=== PATIENT | female | born 1945 | race Caucasian/White ===

== ENCOUNTER 2021-12-20 15:41 | Inpatient (IN) | payer MEDICARE, SELFPAY ==
[2021-12-20 15:46] VITALS: BP 144/121; PULSE 84; RESP 16; TEMP 36.5; O2SAT 94; BMI 38.3
--- NOTE | 2021-12-20 16:00 | RAD_ITS ---
STUDY: X-RAY - PELVIS REASON FOR EXAM: Female, 76 years old. [place] pop in the right hip while walking with subsequent pain. History of right hip replacement on 12/11/2021. TECHNIQUE: One view of the pelvis was obtained. COMPARISON: Right femur, 12/20/2021. FINDINGS: There is a non-specific bowel gas pattern. Normal visualized soft tissue structures. Normal bilateral iliac wings, sacroiliac joints and visualized sacrum. Normal visualized bilateral superior and inferior pubic rami. Normal pubic symphysis. Normal ischial tuberosities. There is a right total hip arthroplasty. The prosthetic components are intact and articulate normally with each other. There is no evidence of fracture or loosening from the underlying bone. There is minimal bony productivity off the greater trochanter which approximates the lateral aspect of the acetabulum. Normal visualized left femoral head. Normal left acetabulum. There is moderate articular joint space narrowing of the left hip. RAD/HIP, UNI W/ Pelvis 2-3 Views IMPRESSION: 1. Right artificial hip without evidence of acute abnormality. 2. Degenerative changes of the left hip without acute abnormality. Electronically Signed: Pantera Maldonado DO at 16:49 EDT ,
--- NOTE | 2021-12-20 16:07 | RAD_ITS ---
STUDY: X-RAY - RIGHT FEMUR REASON FOR STUDY: Female, 76 years old. [place] pop while walking. Right hip pain. History of right hip replacement 06/13/2021. TECHNIQUE: AP and lateral view(s) of the femur. COMPARISON: Pelvis, 12/20/2021. FINDINGS: There is a right total hip arthroplasty. The prosthetic components are in intact and articulate normally with each other. There is no fracture or loosening from the underlying bone. Minimal bony productivity is seen off the greater trochanter which approximates the lateral acetabular rim. The remainder of the femur appears intact. There is marked degenerative changes of the knee. Normal visualized soft tissue structure. RAD/Femur Min 2 Views IMPRESSION: 1. Right artificial hip without acute abnormality. 2. Marked degenerative changes of the knee. Electronically Signed: Pantera Maldonado DO at 16:58 EDT ,
[2021-12-20 17:28] VITALS: BP 138/98
--- NOTE | 2021-12-20 17:33 | US_ITS ---
EXAM: US DUPLEX RIGHT LOWER EXTREMITY VEINS CLINICAL INDICATION: RT LEG SWELLING S/P RT HIP SX TECHNIQUE: Real-time duplex ultrasound scan of the right lower extremity veins integrating B-mode two-dimensional vascular structure, Doppler spectral analysis, color flow Doppler imaging and compression. This report was created using [employer] report Live [employer]end[employer] technology. COMPARISON: None. FINDINGS: DEEP VEINS: Unremarkable. No DVT in the visualized common femoral, femoral, proximal deep femoral or popliteal veins. The veins demonstrate normal color flow, are normally compressible, with normal phasic flow and/or augmentation response. SUPERFICIAL VEINS: Unremarkable. No thrombus in the visualized great saphenous vein. SOFT TISSUES: No acute findings. No popliteal cyst. US/Venous Duplex Imag/Limited/Uni IMPRESSION: Normal right lower extremity duplex venous ultrasound. Electronically Signed: Frank Swift MD at 18:56 EDT ,
--- NOTE | 2021-12-20 18:44 | CT_ITS ---
STUDY: CT RIGHT HIP WITHOUT CONTRAST REASON FOR EXAM: Female, 76 years old. Possible periprosthetic fracture. RADIATION DOSAGE (If Supplied By Facility): CTDIvol = ( 28.96 ) mGy, DLP = ( 1447.02 ) mGycm TECHNIQUE: Transaxial imaging of the right hip was performed without oral contrast, and without intravenous administration of contrast material. Multiplanar coronal and sagittal images were reformatted. Individualized dose optimization techniques were used for this CT. COMPARISON: Pelvis: 12/20/2021. Right femur, 12/20/2021 FINDINGS: Normal visualized intracranial pelvic contents. The visualized right sacroiliac joint and sacrum appear normal. Normal iliac wing. Normal right superior and inferior pubic rami and initial tuberosity. There is a right artificial hip. There is no evidence of dislocation. There is no evidence of loosening of the components of the underlying bone. There is a linear fracture of the medial aspect of the proximal femoral shaft. CT/Extremity Lower without Contra IMPRESSION: Fracture of the proximal femoral shaft without loosening of the femoral component of the right artificial hip. Electronically Signed: Pantera Maldonado DO at 19:26 EDT Reading Location ID and State: [facility] Tel [phone], Service support ,
[2021-12-20 19:00] VITALS: BP 140/79; PULSE 84; RESP 16; O2SAT 98
[2021-12-20] MEDS: Morphine 4 MG/ML Syringe IV ×2 (19:00→22:22)
--- NOTE | 2021-12-20 19:51 | ED.VIS.LOWEX ---
HPI History of Present Illness Chief Complaint: Lower Extremity Injury Informant: patient Narrative Narrative: Patient is a 76-year-old female that is 9 days postop from a right total hip arthroplasty with Dr. Aranda. She was walking at home today when she suddenly heard a loud pop in her leg and had significant pain of her leg. She was using a walker and did not fall. She states her leg feels like it stiffened up. She notes that she has had swelling and bruising of her leg and actually had a venous duplex ultrasound a couple days ago at an outside facility. Denies any chest pain, shortness of breath or difficulty breathing. No other complaints at this time. No numbness or tingling. States she does have pain going down her entire leg. No other complaints at this time. [facility] Medical History (Updated 12/20/21 @ 20:[address] Kira Barlow DO) Diabetes mellitus, type 2 GERD (gastroesophageal reflux disease) History of colon cancer Obesity Osteoarthritis Home Medications famotidine 20 mg tablet 1 tab PO DAILY 12/20/21 [History Last Taken Unknown] meloxicam 7.5 mg tablet 1 tab PO BID 12/20/21 [History Last Taken Unknown] metformin 500 mg tablet,extended release 24 hr 1 tab PO DAILY 12/20/21 [History Last Taken Unknown] Allergy/AdvReac Type Severity Reaction Status Date / Time No Known Allergies Allergy Verified 12/20/21 15:42 Family History (Updated 12/20/21 @ 20:[address] Ivone Blanco MD) Mother Diabetes Father Throat cancer Hx concurrent tobacco use. Surgical History (Updated 12/20/21 @ 20:[address] Ivone Blanco MD) History of bowel resection History of umbilical hernia repair S/P right rotator cuff repair Status post total hip replacement, right Social History (Updated 12/20/21 @ 20:[address] Ivone Blanco MD) housing: other details: Cares for her disabled son. Smoking Status: Former smoker how long ago did patient quit smoking: Smoked 1/2 ppd since youth, quit 06/2021. alcohol intake: current alcohol intake frequency: holidays/special occasions only substance use type: does not use ROS ROS ED Constitutional Constitutional ED: Denies chills or fever(s) Eyes Eyes: Denies blurry vision ENT ENT ED: Denies rhinorrhea or sore throat Cardiovascular Cardiovascular: Denies chest pain Respiratory/Chest Respiratory/Chest: Denies cough Gastrointestinal Gastrointestinal: Denies abdominal pain, nausea or vomiting Musculoskeletal Musculoskeletal: Reports other Details: right leg pain , right leg swelling ; Denies arthralgias or back pain Integumentary Reports other Details: bruising to right leg ; Denies rash Neurologic Neurologic: Denies headache(s), paresthesias or weakness Psychiatric Psychiatric: Denies anxiety Hematologic/Lymphatic Hematologic/Lymphatic: Denies easy bleeding or easy bruising EXAM Physical Exam Const Vital Signs: 12/20/21 15:46 12/20/21 17:28 12/20/21 19:00 Temperature 97.7 F L Temperature Source Oral Pulse Rate 84 84 Respiratory Rate 16 16 Blood Pressure 144/121 H 138/98 H 140/79 H Blood Pressure Mean 128 111 99 Pulse Ox 94 98 Oxygen Delivery Method Room Air Room Air Positive well nourished and well developed General Appearance ED: well developed HEENT Reports moist mucous membranes normocephalic and atraumatic Neck full ROM and supple Chest Wall inspection of chest normal Resp normal respiratory effort and clear to auscultation bilaterally Cardio regular rate and regular rhythm GI non-tender and non-distended Extremity Extremity Narrative: Decreased range of motion and pain on range of motion of the right hip. No pinpoint bony tenderness. Patient points to her proximal femur as the area of pain. Associated pitting edema with tracking ecchymosis of the right lower extremity. Compartments are soft. Neuro oriented x3, moves all extremities and no sensory deficits noted Psych mental status grossly normal Skin Skin Narrative: Ecchymosis scattered throughout the right lower extremity, healing surgical incision MDM MDM MDM Narrative Medical decision making narrative: Patient is evaluated for sudden onset of right hip pain. She is 9 days postop from right total hip arthroplasty. Initial x-rays not show any acute fracture. Venous duplex obtained of the right lower extremity given her swelling and discomfort. This is negative. Case is discussed with her surgeon, Dr. Aranda, who recommends CT for concern of fracture that was not visualized on imaging. CT does not fact show a proximal femoral shaft fracture. Patient admitted to the hospitalist service for further management of this. Screening blood work is obtained. Patient is given morphine for pain control in the emergency room in addition to medication she had prearrival. Patient is admitted to hospital service for medical clearance and operative management by orthopedics. Lab Data Labs: Laboratory Results - last 24 hr 12/20/21 12/20/21 19:29 19:29 WBC 5.8 RBC 3.13 L Hgb 10.2 L Hct 30.2 L MCV 96.5 MCH 32.6 H MCHC 33.8 RDW Std Deviation 47.7 H RDW Coeff of Albert 13.6 Plt Count 137 L MPV 8.8 Immature Gran % (Auto) 0.700 Neut % (Auto) 75.0 H Lymph % (Auto) 14.6 L [place] % (Auto) 7.5 Eos % (Auto) 1.7 Baso % (Auto) 0.5 Absolute Neuts (auto) 4.4 Absolute Lymphs (auto) 0.85 Nucleated RBC % 0 Sodium 142 Potassium 4.3 Chloride 111 H Carbon Dioxide 27.0 Anion Gap 4 L BUN 16 Creatinine 0.62 Estim Creat Clear Calc 40.21 Est GFR (MDRD) Af Amer 121 Est GFR (MDRD) Non-Af 100 BUN/Creatinine Ratio 25.8 H Glucose 126 H Calcium 9.3 Radiography X-Ray: Left Hip, Read by ED Physician, Read by Radiologist and No Fracture Diagnostic Testing: Clinical Impression(s) from Imaging Studies Hip/Pelvis X-Ray 12/20/21 16:00 IMPRESSION: 1. Right artificial hip without evidence of acute abnormality. 2. Degenerative changes of the left hip without acute abnormality. Electronically Signed: Pantera Maldonado DO at 16:49 EDT Reading Location ID and State: [facility] / [place] Tel [phone], Service support , Femur X-Ray 12/20/21 16:07 IMPRESSION: 1. Right artificial hip without acute abnormality. 2. Marked degenerative changes of the knee. Electronically Signed: Pantera Maldonado DO at 16:58 EDT , Venous Duplex 12/20/21 17:33 IMPRESSION: Normal right lower extremity duplex venous ultrasound. Electronically Signed: Frank Swift MD at 18:56 EDT Reading Location ID and State: [facility] / [place] Tel , Service support , Lower Extremity CT 12/20/21 18:44 IMPRESSION: Fracture of the proximal femoral shaft without loosening of the femoral component of the right artificial hip. Electronically Signed: Pantera Maldonado DO at 19:26 EDT Reading Location ID and State: [address] [place] [address] Tel [phone], Service support , Discharge Plan Triage Chief Complaint: Lower Extremity Injury ED Provider: Kira Barlow Dx/Rx/DC Orders Clinical Impression: Right femoral shaft fracture Prescriptions: No Action meloxicam 7.5 mg tablet 1 tab PO BID Label Comments: take 1 tablet by mouth twice a day metformin 500 mg tablet extended release 24 hr 1 tab PO DAILY Label Comments: take 1 tablet by mouth once daily famotidine 20 mg tablet 1 tab PO DAILY Label Comments: take 1 tablet by mouth once daily Primary Care Provider: Christopher Spencer Referrals: Christopher Spencer DO [Primary Care Provider] - Disposition Disposition: Acute Care Hospital [facility]
[2021-12-20 19:53] LABS: Anion Gap 4 (5-15); BUN 16 mg/dL (7-18); BUN/Creat Ratio 25.8 RATIO (10-20); Calcium,Total 9.3 mg/dL (8.5-10.1); Chloride 111 mmol/L (98-107); Creatinine, Serum 0.62 mg/dL (0.55-1.02); EST Glomerular Filtration Rate 100 mL/min (>60); Est Glom Filt Rate - Afr Amer 121 mL/min (>60); Estimated Creatinine Clearance 40.21 ml/min; Glucose 126 mg/dL (74-106); Potassium 4.3 mmol/L (3.5-5.1); Sodium Level 142 mmol/L (136-145)
[2021-12-20 20:14] LABS: Absolute Lymphocyte Count 0.85 X10^3/uL (0.83-4.51); Absolute Neutrophil Count 4.4 X10^3/uL (2.0-7.7); Basophil# 0.03 X10^3/uL; Basophil% 0.5 % (0-1); Eosinophils% 1.7 % (0-5); Hematocrit 30.2 % (37-47); Hemoglobin 10.2 g/dL (12.0-15.0); Lymphocyte # 0.85 X10^3/ul (0.83-4.51); Lymphocyte % 14.6 % (19-41); Mean Corp Hgb Conc 33.8 g/dL (32-36); Mean Corpuscular Hgb 32.6 pg (27.0-32.0); Mean Corpuscular Volume 96.5 fL (81-99); Mean Platelet Vol. 8.8 fl (6.2-12.0); Monocyte# 0.44 X10^3/uL; Monocyte% 7.5 % (0-10); NRBC Flagged by Analyzer 0 % (0-5); Neutrophil # 4.38 X10^3/uL (2.7-7.7); Platelet Count 137 K/mm3 (150-450); RBC Distribution Width CV 13.6 % (11.6-14.6); RBC Distribution Width SD 47.7 fl (35.1-43.9); Red Blood Count 3.13 M/mm3 (4.2-5.4); White Blood Count 5.8 K/mm3 (4.4-11.0)
--- NOTE | 2021-12-20 20:28 | HP.PCM.HOS_ITS ---
HPI - General General Date of Admission: 12/20/21 Date of Service: 12/20/21 Chief Complaint: R hip/leg pop, followed by pain, recent 12/11/21 R THR HPI Narrative The patient is a 76 y/o F w/ PMHx: GERD, Hx Colon CA s/p resection in remission, OA, Obesity, Diabetes mellitus type II, recent R THR per Dr. Aranda on 12/11/21 with noted return to home following her procedure who presents to the [facility] ED on 12/20/21 with history of walking in her home with no fall or injury but noted sudden popping sound from her R hip region with immediate sudden onset severe R hip/RLE pain, severe 8-10/10 in severity initially, notes following recent morphine improving to 6-8/10. She notes that she was recently seen following OR on the Friday of this week secondary to concerns for profound RLE swelling and staged ecchymoses with unremarkable evaluation at that time. Work-up in the ED included T97.7, heart rate 84, BP 144/121 initially with most recent repeat 140/79, respiratory rate 16, 98% on room air, CBC with WC 5.8, hemoglobin 10.2, platelet 137 without marked shift, BMP with chloride 111, glucose 126 otherwise not marked appearing, plain film of the right hip and pelvis with right artificial hip present with no evidence of abnormality with degenerative changes of the left hip without any acute abnormality, plain film right femoral region with right artificial hip without any acute abnormality with marked generative changes of the knee, right lower extremity venous duplex ultrasound with no obvious DVT, CT right hip with fracture of the proximal femoral shaft without loosening of the femoral component of the right artificial hip. ED physician discussed case with Dr. Aranda who performed her recent surgery who requested medical admission with planned n.p.o. status at midnight for possible or intervention. [facility] Medical History (Updated 12/20/21 @ 20:[address] Kira Barlow, ) Diabetes mellitus, type 2 GERD (gastroesophageal reflux disease) History of colon cancer Obesity Osteoarthritis Home Medications famotidine 20 mg tablet 1 tab PO DAILY 12/20/21 [History Last Taken Unknown] meloxicam 7.5 mg tablet 1 tab PO BID 12/20/21 [History Last Taken Unknown] metformin 500 mg tablet,extended release 24 hr 1 tab PO DAILY 12/20/21 [History Last Taken Unknown] Allergy/AdvReac Type Severity Reaction Status Date / Time No Known Allergies Allergy Verified 12/20/21 15:42 Family History (Updated 12/20/21 @ 20:[address] Ivone Blanco MD) Mother Diabetes Father Throat cancer Hx concurrent tobacco use. Surgical History (Updated 12/20/21 @ 20:[address] Ivone Blanco MD) History of bowel resection History of umbilical hernia repair S/P right rotator cuff repair Status post total hip replacement, right Social History (Updated 12/20/21 @ 20:[address] Ivone Blanco MD) household members: family Smoking Status: Never smoker how long ago did patient quit smoking: Smoked 1/2 ppd since youth, quit 06/2021. alcohol intake: never substance use type: does not use ROS ROS Narrative Admission Review of Systems: CONSTITUTIONAL: No weight loss, fever, chills, + weakness or fatigue. HEENT: Eyes: No visual loss, blurred vision, double vision or yellow sclerae. Ears, Nose, Throat: No hearing loss, sneezing, congestion, runny nose or sore throat. SKIN: No rash or itching, lesions, wounds except recent R THR w/ incision, BL LE venous stasis skin changes. CARDIOVASCULAR: No chest pain, chest pressure or chest discomfort, palpitations, edema, orthopnea, syncopal events. RESPIRATORY: No shortness of breath, cough or sputum, wheezing, hemoptysis. GASTROINTESTINAL: No anorexia, nausea, vomiting or diarrhea, abdominal pain, melena, BRBPR. GENITOURINARY: No dysuria, frequency, urgency or retention. NEUROLOGICAL: No headache, dizziness, syncope, paralysis, ataxia, numbness or tingling in the extremities, focal weakness, change in bowel or bladder control, seizure. MUSCULOSKELETAL: + muscle, back pain, joint pain or stiffness. HEMATOLOGIC: + anemia, bleeding or bruising. LYMPHATICS: No enlarged nodes. No history of splenectomy. PSYCHIATRIC: No history of depression or anxiety. ENDOCRINOLOGIC: No reports of sweating, cold or heat intolerance. No polyuria or polydipsia. ALLERGIES: No history of asthma, hives, eczema or rhinitis. Vital Signs Vital Signs Vital Signs: 12/20/21 15:46 12/20/21 17:28 Temperature 97.7 F L Temperature Source Oral Pulse Rate 84 Respiratory Rate 16 Blood Pressure 144/121 H 138/98 H Blood Pressure Mean 128 111 Pulse Ox 94 Oxygen Delivery Method Room Air Weight Weight: 216 lb 7.903 oz Body Mass Index (BMI) 38.3 Physical Exam Narrative Physical Examination: General: Awake, alert, oriented x 3 and cooperative, laying in the ED bed, uncomfortable, reports pain currently 6-8 out of 10 in severity. Skin: Normal color, normal turgor, no icterus, no cyanosis except recent right total hip replacements with incisions intact, no drainage, bilateral lower extremity right greater than left venous stasis in addition to staged ecchymoses right lower extremity. HEENT: AT/NC, EOMI, PERRLA, MMM, no carotid bruits or JVD noted. Lungs: CTA bilaterally, moderate effort, mild decrease BL bases, no rales, ronchi or wheezing. Heart: Regular rate and rhythm; no gallop, rub audible. Abdomen: Soft, obese, NTTP, ND, distant normal BS, no HSM. Extremities: No cyanosis, no clubbing, right lower extremity with significant pedal to proximal abernathy pitting edema, staged ecchymoses, recent right total hip replacement with incisions intact no drainage. Neurological: Patient awake, alert, oriented x 3, cognitive function intact; pupils equally reactive to light and accommodation, cranial nerves II-XII grossly normal, moving all 4 extremities except expected right lower extremity limitation given intractable pain with femoral shaft fracture, no focal deficits, strength severely global decrease secondary to acute presentation Psychiatric: Affect appears fatigued, uncomfortable, no acute evidence of depressive or anxiety feelings. Results Lab / Micro Data Result Diagrams: 12/20/21 19:29 12/20/21 19:29 Labs: Laboratory Results - last 24 hr 12/20/21 19:29: WBC 5.8, RBC 3.13 L, Hgb 10.2 L, Hct 30.2 L, MCV 96.5, MCH 32.6 H, MCHC 33.8, RDW Std Deviation 47.7 H, RDW Coeff of Albert 13.6, Plt Count 137 L, MPV 8.8, Immature Gran % (Auto) 0.700, Neut % (Auto) 75.0 H, Lymph % (Auto) 14.6 L, [place] % (Auto) 7.5, Eos % (Auto) 1.7, Baso % (Auto) 0.5, Absolute Neuts (auto) 4.4, Absolute Lymphs (auto) 0.85, Nucleated RBC % 0 12/20/21 19:29: Sodium 142, Potassium 4.3, Chloride 111 H, Carbon Dioxide 27.0, Anion Gap 4 L, BUN 16, Creatinine 0.62, Estim Creat Clear Calc 40.21, Est GFR (MDRD) Af Amer 121, Est GFR (MDRD) Non-Af 100, BUN/Creatinine Ratio 25.8 H, Glucose 126 H, Calcium 9.3 Radiology Impression Hip/Pelvis X-Ray 12/20/21 16:00 IMPRESSION: 1. Right artificial hip without evidence of acute abnormality. 2. Degenerative changes of the left hip without acute abnormality. Electronically Signed: Pantera Maldonado DO at 16:49 EDT Reading Location ID and State: [facility] / [place] Tel [phone], Service support , Femur X-Ray 12/20/21 16:07 IMPRESSION: 1. Right artificial hip without acute abnormality. 2. Marked degenerative changes of the knee. Electronically Signed: Pantera Maldonado DO at 16:58 EDT Reading Location ID and State: [facility] / [place] Tel [phone], Service support , Venous Duplex 12/20/21 17:33 IMPRESSION: Normal right lower extremity duplex venous ultrasound. Electronically Signed: Frank Swift MD at 18:56 EDT , Lower Extremity CT 12/20/21 18:44 IMPRESSION: Fracture of the proximal femoral shaft without loosening of the femoral component of the right artificial hip. Electronically Signed: Pantera Maldonado DO at 19:26 EDT , Assessment & Plan Assessment/Plan (1) Right femoral shaft fracture: PLAN: Plan The patient is a 76 y/o F w/ PMHx: GERD, Hx Colon CA s/p resection in remission, OA, Obesity, Diabetes mellitus type II, recent R THR per Dr. Aranda on 12/11/21 with noted return to home following her procedure who presents to the [facility] ED on 12/20/21 with history of walking in her home with no fall or injury but noted sudden popping sound from her R hip region with immediate sudden onset severe R hip/RLE pain, severe 8-10/10 in severity initially, notes following recent morphine improving to 6-8/10. She notes that she was recently seen following OR on the Friday of this week secondary to concerns for profound RLE swelling and staged ecchymoses with unremarkable evaluation at that time. #1. General debility, RLE, R hip pain s/p recent R THR: Follow-up CT imaging with evidence of proximal femoral shaft fracture without loosening of femoral component of the right artificial hip with etiology of fracture likely secondary to some mechanism related with recent surgery. Orthopedic surgery consulted from ED. Will admit to [facility], maintain NPO after midnight, continue gentle IVFs, fortune placement, monitor I/Os, frequent positioning, fall precautions, PRN Pain, anti-emetic regimen. PT/OT following operative intervention. CM consulted for discharge planning. Per NSQIP patient expected average risk for operative intervention with recent preoperative clearance for recent 12/11/2021 surgical intervention thus agree with progression OR. #2. Diabetes mellitus type II: Hold oral home regimen, ADA diet until n.p.o. status, accu checks w/ ISS. #3. Obesity: Weight loss and lifestyle changes encouraged. #4. GERD: We will continue patient on famotidine regimen. #5. History colon cancer: Status post resection, in remission. #6. DVT prophylaxis: SCDs, defer chemoprophylaxis for planned OR. #7. CODE status: Patient WILLIAM is her daughter and her granddaughter was present and living will is currently in place. Discussed CODE status at length including difference between FULL code, DNR-CCA and DNR-CC status. Following discussions about the differences in these status, requested Full Code status. Advanced Care Planning Face to Face Time: 16 minutes. Charges/Coding Visit Charges Inpatient E&M: 32439 Init Hosp L3 Procedures Hospitalists Procedures: 75174 Advncd Care Plan 30 Min
[2021-12-20 20:42] VITALS: BP 140/79; PULSE 85; RESP 14; TEMP 36.3; O2SAT 99
[2021-12-20 22:45] LABS: Bedside Glucose 112 mg/dL (74-106)
[2021-12-20 22:53] VITALS: BMI 34.4
[2021-12-20] MEDS: 0.9% Normal Saline 1,000 ML 100 ML IV ×2 (22:57→23:16)
[2021-12-20] MEDS: Senna/Docusate Sodium 1 Tablet 2 TABLET PO (23:16)
[2021-12-20] MEDS: Meloxicam 7.5 MG Tablet PO (23:16)
[2021-12-20 23:21] VITALS: BP 136/47; PULSE 84; RESP 16; TEMP 37; O2SAT 96
[2021-12-21] VITALS (11 sets, daily range): BP systolic 115–154; BP diastolic 43–89; PULSE 73–86; RESP 16–18; TEMP 36.2–37.3; O2SAT 90–100; BMI 34.9
[2021-12-21 05:29] LABS: Absolute Lymphocyte Count 0.92 X10^3/uL (0.83-4.51); Absolute Neutrophil Count 2.8 X10^3/uL (2.0-7.7); Basophil# 0.01 X10^3/uL; Basophil% 0.2 % (0-1); Eosinophil# 0.11 X10^3/uL; Eosinophils% 2.6 % (0-5); Hematocrit 29.6 % (37-47); Hemoglobin 9.7 g/dL (12.0-15.0); Lymphocyte # 0.92 X10^3/ul (0.83-4.51); Lymphocyte % 21.5 % (19-41); Mean Corp Hgb Conc 32.8 g/dL (32-36); Mean Corpuscular Hgb 32.1 pg (27.0-32.0); Mean Platelet Vol. 8.9 fl (6.2-12.0); Monocyte# 0.41 X10^3/uL; Monocyte% 9.6 % (0-10); NRBC Flagged by Analyzer 0 % (0-5); Neutrophil % 65.4 % (47-70); Platelet Count 118 K/mm3 (150-450); RBC Distribution Width CV 13.4 % (11.6-14.6); RBC Distribution Width SD 47.6 fl (35.1-43.9); Red Blood Count 3.02 M/mm3 (4.2-5.4); White Blood Count 4.3 K/mm3 (4.4-11.0)
[2021-12-21 05:38] LABS: International Normalized Ratio 1.2; Prothrombin Time (Protime)PT. 14.9 SECONDS (11.7-14.9)
[2021-12-21 05:39] LABS: Partial Thromboplast Time 40.1 Seconds (24.1-36.2)
[2021-12-21 05:55] LABS: ALB/GLOB Ratio 0.7 RATIO (0.9-2.4); AST(SGOT) 24 U/L (15-37); Alanine Aminotransfer ALT/SGPT 20 U/L (13-56); Albumin, Serum 2.3 g/dL (3.2-5.0); Alkaline Phosphatase 109 U/L (45-117); Anion Gap 3 (5-15); BUN 13 mg/dL (7-18); BUN/Creat Ratio 27.1 RATIO (10-20); Calcium,Total 8.8 mg/dL (8.5-10.1); Chloride 112 mmol/L (98-107); Creatinine, Serum 0.48 mg/dL (0.55-1.02); EST Glomerular Filtration Rate 134 mL/min (>60); Est Glom Filt Rate - Afr Amer 162 mL/min (>60); Estimated Creatinine Clearance 41.97 ml/min; Globulin 3.1 g/dL (2.2-4.2); Glucose 104 mg/dL (74-106); Potassium 4.2 mmol/L (3.5-5.1); Protein, Total 5.4 g/dL (6.4-8.2); Sodium Level 143 mmol/L (136-145)
--- NOTE | 2021-12-21 06:00 | EKG12_ITS ---
Test Reason : AM EKG Blood Pressure : / mmHG Vent. Rate : 078 BPM Atrial Rate : 078 BPM P-R Int : 136 ms QRS Dur : 088 ms QT Int : 408 ms P-R-T Axes : 030 049 037 degrees QTc Int : 465 ms Normal sinus rhythm Normal ECG No previous ECGs available Confirmed by MEHNAZ MCCORMICK, JENNIFER ([id number]), editor managing director JEFFREY LEON ([id number]) on 12/31/2021 2:10:28 PM Referred By: WILMAN Confirmed By:JENNIFER DARBY MD
[2021-12-21] MEDS: Morphine 4 MG/ML Syringe IV ×2 (06:37→20:55)
[2021-12-21 06:50] LABS: Bedside Glucose 108 mg/dL (74-106)
--- NOTE | 2021-12-21 07:25 | PCM.PN.HOSP ---
Subjective Subjective Patient is a 76-year-old lady with a recent right total hip arthroplasty on 12/11/2021 who presented with pain in the right hip. She apparently had a pop while walking and noted shortening involving the right lower extremity. Presented to the emergency department imaging studies obtained demonstrated fracture of the proximal femoral shaft without loosening of the femoral component of the right artificial hip. Admitted to regular nursing floor with consultation placed orthopedic surgery Objective Data Objective Data Vital Signs: Vital Signs Temp Pulse Resp BP Pulse Ox O2 Del Method 98.5 F 79 16 132/43 H 97 Room Air 12/21/21 03:33 12/21/21 03:33 12/21/21 03:33 12/21/21 03:33 12/21/21 03:33 12/21/21 03:33 Oxygen Delivery Method Room Air Weight: 92.3 kg Body Mass Index (BMI) 34.4 Intake & Output: Intake and Output for Last 24 Hours 12/19/21 12/20/21 12/21/21 23:59 23:59 23:59 Intake Total 31.67 / 631.67 600 / 600 Output Total 875 / 875 Balance 31.67 / 431.67 -275 / -275 Lab / Micro Data Result Diagrams: 12/21/21 05:10 12/21/21 05:10 Labs: Laboratory Results - last 24 hr 12/20/21 19:29: WBC 5.8, RBC 3.13 L, Hgb 10.2 L, Hct 30.2 L, MCV 96.5, MCH 32.6 H, MCHC 33.8, RDW Std Deviation 47.7 H, RDW Coeff of Albert 13.6, Plt Count 137 L, MPV 8.8, Immature Gran % (Auto) 0.700, Neut % (Auto) 75.0 H, Lymph % (Auto) 14.6 L, [place] % (Auto) 7.5, Eos % (Auto) 1.7, Baso % (Auto) 0.5, Absolute Neuts (auto) 4.4, Absolute Lymphs (auto) 0.85, Nucleated RBC % 0 12/20/21 19:29: Sodium 142, Potassium 4.3, Chloride 111 H, Carbon Dioxide 27.0, Anion Gap 4 L, BUN 16, Creatinine 0.62, Estim Creat Clear Calc 40.21, Est GFR (MDRD) Af Amer 121, Est GFR (MDRD) Non-Af 100, BUN/Creatinine Ratio 25.8 H, Glucose 126 H, Calcium 9.3 12/20/21 22:16: POC Glucose 112 H 12/21/21 05:10: WBC 4.3 L, RBC 3.02 L, Hgb 9.7 L, Hct 29.6 L, MCV 98.0, MCH 32.1 H, MCHC 32.8, RDW Std Deviation 47.6 H, RDW Coeff of Albert 13.4, Plt Count 118 L, MPV 8.9, Immature Gran % (Auto) 0.700, Neut % (Auto) 65.4, Lymph % (Auto) 21.5, [place] % (Auto) 9.6, Eos % (Auto) 2.6, Baso % (Auto) 0.2, Absolute Neuts (auto) 2.8, Absolute Lymphs (auto) 0.92, Nucleated RBC % 0 12/21/21 05:10: Sodium 143, Potassium 4.2, Chloride 112 H, Carbon Dioxide 28.0, Anion Gap 3 L, BUN 13, Creatinine 0.48 L, Estim Creat Clear Calc 41.97, Est GFR (MDRD) Af Amer 162, Est GFR (MDRD) Non-Af 134, BUN/Creatinine Ratio 27.1 H, Glucose 104, Calcium 8.8, Total Bilirubin 0.90, AST 24, ALT 20, Alkaline Phosphatase 109, Total Protein 5.4 L, Albumin 2.3 L, Globulin 3.1, Albumin/Globulin Ratio 0.7 L 12/21/21 05:10: PT 14.9, INR 1.2, APTT 40.1 H 12/21/21 05:10: Blood Type O POSITIVE, Antibody Screen NEGATIVE 12/21/21 06:33: POC Glucose 108 H Radiography Diagnostic Testing: Radiology Impression Hip/Pelvis X-Ray 12/20/21 16:00 IMPRESSION: 1. Right artificial hip without evidence of acute abnormality. 2. Degenerative changes of the left hip without acute abnormality. Electronically Signed: Pantera Maldonado DO at 16:49 EDT Reading Location ID and State: [address] [place] [address] Tel [phone], Service support , Femur X-Ray 12/20/21 16:07 IMPRESSION: 1. Right artificial hip without acute abnormality. 2. Marked degenerative changes of the knee. Electronically Signed: Pantera Maldonado DO at 16:58 EDT , Venous Duplex 12/20/21 17:33 IMPRESSION: Normal right lower extremity duplex venous ultrasound. Electronically Signed: Frank Swift MD at 18:56 EDT , Lower Extremity CT 12/20/21 18:44 IMPRESSION: Fracture of the proximal femoral shaft without loosening of the femoral component of the right artificial hip. Electronically Signed: Pantera Maldonado DO at 19:26 EDT , Physical Exam Narrative GENERAL: cooperative HEENT: Atraumatic; EYES; Anicteric, Normal Conjunctiva NECK; supple, normal thyroid, RESPIRATORY: Diminished to auscultation CARDIOVASCULAR: Regular S1 S2, GI: soft, normoactive bowel sounds, : No Renal angle tenderness; EXTREMITIES: No edema, no clubbing, MUSCULOSKELETAL: no muscle wasting NEURO: Awake; no lateralizing signs. SKIN: No Rash PSYCH; Flat affect Assessment & Plan Assessment/Plan (1) Right femoral shaft fracture: PLAN: Plan Patient is a 76-year-old lady with a recent right total hip arthroplasty on 12/11/2021 who presented with pain in the right hip. She apparently had a pop while walking and noted shortening involving the right lower extremity. Presented to the emergency department imaging studies obtained demonstrated fracture of the proximal femoral shaft without loosening of the femoral component of the right artificial hip. Admitted to regular nursing floor with consultation placed orthopedic surgery 1. Right proximal femoral fracture ? Admitted to regular nursing floor. Currently managed with immobilization pain management with consultation placed to orthopedic surgery. Patient preop assessment as documented by admitting physician. Plan for patient to undergo surgical intervention. Dr. Aranda with orthopedic surgery consulted 2. Diabetes mellitus type II ? Patient on metformin held please on Accu-Cheks before meals and at bedtime with sliding scale coverage 3. GERD ? Patient is on famotidine continue 4. Class I obesity with BMI of 34.9 ? Weight loss advised 5. History of colon CA ? Status post resection has since remained in remission 6. DVT prophylaxis ? SCDs for now with plans to initiate chemoprophylaxis following surgery Charges/Coding Visit Charges Inpatient E&M: 40424 Subs Hosp L3
[2021-12-21 07:54] LABS: Hemoglobin A1c 4.8 % (3.8-5.6)
[2021-12-21] MEDS: 0.9% Normal Saline 1,000 ML 100 ML IV ×2 (08:52→21:01)
--- NOTE | 2021-12-21 10:49 | CASEMGMT ---
WILIAM LUNA Assessment: Face to Face with pt for initial transition planning/care coordination assessment. WILIAM LUNA introduced self and role at [facility], pt voices understanding and consents to assessment. Pt is A/O x4 and answers all questions appropriately at this time. Pt lying in bed in no distress with granddtr, grandson and great grandson at bedside. Care providers, pharmacy, and demographics verified/updated. Admitting Dx: R femoral shaft fx, recent R THR PCP: Johanna Specialists:romero Aranda current and has seen Carlos in the past for her shoulder Preferred Pharmacy: [facility] Insurance: [employer] Prescription Benefit: yes LW/HPOA: Pt states she has a LW/DPOA and her DPOA is her dtr Maria Esther Vieira. She is aware this is not on file at [facility] and she may bring in to be scanned into her chart. LNOK: Maria Esther Vieira, dtr; Shelli Phelps, granddtr Living Arrangements: Pt lives alone in a single story house with 3 steps to enter with a rail. Pt is currently staying with her sister Leroy in [place] since her outpatient THR on December 11. She has been going to outpt therapy since that surgery. Pt states she is I in ADL's and denies concerns at home. Transportation: Pt sister Blanca or Leroy has been providing transportation for pt. She denies concerns with this. DME/HHC/SNF: Pt has a FWW, w/c, shower chair, polar care and wedge at home. Pt denies hx of HHC or SNF stays. Pt states no concerns with going back to her sister's home at time of dc. Pt has not yet had surgery. She would like to continue her outpt therapy at [facility]. She is aware we will see how she does with therapy for final dc disposition post surgery. Pt states no further concerns/needs. Pt granddtr in agreement with this plan. CM to follow. Advised pt to ask CM if any further question/concerns/needs arise, voices understanding. Pt Goal: Stay with sister and receive outpt therapy Plan: TBD, pt has not yet had surgery
[2021-12-21 12:15] LABS: Bedside Glucose 97 mg/dL (74-106)
--- NOTE | 2021-12-21 14:29 | CHAPLAIN ---
Type of Pastoral Visit _x__ Initial Visit ___ Follow-up Visit ___ On-call Visit ___ General Patient Visit ___ Spiritual Assessment ___ Family Conference ___ Bereavement ___ Rapid Response ___ Code Blue ___ Other (describe below) Pastoral Care Referral From _x__ Patient ___ Family ___ Nurse ___ Physician ___ Insurance Assistant ___ Psychiatric Assistant ___ Other (describe below) Sacrament/Intervention _x__ Active listening ___ Anointing ___ Protestant ___ Bereavement ___ Communion ___ Nancy exploration ___ ___ Life review _x__ Prayer ___ Reconciliation ___ Sacrament of Sick _x__ Supportive presence ___ Wedding ___ Other (describe below) Pastoral Comments met with patient who is having surgery this afternoon; time to listen, offer of support, prayers for surgery and recovery
--- NOTE | 2021-12-21 14:54 | CASEMGMT ---
Social Work Per RNCM note, pt has a living will and healthcare POA naming her daughter. Pt is aware that copies are not on file at [facility] and it was requested she bring them in. SAMIR Dawkins
--- NOTE | 2021-12-21 15:31 | PCM.CONS.GEN ---
Assessment & Plan Assessment/Plan (1) Right femoral shaft fracture: PLAN: Patient has right periprosthetic proximal femur fracture. CT scan and x-rays were reviewed. Stem shows subsidence and a clamshell medial calcar type fracture. Natural history of the disease process and treatment options were discussed with the patient. This time I recommended revision of the stem with fixation of the fracture and revision of the acetabular component from a polyethylene liner to an MDM liner. Patient demonstrated understanding was able to sign informed consent. Risks of surgeries were discussed with the patient including but not limited to blood loss, DVTs, PEs, nervous damage, infection, the risk of anesthesia including loss of life. She recently underwent her total hip replacement without medical complications. However she has some continued anemia likely related to acute blood loss from surgical intervention. Patient will be typed and screened we will transfuse as necessary. Patient demonstrates understanding of the natural history and the risks and benefits today her sister was at bedside and demonstrate understanding as well. We also discussed potential for leg length discrepancies and instability especially after 2 recent hip surgeries. (2) History of total right hip arthroplasty: PLAN: See above plan (3) Anemia: PLAN: Type and screen obtained. We will transfuse as necessary. Currently vital signs are stable. HPI Consult Data Date of Consult: 12/21/21 HPI Narrative HPI Narrative: ABDIRAHMAN ROGERS, is a 76 F who presents today with right hip pain. Patient has a history of diabetes mellitus. She had previous total hip replacement on December 11. She was doing well postoperatively. She went to physical therapy yesterday and had done well. She was walking around her house when she felt a pop in her right thigh. She notes inability to bear weight. Her sister whom she was staying with brought a chair over. They then brought her to the emergency department where she was complaining of pain. Patient's pain is 10 out of 10 with weightbearing. Improved with rest and nonweightbearing as well as pain medications. No associated numbness and tingling. Denies fevers chills or night sweats. Denies any antecedent pain prior to this. Hemoglobin is 9.7 likely related to postoperative blood loss from recent surgery. [facility] Medical History Diabetes mellitus, type 2 GERD (gastroesophageal reflux disease) History of colon cancer Obesity Osteoarthritis Home Medications famotidine 20 mg tablet 1 tab PO DAILY GERD 12/20/21 [History Last Taken 12/20/21] meloxicam 7.5 mg tablet 1 tab PO BID pain 12/20/21 [History Last Taken 12/20/21] metformin 500 mg tablet,extended release 24 hr 1 tab PO DINNER diabetes 12/20/21 [History Last Taken 12/20/21] Allergy/AdvReac Type Severity Reaction Status Date / Time No Known Allergies Allergy Verified 12/20/21 15:42 Family History Mother Diabetes Father Throat cancer Hx concurrent tobacco use. Surgical History History of bowel resection History of umbilical hernia repair S/P right rotator cuff repair Status post total hip replacement, right Social History household members: family Smoking Status: Never smoker how long ago did patient quit smoking: Smoked 1/2 ppd since youth, quit 06/2021. alcohol intake: never substance use type: does not use ROS Constitutional Constitutional: Reports systems reviewed and no addt'l complaints, except as documented Eyes Eyes: Reports systems reviewed and no addt'l complaints, except as documented ENT HEENT: Reports systems reviewed and no addt'l complaints, except as documented Cardiovascular Cardiovascular: Reports systems reviewed and no addt'l complaints, except as documented Respiratory/Chest Respiratory/Chest: Reports systems reviewed and no addt'l complaints, except as documented Gastrointestinal Gastrointestinal: Reports systems reviewed and no addt'l complaints, except as documented Genitourinary Genitourinary: Reports systems reviewed and no addt'l complaints, except as documented Musculoskeletal Musculoskeletal: Reports systems reviewed and no addt'l complaints, except as documented Integumentary Integumentary: Reports systems reviewed and no addt'l complaints, except as documented Neurologic Neurologic: Reports systems reviewed and no addt'l complaints, except as documented Psychiatric Psychiatric: Reports systems reviewed and no addt'l complaints, except as documented Endocrine Endocrinology: Reports systems reviewed and no addt'l complaints, except as documented Hematologic/Lymphatic Hematologic/Lymphatic: Reports systems reviewed and no addt'l complaints, except as documented Allergic/Immunologic Allergic/Immunologic: Reports systems reviewed and no addt'l complaints, except as documented Physical Exam Const alert, oriented x3 and no apparent distress General Appearance: cooperative, comfortable and well kempt HEENT normocephalic Eyes PERRL Neck No nuchal rigidity Resp normal respiratory effort Cardio Jugular Venous Distention: Negative for JVD GI non-distended Extremity Extremity Narrative: Right lower extremity: Lower extremity is shortened. Mild swelling of the thigh. Anterior incision is well-approximated and healing appropriately. Pain with logroll. Positive dorsiflexion EHL plantar flexion. Positive sensation intact light touch saphenous, sural, superficial peroneal, deep peroneal tibial nerve distributions. Skin Skin Narrative: Anterior incision healing well well approximated. Neuro oriented x3 Psych mental status grossly normal Medical Records Data Attestation: I reviewed the patient's medical records Lab / Micro Data Attestation: I reviewed the patient's lab results. Result Diagrams: 12/21/21 05:10 12/21/21 05:10 Labs: Laboratory Results - last 24 hr 12/20/21 19:29: WBC 5.8, RBC 3.13 L, Hgb 10.2 L, Hct 30.2 L, MCV 96.5, MCH 32.6 H, MCHC 33.8, RDW Std Deviation 47.7 H, RDW Coeff of Albert 13.6, Plt Count 137 L, MPV 8.8, Immature Gran % (Auto) 0.700, Neut % (Auto) 75.0 H, Lymph % (Auto) 14.6 L, [place] % (Auto) 7.5, Eos % (Auto) 1.7, Baso % (Auto) 0.5, Absolute Neuts (auto) 4.4, Absolute Lymphs (auto) 0.85, Nucleated RBC % 0 12/20/21 19:29: Sodium 142, Potassium 4.3, Chloride 111 H, Carbon Dioxide 27.0, Anion Gap 4 L, BUN 16, Creatinine 0.62, Estim Creat Clear Calc 40.21, Est GFR (MDRD) Af Amer 121, Est GFR (MDRD) Non-Af 100, BUN/Creatinine Ratio 25.8 H, Glucose 126 H, Calcium 9.3 12/20/21 22:16: POC Glucose 112 H 12/21/21 05:10: WBC 4.3 L, RBC 3.02 L, Hgb 9.7 L, Hct 29.6 L, MCV 98.0, MCH 32.1 H, MCHC 32.8, RDW Std Deviation 47.6 H, RDW Coeff of Albert 13.4, Plt Count 118 L, MPV 8.9, Immature Gran % (Auto) 0.700, Neut % (Auto) 65.4, Lymph % (Auto) 21.5, [place] % (Auto) 9.6, Eos % (Auto) 2.6, Baso % (Auto) 0.2, Absolute Neuts (auto) 2.8, Absolute Lymphs (auto) 0.92, Nucleated RBC % 0 12/21/21 05:10: Sodium 143, Potassium 4.2, Chloride 112 H, Carbon Dioxide 28.0, Anion Gap 3 L, BUN 13, Creatinine 0.48 L, Estim Creat Clear Calc 41.97, Est GFR (MDRD) Af Amer 162, Est GFR (MDRD) Non-Af 134, BUN/Creatinine Ratio 27.1 H, Glucose 104, Calcium 8.8, Total Bilirubin 0.90, AST 24, ALT 20, Alkaline Phosphatase 109, Total Protein 5.4 L, Albumin 2.3 L, Globulin 3.1, Albumin/Globulin Ratio 0.7 L 12/21/21 05:10: PT 14.9, INR 1.2, APTT 40.1 H 12/21/21 05:10: Hemoglobin A1c 4.8 12/21/21 05:10: Blood Type O POSITIVE, Antibody Screen NEGATIVE 12/21/21 06:33: POC Glucose 108 H 12/21/21 11:52: POC Glucose 97 Radiology Impression Hip/Pelvis X-Ray 12/20/21 16:00 IMPRESSION: 1. Right artificial hip without evidence of acute abnormality. 2. Degenerative changes of the left hip without acute abnormality. Electronically Signed: Pantera Maldonado DO at 16:49 EDT Reading Location ID and State: [facility] / [place] Tel [phone], Service support , Femur X-Ray 12/20/21 16:07 IMPRESSION: 1. Right artificial hip without acute abnormality. 2. Marked degenerative changes of the knee. Electronically Signed: Pantera Maldonado DO at 16:58 EDT , Venous Duplex 12/20/21 17:33 IMPRESSION: Normal right lower extremity duplex venous ultrasound. Electronically Signed: Frank Swift MD at 18:56 EDT , Lower Extremity CT 12/20/21 18:44 IMPRESSION: Fracture of the proximal femoral shaft without loosening of the femoral component of the right artificial hip. Electronically Signed: Pantera Maldonado DO at 19:26 EDT ,
[2021-12-21] MEDS: Cefazolin 2 GM in 0.9% Normal Saline 100 ML IV (15:58)
--- NOTE | 2021-12-21 18:35 | OP.PCM_ITS ---
Report of Operation Date of Procedure: 12/21/21 Pre-Operative Diagnosis: Right hip periprosthetic femur fracture [place] B2 Post-Operative Diagnosis: Right hip periprosthetic femur fracture [place] B2 Surgery/Procedure Performed:: Open reduction internal fixation proximal femur fracture with revision total hip replacement both components Description of Surgical Findings:: Hip acetabular component was revised to an MDM component secondary to concerns for stability after fracture. Leg lengths were equal in the lateral decubitus position. Hip was stable with 45 degrees combined anteversion. Surgeon: Temo Aranda rn transfer: Denise Velazquez Type of Anesthesia: General Anesthesiologist: Vern Wright Special Medications: 2 g of Ancef. Specimen's removed: No specimens Estimated Blood Loss (mL): 450 Fluids Replaced: 1500 mL crystalloid Description of Procedure: Findings: Adequate reduction with stability of the hip and equal leg lengths measured intraoperatively. Components used: 1. Patrica confucianism modular femoral stem 155 x 19 mm. 25+0 cone body 2. Patrica MDM cobalt-chromium liner alpha code D 3. [place]rica X3 polyethylene liner, alpha code D, 38 mm outer diameter 4. [place] Biolox delta 22.2 mm, 3 mm neck femoral head Brief history operative indications: 76-year-old female who presented to the emergency department after feeling a snap in her leg. She was 7 days postop from total replacement. She was found to have a periprosthetic fracture along the medial calcar. Risks and benefits were discussed with the patient which included but were not limited to blood loss, DVTs, PEs, infection, neurovascular damage, and dislocation. In light of all this patient did agree to proceed with a ORIF with revision total hip arthroplasty. Procedure: On the date of procedure the patient's r hip was marked in the preoperative area. Patient was then taken back to the operating room where anesthesia assumed control of the C-spine and airway and administered anesthetic. Patient was transferred to the operating table and placed in the lateral decubitus position with the affected hip up. The patient was secured in the bed with the lateral positioners and leg lengths were checked. The r lower extremity was then prepped out in a sterile fashion using chlorhexidine while the surgeon scrubbed. Upon reentering the room the r lower extremity was draped in the standard orthopedic fashion and the incision was marked. A timeout was called and everyone agreed upon the side, the site, the procedure be performed, antibiotics given, and patient's identity. At this time incision was made through skin, subcutaneous tissue, and fat down to fascia. The fascia was then incised and a Charley retractor was placed. The soft tissue was then cleared from the posteri or external rotators and the piriformis was identified. Piriformis was taken down and tagged. The remainder of the short external rotators were taken down. Once we are able to identify the prosthesis we carefully dissected along the neck of the prosthesis and made posterior capsular tissue flap. We then carefully dissected down the femoral neck and exposed the proximal femur. We could then dislocate the hip once we did this we were able to disengage the Sampson taper and then remove the femoral stem. We could not identify the clamshell fracture. At this time we directed our attention towards the acetabulum. Due to concerns for instability due to anterior and posterior approach we went ahead and remove the polyethylene liner. Once this was done we carefully irrigated out the wound with 6 L of normal saline. Once this was done we then began without reconstruction. We again exposed the acetabulum with an anterior retractor and zelpi retractor for the soft tissue sleeve. The MDM liner was opened and impacted into place. Liner was examined and appeared to be adequately seated. We then tested it and it was seated well engaging the Sampson taper. We then directed our attention back to the femur. After the proximal femur was exposed we carefully passed 2 cables one above the lesser trochanter one below the lesser trochanter and passing these cables we carefully stayed on the bone and underneath muscular tissues. Once the cables were passed we then tightened them down fixing the fracture. Once the fracture was fixed we directed our attention towards reconstructing the femur. We carefully reamed 19 mm 155 mm stem. The stem was opened and impacted into place used a conical splined stem. After this was stably fixed we then reamed for the proximal cone body to 25 mm body. 25 mm posterior body was fixed into place. A trial +3 mm femoral head was then placed on the trunnion. The hip was properly reduced using traction and external rotation. Stability was checked with the appropriate amount of shuck, no impingement with external rotation, and stable at 90? flexion and 90? internal rotation. Leg lengths were checked and were found to be equal on the table. Once the hip was determined to be stable the trial components were dislocated and trial components were removed. The final components were verified and opened. The wound was copiously irrigated out with normal saline. The acetabulum was checked for any residual debris. The final components were placed and impacted. Traction and external rotation were again used to reduce the hip. After adequate reduction the hip remained stable with appropriate leg lengths. The wound was then copiously irrigated with normal saline once more, and hemostasis was obtained. The posterior capsule was tagged and then repaired through drill holes to the greater trochanter . Closure was then done using #1 Vicryl to close the fascia. #1 Vicryl was used to close the deep fatty layer. A 2-0 Vicryl interrupted sutures were used to close the subcutaneous skin. Skin nehal and V-Loc suture were used for final watertight skin closure. A sterile dressing was placed. Patient was awakened by anesthesia and transferred to the [facility]. Patient was then transferred to the PACU for recovery. Postoperative plan: Patient will get 24 hours postop antibiotics. Patient will get in-house physical therapy and will be weight-bear as tolerated. Patient will follow up in office in 2 weeks for a wound check and x-rays. Patient replaced on doxycycline 100 mg twice daily postoperatively due to high risk for infection based on proximity of 2 surgeries. Additionally we will place the patient on 81 mg aspirin twice daily for DVT prophylaxis for 4 weeks. Admit VTE Documentation VTE Present on Admission: No VTE Mechan Device Prophylaxis: SCD's and Thigh High THOMAS Hose VTE Pharm Prophylaxis ordered?: Yes
--- NOTE | 2021-12-21 19:28 | RAD_ITS ---
EXAM: XR RIGHT HIP WITH PELVIS WHEN PERFORMED, 2 OR 3 VIEWS CLINICAL INDICATION: Post Op -- AP both hips on single swati/lateral of op hip PACU TECHNIQUE: Two or three views of the right hip with pelvis when performed. This report was created using [email or web address] report generation technology. COMPARISON: 12/20/2021. FINDINGS: BONES/JOINTS: Status post revision right hip arthroplasty with prosthesis in good position. Moderate joint space narrowing left hip. No displaced fracture. No destructive or sclerotic lesions. Note that overlapping bowel shadows may however obscure fine detail. Sacroiliac joint is unremarkable. No widening of the pubic symphysis. SOFT TISSUES: Unremarkable. No soft tissue swelling or gas. RAD/Hip Min 2 Views (Portable) IMPRESSION: 1. Status post revision right hip arthroplasty with prosthesis in good position. 2. Moderate joint space narrowing left hip. Electronically Signed: Frank Swift MD at 20:04 EDT ,
[2021-12-21] MEDS: Meloxicam 7.5 MG Tablet PO (21:05)
[2021-12-21] MEDS: Acetaminophen 500 MG Tablet 1000 MG PO (21:05)
[2021-12-21] MEDS: Senna/Docusate Sodium 1 Tablet 2 TABLET PO (21:06)
[2021-12-21] MEDS: Doxycycline 100 MG CAPSULE PO (21:12)
[2021-12-21] MEDS: Aspirin 81 MG TAB.CHEW PO (21:12)
[2021-12-21] MEDS: Insulin Lispro 100 UNIT/ML INSULN.PEN SC (21:33)
[2021-12-21 22:06] LABS: Bedside Glucose 169 mg/dL (74-106)
[2021-12-21] MEDS: Cefazolin 1 GM/50 ML BAG IV (23:48)
[2021-12-22] VITALS (9 sets, daily range): BP systolic 101–133; BP diastolic 41–83; PULSE 61–97; RESP 18–20; TEMP 36.2–37.4; O2SAT 86–100
[2021-12-22] MEDS: Acetaminophen 500 MG Tablet 1000 MG PO ×3 (06:31→22:55)
[2021-12-22 07:00] LABS: Hematocrit 25.3 % (37-47); Hemoglobin 8.3 g/dL (12.0-15.0); Mean Corp Hgb Conc 32.8 g/dL (32-36); Mean Corpuscular Hgb 32.8 pg (27.0-32.0); Mean Platelet Vol. 8.8 fl (6.2-12.0); Platelet Count 132 K/mm3 (150-450); RBC Distribution Width CV 13.5 % (11.6-14.6); RBC Distribution Width SD 49.2 fl (35.1-43.9); Red Blood Count 2.53 M/mm3 (4.2-5.4); White Blood Count 6.7 K/mm3 (4.4-11.0)
[2021-12-22 07:10] LABS: Bedside Glucose 115 mg/dL (74-106)
[2021-12-22] MEDS: traMADol 50 MG Tablet PO ×2 (07:17→20:09)
--- NOTE | 2021-12-22 07:28 | PCM.PN.HOSP ---
Subjective Subjective Patient underwent Open reduction internal fixation proximal femur fracture with revision total hip replacement both components. Hgb down to 8.3 Objective Data Objective Data Vital Signs: Vital Signs Temp Pulse Resp BP Pulse Ox O2 Del Method O2 Flow Rate 97.2 F L 71 18 111/68 100 Room Air 2 12/22/21 06:27 12/22/21 06:27 12/22/21 06:27 12/22/21 06:27 12/22/21 06:27 12/22/21 06:27 12/22/21 06:24 Oxygen Flow Rate (L/min) 2 Oxygen Delivery Method Room Air Weight: 96.5 kg Body Mass Index (BMI) 34.9 Intake & Output: Intake and Output for Last 24 Hours 12/20/21 12/21/21 12/22/21 23:59 23:59 23:59 Intake Total 31.67 / 631.67 2870 / 2870 50 / 50 Output Total 2275 / 2275 Balance 31.67 / 431.67 595 / 595 50 / 50 Lab / Micro Data Result Diagrams: 12/22/21 06:05 12/22/21 06:05 Labs: Laboratory Results - last 24 hr 12/21/21 05:10: Hemoglobin A1c 4.8 12/21/21 11:52: POC Glucose 97 12/21/21 21:29: POC Glucose 169 H 12/22/21 06:05: WBC 6.7, RBC 2.53 L, Hgb 8.3 L, Hct 25.3 L, MCV 100.0 H, MCH 32.8 H, MCHC 32.8, RDW Std Deviation 49.2 H, RDW Coeff of Albert 13.5, Plt Count 132 L, MPV 8.8 12/22/21 06:30: POC Glucose 115 H Radiography Diagnostic Testing: Radiology Impression Hip X-Ray 12/21/21 19:28 IMPRESSION: 1. Status post revision right hip arthroplasty with prosthesis in good position. 2. Moderate joint space narrowing left hip. Electronically Signed: Frank Swift MD at 20:04 EDT , Physical Exam Narrative GENERAL: cooperative HEENT: Atraumatic; EYES; Anicteric, Normal Conjunctiva NECK; supple, normal thyroid, RESPIRATORY: Diminished to auscultation CARDIOVASCULAR: Regular S1 S2, GI: soft, normoactive bowel sounds, : No Renal angle tenderness; EXTREMITIES: No edema, no clubbing, MUSCULOSKELETAL: no muscle wasting NEURO: Awake; no lateralizing signs. SKIN: No Rash PSYCH; Flat affect Assessment & Plan Assessment/Plan (1) Right femoral shaft fracture: PLAN: Plan Patient is a 76-year-old lady with a recent right total hip arthroplasty on 12/11/2021 who presented with pain in the right hip. She apparently had a pop while walking and noted shortening involving the right lower extremity. Presented to the emergency department imaging studies obtained demonstrated fracture of the proximal femoral shaft without loosening of the femoral component of the right artificial hip. Admitted to regular nursing floor with consultation placed orthopedic surgery 1. Right proximal femoral fracture ? Admitted to regular nursing floor. Currently managed with immobilization pain management with consultation placed to orthopedic surgery. Patient preop assessment as documented by admitting physician. Plan for patient to undergo surgical intervention. Dr. Aranda with orthopedic surgery consulted -12/22/2021; Patient underwent Open reduction internal fixation proximal femur fracture with revision total hip replacement both components by Dr. Aranda on 12/21/2021 2. Anemia ? Secondary to anemia of chronic disorder as well as acute blood loss anemia following surgery hemoglobin down to 8.3 monitoring H&H with plans to transfuse if hemoglobin falls below 7 or patient becomes symptomatic 3. Diabetes mellitus type II ? Patient on metformin held please on Accu-Cheks before meals and at bedtime with sliding scale coverage 4. GERD ? Patient is on famotidine continue 5. History of colon CA ? Status post resection has since remained in remission 6. Class I obesity with BMI of 34.9 ? Weight loss advised 7. DVT prophylaxis ? SCDs for now with plans to initiate chemoprophylaxis following surgery -12/22/2021 placed on aspirin 81 mg p.o. twice daily by orthopedic surgery Charges/Coding Visit Charges Inpatient E&M: 72697 Subs Hosp L2
[2021-12-22 07:30] LABS: Anion Gap 3 (5-15); BUN 13 mg/dL (7-18); BUN/Creat Ratio 25.4 RATIO (10-20); Calcium,Total 8.2 mg/dL (8.5-10.1); Chloride 111 mmol/L (98-107); Creatinine, Serum 0.51 mg/dL (0.55-1.02); EST Glomerular Filtration Rate 124 mL/min (>60); Est Glom Filt Rate - Afr Amer 151 mL/min (>60); Estimated Creatinine Clearance 41.97 ml/min; Glucose 121 mg/dL (74-106); Potassium 4.6 mmol/L (3.5-5.1); Sodium Level 142 mmol/L (136-145)
[2021-12-22] MEDS: Cefazolin 1 GM/50 ML BAG IV (08:00)
[2021-12-22] MEDS: Aspirin 81 MG TAB.CHEW PO ×2 (08:20→16:15)
[2021-12-22] MEDS: Famotidine 20 MG Tablet PO (08:20)
[2021-12-22] MEDS: Doxycycline 100 MG CAPSULE PO ×2 (08:20→22:55)
[2021-12-22] MEDS: Senna/Docusate Sodium 1 Tablet 2 TABLET PO (08:21)
[2021-12-22] MEDS: Meloxicam 7.5 MG Tablet PO ×2 (08:21→22:55)
[2021-12-22] MEDS: Ensure Surgery 237 ML LIQUID PO ×2 (08:24→16:16)
[2021-12-22] MEDS: 0.9% Normal Saline 1,000 ML 100 ML IV ×2 (10:41→20:04)
--- NOTE | 2021-12-22 11:17 | PCM.PN.ORT ---
Subjective Subjective The patient was sitting in bedside chair upon examination with family present. Patient denies any chest pain, shortness of breath, lightheadedness, nausea or vomiting, or calf pain. Pain is controlled on medications. No adverse overnight events. Patient did have some dizziness with physical therapy when getting up from the chair. Patient was found to have a periprosthetic fracture 7 days postop from a direct anterior total hip arthroplasty. This procedure was done posterior approach and I did discuss with her precautions postoperatively for 3 months. Objective Data Objective Data Vital Signs: Vital Signs Temp Pulse Resp BP Pulse Ox O2 Del Method O2 Flow Rate 98.1 F 63 18 101/63 96 Room Air 2 12/22/21 08:16 12/22/21 08:16 12/22/21 08:16 12/22/21 08:16 12/22/21 08:16 12/22/21 08:18 12/22/21 06:24 Oxygen Flow Rate (L/min) 2 Oxygen Delivery Method Room Air Weight: 96.5 kg Body Mass Index (BMI) 34.9 Intake & Output: Intake and Output for Last 24 Hours 12/20/21 12/21/21 12/22/21 23:59 23:59 23:59 Intake Total 31.67 / 631.67 2870 / 2870 1100 / 1100 Output Total 2275 / 2275 Balance 31.67 / 431.67 595 / 595 1100 / 1100 Lab / Micro Data Result Diagrams: 12/22/21 06:05 12/22/21 06:05 Labs: Laboratory Results - last 24 hr 12/21/21 11:52: POC Glucose 97 12/21/21 21:29: POC Glucose 169 H 12/22/21 06:05: WBC 6.7, RBC 2.53 L, Hgb 8.3 L, Hct 25.3 L, MCV 100.0 H, MCH 32.8 H, MCHC 32.8, RDW Std Deviation 49.2 H, RDW Coeff of Albert 13.5, Plt Count 132 L, MPV 8.8 12/22/21 06:05: Sodium 142, Potassium 4.6, Chloride 111 H, Carbon Dioxide 28.0, Anion Gap 3 L, BUN 13, Creatinine 0.51 L, Estim Creat Clear Calc 41.97, Est GFR (MDRD) Af Amer 151, Est GFR (MDRD) Non-Af 124, BUN/Creatinine Ratio 25.4 H, Glucose 121 H, Calcium 8.2 L 12/22/21 06:30: POC Glucose 115 H Radiography Diagnostic Testing: Radiology Impression Hip X-Ray 12/21/21 19:28 IMPRESSION: 1. Status post revision right hip arthroplasty with prosthesis in good position. 2. Moderate joint space narrowing left hip. Electronically Signed: Frank Swift MD at 20:04 EDT , Physical Exam Narrative Vital signs stable and afebrile. SCDs and THOMAS hose are in place bilaterally. Previous anterior approach incision is healing well without any erythema or signs of an infection. There is swelling to the right thigh, thigh is soft and supple Patient is able to plantarflex and dorsiflex actively. Sensation is intact to light touch to saphenous, sural, superficial and deep peroneal, and tibial distribution. Posterior dressing is clean dry and intact. Negative Homans bilaterally, negative signs and symptoms of DVT. Const alert, oriented x3 and no apparent distress Assessment & Plan Assessment/Plan (1) History of revision of total replacement of right hip joint: PLAN: 1. S/P open reduction internal fixation proximal femur fracture with revision total hip replacement both components POD #1 2. Continue Pain Medications: Tylenol, meloxicam, tramadol for breakthrough pain 3. DVT Prophylaxis: Take 81 mg aspirin twice daily for 4 weeks postoperatively for DVT prophylaxis 4. PT/OT: Weightbearing as tolerated with walker. Please follow posterior hip dislocation precautions for 3 months postoperatively. This was discussed with the patient and family member today. 5. H & H: 8.3/25.3, asymptomatic. Postoperative anemia secondary to acute blood loss from surgery without any intra operative complications. Preoperatively patient was at 9.7 with her hemoglobin. She did have some dizziness today getting up from a chair with physical therapy. Overall vitals appear stable. No tachycardia. 6. Encouraged Incentive Spirometry 7. Continue medical treatment per medicine 8. Continue with doxycycline for 2 weeks postoperatively due to high risk for infection based on the proximity of 2 surgeries 9. Disposition: Patient and family states that they would like to try for her to go home with her sister which she did for her for surgery. I explained to her that we will have case management involved and make sure she is discharged in a safe and appropriate manner. Continue with pain medications and DVT prophylaxis above. Would also want to continue monitoring patient's hemoglobin as there has been a drop to 8.3 today. She did have some dizziness. Recommend repeat CBC and BMP tomorrow. We will continue to follow the patient tomorrow. This dictation was created using voice recognition software. Phonetic and/or grammatical errors may exist.
[2021-12-22 12:00] LABS: Bedside Glucose 181 mg/dL (74-106)
[2021-12-22 16:46] LABS: Bedside Glucose 129 mg/dL (74-106)
[2021-12-22] MEDS: Insulin Lispro 100 UNIT/ML INSULN.PEN SC (22:56)
[2021-12-23 00:26] LABS: Bedside Glucose 154 mg/dL (74-106)
[2021-12-23] MEDS: traMADol 50 MG Tablet PO (03:58)
[2021-12-23] MEDS: 0.9% Saline Lock 10 ML Syringe IV ×3 (03:58→22:56)
[2021-12-23 04:02] VITALS: BP 134/48; PULSE 86; RESP 20; TEMP 36.7; O2SAT 97
[2021-12-23] MEDS: Acetaminophen 500 MG Tablet 1000 MG PO ×3 (06:20→20:57)
[2021-12-23 06:21] LABS: Hematocrit 22.5 % (37-47); Hemoglobin 7.5 g/dL (12.0-15.0); Mean Corp Hgb Conc 33.3 g/dL (32-36); Mean Corpuscular Hgb 32.1 pg (27.0-32.0); Mean Corpuscular Volume 96.2 fL (81-99); Platelet Count 118 K/mm3 (150-450); RBC Distribution Width CV 13.8 % (11.6-14.6); RBC Distribution Width SD 47.8 fl (35.1-43.9); Red Blood Count 2.34 M/mm3 (4.2-5.4); White Blood Count 7.4 K/mm3 (4.4-11.0)
[2021-12-23 06:51] LABS: Bedside Glucose 128 mg/dL (74-106)
--- NOTE | 2021-12-23 07:28 | PN.HOSP_ITS ---
Subjective Subjective Patient seen was able to participate in physical therapy today prior. Hemoglobin down to 7.5. Patient started on iron supplementation Objective Data Objective Data Vital Signs: Vital Signs Temp Pulse Resp BP Pulse Ox O2 Del Method O2 Flow Rate 98.1 F 86 20 H 134/48 H 97 Room Air 2 12/23/21 04:02 12/23/21 04:02 12/23/21 04:02 12/23/21 04:02 12/23/21 04:02 12/23/21 04:02 12/22/21 06:24 Oxygen Flow Rate (L/min) 2 Oxygen Delivery Method Room Air Weight: 96.5 kg Body Mass Index (BMI) 34.9 Intake & Output: Intake and Output for Last 24 Hours 12/21/21 12/22/21 12/23/21 23:59 23:59 23:59 Intake Total 2870 / 2870 2158.33 / 3158.33 2190 / 2190 Output Total 2275 / 2275 Balance 595 / 595 2158.33 / 3158.33 2190 / 2190 Lab / Micro Data Result Diagrams: 12/23/21 05:53 12/22/21 06:05 Labs: Laboratory Results - last 24 hr 12/22/21 06:05: Sodium 142, Potassium 4.6, Chloride 111 H, Carbon Dioxide 28.0, Anion Gap 3 L, BUN 13, Creatinine 0.51 L, Estim Creat Clear Calc 41.97, Est GFR (MDRD) Af Amer 151, Est GFR (MDRD) Non-Af 124, BUN/Creatinine Ratio 25.4 H, Glucose 121 H, Calcium 8.2 L 12/22/21 11:35: POC Glucose 181 H 12/22/21 16:14: POC Glucose 129 H 12/22/21 22:53: POC Glucose 154 H 12/23/21 05:53: WBC 7.4, RBC 2.34 L, Hgb 7.5 L, Hct 22.5 L, MCV 96.2, MCH 32.1 H , MCHC 33.3, RDW Std Deviation 47.8 H, RDW Coeff of Albert 13.8, Plt Count 118 L, MPV 9.0 12/23/21 06:20: POC Glucose 128 H Physical Exam Narrative GENERAL: cooperative HEENT: Atraumatic; EYES; Anicteric, Normal Conjunctiva NECK; supple, normal thyroid, RESPIRATORY: Diminished to auscultation CARDIOVASCULAR: Regular S1 S2, GI: soft, normoactive bowel sounds, : No Renal angle tenderness; EXTREMITIES: No edema, no clubbing, MUSCULOSKELETAL: no muscle wasting NEURO: Awake; no lateralizing signs. SKIN: No Rash PSYCH; Flat affect Assessment & Plan Assessment/Plan (1) Right femoral shaft fracture: PLAN: Plan Patient is a 76-year-old lady with a recent right total hip arthroplasty on 12/11/2021 who presented with pain in the right hip. She apparently had a pop while walking and noted shortening involving the right lower extremity. P resented to the emergency department imaging studies obtained demonstrated fracture of the proximal femoral shaft without loosening of the femoral component of the right artificial hip. Admitted to regular nursing floor with consultation placed orthopedic surgery 1. Right proximal femoral fracture ? Admitted to regular nursing floor. Currently managed with immobilization pain management with consultation placed to orthopedic surgery. Patient preop assessment as documented by admitting physician. Plan for patient to undergo surgical intervention. Dr. Aranda with orthopedic surgery consulted -12/22/2021; Patient underwent Open reduction internal fixation proximal femur fracture with revision total hip replacement both components by Dr. Aranda on 12/21/2021 ? 12/23/2021 consult placed to case management to assist with disposition 2. Anemia ? Secondary to anemia of chronic disorder as well as acute blood loss anemia following surgery hemoglobin down to 8.3 monitoring H&H with plans to transfuse if hemoglobin falls below 7 or patient becomes symptomatic ? 12/23/2021 further drop in patient hemoglobin level. Patient started on iron supplementation 3. Diabetes mellitus type II ? Patient on metformin held please on Accu-Cheks before meals and at bedtime with sliding scale coverage 4. GERD ? Patient is on famotidine continue 5. History of colon CA ? Status post resection has since remained in remission 6. Class I obesity with BMI of 34.9 ? Weight loss advised 7. DVT prophylaxis ? SCDs for now with plans to initiate chemoprophylaxis following surgery -12/22/2021 placed on aspirin 81 mg p.o. twice daily by orthopedic surgery Charges/Coding Visit Charges Inpatient E&M: 16351 Subs Hosp L2
[2021-12-23 07:51] VITALS: O2SAT 96
[2021-12-23] MEDS: Doxycycline 100 MG CAPSULE PO ×2 (08:19→20:57)
[2021-12-23] MEDS: Aspirin 81 MG TAB.CHEW PO ×2 (08:19→16:58)
[2021-12-23] MEDS: Senna/Docusate Sodium 1 Tablet 2 TABLET PO (08:19)
[2021-12-23] MEDS: Meloxicam 7.5 MG Tablet PO ×2 (08:19→20:58)
[2021-12-23] MEDS: Ensure Surgery 237 ML LIQUID PO ×3 (08:19→16:58)
[2021-12-23] MEDS: Famotidine 20 MG Tablet PO (08:19)
[2021-12-23 10:00] VITALS: BP 94/71; PULSE 80; RESP 18; TEMP 37.1; O2SAT 96
[2021-12-23] MEDS: Iron Polysaccharide Complex 150 MG CAPSULE PO (11:12)
[2021-12-23] MEDS: Sodium Ferric Gluconat 250 MG in 0.9% Normal Saline 250 ML 135 MG IV (11:12)
--- NOTE | 2021-12-23 11:15 | PCM.PN.ORT ---
Subjective Subjective Patient reports feeling well overall. She has more pain from this procedure than previous procedures on the right hip. She notes she was able to get up with therapy and walk to the edge of the bed yesterday and was able to get up and walk to the restroom this morning. She notes more pain with weightbearing. She reports some continued lightheadedness with walking with staff. She denies any chest pain or shortness of breath. No acute events overnight. Objective Data Objective Data Vital Signs: Vital Signs Temp Pulse Resp BP Pulse Ox O2 Del Method O2 Flow Rate 98.7 F 80 18 94/71 96 Room Air 2 12/23/21 10:00 12/23/21 10:00 12/23/21 10:00 12/23/21 10:00 12/23/21 10:00 12/23/21 10:00 12/22/21 06:24 Oxygen Flow Rate (L/min) 2 Oxygen Delivery Method Room Air Weight: 212 lb 11.937 oz Body Mass Index (BMI) 34.9 Intake & Output: Intake and Output for Last 24 Hours 12/21/21 12/22/21 12/23/21 23:59 23:59 23:59 Intake Total 2870 / 2870 2158.33 / 3158.33 2190 / 2190 Output Total 2275 / 2275 Balance 595 / 595 2158.33 / 3158.33 2190 / 2190 Lab / Micro Data Attestation: I reviewed the patient's lab results. Result Diagrams: 12/23/21 05:53 12/22/21 06:05 Labs: Laboratory Results - last 24 hr 12/22/21 11:35: POC Glucose 181 H 12/22/21 16:14: POC Glucose 129 H 12/22/21 22:53: POC Glucose 154 H 12/23/21 05:53: WBC 7.4, RBC 2.34 L, Hgb 7.5 L, Hct 22.5 L, MCV 96.2, MCH 32.1 H, MCHC 33.3, RDW Std Deviation 47.8 H, RDW Coeff of Albert 13.8, Plt Count 118 L, MPV 9.0 12/23/21 06:20: POC Glucose 128 H Radiography Diagnostic Testing: Postop x-rays were reviewed showing stable fixation of the fracture and stable placement of implants. Physical Exam Const alert, oriented x3 and no apparent distress Extremity Extremity Narrative: Right lower extremity: Dressing is clean dry and intact Sensations intact to light touch saphenous, sural, superficial peroneal, deep peroneal, and tibial distributions Motors intact EHL, DF, PF calves are soft and supple Assessment & Plan Assessment/Plan (1) History of revision of total replacement of right hip joint: PLAN: 1.? S/P open reduction internal fixation proximal femur fracture with revision total hip replacement both components POD #2 2.? Continue Pain Medications: Tylenol, meloxicam, tramadol for breakthrough pain 3.? DVT Prophylaxis: Take 81 mg aspirin twice daily for 4 weeks postoperatively for DVT prophylaxis 4.? PT/OT: Weightbearing as tolerated with walker for support. Okay to wean from walker when stable.? Please follow posterior hip dislocation precautions for 3 months postoperatively.? This was discussed with the patient and family member today. 5.? Hemoglobin: 7.5 today slight decrease from yesterday. Does show some dizziness however vital signs have been stable. Will defer to primary service for transfusions as needed currently attempting to supplement with iron.? Postoperative anemia secondary to acute blood loss from surgery without any intra operative complications.? Preoperatively patient was at 9.7 with her hemoglobin.? She did have some dizziness today getting up from a chair with physical therapy.? Overall vitals appear stable.? No tachycardia. 6.? Encouraged Incentive Spirometry 7.? Continue medical treatment per medicine 8.? Continue with doxycycline for 2 weeks postoperatively due to high risk for infection based on the proximity of 2 surgeries 9.? Disposition: Patient had originally planned to go home with her sisters however after therapy and getting up this morning she is starting to be more considerate of potential discharge alternatives.? I explained to her that we will have case management involved and make sure she is discharged in a safe and appropriate manner.? Continue with pain medications and DVT prophylaxis above.? Would also want to continue monitoring patient's hemoglobin as there has been a drop to 7.5 today.? She did have some dizziness.? Recommend repeat CBC and BMP tomorrow.? What Cheer can be removed on postoperative day 12 if incision is clean dry and intact. Dressing removed on postop day 5 and left open to air if clean and dry. (2) Anemia: PLAN: Per primary service as noted in plan above. (3) Right femoral shaft fracture: PLAN: ORIF postop day 2
[2021-12-23] MEDS: Insulin Lispro 100 UNIT/ML INSULN.PEN SC ×2 (11:31→20:58)
[2021-12-23 11:50] LABS: Bedside Glucose 156 mg/dL (74-106)
[2021-12-23 14:18] VITALS: BP 111/58; PULSE 78; RESP 18; TEMP 37.1; O2SAT 95
[2021-12-23 17:20] LABS: Bedside Glucose 123 mg/dL (74-106)
[2021-12-23 20:48] VITALS: BP 126/35; PULSE 78; RESP 20; TEMP 36.7; O2SAT 98
[2021-12-23] MEDS: Furosemide 20 MG/2 ML VIAL IV (22:51)
[2021-12-23 22:56] LABS: Bedside Glucose 161 mg/dL (74-106)
[2021-12-24 02:13] VITALS: BP 119/40; PULSE 88; RESP 18; TEMP 36.8; O2SAT 97
[2021-12-24] MEDS: Acetaminophen 500 MG Tablet 1000 MG PO ×3 (06:12→21:14)
[2021-12-24 06:24] LABS: Absolute Lymphocyte Count 0.89 X10^3/uL (0.83-4.51); Absolute Neutrophil Count 4.5 X10^3/uL (2.0-7.7); Basophil# 0.02 X10^3/uL; Basophil% 0.3 % (0-1); Eosinophil# 0.16 X10^3/uL; Eosinophils% 2.6 % (0-5); Hematocrit 23.9 % (37-47); Hemoglobin 7.7 g/dL (12.0-15.0); Lymphocyte # 0.89 X10^3/ul (0.83-4.51); Lymphocyte % 14.7 % (19-41); Mean Corp Hgb Conc 32.2 g/dL (32-36); Mean Corpuscular Hgb 32.5 pg (27.0-32.0); Mean Corpuscular Volume 100.8 fL (81-99); Mean Platelet Vol. 9.3 fl (6.2-12.0); Monocyte% 6.6 % (0-10); NRBC Flagged by Analyzer 0 % (0-5); Neutrophil # 4.51 X10^3/uL (2.7-7.7); Neutrophil % 74.8 % (47-70); Platelet Count 129 K/mm3 (150-450); RBC Distribution Width CV 14.3 % (11.6-14.6); Red Blood Count 2.37 M/mm3 (4.2-5.4)
[2021-12-24 06:50] LABS: Bedside Glucose 112 mg/dL (74-106)
[2021-12-24 06:55] LABS: Anion Gap 5 (5-15); BUN 33 mg/dL (7-18); BUN/Creat Ratio 66.1 RATIO (10-20); Calcium,Total 8.9 mg/dL (8.5-10.1); Chloride 112 mmol/L (98-107); EST Glomerular Filtration Rate 128 mL/min (>60); Est Glom Filt Rate - Afr Amer 155 mL/min (>60); Estimated Creatinine Clearance 41.97 ml/min; Glucose 119 mg/dL (74-106); Potassium 4.1 mmol/L (3.5-5.1); Sodium Level 143 mmol/L (136-145)
--- NOTE | 2021-12-24 07:23 | PCM.PN.ORT ---
Subjective Subjective No acute events overnight. Patient vital signs remained stable. Per therapy note she did require 1 assist for much of the session. Will likely need further care. No chest pain today. Objective Data Objective Data Vital Signs: Vital Signs Temp Pulse Resp BP Pulse Ox O2 Del Method O2 Flow Rate 98.2 F 88 18 119/40 L 97 Room Air 2 12/24/21 02:13 12/24/21 02:13 12/24/21 02:13 12/24/21 02:13 12/24/21 02:13 12/24/21 02:14 12/22/21 06:24 Oxygen Flow Rate (L/min) 2 Oxygen Delivery Method Room Air Weight: 212 lb 1.355 oz Body Mass Index (BMI) 34.9 Intake & Output: Intake and Output for Last 24 Hours 12/22/21 12/23/21 12/24/21 23:59 23:59 23:59 Intake Total 2158.33 / 3158.33 2460 / 2460 Balance 2158.33 / 3158.33 2460 / 2460 Lab / Micro Data Attestation: I reviewed the patient's lab results. Result Diagrams: 12/24/21 Unknown 12/24/21 Unknown Labs: Laboratory Results - last 24 hr 12/23/21 11:30: POC Glucose 156 H 12/23/21 16:57: POC Glucose 123 H 12/23/21 20:54: POC Glucose 161 H 12/24/21 06:17: POC Glucose 112 H 12/24/21 : WBC 6.0, RBC 2.37 L, Hgb 7.7 L, Hct 23.9 L, MCV 100.8 H, MCH 32.5 H, MCHC 32.2, RDW Std Deviation 51.0 H, RDW Coeff of Albert 14.3, Plt Count 129 L, MPV 9.3, Immature Gran % (Auto) 1.000 H, Neut % (Auto) 74.8 H, Lymph % (Auto) 14.7 L, [place] % (Auto) 6.6, Eos % (Auto) 2.6, Baso % (Auto) 0.3, Absolute Neuts (auto) 4.5, Absolute Lymphs (auto) 0.89, Nucleated RBC % 0 12/24/21 : Sodium 143, Potassium 4.1, Chloride 112 H, Carbon Dioxide 26.0, Anion Gap 5, BUN 33 H, Creatinine 0.50 L, Estim Creat Clear Calc 41.97, Est GFR (MDRD) Af Amer 155, Est GFR (MDRD) Non-Af 128, BUN/Creatinine Ratio 66.1 H, Glucose 119 H, Calcium 8.9, Magnesium 2.0 Physical Exam Const alert and oriented x3 Constitutional Narrative: Resting comfortably in bed this morning Resp normal respiratory effort Extremity Extremity Narrative: Right lower extremity: Dressing is clean dry and intact Sensations intact to light touch saphenous, sural, superficial peroneal, deep peroneal, and tibial distributions Motors intact EHL, DF, PF calves are soft and supple No erythema. Thigh is soft and supple. Assessment & Plan Assessment/Plan (1) History of revision of total replacement of right hip joint: PLAN: 1.? S/P open reduction internal fixation proximal femur fracture with revision total hip replacement both components POD #3 2.? Continue Pain Medications: Tylenol, meloxicam, tramadol for breakthrough pain 3.? DVT Prophylaxis: Take 81 mg aspirin twice daily for 4 weeks postoperatively for DVT prophylaxis 4.? PT/OT: Weightbearing as tolerated with walker for support.? Okay to wean from walker when stable.? Please follow posterior hip dislocation precautions for 3 months postoperatively.? This was discussed with the patient and family member today. 5.? Hemoglobin: 7.7 today stable from yesterday.?? Will defer to primary service for transfusions as needed currently attempting to supplement with iron.? Postoperative anemia secondary to acute blood loss from surgery without any intra operative complications.? Preoperatively patient was at 9.7 with her hemoglobin.? Overall vitals appear stable.? No tachycardia. 6.? Encouraged Incentive Spirometry 7.? Continue medical treatment per medicine 8.? Continue with doxycycline for 2 weeks postoperatively due to high risk for infection based on the proximity of 2 surgeries 9.? Disposition: Patient had originally planned to go home with her sisters however after therapy yesterday and the day prior she is amenable to l discharge alternatives.? I explained to her that we will have case management involved and make sure she is discharged in a safe and appropriate manner.? Continue with pain medications and DVT prophylaxis above.? Would also want to continue monitoring patient's hemoglobin which was stable at 7.7 today.? She has had some dizziness originally postop. Appears stable today.? Agree with iron supplementation, recommend repeat CBC as needed per primary service.? [place] can be removed on postoperative day 12 if incision is clean dry and intact.? Dressing removed on postop day 5 and left open to air if clean and dry. Please call orthopedics any further questions or concerns [facility] Office:
[2021-12-24 08:05] VITALS: BP 127/52; PULSE 80; RESP 16; TEMP 37.1; O2SAT 96
[2021-12-24] MEDS: Ensure Surgery 237 ML LIQUID PO (08:07)
[2021-12-24] MEDS: Acetaminophen 325 MG Tablet 650 MG PO (08:07)
[2021-12-24] MEDS: Aspirin 81 MG TAB.CHEW PO ×2 (08:07→17:57)
[2021-12-24 08:10] VITALS: O2SAT 90
[2021-12-24] MEDS: Iron Polysaccharide Complex 150 MG CAPSULE PO (09:39)
[2021-12-24] MEDS: Senna/Docusate Sodium 1 Tablet 2 TABLET PO (09:39)
[2021-12-24] MEDS: Meloxicam 7.5 MG Tablet PO ×2 (09:39→21:14)
[2021-12-24] MEDS: Famotidine 20 MG Tablet PO (09:39)
[2021-12-24] MEDS: Doxycycline 100 MG CAPSULE PO ×2 (09:39→21:15)
--- NOTE | 2021-12-24 10:58 | CASEMGMT ---
Addendum entered by Marisela Delgado 12/24/21 15:19: Social Work SW met with pt to update her that [facility] has accepted her and that we are awaiting precert from her insurance. Pt appeared in better spirits this afternoon and was happy with this news. Original Note: Social Work SW met with pt to discuss discharge plans. Pt showed discouragement at having to go to a nursing facility for rehabilitation. SW provided support. Pt stated she knows it is best for her to go to SNF to have assistance while she heals. SW provided pt with a list of [facility] facilities in pt's insurance network, preferred geographic area and quality and resource use date given to pt. Pt was unsure of this list and wanted to take time to consult with her family. After consulting with family pt states she would prefer [facility] in [place]. Pt stated her niece may want to discuss this with VICENTA. SW shared pt's niece is welcome to speak about this when she arrives, if necessary. Salina Johnson, discharge manager transportation planning, will send referral to [facility]. Plan: [facility], pending precert. SAMIR Cabral
--- NOTE | 2021-12-24 11:08 | CASEMGMT ---
Discharge Coverstitch Machine Operator Salina Engle Civil Engineering Professor sent a referral over to Katya at [facility]. Lia is out on vacation. Will follow up. Salina Johnson Discharge Coverstitch Machine Operator
[2021-12-24 11:45] LABS: Bedside Glucose 189 mg/dL (74-106)
--- NOTE | 2021-12-24 12:05 | CASEMGMT ---
Discharge Medical Coding Manager Yajaira IRELAND reached out and patient is accepted at [facility]. [facility] will start pre-cert. VICENTA Antonio notified. Salina Johnson Discharge Medical Coding Manager
--- NOTE | 2021-12-24 12:12 | PN.HOSP_ITS ---
Subjective Subjective Patient seen and examined. She had no active complaints. SHe had just worked with PT/OT today and did well. Review of systems is otherwise negative. Objective Data Objective Data Vital Signs: Vital Signs Temp Pulse Resp BP Pulse Ox O2 Del Method O2 Flow Rate 98.7 F 80 16 127/52 H 90 Room Air 2 12/24/21 08:05 12/24/21 08:05 12/24/21 08:05 12/24/21 08:05 12/24/21 08:10 12/24/21 09:03 12/22/21 06:24 Oxygen Flow Rate (L/min) 2 Oxygen Delivery Method Room Air Weight: 212 lb 1.355 oz Body Mass Index (BMI) 34.9 Intake & Output: Intake and Output for Last 24 Hours 12/22/21 12/23/21 12/24/21 23:59 23:59 23:59 Intake Total 2158.33 / 3158.33 2460 / 2460 Balance 2158.33 / 3158.33 2460 / 2460 Lab / Micro Data Result Diagrams: 12/24/21 Unknown 12/24/21 Unknown Labs: Laboratory Results - last 24 hr 12/23/21 16:57: POC Glucose 123 H 12/23/21 20:54: POC Glucose 161 H 12/24/21 06:17: POC Glucose 112 H 12/24/21 11:27: POC Glucose 189 H 12/24/21 : WBC 6.0, RBC 2.37 L, Hgb 7.7 L, Hct 23.9 L, MCV 100.8 H, MCH 32.5 H, MCHC 32.2, RDW Std Deviation 51.0 H, RDW Coeff of Albert 14.3, Plt Count 129 L, MPV 9.3, Immature Gran % (Auto) 1.000 H, Neut % (Auto) 74.8 H, Lymph % (Auto) 14.7 L , [place] % (Auto) 6.6, Eos % (Auto) 2.6, Baso % (Auto) 0.3, Absolute Neuts (auto) 4.5, Absolute Lymphs (auto) 0.89, Nucleated RBC % 0 12/24/21 : Sodium 143, Potassium 4.1, Chloride 112 H, Carbon Dioxide 26.0, Anion Gap 5, BUN 33 H, Creatinine 0.50 L, Estim Creat Clear Calc 41.97, Est GFR (MDRD) Af Amer 155, Est GFR (MDRD) Non-Af 128, BUN/Creatinine Ratio 66.1 H, Glucose 119 H, Calcium 8.9, Magnesium 2.0 Physical Exam Const alert, oriented x3 and no apparent distress HEENT head/scalp atraumatic, moist oral mucous membranes and oropharynx normal Eyes PERRL, EOMs intact bilaterally and conjunctivae normal Neck no lymphadenopathy, supple and no JVD Resp normal respiratory effort, no use of accessory muscles and clear to auscultation bilaterally Cardio regular rate, regular rhythm, S1 normal heart sound, S2 normal heart sound and no murmurs GI normal to inspection, nondistended, normoactive bowel sounds, soft to palpation, non-tender and non-distended Extremity normal to inspection Extremity Narrative: intact dressing to right hip Neuro CN's II-XII intact bilaterally, moves all extremities and no focal motor deficits Sensorium / Orientation: awake and alert Assessment & Plan Assessment/Plan (1) History of total right hip arthroplasty: (2) Anemia: (3) Right femoral shaft fracture: PLAN: Plan #RIght femoral shaft fracture due to mechanical fall * s/p right hip arthroplasty * PT/OT on board * orthopedic surgery on board. * Fall precautions * #Anemia likely due to acute blood loss from surgery * Hemoglobin is 7.7 today. On oral iron supplements. * #Type 2 diabetes mellitus: * On metformin. This was held on admission as she was going to have surgery. Will resume. * Insulin sliding scale. Checks ACH S. #GERD: On famotidine #History of colon cancer: S/p colon resection. Stable. DVT prophylaxis: * On aspirin 81 mg twice daily as per Orthopedic surgery Disposition: Awaiting placement Charges/Coding Visit Charges Inpatient E&M: 01330 Subs Hosp L2
[2021-12-24] MEDS: Insulin Lispro 100 UNIT/ML INSULN.PEN SC (12:54)
[2021-12-24 13:59] VITALS: BP 160/59; PULSE 91; RESP 18; TEMP 36.7; O2SAT 97
[2021-12-24 17:21] LABS: Bedside Glucose 122 mg/dL (74-106)
[2021-12-24] MEDS: metFORMIN (XR) 500 MG Tablet PO (17:57)
[2021-12-24 18:02] VITALS: BP 109/54; PULSE 81; RESP 16; TEMP 36.8; O2SAT 99
[2021-12-24 21:06] VITALS: BP 118/40; PULSE 79; RESP 18; TEMP 36.6; O2SAT 96
[2021-12-24] MEDS: 0.9% Saline Lock 10 ML Syringe IV (21:16)
[2021-12-24 23:07] LABS: Bedside Glucose 149 mg/dL (74-106)
[2021-12-25 03:52] VITALS: BP 133/43; PULSE 81; RESP 18; TEMP 36.6; O2SAT 98
[2021-12-25] MEDS: Acetaminophen 500 MG Tablet 1000 MG PO ×3 (06:29→21:22)
[2021-12-25 06:31] LABS: Absolute Lymphocyte Count 0.91 X10^3/uL (0.83-4.51); Absolute Neutrophil Count 4.2 X10^3/uL (2.0-7.7); Basophil# 0.03 X10^3/uL; Basophil% 0.5 % (0-1); Eosinophil# 0.16 X10^3/uL; Eosinophils% 2.8 % (0-5); Hemoglobin 7.9 g/dL (12.0-15.0); Lymphocyte # 0.91 X10^3/ul (0.83-4.51); Lymphocyte % 16.1 % (19-41); Mean Corp Hgb Conc 32.9 g/dL (32-36); Mean Corpuscular Hgb 32.6 pg (27.0-32.0); Mean Corpuscular Volume 99.2 fL (81-99); Mean Platelet Vol. 9.2 fl (6.2-12.0); Monocyte# 0.31 X10^3/uL; Monocyte% 5.5 % (0-10); NRBC Flagged by Analyzer 0 % (0-5); Neutrophil # 4.19 X10^3/uL (2.7-7.7); Neutrophil % 74.2 % (47-70); Platelet Count 148 K/mm3 (150-450); RBC Distribution Width CV 14.4 % (11.6-14.6); RBC Distribution Width SD 51.8 fl (35.1-43.9); Red Blood Count 2.42 M/mm3 (4.2-5.4); White Blood Count 5.7 K/mm3 (4.4-11.0)
[2021-12-25 07:01] LABS: Bedside Glucose 113 mg/dL (74-106)
[2021-12-25 07:01] LABS: Anion Gap 3 (5-15); BUN 25 mg/dL (7-18); Calcium,Total 9.2 mg/dL (8.5-10.1); Chloride 114 mmol/L (98-107); Creatinine, Serum 0.51 mg/dL (0.55-1.02); EST Glomerular Filtration Rate 125 mL/min (>60); Est Glom Filt Rate - Afr Amer 151 mL/min (>60); Estimated Creatinine Clearance 41.97 ml/min; Glucose 119 mg/dL (74-106); Potassium 4.1 mmol/L (3.5-5.1); Sodium Level 145 mmol/L (136-145)
[2021-12-25] MEDS: Meloxicam 7.5 MG Tablet PO ×2 (08:36→21:23)
[2021-12-25] MEDS: Doxycycline 100 MG CAPSULE PO ×2 (08:36→21:23)
[2021-12-25] MEDS: Famotidine 20 MG Tablet PO (08:36)
[2021-12-25] MEDS: Aspirin 81 MG TAB.CHEW PO ×2 (08:36→17:43)
[2021-12-25] MEDS: Iron Polysaccharide Complex 150 MG CAPSULE PO (08:36)
[2021-12-25 08:41] VITALS: BP 142/51; PULSE 81; RESP 17; TEMP 36.7; O2SAT 98
[2021-12-25 10:31] VITALS: O2SAT 95
--- NOTE | 2021-12-25 11:23 | PN.HOSP_ITS ---
Subjective Subjective Patient seen and examined this morning. She had no active complaints and had an uneventful night. Review of systems is otherwise negative. Objective Data Objective Data Vital Signs: Vital Signs Temp Pulse Resp BP Pulse Ox O2 Del Method O2 Flow Rate 98.0 F 81 17 142/51 H 98 Room Air 2 12/25/21 08:41 12/25/21 08:41 12/25/21 08:41 12/25/21 08:41 12/25/21 08:41 12/25/21 08:41 12/22/21 06:24 Oxygen Flow Rate (L/min) 2 Oxygen Delivery Method Room Air Weight: 210 lb 8.663 oz Body Mass Index (BMI) 34.9 Intake & Output: Intake and Output for Last 24 Hours 12/23/21 12/24/21 12/25/21 23:59 23:59 23:59 Intake Total 0 / 2460 1999 Balance 2460 / 2461999 Lab / Micro Data Result Diagrams: 12/25/21 05:50 12/25/21 05:50 Labs: Laboratory Results - last 24 hr 12/24/21 11:27: POC Glucose 189 H 12/24/21 16:51: POC Glucose 122 H 12/24/21 21:22: POC Glucose 149 H 12/25/21 05:50: WBC 5.7, RBC 2.42 L, Hgb 7.9 L, Hct 24.0 L, MCV 99.2 H, MCH 32.6 H, MCHC 32.9, RDW Std Deviation 51.8 H, RDW Coeff of Albert 14.4, Plt Count 148 L, MPV 9.2, Immature Gran % (Auto) 0.900, Neut % (Auto) 74.2 H, Lymph % (Auto) 16.1 L, [place] % (Auto) 5.5, Eos % (Auto) 2.8, Baso % (Auto) 0.5, Absolute Neuts (auto) 4.2, Absolute Lymphs (auto) 0.91, Nucleated RBC % 0 12/25/21 05:50: Sodium 145, Potassium 4.1, Chloride 114 H, Carbon Dioxide 28.0, Anion Gap 3 L, BUN 25 H, Creatinine 0.51 L, Estim Creat Clear Calc 41.97, Est GFR (MDRD) Af Amer 151, Est GFR (MDRD) Non-Af 125, BUN/Creatinine Ratio 49.0 H, Glucose 119 H, Calcium 9.2 12/25/21 06:31: POC Glucose 113 H Physical Exam Const alert, oriented x3 and no apparent distress HEENT head/scalp atraumatic, moist oral mucous membranes and oropharynx normal Eyes PERRL, EOMs intact bilaterally and conjunctivae normal Neck no lymphadenopathy, supple and no JVD Resp normal respiratory effort, no use of accessory muscles and clear to auscultation bilaterally Cardio regular rate, regular rhythm, S1 normal heart sound, S2 normal heart sound and no murmurs GI normal to inspection, nondistended, normoactive bowel sounds, soft to palpation, non-tender and non-distended Extremity normal to inspection Extremity Narrative: intact dressing to right hip Neuro oriented x3, CN's II-XII intact bilaterally, moves all extremities and no focal motor deficits Sensorium / Orientation: awake and alert Psych affect normal Assessment & Plan Assessment/Plan (1) History of total right hip arthroplasty: (2) Anemia: (3) Right femoral shaft fracture: PLAN: Plan #RIght femoral shaft fracture due to mechanical fall * s/p right hip arthroplasty * PT/OT on board * orthopedic surgery on board. * Fall precautions * #Anemia likely due to acute blood loss from surgery * Hemoglobin is 7.9 today. On oral iron supplements. * #Type 2 diabetes mellitus: * On metformin. This was held on admission as she was going to have surgery. Will resume. * Insulin sliding scale. Checks ACH S. #GERD: On famotidine #History of colon cancer: S/p colon resection. Stable. DVT prophylaxis: * On aspirin 81 mg twice daily as per Orthopedic surgery Disposition: Awaiting placement Charges/Coding Visit Charges Inpatient E&M: 60370 Subs Hosp L2
[2021-12-25 12:51] LABS: Bedside Glucose 147 mg/dL (74-106)
[2021-12-25 14:39] VITALS: BP 133/41; PULSE 84; RESP 17; TEMP 36.8; O2SAT 95
[2021-12-25] MEDS: metFORMIN (XR) 500 MG Tablet PO (17:43)
[2021-12-25] MEDS: Glucerna Shake 120 ML LIQUID PO (17:47)
[2021-12-25 18:07] LABS: Bedside Glucose 112 mg/dL (74-106)
[2021-12-25 21:03] VITALS: BP 127/57; PULSE 82; RESP 18; TEMP 37.6; O2SAT 98
[2021-12-25] MEDS: Senna/Docusate Sodium 1 Tablet 2 TABLET PO (21:22)
[2021-12-25 21:46] LABS: Bedside Glucose 119 mg/dL (74-106)
[2021-12-26 02:10] VITALS: BP 112/44; PULSE 83; RESP 18; TEMP 36.8; O2SAT 95
[2021-12-26] MEDS: traMADol 50 MG Tablet PO (02:10)
[2021-12-26] MEDS: Acetaminophen 500 MG Tablet 1000 MG PO ×2 (06:49→13:31)
[2021-12-26 06:57] LABS: Absolute Lymphocyte Count 1.15 X10^3/uL (0.83-4.51); Absolute Neutrophil Count 3.4 X10^3/uL (2.0-7.7); Basophil# 0.03 X10^3/uL; Basophil% 0.6 % (0-1); Eosinophil# 0.25 X10^3/uL; Eosinophils% 4.7 % (0-5); Hematocrit 23.7 % (37-47); Hemoglobin 7.7 g/dL (12.0-15.0); Lymphocyte # 1.15 X10^3/ul (0.83-4.51); Lymphocyte % 21.8 % (19-41); Mean Corp Hgb Conc 32.5 g/dL (32-36); Mean Corpuscular Hgb 32.9 pg (27.0-32.0); Mean Corpuscular Volume 101.3 fL (81-99); Monocyte# 0.37 X10^3/uL; NRBC Flagged by Analyzer 0 % (0-5); Neutrophil # 3.42 X10^3/uL (2.7-7.7); Platelet Count 158 K/mm3 (150-450); RBC Distribution Width CV 14.6 % (11.6-14.6); RBC Distribution Width SD 52.3 fl (35.1-43.9); Red Blood Count 2.34 M/mm3 (4.2-5.4); White Blood Count 5.3 K/mm3 (4.4-11.0)
[2021-12-26 07:15] LABS: Bedside Glucose 107 mg/dL (74-106)
[2021-12-26 07:31] LABS: Anion Gap 4 (5-15); BUN 26 mg/dL (7-18); BUN/Creat Ratio 50.4 RATIO (10-20); Calcium,Total 8.9 mg/dL (8.5-10.1); Chloride 113 mmol/L (98-107); Creatinine, Serum 0.52 mg/dL (0.55-1.02); EST Glomerular Filtration Rate 123 mL/min (>60); Est Glom Filt Rate - Afr Amer 149 mL/min (>60); Estimated Creatinine Clearance 41.97 ml/min; Glucose 103 mg/dL (74-106); Potassium 4.3 mmol/L (3.5-5.1); Sodium Level 145 mmol/L (136-145)
[2021-12-26 08:06] VITALS: BP 102/87; PULSE 74; RESP 18; TEMP 36.7; O2SAT 96
[2021-12-26] MEDS: Doxycycline 100 MG CAPSULE PO (08:15)
[2021-12-26] MEDS: Aspirin 81 MG TAB.CHEW PO ×2 (08:15→16:16)
[2021-12-26] MEDS: Meloxicam 7.5 MG Tablet PO (08:16)
[2021-12-26] MEDS: Senna/Docusate Sodium 1 Tablet 2 TABLET PO (08:16)
[2021-12-26] MEDS: Famotidine 20 MG Tablet PO (08:16)
[2021-12-26] MEDS: Iron Polysaccharide Complex 150 MG CAPSULE PO (08:16)
[2021-12-26] MEDS: Glucerna Shake 120 ML LIQUID PO ×2 (08:16→16:16)
--- NOTE | 2021-12-26 11:38 | CASEMGMT ---
Discharge Agricultural Economics Teacher Katya reached out from [facility]. Pre-cert has not been obtained yet. Katya is in contact with insurance to see what is going on with the pre-cert. Will follow up. Salina Johnson Discharge Agricultural Economics Teacher
--- NOTE | 2021-12-26 11:51 | CASEMGMT ---
Discharge Regional Business Development Manager Katya from [facility] called. Pre-cert HAS been obtained. Patient can go to [facility] when medically ready. [facility] is also requesting updated notes. VICENTA Bauer notified. Plan: Discharging to [facility] Salina Johnson Discharge Regional Business Development Manager
[2021-12-26 12:21] LABS: Bedside Glucose 137 mg/dL (74-106)
--- NOTE | 2021-12-26 13:12 | DS.PCM_ITS ---
Providers Date of Admission: 12/20/21 Primary Care Physician: Dr. Christopher Spencer, Consultations 12/22/21 10:47 Consult: Orthopedics Routine Consulting Provider: Temo Aranda Reason for Consult: rt femoral shaft fx EMERGENT Consult: No MD Notified: Yes Date Notified: 12/21/21 Time Notified: 15:31 Method of Notification: Verbal Comments:: already seen patient, had been notified by er Reason For Visit: R FEMORAL SHAFT FX, RECENT R THR Diagnosis Discharge Diagnosis (1) History of total right hip arthroplasty: Status: Acute Code(s): Z96.641 - Presence of right artificial hip joint (2) Anemia: Status: Acute Code(s): D64.9 - Anemia, unspecified (3) Right femoral shaft fracture: Status: Acute Code(s): S72.301A - Unspecified fracture of shaft of right femur, initial encounter for closed fracture Plan #RIght femoral shaft fracture due to mechanical fall * s/p right hip arthroplasty * PT/OT on board * orthopedic surgery on board. * Fall precautions * #Anemia likely due to acute blood loss from surgery * Hemoglobin is 7.9 today. On oral iron supplements. * #Type 2 diabetes mellitus: * On metformin. This was held on admission as she was going to have surgery. Will resume. * Insulin sliding scale. Checks ACH S. #GERD: On famotidine #History of colon cancer: S/p colon resection. Stable. DVT prophylaxis: * On aspirin 81 mg twice daily as per Orthopedic surgery Disposition: Awaiting placement Medications at Discharge Home Medications famotidine 20 mg tablet 1 tab PO DAILY GERD 12/20/21 meloxicam 7.5 mg tablet 1 tab PO BID pain 12/20/21 metformin 500 mg tablet,extended release 24 hr 1 tab PO DINNER diabetes 12/20/21 aspirin 81 mg chewable tablet 81 mg PO BIDCM #56 tabs 12/26/21 tramadol 50 mg tablet 50 mg PO Q6H PRN PRN Pain Score 4-10 3 days #12 tabs 12/26/21 Hospital Course Operations - (right hip arthroplasty) Procedures None Summary of Care Provided Minutes Spent on Discharge: 47 Hospital Course: Patient is a 76-year-old female with a past medical history as outlined was admitted through the ED on 12/21/2021 with a complaint of right hip pain. She had had a right total hip replacement on December 11 and was doing well postoperatively. She had gone to physical therapy the day before admission and after going home she was walking around her house when she felt a pop in her right thigh. She was unable to bear weight. CT of the lower extremity showed proximal femoral shaft fracture without loosening of the femoral component of the right artificial hip. Orthopedic surgery was consulted. She had open reduction and internal fixation of the proximal right femoral fracture. Hospital course was complicated by post op anemia likely due to acute blood loss. Patient remained stable and did well with therapy. She was discharged to SNF on 12/26. She is to follow up with her PCP and orthopedic surgery within 1-2 weeks. Patient seen and examined prior to discharge. She had no active complaints. She had worked well with therapy. Review of systems is otherwise negative. Physical Exam Const alert, oriented x3 and no apparent distress General Appearance: cooperative, comfortable and well kempt Orientation / Consciousness: awake Exam Limitations: no limitations HEENT normocephalic, head/scalp atraumatic, hearing grossly normal bilaterally, moist oral mucous membranes and oropharynx normal Eyes PERRL, EOMs intact bilaterally and conjunctivae normal Neck no lymphadenopathy, supple and no JVD Resp normal respiratory effort, no retractions, no use of accessory muscles and clear to auscultation bilaterally Cardio regular rate, regular rhythm, S1 normal heart sound, S2 normal heart sound and no murmurs GI normal to inspection, nondistended, normoactive bowel sounds, soft to palpation, non-tender and non-distended Extremity normal to inspection Extremity Narrative: intact dressing to right hip Neuro oriented x3, CN's II-XII intact bilaterally, moves all extremities and no focal motor deficits Sensorium / Orientation: awake and alert Psych affect normal Weight / BMI Weight Weight: 210 lb 8.663 oz Body Mass Index (BMI) 34.9 ABG / Lab / Microbiology Data Result Diagrams: 12/26/21 06:01 12/26/21 06:01 Laboratory: Laboratory Results - last 24 hr 12/25/21 17:41: POC Glucose 112 H 12/25/21 21:20: POC Glucose 119 H 12/26/21 06:01: WBC 5.3, RBC 2.34 L, Hgb 7.7 L, Hct 23.7 L, MCV 101.3 H, MCH 32.9 H, MCHC 32.5, RDW Std Deviation 52.3 H, RDW Coeff of Albert 14.6, Plt Count 158, MPV 9.0, Immature Gran % (Auto) 0.900, Neut % (Auto) 65.0, Lymph % (Auto) 21.8, [place] % (Auto) 7.0, Eos % (Auto) 4.7, Baso % (Auto) 0.6, Absolute Neuts (auto) 3.4, Absolute Lymphs (auto) 1.15, Nucleated RBC % 0 12/26/21 06:01: Sodium 145, Potassium 4.3, Chloride 113 H, Carbon Dioxide 28.0, Anion Gap 4 L, BUN 26 H, Creatinine 0.52 L, Estim Creat Clear Calc 41.97, Est GFR (MDRD) Af Amer 149, Est GFR (MDRD) Non-Af 123, BUN/Creatinine Ratio 50.4 H, Glucose 103, Calcium 8.9 12/26/21 06:48: POC Glucose 107 H 12/26/21 11:16: POC Glucose 137 H Microbiology: Microbiology 12/26/21 12:28 Nasal Secretion SARS-CoV-2 Antigen (Rapid) - Final D/C Instructions Discharge Diet: Low fat / Low cholesterol Discharge Activity: Return to Normal Activity Weight Bearing Status: Weight bearing as tolerated Call your doctor if your incision/area has: Continuous Slow Oozing, Sudden Increased Bleeding, Increased Pain/ Swelling, Increased Redness, Foul Smelling Discharge and Swelling at the incision site Call your doctor if you observe: Fever of 101 or Higher and Uncontrolled pain Meaningful Use Info Meaningful Use Diagnoses (Choose all that apply): None applicable Discharge Plan Admission Admit Date/Time: 12/20/21 20:43 Primary Reason for Your Visit: right hip fracture Attending Provider: Moriah Ge Primary Care Provider: Christopher Spencer Consulting Providers: Ivone Blanco ; Temo Aranda ; Vik Caldera Instructions Patient Instructions: Fx Hip Surg Dc Discharge Orders/Prescriptions Prescriptions: New aspirin 81 mg Tablet,Chewable 81 mg PO BIDCM Qty: 56 0RF tramadol 50 mg Tablet 50 mg PO Q6H PRN PRN (Reason: Pain Score 4-10) 3 Days Qty: 12 0RF Continued meloxicam 7.5 mg tablet 1 tab PO BID Label Comments: take 1 tablet by mouth twice a day metformin 500 mg tablet extended release 24 hr 1 tab PO DINNER Label Comments: take 1 tablet by mouth once daily famotidine 20 mg tablet 1 tab PO DAILY Label Comments: take 1 tablet by mouth once daily Referrals / Follow Up: Christopher Spencer DO [Primary Care Provider] - Within 1 Week Temo Aranda MD [STAFF PHYSICIAN] - 01/04/22 1:45 pm Disposition Disposition (needs filled in before D/C Order can be placed): Sn[facility] Facility Charges/Coding Visit Charges Inpatient E&M: 54857 Disch Hosp
--- NOTE | 2021-12-26 13:25 | TREXTCAR_ITS ---
Diet Diet Order/Speech Therapy: 12/22/21 03:37 Diet: Consistent Carb - Calorie Controlled Is pt able to select menu?: Yes How many daily calories?: 1800 calorie Routine Orders/Code Status Enema Type: Fleetz Enema Frequency: Daily PRN Suppository Type: Dulcolax 10mg Suppository Frequency: Daily PRN O2 Frequency: PRN Keep PO Greater than or Equal to (%): 90 Wound(s) right hip: Wound Type: Surgical Incision above R hip from prior surgery: Wound Type: Surgical Incision Therapies Weight Bearing: Weight bearing as tolerated Problem/Diagnosis (1) History of total right hip arthroplasty: Status: Acute Code(s): Z96.641 - Presence of right artificial hip joint (2) Anemia: Status: Acute Code(s): D64.9 - Anemia, unspecified (3) Right femoral shaft fracture: Status: Acute Code(s): S72.301A - Unspecified fracture of shaft of right femur, initial encounter for closed fracture Plan #RIght femoral shaft fracture due to mechanical fall * s/p right hip arthroplasty * PT/OT on board * orthopedic surgery on board. * Fall precautions * #Anemia likely due to acute blood loss from surgery * Hemoglobin is 7.9 today. On oral iron supplements. * #Type 2 diabetes mellitus: * On metformin. This was held on admission as she was going to have surgery. Will resume. * Insulin sliding scale. Checks ACH S. #GERD: On famotidine #History of colon cancer: S/p colon resection. Stable. DVT prophylaxis: * On aspirin 81 mg twice daily as per Orthopedic surgery Disposition: Awaiting placement Allergies/Procedures Done in Hospital Allergies No Known Allergies Allergy (Verified 12/20/21 15:42) Type of Care/Length of Stay Estimated LOS: Convalescent Care Less Than 30 days Type of Care Needed: Skilled Rehab Potential: Fair Prognosis: Fair Additional Orders/Day of Discharge Day of Discharge: 12/26/21 Dietary and Speech Recommendations Dietitian Recommendations/Changes: Will continue 1800 calorie/consistent carbohydrate diet as ordered. Will d/c ensure surgery w/ medpass and offer 120ml glucerna shake TID with medpass instead. Discharge Plan Admission Admit Date/Time: 12/20/21 20:43 Primary Reason for Your Visit: right hip fracture Attending Provider: Moriah Ge Primary Care Provider: Christopher Spencer Consulting Providers: Ivone Blanco ; Temo Aranda ; Vik Caldera Instructions Patient Instructions: Fx Hip Surg Dc Discharge Orders/Prescriptions Prescriptions: New aspirin 81 mg Tablet,Chewable 81 mg PO BIDCM Qty: 56 0RF tramadol 50 mg Tablet 50 mg PO Q6H PRN PRN (Reason: Pain Score 4-10) 3 Days Qty: 12 0RF Continued meloxicam 7.5 mg tablet 1 tab PO BID Label Comments: take 1 tablet by mouth twice a day metformin 500 mg tablet extended release 24 hr 1 tab PO DINNER Label Comments: take 1 tablet by mouth once daily famotidine 20 mg tablet 1 tab PO DAILY Label Comments: take 1 tablet by mouth once daily Referrals / Follow Up: Christopher Spencer DO [Primary Care Provider] - Within 1 Week Temo Aranda MD [STAFF PHYSICIAN] - 01/04/22 1:45 pm Disposition Disposition (needs filled in before D/C Order can be placed): Assisted Facility
[2021-12-26 14:06] VITALS: BP 119/53; PULSE 80; RESP 18; TEMP 36.9; O2SAT 99
--- NOTE | 2021-12-26 14:14 | PCM.PN.ORT ---
Subjective Subjective Patient doing well. Much more energetic today. Up in the chair. Able to stand up for examination. Plans to discharge to skilled facility today. Objective Data Objective Data Vital Signs: Vital Signs Temp Pulse Resp BP Pulse Ox O2 Del Method O2 Flow Rate 98.4 F 80 18 119/53 L 99 Room Air 2 12/26/21 14:06 12/26/21 14:06 12/26/21 14:06 12/26/21 14:06 12/26/21 14:06 12/26/21 14:06 12/22/21 06:24 Oxygen Flow Rate (L/min) 2 Oxygen Delivery Method Room Air Weight: 210 lb 8.663 oz Body Mass Index (BMI) 34.9 Intake & Output: Intake and Output for Last 24 Hours 12/24/21 12/25/21 12/26/21 23:59 23:59 23:59 Intake Total 1999 700 / 700 Output Total 500 / 500 Balance 1999 200 / 200 Lab / Micro Data Attestation: I reviewed the patient's lab results. Result Diagrams: 12/26/21 06:01 12/26/21 06:01 Labs: Laboratory Results - last 24 hr 12/25/21 17:41: POC Glucose 112 H 12/25/21 21:20: POC Glucose 119 H 12/26/21 06:01: WBC 5.3, RBC 2.34 L, Hgb 7.7 L, Hct 23.7 L, MCV 101.3 H, MCH 32.9 H, MCHC 32.5, RDW Std Deviation 52.3 H, RDW Coeff of Albert 14.6, Plt Count 158, MPV 9.0, Immature Gran % (Auto) 0.900, Neut % (Auto) 65.0, Lymph % (Auto) 21.8, [place] % (Auto) 7.0, Eos % (Auto) 4.7, Baso % (Auto) 0.6, Absolute Neuts (auto) 3.4, Absolute Lymphs (auto) 1.15, Nucleated RBC % 0 12/26/21 06:01: Sodium 145, Potassium 4.3, Chloride 113 H, Carbon Dioxide 28.0, Anion Gap 4 L, BUN 26 H, Creatinine 0.52 L, Estim Creat Clear Calc 41.97, Est GFR (MDRD) Af Amer 149, Est GFR (MDRD) Non-Af 123, BUN/Creatinine Ratio 50.4 H, Glucose 103, Calcium 8.9 12/26/21 06:48: POC Glucose 107 H 12/26/21 11:16: POC Glucose 137 H Micro: Microbiology 12/26/21 12:28 Nasal Secretion SARS-CoV-2 Antigen (Rapid) - Final Physical Exam Const alert, oriented x3 and no apparent distress Constitutional Narrative: Cheerful Extremity Extremity Narrative: Right lower extremity: Dressing intact with serous saturation proximally. Sensations intact to light touch saphenous, sural, superficial peroneal, deep peroneal, and tibial distributions Motors intact EHL, DF, PF calves are soft and supple Assessment & Plan Assessment/Plan (1) History of revision of total replacement of right hip joint: PLAN: Patient is doing well overall. We will check up today shows that she continues to improve. She is much more comfortable than over the weekend. Her hemoglobin has remained stable and she remains asymptomatic. She is scheduled for discharge today to skilled facility. I agree with this from an orthopedic standpoint she is recovering well. She will need to follow-up in the office next week for wound check and x-ray check. I am going to have them change her dressing to a fresh silver dressing which can be removed in 5 days. Patient may continue to shower while she has occlusive dressing on. [facility] Office:
--- NOTE | 2021-12-26 15:59 | CASEMGMT ---
Addendum entered by Marisela Delgado 12/26/21 16:11: SW completed 7000 convalescent form in the [facility]. Pt going to [facility] for skilled level of care. Original Note: Social Work SW faxed discharge orders and negative Covid-19 results to Lia at [facility].?Wheelchair transportation set up through [facility] for 4:45pm. SW discussed with pt that she does not demonstrate a need for cot transportation based on her PT notes and in an effort to avoid unnecessary charges and bills that wheelchair transportation would be the better option. Pt voice verbal understanding and stated that she is agreeable to this. ?VICENTA called [facility] to inform the facility of pt's pending arrival.? SW notified pt of her transport time and ask pt if she would like SW to call her family to notify them of her discharge. Pt stated she had already been in contact with her family and they are planning to bring comfort and personal items to [place] for her this evening. Sw notified pt's nurse of pt transportation pick-up time. Plan: Discharge to [facility] through [facility] @ 4:45pm SAMIR Cabral
--- NOTE | 2021-12-26 16:05 | NURSING ---
Report called to [facility] nurse. Pt will be picked up from [facility] at 16:45.
[2021-12-26] MEDS: metFORMIN (XR) 500 MG Tablet PO (16:16)
[2021-12-26 17:46] LABS: Bedside Glucose 88 mg/dL (74-106)
== END 2021-12-26 17:56 | disposition skilled nursing facility (03) | DRG 470 ==
LOC: ED 20:36 → MS3 21:18
PROVIDERS: Anesthesiology; Internal Medicine; Specialist; Admitting Provider Family Medicine; Emergency Provider Emergency Medicine; PCP Preventive Medicine Occupational Medicine; Visit Provider Student in an Organized Health Care Education/Training Program
PROC: 0SR90JZ Replacement of Right Hip Joint with Synthetic Substitute, Open Approach (ICD-10-PCS; CPT 27134; principal; 2021-12-21 07:35)
DX: M97.01XA Periprosthetic fracture around internal prosthetic right hip joint, initial encounter (principal); D62 Acute posthemorrhagic anemia; E11.9 Type 2 diabetes mellitus without complications; K21.9 Gastro-esophageal reflux disease without esophagitis; D63.8 Anemia in other chronic diseases classified elsewhere; Z87.891 Personal history of nicotine dependence; Z96.641 Presence of right artificial hip joint; E66.9 Obesity, unspecified; Z79.84 Long term (current) use of oral hypoglycemic drugs; Z68.34 Body mass index [BMI] 34.0-34.9, adult; Z85.038 Personal history of other malignant neoplasm of large intestine
CPT/HCPCS: 36415; 73502; 73552; 73700; 80048; 80053; 82962; 83036; 83735; 85025; 85027; 85610; 85730; 86850; 86900; 86901; 87426; 93005; 93971; 97110; 97116; 97162; 97166; 97530; 97535; 99251; 99285; C1776; J7030; J7050; A4216; G0463; J1940; J2405; J2916

== ENCOUNTER → 2022-01-23 | Outpatient (CLI) | payer MEDICARE, SELFPAY ==
[2022-01-23 11:26] LABS: Erythrocyte Sedimentation Rate 32 mm/hr (0-30)
[2022-01-23 11:27] LABS: Absolute Lymphocyte Count 1.12 X10^3/uL (0.83-4.51); Absolute Neutrophil Count 6.6 X10^3/uL (2.0-7.7); Basophil# 0.04 X10^3/uL; Basophil% 0.5 % (0-1); Eosinophil# 0.18 X10^3/uL; Eosinophils% 2.1 % (0-5); Hemoglobin 11.3 g/dL (12.0-15.0); Lymphocyte # 1.12 X10^3/ul (0.83-4.51); Lymphocyte % 13.2 % (19-41); Mean Corp Hgb Conc 32.3 g/dL (32-36); Mean Corpuscular Hgb 31.8 pg (27.0-32.0); Mean Corpuscular Volume 98.6 fL (81-99); Mean Platelet Vol. 9.2 fl (6.2-12.0); Monocyte# 0.55 X10^3/uL; Monocyte% 6.5 % (0-10); NRBC Flagged by Analyzer 0 % (0-5); Neutrophil # 6.55 X10^3/uL (2.7-7.7); Platelet Count 271 K/mm3 (150-450); RBC Distribution Width CV 13.8 % (11.6-14.6); RBC Distribution Width SD 50.5 fl (35.1-43.9); Red Blood Count 3.55 M/mm3 (4.2-5.4); White Blood Count 8.5 K/mm3 (4.4-11.0)
[2022-01-23 11:51] LABS: BUN 23 mg/dL (7-18); Creatinine, Serum 0.88 mg/dL (0.55-1.02); EST Glomerular Filtration Rate 67 mL/min (>60); Glucose 183 mg/dL (74-106)
[2022-01-23 11:52] LABS: Anion Gap 5 (5-15); BUN/Creat Ratio 26.1 RATIO (10-20); Chloride 110 mmol/L (98-107); Est Glom Filt Rate - Afr Amer 81 mL/min (>60); Potassium 4.3 mmol/L (3.5-5.1); Sodium Level 143 mmol/L (136-145)
== END | disposition home or self-care (01) ==
LOC: LAB 11:00
PROVIDERS: PCP Preventive Medicine Occupational Medicine; Visit Provider Physician Assistant Surgical
DX: M16.11 Unilateral primary osteoarthritis, right hip (principal); E11.9 Type 2 diabetes mellitus without complications; Z47.1 Aftercare following joint replacement surgery
CPT/HCPCS: 36415; 80048; 83036; 85025; 85652; 86140

== ENCOUNTER 2022-01-25 15:10 | Inpatient (IN) | payer MEDICARE, SELFPAY ==
[2022-01-25] VITALS (11 sets, daily range): BP systolic 106–154; BP diastolic 39–88; PULSE 60–91; RESP 16–18; TEMP 36.1–37.1; O2SAT 98–100; BMI 32.3
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
[2022-01-25] MEDS: Lactated Ringers 1,000 ML 15 ML IV (10:35)
[2022-01-25] MEDS: Celecoxib 200 MG Capsule 400 MG PO (10:35)
[2022-01-25] MEDS: Gabapentin 600 MG Tablet PO (10:35)
[2022-01-25] MEDS: Acetaminophen 500 MG Tablet 1000 MG PO ×2 (10:36→18:08)
[2022-01-25 11:10] LABS: Bedside Glucose 152 mg/dL (74-106)
[2022-01-25] MEDS: Cefazolin 2 GM in 0.9% Normal Saline 100 ML IV (12:55)
[2022-01-25] MEDS: TXA 1000mg in NS100 100ml (IVPB at Closure) 660 MG IV (13:05)
[2022-01-25] MEDS: dexAMETHasone 10 MG/ML Vial IV (13:05)
[2022-01-25] MEDS: Vancomycin IV 1,000 MG/20 ML Vial 2000 MG OPERA.SITE (14:15)
[2022-01-25] MEDS: TXA 1000mg in NS100 100ml (IVPB at Incision) 660 MG IV (14:34)
--- NOTE | 2022-01-25 15:22 | PCM.OPRPT ---
Report of Operation Date of Procedure: 01/25/22 Pre-Operative Diagnosis: Right hip superficial wound dehiscence Post-Operative Diagnosis: Right hip draining sinus tract, periprosthetic joint infection Surgery/Procedure Performed:: Irrigation debridement, excision draining sinus tract 4 cm x 2 cm. Revision right total replacement acetabular liner and femoral head exchange. Description of Surgical Findings:: Patient had tract that narrowly communicated with sinus and underlying seroma. Previous fascial repair had large rent connecting directly with joint. Surgeon: Temo Aranda investigative writer: Poonam Foster Type of Anesthesia: General Anesthesiologist: Vern Wright Special Medications: 2 g of vancomycin powder in the wound. 2 g Ancef IV. TXA IV. Specimen's removed: 1 specimen from the superficial sinus tract was removed 3 separate specimens from the deep wound/joint were removed Drains: Anterior lateral drain Estimated Blood Loss (mL): 300 Fluids Replaced: 1400 mL crystalloid Description of Procedure: On the date of the procedure patient was met in the preoperative area. Where operative plan was confirmed patient agreed on side procedure and her right hip was marked. Patient was brought back to the operating room with her transferred the table in supine position. Anesthesia assumed control of the C-spine and airway. After anesthesia administered anesthetic there remained to control the C-spine airway throughout the remainder the procedure. Patient was placed in the lateral decubitus position with the right hip in the air. After patient was securely fastened to the pegboard and axillary roll was placed the right hip was prepped in a sterile fashion using Betadine scrub due to the open wound. Surgeons then scrubbed. Upon reentering the room the right lower extremity was draped in a sterile fashion. Incision was marked out for an ellipse of the draining sinus. Timeout was called over and agreed upon the side, the site, procedure to be perform, patient's identity and antibiotic given. After everyone agreed about on the timeout incision was made ellipsing out the proximal sinus tract. We then carefully explored the wound and could easily tell that it communicated more distal. We extended our incision distal. We carefully explored this area and noted that there was a seroma deep to the fatty layer. We dissected down of the seroma and saw that the fascial layer was open with previous failure to heal. This totals that are sinus tract communicated all the way to the joint. At this time elected to proceed with a headliner exchange. The wound was carefully debrided skin subtenons tissue fat fascia even bone down to the the joint. After we completed a complete synovectomy the hip was dislocated. Bone tamp was used to dissociate the trunnion from the femoral head. Once this was done we retracted the femoral trunnion out of the way and carefully remove the previous MDM liner. After all the interchangeable components were removed and the wound was adequately debrided of all synovial tissue we irrigated out the wound with 6 L of normal saline under low-pressure lavage. Once this was done a chlorhexidine lavage was performed. The final implants were open as the previous hip was stable with good leg lengths we opened up the same sizes. We then impacted the acetabular liner into place. The Sampson taper was tested and was stable. The femoral trunnion was then exposed and the femoral head was placed. It was impacted into place after cleaning the trunnion thoroughly. Hip was reduced found to be stable with equal leg lengths once again. At this point the wound was lavaged with a 3-minute dilute Betadine lavage followed by 1 minute chlorhexidine lavage. We then copiously irrigate out the joint with normal saline. A drain was placed in the deep layer anterior laterally. Once this was done 2 g of vancomycin powder were placed into the joint deep. Once this was done we carefully closed the wound in layered fashion. The fascia was closed using #1 Vicryl interrupted sutures followed by a #1 strata fix barbed runner and proximally a Vicryl runner and the more muscular tissue. This gave the appearance of a watertight closure and appeared to be watertight on testing using our forceps. The deep fatty layer was closed with #1 strata fix runners. Subcuticular layer was closed with 2-0 Vicryl and final skin closure was done with 2-0 nylon sutures. Sterile silver dressing was placed. Patient did have some skin irritation from previous dressings Xeroform was placed on these. After sterile dressing was placed patient was placed back in supine position and awakened by anesthesia and transferred to the PACU for recovery in stable condition. During the course of the procedure the physician operations analyst (PE) played a vital role. Their intimate knowledge of my steps in the procedure aided in safe and expedient completion of the procedure. The PE played a vital rolls in positioning particularly in obtaining the appropriate lateral decubitus position. The PE was also vital in the retraction of soft tissues during the exposure and especially the femoral work as this is a vital part of the procedure to prevent complications and fractures. The PE was also vital and protecting soft tissues during times of bony cuts and reaming. He also played a vital role in closure with my direct supervision. The PE was also important during reduction and dislocation of the joint and trials intraoperatively. Postop plan: DVT prophylaxis will be 81 mg aspirin twice daily. Patient will be placed on Ancef and vancomycin over the weekend and infectious diseases consulted. We will follow kidney function through the weekend with pharmacy dosing of the vancomycin. Posterior hip precautions for 3 months. Grafts/Implants Used: Patrica CoCr 22.2 mm, +3 mm head, CoCr MDM liner, D. X3 38D poly liner Complications No intraoperative complications Admit VTE Documentation VTE Present on Admission: No VTE Mechan Device Prophylaxis: SCD's and Thigh High THOMAS Hose VTE Pharm Prophylaxis ordered?: Yes
[2022-01-25] MEDS: Lactated Ringers 1,000 ML 999 ML IV (15:30)
--- NOTE | 2022-01-25 16:10 | RAD_ITS ---
STUDY: X-RAY - PELVIS AND RIGHT HIP REASON FOR EXAM: Female, 76 years old. Post Op -- AP both hips on single swati/lateral of op hip PACU TECHNIQUE: 2 views of the pelvis and hip. COMPARISON: 12/21/2021 FINDINGS: Please see the impression. RAD/Hip Min 2 Views (Portable) IMPRESSION: Status post right total hip revision arthroplasty with 2 cerclage wires around the femoral component. No radiographic evidence of hardware complication or periprosthetic fracture. 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 Interval removal of the skin nehal. Electronically Signed: Andreas Tyler MD at 17:41 EDT ,
[2022-01-25 16:55] LABS: Bedside Glucose 133 mg/dL (74-106)
--- NOTE | 2022-01-25 16:58 | PCM.RX.CS ---
Consult Pharmacy has been consulted to manage selected antiobiotic: Vancomycin Type of Consult: New start Suspected Infection: Other Goal Trough: 10-15 mcg/mL Pharmacy Plan for Drug Dosing: NEW START IV VANCOMYCIN Consulting Physician: Dr Frantz Aranda Indication: Infected Joint Goal Trough: 10-15 SrCr: 0.88 (from 01/23/22) CrCl: 58mls/min (using an adjusted body weight of 67kg) Comments: Vancomcyin Dose: based off of pts weight and renal function, recommend an initial dose of 1750mg q24h starting 01/25/22 at 1730. trough before the 3rd total dose Pending Level: 01/27/22 at 1700 Pharmacy Service will continue to monitor and adjust dosing as required. Follow-Up Labs: Trough Vancomycin - 01/27/22 at 1700
[2022-01-25] MEDS: Lactated Ringers 1,000 ML 125 ML IV (18:07)
[2022-01-25] MEDS: metFORMIN (XR) 500 MG Tablet PO (18:08)
[2022-01-25] MEDS: Morphine 2 MG/ML Syringe IV (18:09)
[2022-01-25] MEDS: 0.9% NaCl Peripheral Flush Adult/Peds IV (18:09)
--- NOTE | 2022-01-25 18:38 | NURSING ---
o2 weaned to 2l, 96%
--- NOTE | 2022-01-25 18:42 | PCM.PN.HOSP ---
Subjective Subjective Patient was seen and examined today at the request of orthopedic surgery, she underwent irrigation debridement and excision of draining sinus tract and revision right total replacement acetabular liner and femoral head exchange. Chronic medical problems include type 2 diabetes, history of colon cancer, osteoarthritis, and GERD. At this time postop, patient has no complaints of any shortness of breath, chest pain, fevers, or chills. Objective Data Objective Data Vital Signs: Vital Signs Temp Pulse Resp BP Pulse Ox O2 Del Method O2 Flow Rate 97.8 F 66 18 125/51 H 100 Nasal Cannula 4 01/25/22 17:24 01/25/22 17:24 01/25/22 17:24 01/25/22 17:24 01/25/22 17:24 01/25/22 17:24 01/25/22 17:24 Oxygen Flow Rate (L/min) 4 Oxygen Delivery Method Nasal Cannula Weight: 85.638 kg Body Mass Index (BMI) 32.3 Intake & Output: Intake and Output for Last 24 Hours 01/23/22 01/24/22 01/25/22 23:59 23:59 23:59 Intake Total 1432 / 1432 Output Total 420 / 420 Balance 1012 / 1012 Lab / Micro Data Labs: Laboratory Results - last 24 hr 01/25/22 10:20: POC Glucose 152 H 01/25/22 16:34: POC Glucose 133 H Radiography Diagnostic Testing: Radiology Impression Hip X-Ray 01/25/22 16:10 IMPRESSION: Status post right total hip revision arthroplasty with 2 cerclage wires around the femoral component. No radiographic evidence of hardware complication or periprosthetic fracture. 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 Interval removal of the skin nehal. Electronically Signed: Andreas Tyler MD at 17:41 EDT , Physical Exam Const alert, oriented x3, no apparent distress and healthy appearing General Appearance: cooperative, well kempt and well developed Orientation / Consciousness: awake, oriented to person, oriented to place and oriented to time HEENT normocephalic, head/scalp atraumatic and moist oral mucous membranes Eyes PERRL, EOMs intact bilaterally and conjunctivae normal Neck supple, no JVD, thyroid normal and no carotid bruits General: trachea midline Resp normal respiratory effort, no retractions, no use of accessory muscles and clear to auscultation bilaterally Auscultation: Negative for rales, rhonchi or wheezes Cardio regular rate, regular rhythm, S1 normal heart sound, S2 normal heart sound, no murmurs, no rub and no gallops GI normal to inspection, nondistended, normoactive bowel sounds, soft to palpation, non-tender and non-distended Skin no rashes or lesions noted Neuro oriented x3, CN's II-XII intact bilaterally, no focal motor deficits and no sensory deficits noted Sensorium / Orientation: awake and alert Speech: speech normal Psych affect normal Assessment & Plan Assessment/Plan (1) Diabetes mellitus, type 2: PLAN: Plan 1. Type 2 diabetes-patient takes metformin at home for her diabetes, this will be continued here, patient will have fingerstick blood sugars monitored, sliding scale insulin will be ordered. #2 GERD-patient is on Pepcid #3 osteoarthritis-complicates care, management, recovery, prognosis #4 status post right hip head and liner exchange due to periprosthetic joint infection-postop day #1-patient is on antibiotics per orthopedic surgery Orthopedic surgery prefers aspirin 81 mg twice daily for DVT prophylaxis. Charges/Coding Visit Charges Inpatient E&M: 02710 Subs Hosp L2
[2022-01-25] MEDS: Cefazolin 1 GM/50 ML BAG IV (21:56)
[2022-01-25] MEDS: Senna/Docusate Sodium 1 Tablet 2 TABLET PO (21:59)
[2022-01-25] MEDS: Aspirin 81 MG TAB.CHEW PO (22:00)
[2022-01-25] MEDS: Insulin Lispro 100 UNIT/ML INSULN.PEN SC (22:07)
[2022-01-25 23:41] LABS: Bedside Glucose 220 mg/dL (74-106)
[2022-01-26] VITALS (7 sets, daily range): BP systolic 101–146; BP diastolic 37–66; PULSE 76–86; RESP 18; TEMP 36.3–36.9; O2SAT 94–100; BMI 32.4
[2022-01-26] MEDS: Acetaminophen 500 MG Tablet 1000 MG PO ×3 (02:39→18:18)
[2022-01-26] MEDS: Cefazolin 1 GM/50 ML BAG IV ×2 (05:40→12:37)
--- NOTE | 2022-01-26 05:42 | NURSING ---
pt sat on the edge of the bed and dangled her legs. pt was too dizzy to stand.
[2022-01-26 06:28] LABS: Hematocrit 29.7 % (37-47); Hemoglobin 9.5 g/dL (12.0-15.0); Mean Corpuscular Hgb 32.1 pg (27.0-32.0); Mean Corpuscular Volume 100.3 fL (81-99); Mean Platelet Vol. 9.3 fl (6.2-12.0); Platelet Count 211 K/mm3 (150-450); RBC Distribution Width CV 13.6 % (11.6-14.6); RBC Distribution Width SD 49.8 fl (35.1-43.9); Red Blood Count 2.96 M/mm3 (4.2-5.4); White Blood Count 11.7 K/mm3 (4.4-11.0)
[2022-01-26] MEDS: oxyCODONE 5 MG Tablet PO ×2 (06:38→20:59)
[2022-01-26 06:57] LABS: Anion Gap 3 (5-15); BUN 26 mg/dL (7-18); BUN/Creat Ratio 42.8 RATIO (10-20); Calcium,Total 8.4 mg/dL (8.5-10.1); Chloride 110 mmol/L (98-107); Creatinine, Serum 0.61 mg/dL (0.55-1.02); EST Glomerular Filtration Rate 102 mL/min (>60); Est Glom Filt Rate - Afr Amer 123 mL/min (>60); Estimated Creatinine Clearance 41.97 ml/min; Glucose 123 mg/dL (74-106); Potassium 5.2 mmol/L (3.5-5.1); Sodium Level 142 mmol/L (136-145)
[2022-01-26 07:06] LABS: Bedside Glucose 112 mg/dL (74-106)
[2022-01-26] MEDS: Ensure Surgery 237 ML LIQUID PO ×3 (08:24→18:17)
[2022-01-26] MEDS: Aspirin 81 MG TAB.CHEW PO ×2 (10:52→21:18)
[2022-01-26] MEDS: Famotidine 20 MG Tablet PO (10:52)
[2022-01-26] MEDS: Senna/Docusate Sodium 1 Tablet 2 TABLET PO (10:52)
[2022-01-26 11:50] LABS: Bedside Glucose 145 mg/dL (74-106)
--- NOTE | 2022-01-26 13:55 | CASEMGMT ---
SW Note SW met with patient and her 2 sisters. Patient sister, Eveline, indicated that patient was at her house prior to coming to the ED. Patient had been at [facility] in the past (it was reported that patient came from [facility]). Plan is for patient to return to her sister Eveline's house at discharge. Plan: Home with sister Eveline per patient and her sisters Ann LAST
--- NOTE | 2022-01-26 13:55 | CASEMGMT ---
[facility] Readmission Note Previous Admission:? -12/26/21 Diagnosis:? R femoral shaft fx, recent R THR DC Disposition: [facility] Current Admission? Current Diagnosis:?R hip superficial wound dehiscence Pt presented for surgery due to wound dehiscence. Pt had been dc'd from [facility] on and set up with [facility] SN and PT. RN JEREMY in to pt room, pt sisters present. Pt has been staying at her sister Leroy's house. Neither are able to recall the name of the agency providing the [facility]. Sister will look on folder provided and have information on Friday for [facility]. Pt would like to return back home with the [facility]. Discussed the possibility of needing IV atb. Discussed her C could also assist with this. Pt is not keen on this idea and prefers to be on po atb. Made pt aware that this has not yet been determined, but [facility] will follow for it. DC Plan: Resume [facility] services, follow for IV atb.
--- NOTE | 2022-01-26 15:16 | PCM.PN.HOSP ---
Subjective Subjective Patient reports that she is feeling okay today. She indicates she would prefer to go back and live with her sister at discharge and not go to a facility if possible. She does states she is willing to go to a facility if she has to though. She will discuss this later today further with case management. Objective Data Objective Data Vital Signs: Vital Signs Temp Pulse Resp BP Pulse Ox O2 Del Method O2 Flow Rate 98.5 F 86 18 116/54 L 98 Room Air 2 01/26/22 15:15 01/26/22 15:15 01/26/22 15:15 01/26/22 15:15 01/26/22 15:15 01/26/22 15:15 01/26/22 02:35 Oxygen Flow Rate (L/min) 2 Oxygen Delivery Method Room Air Weight: 85.638 kg Body Mass Index (BMI) 32.3 Intake & Output: Intake and Output for Last 24 Hours 01/24/22 01/25/22 01/26/22 23:59 23:59 23:59 Intake Total 3910.75 / 3910.75 1665.25 / 1665.25 Output Total 670 / 670 50 / 50 Balance 3240.75 / 3240.75 1615.25 / 1615.25 Lab / Micro Data Result Diagrams: 01/26/22 05:55 01/26/22 05:55 Labs: Laboratory Results - last 24 hr 01/25/22 16:34: POC Glucose 133 H 01/25/22 21:55: POC Glucose 220 H 01/26/22 05:55: WBC 11.7 H, RBC 2.96 L, Hgb 9.5 L, Hct 29.7 L, MCV 100.3 H, MCH 32.1 H, MCHC 32.0, RDW Std Deviation 49.8 H, RDW Coeff of Albert 13.6, Plt Count 211, MPV 9.3 01/26/22 05:55: Sodium 142, Potassium 5.2 H, Chloride 110 H, Carbon Dioxide 29.0, Anion Gap 3 L, BUN 26 H, Creatinine 0.61, Estim Creat Clear Calc 41.97, Est GFR (MDRD) Af Amer 123, Est GFR (MDRD) Non-Af 102, BUN/Creatinine Ratio 42.8 H, Glucose 123 H, Calcium 8.4 L 01/26/22 06:35: POC Glucose 112 H 01/26/22 11:30: POC Glucose 145 H Micro: Microbiology 01/25/22 Unknown Tissue - Hip Aceabular Membrane Gram Stain - Final 01/25/22 Unknown Tissue - Hip Aceabular Membrane Wound Culture - Preliminary Gram negative favian 01/25/22 Unknown Tissue - Hip Gram Stain - Final 01/25/22 Unknown Tissue - Hip Wound Culture - Preliminary Gram negative favian 01/25/22 Unknown Tissue - Hip Gram Stain - Final 01/25/22 Unknown Tissue - Hip Wound Culture - Preliminary No growth-Final to follow 01/25/22 Unknown Tissue - Hip Gram Stain - Final 01/25/22 Unknown Tissue - Hip Wound Culture - Preliminary Gram negative favian 01/25/22 10:20 Interface Orders Nasal Screen MRSA/MSSA - Final Radiography Diagnostic Testing: Radiology Impression Hip X-Ray 01/25/22 16:10 IMPRESSION: Status post right total hip revision arthroplasty with 2 cerclage wires around the femoral component. No radiographic evidence of hardware complication or periprosthetic fracture. 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 Interval removal of the skin nehal. Electronically Signed: Andreas Tyler MD at 17:41 EDT , Physical Exam Const alert and oriented x3 Constitutional Narrative: Elderly white female sitting up in bed watching television, appears slightly anxious however nontoxic and appears comfortable at this time, eating breakfast HEENT head/scalp atraumatic and moist oral mucous membranes Resp normal respiratory effort, no retractions, no use of accessory muscles and clear to auscultation bilaterally Cardio regular rate, regular rhythm, S1 normal heart sound, S2 normal heart sound, no murmurs, no rub, no gallops, no clicks and no JVD GI normal to inspection, nondistended, normoactive bowel sounds, soft to palpation, non-tender and non-distended Extremity no clubbing, cyanosis or edema Neuro oriented x3, moves all extremities and no focal motor deficits Neuro Narrative: Decreased movement on right lower extremity secondary to periprosthetic joint infection Speech: speech normal Psych Mood & Affect: anxious Assessment & Plan Assessment/Plan (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: (2) Leukocytosis: (3) Hyperkalemia: PLAN: Plan Right periprosthetic hip infection -Postop day 1 I&D with excision of draining sinus tract and revision of right total hip arthroplasty with acetabular liner and femoral head exchange -Cultures are currently growing gram-negative rods -Patient would ultimately like to go home on oral antibiotics if possible--> I did explain to her we will have to see what the cultures result -May need to consider antibiotic changes she is currently on Ancef/Vanco however with gram-negative rods coverage may be questionable -Sensitivities are pending -ID consult pending -Continue PT/OT -Weightbearing status per orthopedic surgery Leukocytosis -Suspect reactive -Repeat CBC in a.m. Hyperkalemia -Etiology unclear -Repeat BMP in a.m. -Is mild at 5.2 Chronic anemia -Microcytic at baseline -Counts are stable -CBC in a.m. DM-2 -Continue home metformin -Sliding scale insulin -Diabetic diet -Accu-Cheks GERD -Continue home Pepcid DVT prophylaxis -Aspirin 81 mg twice daily per primary service Charges/Coding Visit Charges Inpatient E&M: 94872 Subs Hosp L2
[2022-01-26 17:46] LABS: Bedside Glucose 171 mg/dL (74-106)
--- NOTE | 2022-01-26 17:55 | PN.ORTHO_ITS ---
Subjective Subjective Patient is doing well at this time. She reports no chest pain or shortness of breath. The drain has slowed significantly overnight last shift was only 50 mL. She would like to return home on discharge from the hospital. No acute events are noted. Patient's cultures are growing out gram-negative rods in 3 out of the 4 cultures. Objective Data Objective Data Vital Signs: Vital Signs Temp Pulse Resp BP Pulse Ox O2 Del Method O2 Flow Rate 98.5 F 86 18 116/54 L 98 Room Air 2 01/26/22 15:15 01/26/22 15:15 01/26/22 15:15 01/26/22 15:15 01/26/22 15:15 01/26/22 15:16 01/26/22 02:35 Oxygen Flow Rate (L/min) 2 Oxygen Delivery Method Room Air Weight: 188 lb 12.8 oz Body Mass Index (BMI) 32.3 Intake & Output: Intake and Output for Last 24 Hours 01/24/22 01/25/22 01/26/22 23:59 23:59 23:59 Intake Total 3910.75 / 3910.75 1665.25 / 1665.25 Output Total 670 / 670 50 / 50 Balance 3240.75 / 3240.75 1615.25 / 1615.25 Lab / Micro Data Attestation: I reviewed the patient's lab results. Result Diagrams: 01/26/22 05:55 01/26/22 05:55 Labs: Laboratory Results - last 24 hr 01/25/22 21:55: POC Glucose 220 H 01/26/22 05:55: WBC 11.7 H, RBC 2.96 L, Hgb 9.5 L, Hct 29.7 L, MCV 100.3 H, MCH 32.1 H, MCHC 32.0, RDW Std Deviation 49.8 H, RDW Coeff of Albert 13.6, Plt Count 211, MPV 9.3 01/26/22 05:55: Sodium 142, Potassium 5.2 H, Chloride 110 H, Carbon Dioxide 29.0, Anion Gap 3 L, BUN 26 H, Creatinine 0.61, Estim Creat Clear Calc 41.97, Est GFR (MDRD) Af Amer 123, Est GFR (MDRD) Non-Af 102, BUN/Creatinine Ratio 42.8 H, Glucose 123 H, Calcium 8.4 L 01/26/22 06:35: POC Glucose 112 H 01/26/22 11:30: POC Glucose 145 H 01/26/22 17:23: POC Glucose 171 H Micro: Microbiology 01/25/22 Unknown Tissue - Hip Aceabular Membrane Gram Stain - Final 01/25/22 Unknown Tissue - Hip Aceabular Membrane Wound Culture - Preliminary Gram negative favian 01/25/22 Unknown Tissue - Hip Gram Stain - Final 01/25/22 Unknown Tissue - Hip Wound Culture - Preliminary Gram negative favian 01/25/22 Unknown Tissue - Hip Gram Stain - Final 01/25/22 Unknown Tissue - Hip Wound Culture - Preliminary No growth-Final to follow 01/25/22 Unknown Tissue - Hip Gram Stain - Final 01/25/22 Unknown Tissue - Hip Wound Culture - Preliminary Gram negative favian 01/25/22 10:20 Interface Orders Nasal Screen MRSA/MSSA - Final Radiography Diagnostic Testing: Postop x-rays reviewed showing stable right total hip replacement. Physical Exam Const alert, oriented x3 and no apparent distress Extremity Extremity Narrative: Right lower extremity: Dressing is clean dry and intact Sensations intact to light touch saphenous, sural, superficial peroneal, deep peroneal, and tibial distributions Motors intact EHL, DF, PF calves are soft and supple Drain has serosanguineous fluid with clotting in the tubing. 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 Drain: Continue drain will likely pull tomorrow if remains slow 2. DVT prophylaxis: Aspirin 81 mg twice daily for 4 weeks. 3. Pain control: Tylenol and oxycodone tolerating well. 4. Infectious disease: Infectious disease Unable to see till Friday however, I have been able to communicate with him did discuss with him today's culture findings he recommended switching Ancef to cefepime based on patient's renal function. GFR is greater than 60. We will continue on vancomycin despite gram-negative favian being primary organism. 5. Medical management: Appreciate medical management of this patient 6. Leukocytosis: Likely reactive surgery will continue to follow also related to patient's ongoing infectious etiology 7. Anemia: Likely related to recent surgeries patient has had extensive surgical history with multiple procedures over the last 3 months likely re sulting in current anemia. Patient is stable does not require transfusion at this time. Hemoglobin is 9.5. 8. Disposition: At this time we will continue to follow patient's cultures. We will need to order a PICC line. We will await final recommendations from infectious disease prior to discharge for IV antibiotics. Once IV antibiotics are set up patient would like to be discharged home. We will continue work with social work to determine the feasibility of this. Family is also in the room today and does wish for patient to go home and voices ability to provide support. [facility] Office: (2) Diabetes mellitus, type 2:
[2022-01-26] MEDS: metFORMIN (XR) 500 MG Tablet PO (18:17)
[2022-01-26] MEDS: Ondansetron 4 MG/2 ML Vial IV (20:59)
[2022-01-26] MEDS: 0.9% NaCl Peripheral Flush Adult/Peds IV (20:59)
[2022-01-26 21:51] LABS: Bedside Glucose 143 mg/dL (74-106)
[2022-01-27 02:53] VITALS: BP 111/51; PULSE 84; RESP 18; TEMP 36.7; O2SAT 99
[2022-01-27] MEDS: Acetaminophen 500 MG Tablet 1000 MG PO ×3 (02:55→17:26)
[2022-01-27 06:06] LABS: Hematocrit 26.4 % (37-47); Hemoglobin 8.5 g/dL (12.0-15.0); Mean Corp Hgb Conc 32.2 g/dL (32-36); Mean Corpuscular Hgb 32.1 pg (27.0-32.0); Mean Corpuscular Volume 99.6 fL (81-99); Mean Platelet Vol. 9.1 fl (6.2-12.0); Platelet Count 165 K/mm3 (150-450); RBC Distribution Width CV 14.2 % (11.6-14.6); RBC Distribution Width SD 51.6 fl (35.1-43.9); Red Blood Count 2.65 M/mm3 (4.2-5.4); White Blood Count 11.8 K/mm3 (4.4-11.0)
[2022-01-27 06:33] LABS: Anion Gap 3 (5-15); BUN 33 mg/dL (7-18); BUN/Creat Ratio 56.4 RATIO (10-20); Calcium,Total 8.3 mg/dL (8.5-10.1); Chloride 110 mmol/L (98-107); Creatinine, Serum 0.58 mg/dL (0.55-1.02); EST Glomerular Filtration Rate 107 mL/min (>60); Est Glom Filt Rate - Afr Amer 129 mL/min (>60); Estimated Creatinine Clearance 41.97 ml/min; Glucose 97 mg/dL (74-106); Potassium 4.4 mmol/L (3.5-5.1); Sodium Level 142 mmol/L (136-145)
[2022-01-27 06:40] LABS: Bedside Glucose 92 mg/dL (74-106)
[2022-01-27 09:23] VITALS: BP 110/48; PULSE 79; RESP 16; TEMP 37.2; O2SAT 97
[2022-01-27] MEDS: Ensure Surgery 237 ML LIQUID PO ×3 (09:34→16:27)
[2022-01-27] MEDS: Famotidine 20 MG Tablet PO (09:34)
[2022-01-27] MEDS: Aspirin 81 MG TAB.CHEW PO ×2 (09:34→22:20)
[2022-01-27] MEDS: Insulin Lispro 100 UNIT/ML INSULN.PEN SC ×3 (11:14→22:21)
[2022-01-27] MEDS: 0.9% NaCl Peripheral Flush Adult/Peds IV (11:22)
--- NOTE | 2022-01-27 11:29 | PCM.PN.HOSP ---
Subjective Subjective Patient reports that she is doing okay other than pain. She does however indicate her pain is fairly well managed with her current medications. Wanting to go home. Per discussion with nursing Dr. Aranda has ordered a PICC to be placed later today in preparation for discharge. Antibiotics were changed from Ancef to cefepime. Objective Data Objective Data Vital Signs: Vital Signs Temp Pulse Resp BP Pulse Ox O2 Del Method O2 Flow Rate 98.9 F 79 16 110/48 L 97 Room Air 2 01/27/22 09:23 01/27/22 09:23 01/27/22 09:23 01/27/22 09:23 01/27/22 09:23 01/27/22 09:23 01/26/22 02:35 Oxygen Flow Rate (L/min) 2 Oxygen Delivery Method Room Air Weight: 85.638 kg Body Mass Index (BMI) 32.3 Intake & Output: Intake and Output for Last 24 Hours 01/25/22 01/26/22 01/27/22 23:59 23:59 23:59 Intake Total 3910.75 / 3910.75 2590.25 / 2690.25 611.5 / 611.5 Output Total 670 / 670 50 / 253 903 / 903 Balance 3240.75 / 3240.75 2540.25 / 2437.25 -291.5 / -291.5 Lab / Micro Data Result Diagrams: 01/27/22 05:59 01/27/22 05:59 Labs: Laboratory Results - last 24 hr 01/26/22 11:30: POC Glucose 145 H 01/26/22 17:23: POC Glucose 171 H 01/26/22 21:31: POC Glucose 143 H 01/27/22 05:59: WBC 11.8 H, RBC 2.65 L, Hgb 8.5 L, Hct 26.4 L, MCV 99.6 H, MCH 32.1 H, MCHC 32.2, RDW Std Deviation 51.6 H, RDW Coeff of Albert 14.2, Plt Count 165, MPV 9.1 01/27/22 05:59: Sodium 142, Potassium 4.4, Chloride 110 H, Carbon Dioxide 29.0, Anion Gap 3 L, BUN 33 H, Creatinine 0.58, Estim Creat Clear Calc 41.97, Est GFR (MDRD) Af Amer 129, Est GFR (MDRD) Non-Af 107, BUN/Creatinine Ratio 56.4 H, Glucose 97, Calcium 8.3 L 01/27/22 06:17: POC Glucose 92 Micro: Microbiology 01/25/22 Unknown Tissue - Hip Gram Stain - Final 01/25/22 Unknown Tissue - Hip Wound Culture - Preliminary Gram negative favian 01/25/22 Unknown Tissue - Hip Gram Stain - Final 01/25/22 Unknown Tissue - Hip Wound Culture - Final Enterobacter cloacae complex 01/25/22 Unknown Tissue - Hip Aceabular Membrane Gram Stain - Final 01/25/22 Unknown Tissue - Hip Aceabular Membrane Wound Culture - Final Enterobacter cloacae complex 01/25/22 Unknown Tissue - Hip Gram Stain - Final 01/25/22 Unknown Tissue - Hip Wound Culture - Final Enterobacter cloacae complex 01/25/22 10:20 Interface Orders Nasal Screen MRSA/MSSA - Final Physical Exam Const alert, oriented x3, no apparent distress and healthy appearing Constitutional Narrative: Elderly white female sitting up in a chair at the bedside watching television and finishing up breakfast, calm today and appears comfortable General Appearance: cooperative, well kempt and well developed HEENT normocephalic, head/scalp atraumatic and moist oral mucous membranes HEENT Narrative: Mallampati 3, no thrush Resp normal respiratory effort, no retractions, no use of accessory muscles and clear to auscultation bilaterally Auscultation: Negative for crackles, rales, rhonchi or wheezes Cardio regular rate, regular rhythm, S1 normal heart sound, S2 normal heart sound, no murmurs, no rub, no gallops, no clicks and no JVD GI normal to inspection, nondistended, normoactive bowel sounds, soft to palpation, non-tender and non-distended Extremity no clubbing, cyanosis or edema Neuro oriented x3 and no focal motor deficits Neuro Narrative: Decreased movement on right lower extremity secondary to periprosthetic joint infection Speech: speech normal Assessment & Plan Assessment/Plan (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 Hyperkalemia -Resolved -Suspect hemolyzed specimen Chronic anemia -Microcytic at baseline -Counts are relatively stable with a 1 g drop in the last 24 hours -CBC in a.m. DM-2 -Sugars appear to be well controlled -Continue home metformin -Sliding scale insulin -Diabetic diet -Accu-Cheks GERD -Continue home Pepcid DVT prophylaxis -Aspirin 81 mg twice daily per primary service Charges/Coding Visit Charges Inpatient E&M: 60491 Subs Hosp L2
[2022-01-27 11:36] LABS: Bedside Glucose 169 mg/dL (74-106)
--- NOTE | 2022-01-27 13:33 | PN.ORTHO_ITS ---
Objective Data Objective Data Patient is doing well overall. She reports moderate thigh pain however all controlled with Tylenol. No acute events overnight. No chest pain or shortness of breath. Cultures growing out Enterobacter Cloacae species resistant Ancef, susceptible to cefepime which she was switched to yesterday. Patient did have a slight increase in BUN, creatinine slightly decreased today. Vital Signs: Vital Signs Temp Pulse Resp BP Pulse Ox O2 Del Method O2 Flow Rate 98.9 F 79 16 110/48 L 97 Room Air 2 01/27/22 09:23 01/27/22 09:23 01/27/22 09:23 01/27/22 09:23 01/27/22 09:23 01/27/22 09:30 01/26/22 02:35 Oxygen Flow Rate (L/min) 2 Oxygen Delivery Method Room Air Weight: 188 lb 12.8 oz Body Mass Index (BMI) 32.3 Intake & Output: Intake and Output for Last 24 Hours 01/25/22 01/26/22 01/27/22 23:59 23:59 23:59 Intake Total 3910.75 / 3910.75 2590.25 / 2690.25 1811.75 / 1811.75 Output Total 670 / 670 50 / 253 903 / 903 Balance 3240.75 / 3240.75 2540.25 / 2437.25 908.75 / 908.75 Lab / Micro Data Attestation: I reviewed the patient's lab results. Result Diagrams: 01/27/22 05:59 01/27/22 05:59 Labs: Laboratory Results - last 24 hr 01/26/22 17:23: POC Glucose 171 H 01/26/22 21:31: POC Glucose 143 H 01/27/22 05:59: WBC 11.8 H, RBC 2.65 L, Hgb 8.5 L, Hct 26.4 L, MCV 99.6 H, MCH 32.1 H, MCHC 32.2, RDW Std Deviation 51.6 H, RDW Coeff of Albert 14.2, Plt Count 165, MPV 9.1 01/27/22 05:59: Sodium 142, Potassium 4.4, Chloride 110 H, Carbon Dioxide 29.0, Anion Gap 3 L, BUN 33 H, Creatinine 0.58, Estim Creat Clear Calc 41.97, Est GFR (MDRD) Af Amer 129, Est GFR (MDRD) Non-Af 107, BUN/Creatinine Ratio 56.4 H, Glucose 97, Calcium 8.3 L 01/27/22 06:17: POC Glucose 92 01/27/22 11:13: POC Glucose 169 H Micro: Microbiology 01/25/22 Unknown Tissue - Hip Gram Stain - Final 01/25/22 Unknown Tissue - Hip Wound Culture - Preliminary Gram negative favian 01/25/22 Unknown Tissue - Hip Gram Stain - Final 01/25/22 Unknown Tissue - Hip Wound Culture - Final Enterobacter cloacae complex 01/25/22 Unknown Tissue - Hip Aceabular Membrane Gram Stain - Final 01/25/22 Unknown Tissue - Hip Aceabular Membrane Wound Culture - Final Enterobacter cloacae complex 01/25/22 Unknown Tissue - Hip Gram Stain - Final 01/25/22 Unknown Tissue - Hip Wound Culture - Final Enterobacter cloacae complex 01/25/22 10:20 Interface Orders Nasal Screen MRSA/MSSA - Final Physical Exam Const alert, oriented x3 and no apparent distress Narrative: Wick is in place. Tubing transfer to contralateral side away from wound Extremity Extremity Narrative: Right lower extremity: Dressing is clean dry and intact Sensations intact to light touch saphenous, sural, superficial peroneal, deep peroneal, and tibial distributions Motors intact EHL, DF, PF calves are soft and supple Drain was removed today. Assessment & Plan Assessment/Plan (1) Hyperkalemia: PLAN: Corrected today. Per medicine (2) Leukocytosis: PLAN: Stable continue to follow. (3) Diabetes mellitus, type 2: PLAN: Stable well managed appreciate medical management. (4) Infection of prosthetic total hip joint: PLAN: Postop day 2 irrigation debridement, sinus tract excision and head and liner exchange right total replacement 1.? Drain: Continue drain will likely pull tomorrow if remains slow 2.? DVT prophylaxis: Aspirin 81 mg twice daily for 4 weeks. 3.? Pain control: Tylenol, tolerating well. 4.? Infectious disease: Infectious disease Unable to see 'friday however, I have been able to communicate with him did discuss with him today's culture findings he recommended switching Ancef to cefepime based on patient's renal function.? GFR is greater than 60.? We will continue on vancomycin despite gram-negative favian being primary organism until infectious disease can fully review. Enterobacter cloaca positive on cultures. Sensitivities show sensitive to cefepime. Did discuss patient's elevated BUN with pharmacy who is helping with dosing. She has a trough tonight. Goal will be 15-20 based on type of infection. They are aware of her change in BUN we will continue to rely on pharmacy to help dose appropriately and infectious disease for final antibiotic regimen 5.? Medical management: Appreciate medical management of this patient 6.? Leukocytosis: Likely reactive surgery will continue to follow also related t o patient's ongoing infectious etiology 7.? Anemia: Likely related to recent surgeries patient has had extensive surgical history with multiple procedures over the last 3 months likely resulting in current anemia.? Patient is stable does not require transfusion at this time.? Hemoglobin is 8.5. 8. Wound care: Based on patient's history I would like to place an incisional wound VAC upon discharge. I will order it for tomorrow and have the wound nurse place. Prevena wound VAC would be appropriate. Patient was instructed on discontinuing wound VAC 1 week after placement. 8.? Disposition: At this time we will continue to follow patient's cultures.? PICC line was placed today.? We will await final recommendations from infectious disease prior to discharge for IV antibiotics.? Once IV antibiotics are set up patient would like to be discharged home.? We will continue work with social work to determine the feasibility of this.? Family is also in the room today and does wish for patient to go home and voices ability to provide support. Patient will continue on DVT prophylaxis for a total of 4 weeks. Wound VAC should be removed 1 week after being placed. Drain was removed today. Patient will remain weightbearing as tolerated with posterior hip precautions. [facility] Office:
[2022-01-27 15:03] VITALS: BP 122/51; PULSE 87; RESP 16; TEMP 36.6; O2SAT 97
[2022-01-27 15:18] LABS: Vancomycin, Trough Level 16.1 ug/mL (5.0-15.0)
[2022-01-27] MEDS: metFORMIN (XR) 500 MG Tablet PO (16:26)
[2022-01-27 16:55] LABS: Bedside Glucose 178 mg/dL (74-106)
--- NOTE | 2022-01-27 18:40 | PCM.RX.CS ---
Consult Pharmacy has been consulted to manage selected antiobiotic: Vancomycin Type of Consult: Follow-up Labs: Sodium 142 mmol/L (136-145) 01/27/22 05:59 Potassium 4.4 mmol/L (3.5-5.1) 01/27/22 05:59 Chloride 110 mmol/L (98-107) H 01/27/22 05:59 Carbon Dioxide 29.0 mmol/L (21.0-32.0) 01/27/22 05:59 Anion Gap 3 (5-15) L 01/27/22 05:59 BUN 33 mg/dL (7-18) H 01/27/22 05:59 Creatinine 0.58 mg/dL (0.55-1.02) 01/27/22 05:59 Est GFR (MDRD) Af Amer 129 mL/min (>60) 01/27/22 05:59 Est GFR (MDRD) Non-Af 107 mL/min (>60) 01/27/22 05:59 BUN/Creatinine Ratio 56.4 RATIO (10-20) H 01/27/22 05:59 Glucose 97 mg/dL (74-106) 01/27/22 05:59 Vancomycin Trough 16.1 ug/mL (5.0-15.0) H 01/27/22 13:58 Microbiology: Microbiology 01/25/22 Unknown Tissue - Hip Gram Stain - Final 01/25/22 Unknown Tissue - Hip Wound Culture - Preliminary Gram negative favian 01/25/22 Unknown Tissue - Hip Gram Stain - Final 01/25/22 Unknown Tissue - Hip Wound Culture - Final Enterobacter cloacae complex 01/25/22 Unknown Tissue - Hip Aceabular Membrane Gram Stain - Final 01/25/22 Unknown Tissue - Hip Aceabular Membrane Wound Culture - Final Enterobacter cloacae complex 01/25/22 Unknown Tissue - Hip Gram Stain - Final 01/25/22 Unknown Tissue - Hip Wound Culture - Final Enterobacter cloacae complex 01/25/22 10:20 Interface Orders Nasal Screen MRSA/MSSA - Final Goal Trough: 15-20 mcg/mL Pharmacy Plan for Drug Dosing: VANCOMYCIN LEVEL RECEIVED Current Vancomycin Dose: 1750MG IV Q24hr Number of Doses Received: 4 (initial + 3 scheduled). note: 2 scheduled prior to trough draw Vancomycin Level: 16.1 Hours Since Last Dose: 19.75hr Renal Function: 0.58 Renal Function Trend: improved from admission Lab/Micro: CX growing GNR prelim, not finalized yet Vancomycin Plan/Comments: Dr. Aranda called to pharmacy this afternoon, inquiring about vancomycin levels. Per [facility], new trough goal will be 15-20 until vancomycin is discontinued (was previously 10-15). Patient had a trough drawn which resulted in a value of 16.1 (new goal 15-20). Although trough is within goal, the trough was drawn very early, likely not representing a true trough. The patient's 1730 dose has already been hung and infusing. In light of this, will recheck a trough prior to tomorrow's dose. Trough is likely within old goal of 10-15, but will recheck tomorrow to make sure it is within new goal of 15-20. Pending Level: 01/28/22 @1700 Pharmacy Service will continue to monitor and adjust dosing as required.
[2022-01-27 22:13] VITALS: BP 101/41; PULSE 86; RESP 18; TEMP 37; O2SAT 97
[2022-01-27] MEDS: oxyCODONE 5 MG Tablet PO (22:20)
[2022-01-27 23:26] LABS: Bedside Glucose 164 mg/dL (74-106)
[2022-01-28 02:42] VITALS: BP 109/30; PULSE 82; RESP 18; TEMP 36.7; O2SAT 98
[2022-01-28] MEDS: Acetaminophen 500 MG Tablet 1000 MG PO ×2 (02:46→09:59)
[2022-01-28 05:14] LABS: Absolute Lymphocyte Count 1.11 X10^3/uL (0.83-4.51); Absolute Neutrophil Count 7.2 X10^3/uL (2.0-7.7); Basophil# 0.04 X10^3/uL; Basophil% 0.4 % (0-1); Eosinophil# 0.21 X10^3/uL; Eosinophils% 2.3 % (0-5); Hematocrit 27.8 % (37-47); Lymphocyte # 1.11 X10^3/ul (0.83-4.51); Mean Corp Hgb Conc 32.4 g/dL (32-36); Mean Corpuscular Hgb 31.8 pg (27.0-32.0); Mean Corpuscular Volume 98.2 fL (81-99); Mean Platelet Vol. 9.8 fl (6.2-12.0); Monocyte# 0.59 X10^3/uL; Monocyte% 6.4 % (0-10); NRBC Flagged by Analyzer 0 % (0-5); Neutrophil # 7.24 X10^3/uL (2.7-7.7); Neutrophil % 78.3 % (47-70); Platelet Count 132 K/mm3 (150-450); RBC Distribution Width CV 14.3 % (11.6-14.6); RBC Distribution Width SD 51.4 fl (35.1-43.9); Red Blood Count 2.83 M/mm3 (4.2-5.4); White Blood Count 9.3 K/mm3 (4.4-11.0)
[2022-01-28 05:32] LABS: Anion Gap 2 (5-15); BUN 33 mg/dL (7-18); BUN/Creat Ratio 64.3 RATIO (10-20); Calcium,Total 8.5 mg/dL (8.5-10.1); Chloride 114 mmol/L (98-107); Creatinine, Serum 0.51 mg/dL (0.55-1.02); EST Glomerular Filtration Rate 124 mL/min (>60); Est Glom Filt Rate - Afr Amer 150 mL/min (>60); Estimated Creatinine Clearance 41.97 ml/min; Glucose 105 mg/dL (74-106); Potassium 4.7 mmol/L (3.5-5.1); Sodium Level 144 mmol/L (136-145)
[2022-01-28 07:41] LABS: Bedside Glucose 111 mg/dL (74-106)
[2022-01-28 08:44] VITALS: BP 91/53; PULSE 84; RESP 18; TEMP 36.6; O2SAT 94
[2022-01-28] MEDS: Aspirin 81 MG TAB.CHEW PO (08:57)
[2022-01-28] MEDS: Famotidine 20 MG Tablet PO (08:57)
[2022-01-28] MEDS: Ensure Surgery 237 ML LIQUID PO ×2 (08:57→12:16)
--- NOTE | 2022-01-28 09:23 | WOUNDNOTE ---
wound photo: right hip
--- NOTE | 2022-01-28 10:52 | PN.ORTHO_ITS ---
Subjective Subjective Patient lying in bed awake. Patient states her pain is been very well managed. Patient denies chest pain, shortness of breath, calf pain, nausea vomiting. Patient feels her right hip pain is very minimal at this time. She has no other complaints. She states she is ready for discharge home. At this time we are waiting on infectious disease to review patient and her medications for discharge home-going antibiotics. Patient states she has been using only Tylenol for pain. She has used oxycodone in the past but does not feel she needs it at this time. Objective Data Objective Data Vital Signs: Vital Signs Temp Pulse Resp BP Pulse Ox O2 Del Method O2 Flow Rate 98 F 84 18 91/53 L 94 Room Air 2 01/28/22 08:44 01/28/22 08:44 01/28/22 08:44 01/28/22 08:44 01/28/22 08:44 01/28/22 08:49 01/26/22 02:35 Oxygen Flow Rate (L/min) 2 Oxygen Delivery Method Room Air Weight: 85.638 kg Body Mass Index (BMI) 32.3 Intake & Output: Intake and Output for Last 24 Hours 01/26/22 01/27/22 01/28/22 23:59 23:59 23:59 Intake Total 2590.25 / 2690.25 3246.75 / 3646.75 749.75 / 749.75 Output Total 50 / 253 903 / 1403 1150 / 1150 Balance 2540.25 / 2437.25 2343.75 / 2243.75 -400.25 / -400.25 Lab / Micro Data Result Diagrams: 01/28/22 04:40 01/28/22 04:40 Labs: Laboratory Results - last 24 hr 01/27/22 11:13: POC Glucose 169 H 01/27/22 13:58: Vancomycin Trough 16.1 H 01/27/22 16:26: POC Glucose 178 H 01/27/22 22:16: POC Glucose 164 H 01/28/22 04:40: WBC 9.3, RBC 2.83 L, Hgb 9.0 L, Hct 27.8 L, MCV 98.2, MCH 31.8, MCHC 32.4, RDW Std Deviation 51.4 H, RDW Coeff of Albert 14.3, Plt Count 132 L, MPV 9.8, Immature Gran % (Auto) 0.600, Neut % (Auto) 78.3 H, Lymph % (Auto) 12.0 L, [place] % (Auto) 6.4, Eos % (Auto) 2.3, Baso % (Auto) 0.4, Absolute Neuts (auto) 7.2, Absolute Lymphs (auto) 1.11, Nucleated RBC % 0 01/28/22 04:40: Sodium 144, Potassium 4.7, Chloride 114 H, Carbon Dioxide 28.0, Anion Gap 2 L, BUN 33 H, Creatinine 0.51 L, Estim Creat Clear Calc 41.97, Est GFR (MDRD) Af Amer 150, Est GFR (MDRD) Non-Af 124, BUN/Creatinine Ratio 64.3 H, Glucose 105, Calcium 8.5 01/28/22 06:26: POC Glucose 111 H Micro: Microbiology 01/25/22 Unknown Tissue - Hip Aceabular Membrane Gram Stain - Final 01/25/22 Unknown Tissue - Hip Aceabular Membrane Wound Culture - Final Enterobacter cloacae complex 01/25/22 Unknown Tissue - Hip Aceabular Membrane Anaerobic Culture - Final No anaerobic bacteria isolated. 01/25/22 Unknown Tissue - Hip Gram Stain - Final 01/25/22 Unknown Tissue - Hip Wound Culture - Final Enterobacter cloacae complex 01/25/22 Unknown Tissue - Hip Anaerobic Culture - Final No anaerobic bacteria isolated. 01/25/22 Unknown Tissue - Hip Gram Stain - Final 01/25/22 Unknown Tissue - Hip Wound Culture - Final Enterobacter cloacae complex 01/25/22 Unknown Tissue - Hip Anaerobic Culture - Final No anaerobic bacteria isolated. 01/25/22 Unknown Tissue - Hip Gram Stain - Final 01/25/22 Unknown Tissue - Hip Wound Culture - Final Enterobacter cloacae complex 01/25/22 Unknown Tissue - Hip Anaerobic Culture - Final No anaerobic bacteria isolated. 01/25/22 10:20 Interface Orders Nasal Screen MRSA/MSSA - Final Physical Exam Narrative Exam patient lying comfortably in bed. Alert oriented. No respiratory distress, speaking full sentences. Patient is full range of motion of the upper extremities with good muscle tone and strength. Patient's left hip is cool to touch nonerythematous. The dressing is clean dry intact. Wound care did place a vacuum dressing on the wound. Patient has good flexion-extension of the right knee ankle and foot. No calf tenderness. Neurovascular is otherwise intact. Patient's vitals are stable as noted in the medical record. BUN is 33, creatinine is 0.51. Const alert and oriented x3 General Appearance: cooperative and well developed HEENT normocephalic Eyes PERRL Resp normal respiratory effort Effort and Inspection: able to speak in complete sentences Cardio regular rate Extremity normal capillary refill Neuro CN's II-XII intact bilaterally Psych mental status grossly normal and affect normal Assessment & Plan Assessment/Plan (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: PLAN: 1. Continue all pain medications as prescribed 2. Aspirin 81 mg 1 p.o. every 12 hours x30 days for postop DVT prophylaxis 3. Wound VAC has been placed by wound management, this is to be in place for 7 days. 4. Awaiting on infectious disease to review patient's lab and culture results and provide discharge antibiotic treatment course 5. Follow with Dr. Aranda in 7 days 6. Weight-bear as tolerated with walker.
--- NOTE | 2022-01-28 10:56 | PCM.CONS.GEN ---
Assessment & Plan Assessment/Plan (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: PLAN: Enterobacter R hip PJI. Now s/p I&D 01/25/22 with poly and femoral head exchange by Dr. Aranda. Surg cx x4 with enterobacter. Will stop vanc/cefepime, change to ertapenem for once daily outpt infusion. Stop date 03/08/22 with weekly labs, ID followup in [address] Snf plan will likely be suppressive po bactrim once IV is complete. Will follow, thank you, d/w block and case maker and wrote rx. (2) Diabetes mellitus, type 2: HPI Consult Data Date of Consult: 01/28/22 HPI Narrative Reason for Consultation: PJI HPI Narrative: ABDIRAHMAN ROGERS, is a 76 F who presented 01/25 with about 3 weeks progressive R hip pain, swelling, redness, and drainage since having 12/21/21 revision R total hip by Dr. Aranda. Developed wound dehiscence and then odor and purulence. No fever or chills. Admitted, taken to OR 01/25/[address] Aranda for I&D, poly exchange, and femoral head exchange. Surg cx with enterobacter, now on vanc/cefepime. Feeling better, no pain this AM. No n/v/d. Full ROS performed and neg except as noted above. [facility] Medical History Anemia Arthritis Diabetes Diabetes mellitus, type 2 GERD (gastroesophageal reflux disease) History of colon cancer History of edema History of revision of total replacement of right hip joint Obesity Osteoarthritis Restless legs Right femoral shaft fracture Shortness of breath on exertion Walker as ambulation aid Wears dentures Home Medications metformin 500 mg tablet,extended release 24 hr 1 tab PO DINNER diabetes 12/20/21 [History Last Taken 12/20/21] ertapenem 1 gram solution for injection 1 g IV Q24H #39 ea 01/28/22 [Rx Last Taken Unknown] Allergy/AdvReac Type Severity Reaction Status Date / Time No Known Allergies Allergy Verified 01/25/22 10:19 Family History Mother Diabetes Father Throat cancer Hx concurrent tobacco use. Surgical History (Updated 01/03/22 @ 00:02 by Background Dakajal) History of bowel resection History of total right hip arthroplasty History of umbilical hernia repair S/P right rotator cuff repair Status post total hip replacement, right Social History household members: family Smoking Status: Never smoker how long ago did patient quit smoking: Smoked 1/2 ppd since youth, quit 06/2021. alcohol intake: never substance use type: does not use Physical Exam Const alert, oriented x3 and no apparent distress General Appearance: cooperative HEENT normocephalic and head/scalp atraumatic Eyes PERRL and EOMs intact bilaterally Neck supple and No nodes Resp normal air movement and clear to auscultation bilaterally Cardio regular rate and regular rhythm GI soft to palpation, non-tender and non-distended Extremity Extremity Narrative: R hip bandaged Skin no rashes or lesions noted Neuro CN's II-XII intact bilaterally Lab / Micro Data Attestation: I reviewed the patient's lab results. Result Diagrams: 01/28/22 04:40 01/28/22 04:40 Labs: Laboratory Results - last 24 hr 01/27/22 11:13: POC Glucose 169 H 01/27/22 13:58: Vancomycin Trough 16.1 H 01/27/22 16:26: POC Glucose 178 H 01/27/22 22:16: POC Glucose 164 H 01/28/22 04:40: WBC 9.3, RBC 2.83 L, Hgb 9.0 L, Hct 27.8 L, MCV 98.2, MCH 31.8, MCHC 32.4, RDW Std Deviation 51.4 H, RDW Coeff of Albert 14.3, Plt Count 132 L, MPV 9.8, Immature Gran % (Auto) 0.600, Neut % (Auto) 78.3 H, Lymph % (Auto) 12.0 L, [place] % (Auto) 6.4, Eos % (Auto) 2.3, Baso % (Auto) 0.4, Absolute Neuts (auto) 7.2, Absolute Lymphs (auto) 1.11, Nucleated RBC % 0 01/28/22 04:40: Sodium 144, Potassium 4.7, Chloride 114 H, Carbon Dioxide 28.0, Anion Gap 2 L, BUN 33 H, Creatinine 0.51 L, Estim Creat Clear Calc 41.97, Est GFR (MDRD) Af Amer 150, Est GFR (MDRD) Non-Af 124, BUN/Creatinine Ratio 64.3 H, Glucose 105, Calcium 8.5 01/28/22 06:26: POC Glucose 111 H Micro: Microbiology 01/25/22 Unknown Tissue - Hip Aceabular Membrane Gram Stain - Final 01/25/22 Unknown Tissue - Hip Aceabular Membrane Wound Culture - Final Enterobacter cloacae complex 01/25/22 Unknown Tissue - Hip Aceabular Membrane Anaerobic Culture - Final No anaerobic bacteria isolated. 01/25/22 Unknown Tissue - Hip Gram Stain - Final 01/25/22 Unknown Tissue - Hip Wound Culture - Final Enterobacter cloacae complex 01/25/22 Unknown Tissue - Hip Anaerobic Culture - Final No anaerobic bacteria isolated. 01/25/22 Unknown Tissue - Hip Gram Stain - Final 01/25/22 Unknown Tissue - Hip Wound Culture - Final Enterobacter cloacae complex 01/25/22 Unknown Tissue - Hip Anaerobic Culture - Final No anaerobic bacteria isolated. 01/25/22 Unknown Tissue - Hip Gram Stain - Final 01/25/22 Unknown Tissue - Hip Wound Culture - Final Enterobacter cloacae complex 01/25/22 Unknown Tissue - Hip Anaerobic Culture - Final No anaerobic bacteria isolated.
--- NOTE | 2022-01-28 11:01 | DCINST_ITS ---
Discharge Instructions Diet Discharge Diet: No restrictions Activity Discharge Activity: May Not Drive and May Shower May resume sexual activity in: No Restrictions Weight Bearing Status: Weight bearing as tolerated Dressing / Incision Call your doctor if your incision/area has: Sudden Increased Bleeding, Increased Pain/ Swelling, Increased Redness, Foul Smelling Discharge and Swelling at the incision site Call your doctor if you observe: Fever of 101 or Higher and Uncontrolled pain Change Dressing in: leave in place till F/U Remove Dressing in: leave in place till F/U Follow Up Care Please Follow Up With: Temo Aranda MD When: 7 Days. call office for appointment Test Results: Test results from this visit will be discussed in further detail at your follow- up appointment, if applicable. Discharge Plan Admission Admit Date/Time: 01/25/22 15:10 Primary Reason for Your Visit: Infected right total hip Attending Provider: Temo Aranda Primary Care Provider: Christopher Spencer Consulting Providers: Christopher Pruett ; Marshall Donato ; Dorinda Ballard Discharge Orders/Prescriptions Prescriptions: New ertapenem 1 gram recon soln 1 g IV Q24H Qty: 39 0RF Rx Instructions: stop date 03/08/22 dx: prosthetic joint infection weekly bmp, cbc, LFT, and esr. Fax to [phone] acetaminophen 500 mg Tablet 1,000 mg PO Q8H 14 Days Qty: 84 0RF aspirin 81 mg Tablet,Chewable 81 mg PO BID 30 Days Qty: 60 0RF oxycodone 5 mg Tablet 5 - 10 mg PO Q4H PRN PRN (Reason: Pain Score 4-10) 7 Days Qty: 30 0RF Continued metformin 500 mg tablet extended release 24 hr 1 tab PO DINNER Label Comments: take 1 tablet by mouth once daily Referrals / Follow Up: Christopher Spencer DO [Primary Care Provider] - Disposition Disposition (needs filled in before D/C Order can be placed): Home, Self Care
[2022-01-28] MEDS: Insulin Lispro 100 UNIT/ML INSULN.PEN SC (11:36)
--- NOTE | 2022-01-28 11:48 | PN.HOSP_ITS ---
Subjective Subjective No significant issues overnight. Wound nurse is at bedside and has just placed a disposable wound VAC that supposed to be on for the next week. Patient states she is feeling well and anxious to go home later today. PICC placed yesterday. Awaiting IDs recommendations for antibiotics at discharge. Objective Data Objective Data Vital Signs: Vital Signs Temp Pulse Resp BP Pulse Ox O2 Del Method O2 Flow Rate 98 F 84 18 91/53 L 94 Room Air 2 01/28/22 08:44 01/28/22 08:44 01/28/22 08:44 01/28/22 08:44 01/28/22 08:44 01/28/22 08:49 01/26/22 02:35 Oxygen Flow Rate (L/min) 2 Oxygen Delivery Method Room Air Weight: 85.638 kg Body Mass Index (BMI) 32.3 Intake & Output: Intake and Output for Last 24 Hours 01/26/22 01/27/22 01/28/22 23:59 23:59 23:59 Intake Total 2590.25 / 2690.25 3246.75 / 3646.75 749.75 / 749.75 Output Total 50 / 253 903 / 1403 1150 / 1150 Balance 2540.25 / 2437.25 2343.75 / 2243.75 -400.25 / -400.25 Lab / Micro Data Result Diagrams: 01/28/22 04:40 01/28/22 04:40 Labs: Laboratory Results - last 24 hr 01/27/22 13:58: Vancomycin Trough 16.1 H 01/27/22 16:26: POC Glucose 178 H 01/27/22 22:16: POC Glucose 164 H 01/28/22 04:40: WBC 9.3, RBC 2.83 L, Hgb 9.0 L, Hct 27.8 L, MCV 98.2, MCH 31.8, MCHC 32.4, RDW Std Deviation 51.4 H, RDW Coeff of [place]br[place] 14.3, Plt Count 132 L, MPV 9.8, Immature Gran % (Auto) 0.600, Neut % (Auto) 78.3 H, Lymph % (Auto) 12.0 L, [place] % (Auto) 6.4, Eos % (Auto) 2.3, Baso % (Auto) 0.4, Absolute Neuts (auto) 7.2, Absolute Lymphs (auto) 1.11, Nucleated RBC % 0 01/28/22 04:40: Sodium 144, Potassium 4.7, Chloride 114 H, Carbon Dioxide 28.0, Anion Gap 2 L, BUN 33 H, Creatinine 0.51 L, Estim Creat Clear Calc 41.97, Est GF R (MDRD) Af Amer 150, Est GFR (MDRD) Non-Af 124, BUN/Creatinine Ratio 64.3 H, Glucose 105, Calcium 8.5 01/28/22 06:26: POC Glucose 111 H Micro: Microbiology 01/25/22 Unknown Tissue - Hip Aceabular Membrane Gram Stain - Final 01/25/22 Unknown Tissue - Hip Aceabular Membrane Wound Culture - Final Enterobacter cloacae complex 01/25/22 Unknown Tissue - Hip Aceabular Membrane Anaerobic Culture - Final No anaerobic bacteria isolated. 01/25/22 Unknown Tissue - Hip Gram Stain - Final 01/25/22 Unknown Tissue - Hip Wound Culture - Final Enterobacter cloacae complex 01/25/22 Unknown Tissue - Hip Anaerobic Culture - Final No anaerobic bacteria isolated. 01/25/22 Unknown Tissue - Hip Gram Stain - Final 01/25/22 Unknown Tissue - Hip Wound Culture - Final Enterobacter cloacae complex 01/25/22 Unknown Tissue - Hip Anaerobic Culture - Final No anaerobic bacteria isolated. 01/25/22 Unknown Tissue - Hip Gram Stain - Final 01/25/22 Unknown Tissue - Hip Wound Culture - Final Enterobacter cloacae complex 01/25/22 Unknown Tissue - Hip Anaerobic Culture - Final No anaerobic bacteria isolated. 01/25/22 10:20 Interface Orders Nasal Screen MRSA/MSSA - Final Physical Exam Const alert, oriented x3, no apparent distress and healthy appearing Constitutional Narrative: Elderly white female lying in bed just having wound VAC placed and getting cleaned up, calm today and appears comfortable General Appearance: cooperative, well kempt and well developed Orientation / Consciousness: awake, oriented to person, oriented to place and oriented to time HEENT normocephalic, head/scalp atraumatic and moist oral mucous membranes Resp normal respiratory effort, no retractions, no use of accessory muscles and clear to auscultation bilaterally Auscultation: Negative for crackles, rales, rhonchi or wheezes Cardio regular rate, regular rhythm, S1 normal heart sound, S2 normal heart sound, no murmurs, no rub, no gallops, no clicks and no JVD GI normal to inspection, nondistended, normoactive bowel sounds, soft to palpation, non-tender and non-distended Extremity no clubbing, cyanosis or edema Extremity Narrative: Wound VAC on right hip, slight swelling with ecchymosis Neuro oriented x3, moves all extremities and no focal motor deficits Neuro Narrative: Decreased movement on right lower extremity secondary to periprosthetic joint infection Speech: speech normal Psych Mood & Affect: anxious Assessment & Plan Assessment/Plan (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: (2) Leukocytosis: (3) Hyperkalemia: PLAN: Plan Enterobacter cloacae right periprosthetic hip infection -Postop day 3 I&D with excision of draining sinus tract and revision of right total hip arthroplasty with acetabular liner and femoral head exchange -Currently on cefepime for ID -PICC in place -Anticipate suppressive Bactrim at discharge -Probable DC home later today -Continue PT/OT -Weightbearing status per orthopedic surgery Leukocytosis -Resolved Chronic anemia -Microcytic at baseline -Stable DM-2 -Sugars appear to be well controlled -Continue home metformin -Sliding scale insulin -Diabetic diet -Accu-Cheks GERD -Continue home Pepcid DVT prophylaxis -Aspirin 81 mg twice daily per primary service Okay for discharge from medical viewpoint Charges/Coding Visit Charges Inpatient E&M: 91087 Subs Hosp L2
--- NOTE | 2022-01-28 11:48 | PHA.DC.MC ---
Pharmacy Service has performed discharge medication reconciliation and counseling for this patient. 1. ACETAMINOPHEN 1000MG PO Q8 2. ASPIRIN 81MG PO BIDCM 3. ERTAPENEM 1GM IV DAILY X 39 DOSES 4. OXYCODONE 5-10MG PO Q4H PRN PAIN The patient's discharge medication list was reviewed for discrepancies and discrepancies were resolved. Home Medications metformin 500 mg tablet,extended release 24 hr 1 tab PO DINNER diabetes 12/20/21 acetaminophen 500 mg tablet 1,000 mg PO Q8H 14 days #84 tabs 01/28/22 aspirin 81 mg chewable tablet 81 mg PO BID Postop DVT prophylaxis 30 days #60 tabs 01/28/22 ertapenem 1 gram solution for injection 1 g IV Q24H #39 ea 01/28/22 oxycodone 5 mg tablet 5 - 10 mg PO Q4H PRN PRN Pain Score 4-10 7 days #30 tabs 01/28/22 The patient was counseled on the following discharge medications and changes in medications for homegoing were reviewed. The Reason for Use, instructions for use, and potential side effects were reviewed for all new medications. The patient's questions regarding all of their medications were answered. The patient was able to verbally demonstrate an understanding of their discharge medications. Patient counseled by pharmacy technician assistantNito.
[2022-01-28 12:00] LABS: Bedside Glucose 189 mg/dL (74-106)
--- NOTE | 2022-01-28 13:00 | CASEMGMT ---
Addendum entered by Malgorzata Nguyen 01/28/22 15:02: Call received from Janeth @ [facility]. [id number] cost for Cefazolin will be $100/week and supplies are covered @ 100%. WILIAM LUNA to room to talk w/pt and sister, Eveline. Eveline states this is affordable. Call back to Janeth and she was made aware. [facility] to call pt's sister today to make arrangements to have IV atb and supplies delivered this PM to Eveline's home. Call to [facility] and spoke w/Janeth. She was made aware pt is discharging today. SOC tomorrow for next dose of IV Cefazolin around 11 AM -noon. Pt and sister made aware. Addendum entered by Malgorzata Nguyen 01/28/22 13:50: [facility] [place] notified that pt discharging to her sister's home in [place]. Referral packet w/pt's sister's (Eveline) phone # and address faxed to [facility] [place] at this time. This info was also documented in [employer]. Original Note: WILIAM LUNA NOTE: Script for IV ertapenem daily, #39, received from Dr Pruett. WILIAM LUNA to room to talk w/pt and discuss discharge plan. Pt states she is still planning on returning home. She is aware she will need 6 wks of IV atb's and states the plan is still for her to d/c home to her sisters home (Eveline who lives in [place]). She states she is still not sure what [facility] agency she is active with. WILIAM LUNA spoke w/pt's sister, Eveline, on the phone. Eveline states pt is active w/[facility]. Eveline states she is comfortable learning how to administer IV atb's and is teachable. She and pt both state pt would like to resume [facility] w/[facility], if they are able to do IV's. They both state, if [facility] unable to IV's, they would like [facility]. Pt was provided with list of [facility] providers including quality and resource use data and consistent with the patient's preferred geographic region, medical needs, and insurance network. Call to [facility] and spoke w/Zane. He was made aware pt has been admitted to [facility] and will be d/c'ing home on IV atb's. He states they do not have the staffing in pt's area to do IV's at this time. He states they will discharge pt from their services today. Pt also provided w/list of Infusion companies consistent with the patient's preferred geographic region. Pt and sister both state they have no preference and are agreeable to [facility]. IV atb script and demographic sheet faxed to [facility]. Call placed to Leisa @ [facility] and she was notified of request for insurance benefits to be determined. Call placed to Janeth @ [facility] and referral made for SN for IV atb's and PT/OT. Janeth states they are able to accept pt. Pt made aware [facility] unable to resume care d/t not having staffing in the area to do IV infusions and that [facility] able to accept. Script for IV ertapenem faxed to [facility]. Eden VILLARREAL RN CM
[2022-01-28 14:23] VITALS: BP 110/58; PULSE 81; RESP 18; TEMP 36.9; O2SAT 97
== END 2022-01-28 16:05 | disposition home health service (06) | DRG 467 ==
LOC: SDC 16:22 → MS3 16:22
PROVIDERS: Anesthesiology; Admitting Provider Specialist; PCP Preventive Medicine Occupational Medicine; Referring Provider Specialist; Visit Provider Specialist
PROC: 0SPR0JZ Removal of Synthetic Substitute from Right Hip Joint, Femoral Surface, Open Approach (ICD-10-PCS; principal; 2022-01-25 12:05)
DX: T84.51XA Infection and inflammatory reaction due to internal right hip prosthesis, initial encounter (principal); T81.31XA Disruption of external operation (surgical) wound, not elsewhere classified, initial encounter; E11.9 Type 2 diabetes mellitus without complications; E87.5 Hyperkalemia; K21.9 Gastro-esophageal reflux disease without esophagitis; B96.89 Other specified bacterial agents as the cause of diseases classified elsewhere; M16.11 Unilateral primary osteoarthritis, right hip; Z20.822 Contact with and (suspected) exposure to COVID-19; Z79.84 Long term (current) use of oral hypoglycemic drugs; Z47.1 Aftercare following joint replacement surgery; Z79.899 Other long term (current) drug therapy; Z79.82 Long term (current) use of aspirin; Y83.1 Surgical operation with implant of artificial internal device as the cause of abnormal reaction of the patient, or of later complication, without mention of misadventure at the time of the procedure
CPT/HCPCS: 36415; 36569; 73502; 80048; 80202; 82962; 83036; 83735; 85025; 85027; 85652; 86140; 87015; 87070; 87075; 87077; 87081; 87102; 87116; 87176; 87186; 87205; 87206; 97116; 97161; 97166; 97530; 97535; 99251; C1776; J7040; J7050; J7120; A4216; G0463; J2405; J3475

== ENCOUNTER 2022-03-04 11:52 | Outpatient (RCR) | payer MEDICARE, SELFPAY ==
[2022-02-18 12:51] LABS: Hematocrit 32.1 % (37-47); Hemoglobin 10.3 g/dL (12.0-15.0); Mean Corp Hgb Conc 32.1 g/dL (32-36); Mean Corpuscular Hgb 32.4 pg (27.0-32.0); Mean Corpuscular Volume 100.9 fL (81-99); Mean Platelet Vol. 9.9 fl (6.2-12.0); Platelet Count 180 K/mm3 (150-450); RBC Distribution Width CV 14.9 % (11.6-14.6); RBC Distribution Width SD 55.7 fl (35.1-43.9); Red Blood Count 3.18 M/mm3 (4.2-5.4); White Blood Count 6.7 K/mm3 (4.4-11.0)
[2022-02-18 13:00] LABS: AST(SGOT) 35 U/L (15-37); Alanine Aminotransfer ALT/SGPT 28 U/L (13-56); Albumin, Serum 1.5 g/dL (3.2-5.0); Alkaline Phosphatase 186 U/L (45-117); Anion Gap 8 (5-15); BUN 14 mg/dL (7-18); BUN/Creat Ratio 26.7 RATIO (10-20); Bilirubin, Direct 0.15 mg/dL (0.00-0.30); Calcium,Total 8.5 mg/dL (8.5-10.1); Chloride 109 mmol/L (98-107); Creatinine, Serum 0.52 mg/dL (0.55-1.02); EST Glomerular Filtration Rate 121 mL/min (>60); Est Glom Filt Rate - Afr Amer 147 mL/min (>60); Globulin 3.7 g/dL (2.2-4.2); Glucose 189 mg/dL (74-106); Potassium 4.3 mmol/L (3.5-5.1); Protein, Total 5.2 g/dL (6.4-8.2); Sodium Level 145 mmol/L (136-145)
[2022-02-18 18:11] LABS: Erythrocyte Sedimentation Rate 23 mm/hr (0-30)
[2022-02-25 15:38] LABS: AST(SGOT) 41 U/L (15-37); Alanine Aminotransfer ALT/SGPT 29 U/L (13-56); Albumin, Serum 1.4 g/dL (3.2-5.0); Alkaline Phosphatase 168 U/L (45-117); Anion Gap 5 (5-15); BUN 14 mg/dL (7-18); BUN/Creat Ratio 31.6 RATIO (10-20); Bilirubin, Direct 0.14 mg/dL (0.00-0.30); Calcium,Total 8.2 mg/dL (8.5-10.1); Chloride 109 mmol/L (98-107); Creatinine, Serum 0.44 mg/dL (0.55-1.02); EST Glomerular Filtration Rate 147 mL/min (>60); Est Glom Filt Rate - Afr Amer 178 mL/min (>60); Globulin 3.6 g/dL (2.2-4.2); Glucose 110 mg/dL (74-106); Sodium Level 143 mmol/L (136-145)
[2022-02-25 15:39] LABS: Erythrocyte Sedimentation Rate 15 mm/hr (0-30)
[2022-02-25 15:49] LABS: Hematocrit 31.9 % (37-47); Hemoglobin 10.2 g/dL (12.0-15.0); Mean Corpuscular Hgb 32.4 pg (27.0-32.0); Mean Corpuscular Volume 101.3 fL (81-99); Mean Platelet Vol. 9.6 fl (6.2-12.0); Platelet Count 182 K/mm3 (150-450); RBC Distribution Width CV 14.6 % (11.6-14.6); RBC Distribution Width SD 54.2 fl (35.1-43.9); Red Blood Count 3.15 M/mm3 (4.2-5.4); White Blood Count 5.6 K/mm3 (4.4-11.0)
[2022-03-04 12:36] LABS: Erythrocyte Sedimentation Rate 15 mm/hr (0-30)
[2022-03-04 12:37] LABS: Hematocrit 32.2 % (37-47); Hemoglobin 10.5 g/dL (12.0-15.0); Mean Corp Hgb Conc 32.6 g/dL (32-36); Mean Corpuscular Hgb 32.5 pg (27.0-32.0); Mean Corpuscular Volume 99.7 fL (81-99); Mean Platelet Vol. 9.5 fl (6.2-12.0); Platelet Count 169 K/mm3 (150-450); RBC Distribution Width CV 14.6 % (11.6-14.6); RBC Distribution Width SD 53.6 fl (35.1-43.9); Red Blood Count 3.23 M/mm3 (4.2-5.4); White Blood Count 5.2 K/mm3 (4.4-11.0)
[2022-03-04 13:07] LABS: AST(SGOT) 52 U/L (15-37); Alanine Aminotransfer ALT/SGPT 33 U/L (13-56); Albumin, Serum 1.5 g/dL (3.2-5.0); Alkaline Phosphatase 171 U/L (45-117); Anion Gap 5 (5-15); BUN 16 mg/dL (7-18); BUN/Creat Ratio 28.8 RATIO (10-20); Bilirubin, Direct 0.27 mg/dL (0.00-0.30); Calcium,Total 8.5 mg/dL (8.5-10.1); Chloride 115 mmol/L (98-107); Creatinine, Serum 0.56 mg/dL (0.55-1.02); EST Glomerular Filtration Rate 113 mL/min (>60); Est Glom Filt Rate - Afr Amer 137 mL/min (>60); Globulin 3.6 g/dL (2.2-4.2); Glucose 138 mg/dL (74-106); Potassium 3.9 mmol/L (3.5-5.1); Protein, Total 5.1 g/dL (6.4-8.2); Sodium Level 147 mmol/L (136-145)
== END 2022-03-04 18:00 | disposition home or self-care (01) ==
LOC: HHLAB 11:52
PROVIDERS: Visit Provider Internal Medicine Infectious Disease
DX: T84.51XA Infection and inflammatory reaction due to internal right hip prosthesis, initial encounter (principal); X58.XXXA Exposure to other specified factors, initial encounter; T81.31XA Disruption of external operation (surgical) wound, not elsewhere classified, initial encounter
CPT/HCPCS: 80048; 80076; 85027; 85652

== ENCOUNTER 2022-04-03 12:05 | Outpatient (RCR) | payer MEDICARE, SELFPAY ==
[2022-03-11 18:13] LABS: Hematocrit 31.4 % (37-47); Mean Corp Hgb Conc 31.8 g/dL (32-36); Mean Corpuscular Hgb 31.5 pg (27.0-32.0); Mean Corpuscular Volume 99.1 fL (81-99); Mean Platelet Vol. 9.6 fl (6.2-12.0); Platelet Count 146 K/mm3 (150-450); RBC Distribution Width CV 14.5 % (11.6-14.6); RBC Distribution Width SD 52.9 fl (35.1-43.9); Red Blood Count 3.17 M/mm3 (4.2-5.4)
[2022-03-11 18:29] LABS: Erythrocyte Sedimentation Rate 14 mm/hr (0-30)
[2022-03-11 18:48] LABS: AST(SGOT) 51 U/L (15-37); Alanine Aminotransfer ALT/SGPT 38 U/L (13-56); Albumin, Serum 1.4 g/dL (3.2-5.0); Alkaline Phosphatase 171 U/L (45-117); Anion Gap 5 (5-15); BUN 17 mg/dL (7-18); BUN/Creat Ratio 34.3 RATIO (10-20); Bilirubin, Direct 0.21 mg/dL (0.00-0.30); Calcium,Total 8.6 mg/dL (8.5-10.1); Chloride 112 mmol/L (98-107); EST Glomerular Filtration Rate 129 mL/min (>60); Est Glom Filt Rate - Afr Amer 156 mL/min (>60); Globulin 3.7 g/dL (2.2-4.2); Glucose 116 mg/dL (74-106); Potassium 3.9 mmol/L (3.5-5.1); Protein, Total 5.1 g/dL (6.4-8.2); Sodium Level 146 mmol/L (136-145)
[2022-04-03 12:52] LABS: Anion Gap 4 (5-15); BUN 13 mg/dL (7-18); BUN/Creat Ratio 21.2 RATIO (10-20); Calcium,Total 9.3 mg/dL (8.5-10.1); Chloride 108 mmol/L (98-107); Creatinine, Serum 0.61 mg/dL (0.55-1.02); EST Glomerular Filtration Rate 101 mL/min (>60); Est Glom Filt Rate - Afr Amer 122 mL/min (>60); Glucose 104 mg/dL (74-106); Potassium 4.6 mmol/L (3.5-5.1); Sodium Level 142 mmol/L (136-145)
== END 2022-04-08 23:59 ==
LOC: HHLAB 12:05
PROVIDERS: Visit Provider Internal Medicine Infectious Disease
DX: K74.60 Unspecified cirrhosis of liver (principal); R18.8 Other ascites; K72.90 Hepatic failure, unspecified without coma; T84.50XA Infection and inflammatory reaction due to unspecified internal joint prosthesis, initial encounter
CPT/HCPCS: 80048; 80076; 85027; 85652

== ENCOUNTER 2022-04-17 14:55 | Outpatient (RCR) | payer MEDICARE, SELFPAY ==
[2022-04-10 13:58] LABS: Anion Gap 3 (5-15); BUN 16 mg/dL (7-18); BUN/Creat Ratio 25.9 RATIO (10-20); Calcium,Total 9.1 mg/dL (8.5-10.1); Chloride 109 mmol/L (98-107); Creatinine, Serum 0.62 mg/dL (0.55-1.02); EST Glomerular Filtration Rate 100 mL/min (>60); Est Glom Filt Rate - Afr Amer 121 mL/min (>60); Glucose 155 mg/dL (74-106); Potassium 4.2 mmol/L (3.5-5.1); Sodium Level 141 mmol/L (136-145)
[2022-04-17 15:53] LABS: Anion Gap 6 (5-15); BUN 17 mg/dL (7-18); BUN/Creat Ratio 20.7 RATIO (10-20); Calcium,Total 9.5 mg/dL (8.5-10.1); Chloride 107 mmol/L (98-107); Creatinine, Serum 0.82 mg/dL (0.55-1.02); EST Glomerular Filtration Rate 72 mL/min (>60); Est Glom Filt Rate - Afr Amer 87 mL/min (>60); Glucose 138 mg/dL (74-106); Potassium 4.8 mmol/L (3.5-5.1); Sodium Level 141 mmol/L (136-145)
== END 2022-05-08 18:00 | disposition home or self-care (01) ==
LOC: HHLAB 14:55
PROVIDERS: PCP Preventive Medicine Occupational Medicine; Visit Provider Internal Medicine Gastroenterology
DX: K74.60 Unspecified cirrhosis of liver (principal); R18.8 Other ascites
CPT/HCPCS: 80048

== ENCOUNTER → 2022-09-18 | Outpatient (CLI) | payer MEDICARE, SELFPAY ==
[2022-09-18 15:24] LABS: Hematocrit 33.2 % (37-47); Hemoglobin 10.8 g/dL (12.0-15.0); Mean Corp Hgb Conc 32.5 g/dL (32-36); Mean Corpuscular Hgb 32.4 pg (27.0-32.0); Mean Corpuscular Volume 99.7 fL (81-99); Mean Platelet Vol. 9.6 fl (6.2-12.0); Platelet Count 152 K/mm3 (150-450); RBC Distribution Width CV 14.8 % (11.6-14.6); RBC Distribution Width SD 54.6 fl (35.1-43.9); Red Blood Count 3.33 M/mm3 (4.2-5.4); White Blood Count 5.9 K/mm3 (4.4-11.0)
[2022-09-18 15:38] LABS: International Normalized Ratio 1.3; Prothrombin Time (Protime)PT. 15.5 SECONDS (11.7-14.9)
[2022-09-18 15:39] LABS: Partial Thromboplast Time 41.9 Seconds (24.1-36.2)
[2022-09-18 16:11] LABS: ALB/GLOB Ratio 0.6 RATIO (0.9-2.4); AST(SGOT) 34 U/L (15-37); Alanine Aminotransfer ALT/SGPT 25 U/L (13-56); Alkaline Phosphatase 177 U/L (45-117); Anion Gap 2 (5-15); BUN 22 mg/dL (7-18); BUN/Creat Ratio 35.9 RATIO (10-20); Calcium,Total 9.4 mg/dL (8.5-10.1); Chloride 114 mmol/L (98-107); Creatinine, Serum 0.61 mg/dL (0.55-1.02); EST Glomerular Filtration Rate 101 mL/min (>60); Est Glom Filt Rate - Afr Amer 122 mL/min (>60); Globulin 3.6 g/dL (2.2-4.2); Glucose 102 mg/dL (74-106); Potassium 4.1 mmol/L (3.5-5.1); Protein, Total 5.6 g/dL (6.4-8.2); Sodium Level 143 mmol/L (136-145)
[2022-09-20 10:48] LABS: AFP, Tumor Marker < 1.8 ng/mL (0.0-9.2)
== END | disposition home or self-care (01) ==
LOC: MTLAB 12:57
PROVIDERS: PCP Preventive Medicine Occupational Medicine; Referring Provider Internal Medicine Gastroenterology; Visit Provider Internal Medicine Gastroenterology
DX: K74.60 Unspecified cirrhosis of liver (principal)
CPT/HCPCS: 36415; 80053; 82105; 85027; 85610; 85730

== ENCOUNTER 2023-04-18 17:37 | Inpatient (IN) | payer MEDICARE, SELFPAY ==
[2023-04-18 17:42] VITALS: BP 150/51; PULSE 82; RESP 18; TEMP 36.4; O2SAT 99; BMI 42.8
[2023-04-18 17:45] VITALS: BP 148/64; PULSE 78; RESP 18; O2SAT 100
--- NOTE | 2023-04-18 18:25 | EX.ED.DYSGE1 ---
HPI History of Present Illness Chief Complaint: Mental Status Change Informant: patient and SNF Onset/Context/Timing Onset: Today Context: Gradual Onset Timing: Continuous Worsened by: Nothing Relieved by: Nothing Narrative Narrative: Patient presents with elevated ammonia level that was noticed today. Patient has been having increasing swelling and fatigue. Patient is alert and oriented to person and place. Patient thinks the year is 1945. The patient is a poor informant. Patient was recently admitted to [facility] for elevated ammonia level and hepatic encephalopathy. Patient was discharged to an extended care facility from there. Patient was transferred here because the increased confusion and elevated ammonia level today. [facility] Medical History Anemia Arthritis Chronic systolic (congestive) heart failure Diabetes mellitus, type 2 DVT (deep venous thrombosis) Essential (primary) hypertension GERD (gastroesophageal reflux disease) History of colon cancer History of edema History of revision of total replacement of right hip joint Hyperlipidemia Obesity Osteoarthritis Osteoporosis Restless legs Right femoral shaft fracture Shortness of breath on exertion Unspecified fracture of shaft of humerus, right arm, sequela Walker as ambulation aid Wears dentures Home Medications cholecalciferol (vitamin D3) 50 mcg (2,000 unit) chewable tablet 50 mcg PO DAILY 03/18/22 [History Last Taken Unknown] ferrous sulfate 324 mg (65 mg iron) tablet,delayed release 324 mg PO DAILY 03/18/22 [History Last Taken Unknown] furosemide 20 mg tablet 20 mg PO DAILY 03/18/22 [History Last Taken Unknown] lactulose 10 gram/15 mL oral solution 15 ml PO TID 03/21/22 [History Last Taken Unknown] rifaximin 550 mg tablet 550 mg PO BID 03/21/22 [History Last Taken Unknown] acetaminophen 325 mg capsule 650 mg PO Q4H PRN pain 04/18/23 [History Last Taken Unknown] ascorbic acid (vitamin C) 1,000 mg tablet (Vitamin C) 1 g PO DAILY 04/18/23 [History Last Taken Unknown] calcium carbonate 600 mg-vitamin D3 20 mcg (800 unit) tablet (Caltrate with Vitamin D3) 2 tab PO DAILY 04/18/23 [History Last Taken Unknown] cefdinir 300 mg capsule 300 mg PO DAILY uti 04/18/23 [History Last Taken Unknown] guaifenesin 100 mg/5 mL oral liquid 200 mg PO Q4H PRN cough 04/18/23 [History Last Taken Unknown] polyethylene glycol 3350 17 gram oral powder packet (Miralax) 17 g PO DAILY PRN constipation 04/18/23 [History Last Taken Unknown] Allergy/AdvReac Type Severity Reaction Status Date / Time alendronate sodium Allergy Intermediate Swelling Verified 04/18/23 17:41 bee venom protein (honey bee) Allergy Intermediate Swelling Verified 04/18/23 17:41 Family History Mother Diabetes Father Throat cancer Hx concurrent tobacco use. Brother CAD (coronary artery disease) Diabetes Sister Diabetes Surgical History History of bowel resection History of total right hip arthroplasty (~12/11/21) History of umbilical hernia repair Hx of fracture of femur (~12/21/21) S/P right rotator cuff repair Status post total hip replacement, right Social History household members: family Smoking Status: Never smoker how long ago did patient quit smoking: Smoked 1/2 ppd since youth, quit 06/2021. alcohol intake: never substance use type: does not use caffeine: Yes (Drinks a lot of coffee since nursing home) Type: coffee Number of servings: 6 ROS ROS ED Review of Systems ROS Unobtainable: due to encephalopathy EXAM Physical Exam Const Vital Signs: 04/18/23 17:42 04/18/23 17:45 04/18/23 19:01 Temperature 97.5 F L Temperature Source Oral Pulse Rate 82 78 81 Respiratory Rate 18 18 Blood Pressure 150/51 H 148/64 H 131/99 H Blood Pressure Mean 84 92 109 Pulse Ox 99 100 Oxygen Delivery Method Room Air Room Air Room Air 04/18/23 21:00 Temperature Temperature Source Pulse Rate 80 Respiratory Rate 20 H Blood Pressure 118/86 H Blood Pressure Mean 96 Pulse Ox 99 Oxygen Delivery Method Room Air Positive well nourished and well developed General Appearance ED: well developed and NAD HEENT Reports moist mucous membranes Neck supple and no JVD Resp normal respiratory effort and clear to auscultation bilaterally Cardio regular rate and regular rhythm GI non-tender GI Narrative: Abdomen is soft. There is no tenderness. There is a positive fluid wave noted. There is no erythema or warmth noted. There is no rebound or guarding noted. There is no tenderness with percussion. Palpation: soft Neuro CN's II-XII intact bilaterally and no sensory deficits noted Sensorium / Orientation: alert and orientation impaired Motor Exam: strength 5/5 throughout Skin no rashes or lesions noted MDM MDM MDM Narrative Medical decision making narrative: Differential diagnosis includes hepatic encephalopathy, infection, sepsis, anemia, electrolyte abnormality, cardiac dysrhythmia, cardiac ischemia, stroke, and intracranial bleeding. EKG will be obtained to assess for cardiac dysrhythmia and cardiac ischemia. CT scan of the brain will be obtained to assess for cranial bleeding and stroke. Chest x-ray will be obtained to assess for pneumonia. Urinalysis will be obtained to assess for urinary tract infection. CBC will be obtained to assess for leukocytosis and anemia. Comprehensive metabolic profile will be obtained to assess for hepatic function, renal function, and electrolyte abnormality. Lipase will be obtained to assess for pancreatitis. Serum ammonia level will be obtained to assess for hepatic encephalopathy. Lactate will be obtained to assess for sepsis. History & Record Review Discussion w/independent historian: Patient and Family Additional record(s) reviewed:: Prior labs Lab Data Attestation: I reviewed the patient's lab results. Lab results narrative: CBC was reviewed. Hemoglobin was 9.2 and hematocrit was 28.9. These are consistent with prior results. Comprehensive metabolic profile was reviewed. BUN was elevated at 57 and creatinine was 2.19. These are increased from previous results. AST was slightly elevated at 56. ALT was normal at 27. Alkaline phosphatase was elevated at 202. Serum lipase was reviewed and was slightly elevated at 113. Lactate was reviewed and was normal at 1.8. Urinalysis was reviewed. Occult blood was 250 with 50-100 red blood cells. Leukocyte esterase was 100 with 5-10 white blood cells. Serum ammonia level was reviewed and was elevated at 95. Labs: Laboratory Results - last 24 hr 04/18/23 04/18/23 18:37 20:26 WBC 6.7 RBC 2.88 L Hgb 9.2 L Hct 28.9 L MCV 100.3 H MCH 31.9 MCHC 31.8 L RDW Std Deviation 60.0 H RDW Coeff of Albert 16.1 H Plt Count 113 L MPV 8.9 Immature Gran % (Auto) 0.400 Neut % (Auto) 62.9 Lymph % (Auto) 19.2 [place] % (Auto) 10.2 H Eos % (Auto) 6.4 H Baso % (Auto) 0.9 Absolute Neuts (auto) 4.2 Absolute Lymphs (auto) 1.28 Nucleated RBC % 0 PT 17.9 H INR 1.5 APTT 22.1 L Sodium 142 Potassium 5.0 Chloride 117 H Carbon Dioxide 23.0 Anion Gap 2 L BUN 57 H Creatinine 2.19 H Estim Creat Clear Calc 18.08 Est GFR (MDRD) Af Amer 28 L Est GFR (MDRD) Non-Af 23 L BUN/Creatinine Ratio 26.0 H Glucose 115 H Lactic Acid 1.8 Calcium 8.3 L Total Bilirubin 0.70 AST 56 H ALT 27 Alkaline Phosphatase 202 H Ammonia 95.0 H Total Protein 5.5 L Albumin 1.7 L Globulin 3.8 Albumin/Globulin Ratio 0.4 L Lipase 113 H Urine Color Yellow Urine Clarity Sl. Cloudy Urine pH 5.0 Ur Specific [place] 1.015 Urine Protein 30 H Urine Glucose (UA) Normal Urine Ketones 5 H Urine Occult Blood 250 H Urine Nitrite Negative Urine Bilirubin 1 H Urine Urobilinogen Normal Ur Leukocyte Esterase 100 H Urine RBC 50-100 SEEN Urine WBC 5-10 SEEN Ur Squamous Epith Cells 0-5 SEEN Amorphous Sediment 1+ URATE Urine Bacteria 0 SEEN Urine Mucus 0 SEEN Urine Yeast RARE Radiography Diagnostic Testing: Clinical Impression(s) from Imaging Studies Brain CT 04/18/23 18:30 IMPRESSION: undefined Chest X-Ray 04/18/23 18:55 IMPRESSION: Bilateral opacities may represent infection or mild pulmonary edema. Electronically Signed: Evangelista Traylor MD at 19:22 [facility] , CT scan of the brain was obtained. There is no acute intracranial abnormality. This was interpreted by the radiologist and was also independently reviewed by myself. Portable 1 view chest x-ray was obtained. On my independent interpretation, lung matute showed bilateral opacities which could be mild pulmonary edema or infection. There is normal cardiac silhouette. Bony thorax is normal. Radiologist also interpreted the x-ray and agrees. Treatment and Re-Evaluation :: Patient was given IV fluids. Patient was given a dose of lactulose. Case was discussed with the hospitalist for admission. He will admit the patient to his service. Patient and family understood and were agreeable with the plan. All questions were answered. Discharge Plan Dx/Rx/DC Orders Clinical Impression: Hepatic encephalopathy, Diabetes mellitus, type 2, Acute kidney injury Disposition Disposition: Acute Care [facility]
--- NOTE | 2023-04-18 18:30 | CT_ITS ---
EXAM: CT brain without IV contrast. HISTORY: Altered mental status TECHNIQUE: No intravenous contrast. A radiation dose optimization technique was used for this scan. COMPARISON: None. LIMITATIONS: None. BRAIN: Mild involutional change. Mild low attenuation bilaterally within the deep white matter, likely secondary to chronic microvascular ischemia. VENTRICLES: No hydrocephalus. EXTRA-AXIAL SPACES: No acute hemorrhage. CALVARIUM/SKULL BASE: No acute fracture. FACE/SINUSES: No significant abnormality. SOFT TISSUES: Normal. OTHER: None. CONCLUSION: No acute intracranial abnormality. Electronically Signed: Evangelista Traylor MD at 19:31 EST , CT/Brain/Head without Contrast IMPRESSION: undefined
[2023-04-18 18:49] LABS: Absolute Lymphocyte Count 1.28 X10^3/uL (0.83-4.51); Absolute Neutrophil Count 4.2 X10^3/uL (2.0-7.7); Basophil# 0.06 X10^3/uL; Basophil% 0.9 % (0-1); Eosinophil# 0.43 X10^3/uL; Eosinophils% 6.4 % (0-5); Hematocrit 28.9 % (37-47); Hemoglobin 9.2 g/dL (12.0-15.0); Lymphocyte # 1.28 X10^3/ul (0.83-4.51); Lymphocyte % 19.2 % (19-41); Mean Corp Hgb Conc 31.8 g/dL (32-36); Mean Corpuscular Hgb 31.9 pg (27.0-32.0); Mean Corpuscular Volume 100.3 fL (81-99); Mean Platelet Vol. 8.9 fl (6.2-12.0); Monocyte# 0.68 X10^3/uL; Monocyte% 10.2 % (0-10); NRBC Flagged by Analyzer 0 % (0-5); Neutrophil % 62.9 % (47-70); Platelet Count 113 K/mm3 (150-450); RBC Distribution Width CV 16.1 % (11.6-14.6); Red Blood Count 2.88 M/mm3 (4.2-5.4); White Blood Count 6.7 K/mm3 (4.4-11.0)
--- NOTE | 2023-04-18 18:55 | RAD_ITS ---
INDICATION: Cough EXAMINATION: Frontal view of the chest COMPARISON: None. FINDINGS: Frontal view of the chest was obtained. The cardiac silhouette is mildly enlarged. Bilateral opacities are predominantly perihilar and interstitial. Possible superimposed groundglass or mild airspace opacities, especially in the right upper lobe. No pneumothorax. Degenerative changes of the shoulders bilaterally, greater on the right. The right shoulder is partially visualized. RAD/Chest 1 View (Portable) IMPRESSION: Bilateral opacities may represent infection or mild pulmonary edema. Electronically Signed: Evangelista Traylor MD at 19:22 EST ,
[2023-04-18 19:01] VITALS: BP 131/99; PULSE 81
[2023-04-18 19:05] LABS: ALB/GLOB Ratio 0.4 RATIO (0.9-2.4); AST(SGOT) 56 U/L (15-37); Alanine Aminotransfer ALT/SGPT 27 U/L (13-56); Albumin, Serum 1.7 g/dL (3.2-5.0); Alkaline Phosphatase 202 U/L (45-117); Anion Gap 2 (5-15); BUN 57 mg/dL (7-18); Calcium,Total 8.3 mg/dL (8.5-10.1); Chloride 117 mmol/L (98-107); Creatinine, Serum 2.19 mg/dL (0.55-1.02); EST Glomerular Filtration Rate 23 mL/min (>60); Est Glom Filt Rate - Afr Amer 28 mL/min (>60); Estimated Creatinine Clearance 18.08 ml/min; Globulin 3.8 g/dL (2.2-4.2); Glucose 115 mg/dL (74-106); Lipase 113 U/L (13-75); Protein, Total 5.5 g/dL (6.4-8.2); Sodium Level 142 mmol/L (136-145)
[2023-04-18 19:12] LABS: International Normalized Ratio 1.5; Partial Thromboplast Time 22.1 Seconds (24.1-36.2); Prothrombin Time (Protime)PT. 17.9 SECONDS (11.7-14.9)
[2023-04-18 19:32] LABS: Lactic Acid 1.8 mmol/L (0.4-1.9)
[2023-04-18] MEDS: Lactulose 20 GM/30 ML UDC PO (20:29)
[2023-04-18 20:32] LABS: Bacteria 0 SEEN /hpf (None Seen); Mucous, Urine 0 SEEN /hpf (<or=2+)
[2023-04-18 20:33] LABS: Color, Urine Yellow (Yellow); Glucose, Dipstick Normal (Normal); Ketone-Dipstick 5 mg/dl (Negative); Leukocyte Esterase-Dipstick 100 /ul (Negative); Nitrite-Dipstick Negative (Negative); Occult Blood-Urine 250 /ul (Negative); Protein-Dipstick 30 mg/dl (Negative); Specific Gravity, Urine 1.015 (1.002-1.030); Urine Clarity Sl. Cloudy (Clear); Urine Urobilinogen Normal (Normal)
[2023-04-18 20:37] LABS: Urine Bilirubin Dipstick 1 mg/dL (Negative)
[2023-04-18 20:39] LABS: Amorphous Sediment 1+ URATE; Red Blood Cells-Urine 50-100 SEEN /hpf (0-5); Squamous Epithelial Cells - UA 0-5 SEEN /hpf (5-10); White Blood Cells 5-10 SEEN /hpf (0-5); Yeast-Urine RARE /hpf (None Seen)
[2023-04-18 21:00] VITALS: BP 118/86; PULSE 80; RESP 20; O2SAT 99
[2023-04-18] MEDS: 0.9% Normal Saline (1000mL) 1,000 ML 1000 ML IV (21:30)
--- NOTE | 2023-04-18 22:11 | HP.PCM.HOS_ITS ---
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 twice daily and lactulose 15 mL p.o. 3 times daily with repeated admissions to [facility] [place] [facility] over the past 3 weeks due to [id number] confusion who presents to [facility] ER complaining of altered mental status. Ms. High is a suboptimal historian at this time so information was gathered from chart, medical staff and computer. Additionally, her granddaughter, who is also her medical power of collections attorney, accompanied her to the ER this admission and she helped to augment the history. According to her granddaughter the patient was recently admitted to [facility] for hepatic encephalopathy with elevated ammonia levels and then she was discharged from there to an extended care facility who has been giving her her medications as prescribed but she keeps developing confusion due to her hyperammonemia. Her granddaughter also reports that she has had increasing generalized swelling due to ascites with associated fatigue. The patient thinks the year is 1945 but is otherwise alert and oriented to person and place. Even though the patient is confused she is desperate not to be institutionalized if there is any way to avoid it. In the ER she was noted to have hyperammonemia with an ammonia level of 95 present on admission resulting in a diagnosis of hepatic encephalopathy complicated by laboratory evidence of acute kidney injury with an elevated creatinine of 2.19 mg/dL with a BUN of 57 mg/dL (up from her baseline normal creatinine of 0.61 mg/dL and BUN of 22 mg/dL last admission) compounded by generalized weakness and deconditioning due to chronically her poor and declining overall health. She was then admitted to the general medical floor for ongoing care for a stay that is expected to extend beyond 48 hours. PFSH Medical History (Updated 04/19/23 @ 02:[address] Vik Grove DO) Anemia Anemia Arthritis Cancer Chronic systolic (congestive) heart failure Cirrhosis Diabetes Diabetes mellitus, type 2 DVT (deep venous thrombosis) Essential (primary) hypertension GERD (gastroesophageal reflux disease) History of colon cancer History of edema History of revision of total replacement of right hip joint Hyperlipidemia Kidney disease Obesity Osteoarthritis Osteoporosis Restless legs Rheumatoid arthritis Right femoral shaft fracture Shortness of breath on exertion Unspecified fracture of shaft of humerus, right arm, sequela Walker as ambulation aid Wears dentures Home Medications cholecalciferol (vitamin D3) 50 mcg (2,000 unit) chewable tablet 50 mcg PO DAILY 03/18/22 [History Last Taken Unknown] ferrous sulfate 324 mg (65 mg iron) tablet,delayed release 324 mg PO DAILY 03/18/22 [History Last Taken Unknown] furosemide 20 mg tablet 20 mg PO DAILY 03/18/22 [History Last Taken Unknown] lactulose 10 gram/15 mL oral solution 15 ml PO TID 03/21/22 [History Last Taken Unknown] rifaximin 550 mg tablet 550 mg PO BID 03/21/22 [History Last Taken Unknown] acetaminophen 325 mg capsule 650 mg PO Q4H PRN pain 04/18/23 [History Last Taken Unknown] ascorbic acid (vitamin C) 1,000 mg tablet (Vitamin C) 1 g PO DAILY 04/18/23 [History Last Taken Unknown] calcium carbonate 600 mg-vitamin D3 20 mcg (800 unit) tablet (Caltrate with Vitamin D3) 2 tab PO DAILY 04/18/23 [History Last Taken Unknown] cefdinir 300 mg capsule 300 mg PO DAILY uti 04/18/23 [History Last Taken Unknown] guaifenesin 100 mg/5 mL oral liquid 200 mg PO Q4H PRN cough 04/18/23 [History Last Taken Unknown] polyethylene glycol 3350 17 gram oral powder packet (Miralax) 17 g PO DAILY PRN constipation 04/18/23 [History Last Taken Unknown] Allergy/AdvReac Type Severity Reaction Status Date / Time alendronate sodium Allergy Intermediate Swelling Verified 04/18/23 17:41 bee venom protein (honey bee) Allergy Intermediate Swelling Verified 04/18/23 17:41 Family History Mother Diabetes Father Throat cancer Hx concurrent tobacco use. Brother CAD (coronary artery disease) Diabetes Sister Diabetes Surgical History (Updated 04/18/23 @ 23:39 by Caterina Vizcaino) History of appendectomy History of bowel resection History of cholecystectomy History of total right hip arthroplasty (~12/11/21) History of umbilical hernia repair Hx of fracture of femur (~12/21/21) S/P right rotator cuff repair Status post total hip replacement, right Social History household members: family Smoking Status: Never smoker how long ago did patient quit smoking: Smoked 1/2 ppd since youth, quit 06/2021. alcohol intake: never substance use type: does not use caffeine: Yes (Drinks a lot of coffee since senior care) Type: coffee Number of servings: 6 ROS ROS Narrative Review of systems was not possible at this time due to patient's confusion secondary to her hepatic encephalopathy. Review of Systems ROS Unobtainable: due to encephalopathy Vital Signs Vital Signs Vital Signs: 04/18/23 17:42 04/18/23 17:45 04/18/23 19:01 Temperature 97.5 F L Temperature Source Oral Pulse Rate 82 78 81 Respiratory Rate 18 18 Blood Pressure 150/51 H 148/64 H 131/99 H Blood Pressure Mean 84 92 109 Pulse Ox 99 100 Oxygen Delivery Method Room Air Room Air Room Air 04/18/23 21:00 Temperature Temperature Source Pulse Rate 80 Respiratory Rate 20 H Blood Pressure 118/86 H Blood Pressure Mean 96 Pulse Ox 99 Oxygen Delivery Method Room Air Weight Weight: 242 lb 1.081 oz Body Mass Index (BMI) 42.8 Physical Exam Const alert and no apparent distress Constitutional Narrative: Patient is morbidly obese, confused and appears slightly jaundiced. General Appearance: cooperative Orientation / Consciousness: confused HEENT normocephalic, head/scalp atraumatic, hearing grossly normal bilaterally and m oist oral mucous membranes HEENT Narrative: Oropharynx dry. Eyes PERRL and EOMs intact bilaterally Eyes Narrative: Sclerae are icteric. Neck no lymphadenopathy, supple and no JVD Resp normal respiratory effort, no retractions and no use of accessory muscles Resp Narrative: Diminished breath sounds throughout. Cardio regular rate and regular rhythm GI normal to inspection, nondistended, normoactive bowel sounds, soft to palpation, non-tender and non-distended GI Narrative: Morbidly obese. Extremity normal to inspection Skin Skin Narrative: Skin appears mildly jaundiced and dry with no evidence of rash at this time. Neuro CN's II-XII intact bilaterally and moves all extremities Sensorium / Orientation: awake, alert, oriented to person and oriented to place Speech: speech normal Psych Mood & Affect: anxious Results Medical Records Data Attestation: I reviewed the patient's medical records Lab / Micro Data Attestation: I reviewed the patient's lab results. Lab results narrative: [facility] Imaging Services [address] [place] [address] Brain/Head without Contrast MR#: [id number] Acct: [id number] Name: ABDIRAHMAN HIGH Rep #: [id number] : 1945 F 77 From: Evangelista Traylor MD PCP: Dr. Christopher Spencer DO Status: [facility] Study: Brain/Head without Contrast Date of Exam: 04/18/23 Exam# [id number] Ordering Dr: Sebastian Rueda DO EXAM: CT brain without IV contrast. HISTORY: Altered mental status TECHNIQUE: No intravenous contrast. A radiation dose optimization technique was used for this scan. COMPARISON: None. LIMITATIONS: None. BRAIN: Mild involutional change. Mild low attenuation bilaterally within the deep white matter, likely secondary to chronic microvascular ischemia. VENTRICLES: No hydrocephalus. EXTRA-AXIAL SPACES: No acute hemorrhage. CALVARIUM/SKULL BASE: No acute fracture. FACE/SINUSES: No significant abnormality. SOFT TISSUES: Normal. OTHER: None. CONCLUSION: No acute intracranial abnormality. Electronically Signed: Evangelista Traylor MD at 19:31 EST , CT/Brain/Head without Contrast IMPRESSION: undefined CC: Dr. Sebastian Rueda DO; Dr. Christopher Spencer DO ~ Circuits Engineer: [facility] Imaging Services [address] [place] [address] Chest 1 View (Portable) MR#: [id number] Acct: [id number] Name: ABDIRAHMAN HIGH Rep #: [id number] : 1945 F 77 From: Evangelista Traylor MD PCP: Dr. Christopher Spencer DO Status: [facility] ER Study: Chest 1 View (Portable) Date of Exam: 04/18/23 Exam# [id number] Ordering Dr: Sebastian Rueda DO INDICATION: Cough EXAMINATION: Frontal view of the chest COMPARISON: None. FINDINGS: Frontal view of the chest was obtained. The cardiac silhouette is mildly enlarged. Bilateral opacities are predominantly perihilar and interstitial. Possible superimposed groundglass or mild airspace opacities, especially in the right upper lobe. No pneumothorax. Degenerative changes of the shoulders bilaterally, greater on the right. The right shoulder is partially visualized. RAD/Chest 1 View (Portable) IMPRESSION: Bilateral opacities may represent infection or mild pulmonary edema. Electronically Signed: Evangelista Traylor MD at 19:22 EST , CC: Dr. Sebastian Rueda, DO; Dr. Christopher Spencer, DO ~ Circuits Engineer: 04/18/23 18:37 04/18/23 18:37 Labs: Laboratory Results - last 24 hr 04/18/23 18:37: WBC 6.7, RBC 2.88 L, Hgb 9.2 L, Hct 28.9 L, MCV 100.3 H, MCH 31.9, MCHC 31.8 L, RDW Std Deviation 60.0 H, RDW Coeff of Albert 16.1 H, Plt Count 113 L, MPV 8.9, Immature Gran % (Auto) 0.400, Neut % (Auto) 62.9, Lymph % (Auto) 19.2, [place] % (Auto) 10.2 H, Eos % (Auto) 6.4 H, Baso % (Auto) 0.9, Absolute Neuts (auto) 4.2, Absolute Lymphs (auto) 1.28, Nucleated RBC % 0, PT 17.9 H, INR 1.5, APTT 22.1 L, Sodium 142, Potassium 5.0, Chloride 117 H, Carbon Dioxide 23.0, Anion Gap 2 L, BUN 57 H, Creatinine 2.19 H, Estim Creat Clear Calc 18.08, Est GFR (MDRD) Af Amer 28 L, Est GFR (MDRD) Non-Af 23 L, BUN/Creatinine Ratio 26.0 H, Glucose 115 H, Lactic Acid 1.8, Calcium 8.3 L, Total Bilirubin 0.70, AST 56 H, ALT 27, Alkaline Phosphatase 202 H, Ammonia 95.0 H, Total Protein 5.5 L, Albumin 1.7 L, Globulin 3.8, Albumin/Globulin Ratio 0.4 L, Lipase 113 H 04/18/23 20:26: Urine Color Yellow, Urine Clarity Sl. Cloudy, Urine pH 5.0, Ur Specific [place] 1.015, Urine Protein 30 H, Urine Glucose (UA) Normal, Urine Ketones 5 H, Urine Occult Blood 250 H, Urine Nitrite Negative, Urine Bilirubin 1 H, Urine Urobilinogen Normal, Ur Leukocyte Esterase 100 H, Urine RBC 50-100 SEEN, Urine WBC 5-10 SEEN, Ur Squamous Epith Cells 0-5 SEEN, Amorphous Sediment 1+ URATE, Urine Bacteria 0 SEEN, Urine Mucus 0 SEEN, Urine Yeast RARE Radiology Impression Brain CT 04/18/23 18:30 IMPRESSION: undefined Chest X-Ray 04/18/23 18:55 IMPRESSION: Bilateral opacities may represent infection or mild pulmonary edema. Electronically Signed: Evangelista Traylor MD at 19:22 EST Reading Location ID and State: [id number] [facility] Tel , Service support , Assessment & Plan Assessment/Plan (1) Acute kidney injury: (2) Hepatic encephalopathy: (3) Cirrhosis of liver with ascites: QUALIFIERS: Hepatic cirrhosis type: unspecified hepatic cirrhosis Qualified Code(s): K74.60 - Unspecified cirrhosis of liver; R18.8 - Other ascites (4) Confusion: PLAN: 1. Acute kidney injury likely due to dehydration with creatinine of 2.19 mg/dL and BUN of 57 mg/dL present on admission - Admit to general medical floor. Continue volume resuscitation with normal saline IV fluid and recheck BMP in the a.m. to ensure improvement. Consider renal ultrasound if creatinine is not markedly improved in the a.m. 2. Hepatic encephalopathy due to hyperammonemia with ammonia level of 95 present on admission complicating #1 - Increase dose of lactulose to 30 mL p.o. 3 times daily. Continue rifaximin 550 mg p.o. twice daily. Finally, we will consult the guest experience specialist to see this patient and make recommendations for optimizing her diet to minimize the risk of recurrence of her hepatic encephalopathy. 3. Cirrhosis of the liver with ascites precipitating compounding #1 & #2- Stable at this time. Patient is suspected to be third spacing fluids causing her to be relatively intravascularly dry which is complicating her clinical picture. 4. Morbid obesity with a BMI of 42.9 this admission adding to the pathology of #1 - #3 - Weight loss will be recommended. Check TSH. 5. Essential hypertension - Hold Lasix for now and avoid any other potentially nephrotoxic medications. 6. Abnormal chest x-ray on admission - Questionable groundglass opacities with changes in the right upper lobe. Patient does not have shortness of breath or signs of pneumonia on exam so we will check CT scan of the chest without contrast to confirm. 7. Hyperlipidemia - Resume statin. 8. Diabetes mellitus type 2; of unknown control - ADA diet. Fingerstick blood sugars before every meal and at bedtime + scale insulin. Check hemoglobin A1c to assess quality of diabetic control. 9. DVT prophylaxis - Heparin 5,000 units SQ 3 times daily. Total time: Approximately 55 minutes. Charges/Coding Visit Charges Inpatient E&M: 32024 Init Hosp L2
[2023-04-18 22:23] VITALS: BP 118/76; PULSE 81; RESP 19; TEMP 36.3; O2SAT 99
[2023-04-18 23:20] VITALS: BP 131/62; PULSE 79; RESP 20; TEMP 37; O2SAT 100
[2023-04-18 23:27] VITALS: BMI 38.7
[2023-04-19] MEDS: 0.9% Normal Saline (1000mL) 1,000 ML 100 ML IV ×3 (00:45→23:29)
[2023-04-19] MEDS: rifAXIMin 550 MG Tablet PO ×3 (01:01→23:30)
[2023-04-19] MEDS: Lactulose 20 GM/30 ML UDC 30 GM PO ×4 (01:01→23:30)
[2023-04-19 06:00] VITALS: BMI 38.7
--- NOTE | 2023-04-19 06:30 | CT_ITS ---
INDICATION: Fever and cough EXAMINATION: CT CHEST WITHOUT CONTRAST - CT Chest W/O Contrast Injection TECHNIQUE: Helically acquired images were obtained of the chest. A radiation dose optimization technique was used for this scan. IV Contrast dosage and agent: None. COMPARISON: None. FINDINGS: LUNGS, PLEURA AND LARGE AIRWAYS: Lung windows show diffuse interstitial fibrotic changes in both lung matute with peripheral honeycombing, pleural thickening, free flowing bilateral pleural effusions and bibasilar atelectasis. There is superimposed interstitial edema but no organized infiltrate. 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 Follow-up recommended to ensure resolution. THYROID: No thyroid lesions. HEART AND PERICARDIUM: There is cardiomegaly. No pericardial effusion. CORONARY ARTERIES: Coronary artery calcification is seen. VESSELS: Thoracic aorta is not dilated. MEDIASTINUM AND MUSTAPHA: No suspicious axillary, mediastinal or hilar adenopathy. Esophagus is unremarkable. No hiatal hernia. UPPER ABDOMEN: Limited cuts through the upper abdomen show a cirrhotic liver with diffuse ascites. There is induration of the subcutaneous fat consistent with anasarca. BONES: No suspicious lytic or blastic abnormality. Bony structures show degenerative change CT/Chest without Contrast IMPRESSION: Diffuse interstitial fibrotic changes in both lung matute with bilateral pleural effusions, bibasilar atelectasis and interstitial edema. Findings suggest a likely combination of UIP and CHF. Follow-up recommended to ensure resolution. Cardiomegaly with calcified coronary vessels Chronic bronchitis Degenerative bony changes Cirrhotic liver with diffuse ascites Diffuse induration of the subcutaneous fat Electronically Signed: Hari Overton MD at 9:04 EST ,
[2023-04-19 06:59] VITALS: BP 110/74; PULSE 96; RESP 22; TEMP 36.3; O2SAT 99
[2023-04-19] MEDS: 0.9% Saline Lock 10 ML Syringe IV (06:59)
[2023-04-19] MEDS: Heparin Injection (Vial) 5,000 UNIT/ML VIAL 5000 UNIT SC ×3 (07:00→23:30)
[2023-04-19 07:35] VITALS: O2SAT 95
--- NOTE | 2023-04-19 07:55 | NURSING ---
to x ray via bed
[2023-04-19 10:00] LABS: Absolute Lymphocyte Count 0.88 X10^3/uL (0.83-4.51); Basophil# 0.06 X10^3/uL; Eosinophil# 0.39 X10^3/uL; Eosinophils% 6.5 % (0-5); Hematocrit 26.9 % (37-47); Hemoglobin 8.4 g/dL (12.0-15.0); Lymphocyte # 0.88 X10^3/ul (0.83-4.51); Lymphocyte % 14.6 % (19-41); Mean Corp Hgb Conc 31.2 g/dL (32-36); Mean Corpuscular Hgb 31.7 pg (27.0-32.0); Mean Corpuscular Volume 101.5 fL (81-99); Mean Platelet Vol. 8.9 fl (6.2-12.0); Monocyte# 0.62 X10^3/uL; Monocyte% 10.3 % (0-10); NRBC Flagged by Analyzer 0 % (0-5); Neutrophil # 4.03 X10^3/uL (2.7-7.7); Neutrophil % 66.8 % (47-70); Platelet Count 109 K/mm3 (150-450); RBC Distribution Width CV 16.2 % (11.6-14.6); RBC Distribution Width SD 60.5 fl (35.1-43.9); Red Blood Count 2.65 M/mm3 (4.2-5.4)
[2023-04-19] MEDS: Ferrous Sulfate 325 MG Tablet PO (10:12)
[2023-04-19] MEDS: Calcium Carb/Vitamin D 1 TABLET Tablet 2 TABLET PO (10:12)
[2023-04-19] MEDS: Menthol/Lanolin/Calamine/Znox 113 GM Tube 1 APPLIC TOPICAL ×2 (10:13→23:31)
[2023-04-19] MEDS: Miconazole Nitrate 43 GM Bottle 1 APPLIC TOPICAL ×2 (10:16→23:31)
[2023-04-19] MEDS: Glucerna Shake 120 ML LIQUID PO ×2 (10:17→23:30)
[2023-04-19] MEDS: Ascorbic Acid 500 MG Tablet 1000 MG PO (10:17)
[2023-04-19] MEDS: Cholecalciferol (VIT D3) 25 MCG TABLET (1,000 UNITS) 50 MCG PO (10:18)
[2023-04-19] MEDS: Cefdinir 300 MG Capsule PO (10:18)
[2023-04-19 10:30] LABS: ALB/GLOB Ratio 0.5 RATIO (0.9-2.4); AST(SGOT) 30 U/L (15-37); Alanine Aminotransfer ALT/SGPT 23 U/L (13-56); Albumin, Serum 1.6 g/dL (3.2-5.0); Alkaline Phosphatase 178 U/L (45-117); Anion Gap 4 (5-15); BUN 56 mg/dL (7-18); BUN/Creat Ratio 25.3 RATIO (10-20); Calcium,Total 8.3 mg/dL (8.5-10.1); Chloride 121 mmol/L (98-107); Creatinine, Serum 2.21 mg/dL (0.55-1.02); EST Glomerular Filtration Rate 23 mL/min (>60); Est Glom Filt Rate - Afr Amer 28 mL/min (>60); Estimated Creatinine Clearance 17.91 ml/min; Globulin 3.3 g/dL (2.2-4.2); Glucose 99 mg/dL (74-106); Potassium 4.4 mmol/L (3.5-5.1); Protein, Total 4.9 g/dL (6.4-8.2); Sodium Level 146 mmol/L (136-145)
[2023-04-19 10:51] LABS: Hemoglobin A1c < 3.8 % (3.8-5.6)
[2023-04-19 11:00] VITALS: BP 121/78; PULSE 78; RESP 18; TEMP 36.6; O2SAT 96
[2023-04-19 12:00] VITALS: PULSE 80; RESP 18; O2SAT 95
--- NOTE | 2023-04-19 13:19 | PN.HOSP_ITS ---
Reason for Visit Reason for Visit: Diagnoses Unspecified cirrhosis of liver (04/18/23) Hepatic encephalopathy (04/18/23) Acute kidney failure, unspecified (04/18/23) Other ascites (04/18/23) Disorientation, unspecified (04/18/23) Abnormal findings on diagnostic imaging of other specified body structures (04/18/23) Subjective Subjective Patient was seen and examined today, she is alert, her ammonia level however was slightly higher than the admission ammonia level. I confirmed from nursing that she is having several stools today. Objective Data Objective Data Vital Signs: Vital Signs Temp Pulse Resp BP Pulse Ox O2 Del Method 97.8 F 80 18 121/78 H 95 Room Air 04/19/23 11:00 04/19/23 12:00 04/19/23 12:00 04/19/23 11:00 04/19/23 12:00 04/19/23 12:00 Oxygen Delivery Method Room Air Weight: 99.1 kg Body Mass Index (BMI) 38.7 Intake & Output: Intake and Output for Last 24 Hours 04/17/23 04/18/23 04/19/23 23:59 23:59 23:59 Intake Total 1000 / 1000 1751 / 1751 Output Total 300 / 300 Balance 1000 / 1000 1451 / 1451 Lab / Micro Data 04/19/23 09:46 04/19/23 09:46 Labs: Laboratory Results - last 24 hr 04/18/23 18:37: WBC 6.7, RBC 2.88 L, Hgb 9.2 L, Hct 28.9 L, MCV 100.3 H, MCH 31.9, MCHC 31.8 L, RDW Std Deviation 60.0 H, RDW Coeff of Albert 16.1 H, Plt Count 113 L, MPV 8.9, Immature Gran % (Auto) 0.400, Neut % (Auto) 62.9, Lymph % (Auto) 19.2, [place] % (Auto) 10.2 H, Eos % (Auto) 6.4 H, Baso % (Auto) 0.9, Absolute Neuts (auto) 4.2, Absolute Lymphs (auto) 1.28, Nucleated RBC % 0, PT 17.9 H, INR 1.5, APTT 22.1 L, Sodium 142, Potassium 5.0, Chloride 117 H, Carbon Dioxide 23.0, Anion Gap 2 L, BUN 57 H, Creatinine 2.19 H, Estim Creat Clear Calc 18.08, Est GFR (MDRD) Af Amer 28 L, Est GFR (MDRD) Non-Af 23 L, BUN/Creatinine Ratio 2 6.0 H, Glucose 115 H, Lactic Acid 1.8, Calcium 8.3 L, Total Bilirubin 0.70, AST 56 H, ALT 27, Alkaline Phosphatase 202 H, Ammonia 95.0 H, Total Protein 5.5 L, Albumin 1.7 L, Globulin 3.8, Albumin/Globulin Ratio 0.4 L, Lipase 113 H 04/18/23 20:26: Urine Color Yellow, Urine Clarity Sl. Cloudy, Urine pH 5.0, Ur Specific [place] 1.015, Urine Protein 30 H, Urine Glucose (UA) Normal, Urine Ketones 5 H, Urine Occult Blood 250 H, Urine Nitrite Negative, Urine Bilirubin 1 H, Urine Urobilinogen Normal, Ur Leukocyte Esterase 100 H, Urine RBC 50-100 SEEN, Urine WBC 5-10 SEEN, Ur Squamous Epith Cells 0-5 SEEN, Amorphous Sediment 1+ URATE, Urine Bacteria 0 SEEN, Urine Mucus 0 SEEN, Urine Yeast RARE 04/19/23 09:46: WBC 6.0, RBC 2.65 L, Hgb 8.4 L, Hct 26.9 L, MCV 101.5 H, MCH 31.7, MCHC 31.2 L, RDW Std Deviation 60.5 H, RDW Coeff of Albert 16.2 H, Plt Count 109 L, MPV 8.9, Immature Gran % (Auto) 0.800, Neut % (Auto) 66.8, Lymph % (Auto) 14.6 L, [place] % (Auto) 10.3 H, Eos % (Auto) 6.5 H, Baso % (Auto) 1.0, Absolute Neuts (auto) 4.0, Absolute Lymphs (auto) 0.88, Nucleated RBC % 0, Sodium 146 H, Potassium 4.4, Chloride 121 H, Carbon Dioxide 21.0, Anion Gap 4 L, BUN 56 H, Creatinine 2.21 H, Estim Creat Clear Calc 17.91, Est GFR (MDRD) Af Amer 28 L, Est GFR (MDRD) Non-Af 23 L, BUN/Creatinine Ratio 25.3 H, Glucose 99, Hemoglobin A1c < 3.8 L, Calcium 8.3 L, Phosphorus 3.0, Total Bilirubin 0.80, AST 30, ALT 23, Alkaline Phosphatase 178 H, Ammonia 109.0 H, Total Protein 4.9 L, Albumin 1.6 L, Globulin 3.3, Albumin/Globulin Ratio 0.5 L, TSH 13.70 H Radiography Diagnostic Testing: Radiology Impression Brain CT 04/18/23 18:30 IMPRESSION: undefined Chest X-Ray 04/18/23 18:55 IMPRESSION: Bilateral opacities may represent infection or mild pulmonary edema. Electronically Signed: Evangelista Traylor MD at 19:22 EST , Chest CT 04/19/23 06:30 IMPRESSION: Diffuse interstitial fibrotic changes in both lung matute with bilateral pleural effusions, bibasilar atelectasis and interstitial edema. Findings suggest a likely combination of UIP and CHF. Follow-up recommended to ensure resolution. Cardiomegaly with calcified coronary vessels Chronic bronchitis Degenerative bony changes Cirrhotic liver with diffuse ascites Diffuse induration of the subcutaneous fat Electronically Signed: Hari Overton MD at 9:04 EST , Physical Exam Const alert and no apparent distress General Appearance: cooperative, well kempt and well developed Orientation / Consciousness: awake and confused HEENT normocephalic, head/scalp atraumatic and moist oral mucous membranes Eyes PERRL, EOMs intact bilaterally and conjunctivae normal Neck supple, no JVD, thyroid normal and no carotid bruits General: trachea midline Resp normal respiratory effort, no retractions, no use of accessory muscles and clear to auscultation bilaterally Auscultation: Negative for rales, rhonchi or wheezes Cardio regular rate, regular rhythm, S1 normal heart sound, S2 normal heart sound, no murmurs, no rub and no gallops GI normal to inspection, nondistended, normoactive bowel sounds, soft to palpation, non-tender and non-distended Extremity no clubbing, cyanosis or edema Skin no rashes or lesions noted General Skin Exam: no breakdown Neuro CN's II-XII intact bilaterally, moves all extremities, no focal motor deficits and no sensory deficits noted Neuro Narrative: Patient exhibits mild confusion Sensorium / Orientation: awake and alert Speech: speech normal Psych Psych Narrative: Patient is confused Assessment & Plan Assessment/Plan (1) Hepatic encephalopathy: PLAN: Plan 1. Hepatic encephalopathy-patient will continue on lactulose and Xifaxan, supportive care will be delivered #2 acute kidney injury-patient will continue on IV fluids, labs will be m onitored #3 cirrhosis of the liver-complicates care, medical course, recovery, and prognosis #4 type 2 diabetes-blood sugars will be monitored, sliding scale insulin be used for control #5 anemia of chronic disease-monitor hemoglobin as needed #6 elevated TSH-I will order T3 and T4, patient may need thyroid replacement #7 anasarca secondary to cirrhosis of the liver and hypoalbuminemia-complicates care, medical course, recovery, and prognosis Total clinical time spent by myself addressing patient's medical issues, reviewing all of her data, and collaborating with patient's care team: 35 minutes Charges/Coding Visit Charges Inpatient E&M: 31582 Subs Hosp L2
[2023-04-19 18:00] VITALS: BP 124/76; PULSE 78; RESP 18; TEMP 37.1; O2SAT 95
[2023-04-19 23:24] VITALS: BP 136/68; PULSE 97; RESP 22; TEMP 36.4; O2SAT 100
[2023-04-20] VITALS (8 sets, daily range): BP systolic 123–158; BP diastolic 71–89; PULSE 86–92; RESP 20–22; TEMP 36.3–37.2; O2SAT 98–100; BMI 39.1
[2023-04-20] MEDS: Heparin Injection (Vial) 5,000 UNIT/ML VIAL 5000 UNIT SC ×3 (05:38→23:04)
[2023-04-20] MEDS: Lactulose 20 GM/30 ML UDC 30 GM PO ×3 (05:38→23:04)
--- NOTE | 2023-04-20 07:52 | NURSING ---
phone call to ALONSO Phelps and kia consent given w/this nurse and witness Naila Castorena for PICC line
[2023-04-20] MEDS: Calcium Carb/Vitamin D 1 TABLET Tablet 2 TABLET PO (09:12)
[2023-04-20] MEDS: Menthol/Lanolin/Calamine/Znox 113 GM Tube 1 APPLIC TOPICAL ×2 (09:12→23:04)
[2023-04-20] MEDS: Ferrous Sulfate 325 MG Tablet PO (09:12)
[2023-04-20] MEDS: Glucerna Shake 120 ML LIQUID PO ×2 (09:13→14:53)
[2023-04-20] MEDS: Miconazole Nitrate 43 GM Bottle 1 APPLIC TOPICAL ×2 (09:13→23:04)
[2023-04-20] MEDS: Cholecalciferol (VIT D3) 25 MCG TABLET (1,000 UNITS) 50 MCG PO (09:14)
[2023-04-20] MEDS: Cefdinir 300 MG Capsule PO (09:14)
[2023-04-20] MEDS: rifAXIMin 550 MG Tablet PO ×2 (09:14→23:04)
[2023-04-20] MEDS: Ascorbic Acid 500 MG Tablet 1000 MG PO (09:14)
--- NOTE | 2023-04-20 09:31 | PN.HOSP_ITS ---
Reason for Visit Reason for Visit: Diagnoses Unspecified cirrhosis of liver (04/18/23) Hepatic encephalopathy (04/18/23) Acute kidney failure, unspecified (04/18/23) Other ascites (04/18/23) Disorientation, unspecified (04/18/23) Abnormal findings on diagnostic imaging of other specified body structures (04/18/23) Subjective Subjective Patient was seen and examined today, she is alert and knows she is in the hospital, we lost IV access today and she will have to have a PICC line placed. Nursing states that she has had several stools yesterday, I will consider reducing her lactulose today if this continues. Objective Data Objective Data Vital Signs: Vital Signs Temp Pulse Resp BP Pulse Ox O2 Del Method 97.3 F L 88 22 H 123/71 H 98 Room Air 04/20/23 03:24 04/20/23 03:24 04/20/23 03:24 04/20/23 03:24 04/20/23 07:42 04/20/23 07:42 Oxygen Delivery Method Room Air Weight: 100.2 kg Body Mass Index (BMI) 39.1 Intake & Output: Intake and Output for Last 24 Hours 04/18/23 04/19/23 04/20/23 23:59 23:59 23:59 Intake Total 1000 / 1000 3465 / 3465 426.67 / 426.67 Output Total 900 / 1200 400 / 400 Balance 1000 / 1000 2565 / 2265 26.67 / 26.67 Lab / Micro Data 04/19/23 09:46 04/19/23 09:46 Labs: Laboratory Results - last 24 hr 04/19/23 09:46: WBC 6.0, RBC 2.65 L, Hgb 8.4 L, Hct 26.9 L, MCV 101.5 H, MCH 31.7, MCHC 31.2 L, RDW Std Deviation 60.5 H, RDW Coeff of Albert 16.2 H, Plt Count 109 L, MPV 8.9, Immature Gran % (Auto) 0.800, Neut % (Auto) 66.8, Lymph % (Auto) 14.6 L, [place] % (Auto) 10.3 H, Eos % (Auto) 6.5 H, Baso % (Auto) 1.0, Absolute Neuts (auto) 4.0, Absolute Lymphs (auto) 0.88, Nucleated RBC % 0, Sodium 146 H, Potassium 4.4, Chloride 121 H, Carbon Dioxide 21.0, Anion Gap 4 L, BUN 56 H, Creatinine 2.21 H, Estim Creat Clear Calc 17.91, Est GFR (MDRD) Af Amer 28 L, Est GFR (MDRD) Non-Af 23 L, BUN/Creatinine Ratio 25.3 H, Glucose 99, Hemoglobin A1c < 3.8 L, Calcium 8.3 L, Phosphorus 3.0, Total Bilirubin 0.80, AST 30, ALT 23, Alkaline Phosphatase 178 H, Ammonia 109.0 H, Total Protein 4.9 L, Albumin 1.6 L, Globulin 3.3, Albumin/Globulin Ratio 0.5 L, TSH 13.70 H Physical Exam Narrative alert and no apparent distress General Appearance: cooperative, well kempt and well developed Orientation / Consciousness: awake and confused HEENT normocephalic, head/scalp atraumatic and moist oral mucous membranes Eyes PERRL, EOMs intact bilaterally and conjunctivae normal Neck supple, no JVD, thyroid normal and no carotid bruits General: trachea midline Resp normal respiratory effort, no retractions, no use of accessory muscles and clear to auscultation bilaterally Auscultation: Negative for rales, rhonchi or wheezes Cardio regular rate, regular rhythm, S1 normal heart sound, S2 normal heart sound, no murmurs, no rub and no gallops GI normal to inspection, nondistended, normoactive bowel sounds, soft to palpation, non-tender and non-distended Extremity no clubbing, cyanosis or edema Skin no rashes or lesions noted General Skin Exam: no breakdown Neuro CN's II-XII intact bilaterally, moves all extremities, no focal motor deficits and no sensory deficits noted Neuro Narrative: Patient exhibits mild confusion Sensorium / Orientation: awake and alert Speech: speech normal Psych Psych Narrative: Patient is confused Assessment & Plan Assessment/Plan (1) Hepatic encephalopathy: PLAN: Plan 1. Hepatic encephalopathy-patient will continue on lactulose and Xifaxan, supportive care will be delivered #2 acute kidney injury-patient will continue on IV fluids, labs will be monitored, creatinine today was 2.21 #3 cirrhosis of the liver-complicates care, medical course, recovery, and prognosis #4 type 2 diabetes-blood sugars will be monitored, sliding scale insulin be used for control #5 anemia of chronic disease-monitor hemoglobin as needed #6 elevated TSH, possible hypothyroidism-I will order T3 and T4, I have elected to start the patient on thyroid replacement #7 anasarca secondary to cirrhosis of the liver and hypoalbuminemia-complicates care, medical course, recovery, and prognosis Total clinical time spent by myself addressing patient's medical issues, reviewing all of her data, and collaborating with patient's care team: 35 minutes Charges/Coding Visit Charges Inpatient E&M: 70790 Subs Hosp L2
--- NOTE | 2023-04-20 11:15 | PCM.HOSP.N ---
Hospitalist Note I reviewed the patient's [facility] paperwork, she is a DNR CC arrest at the [facility], I have changed her CODE STATUS here to reflect this
--- NOTE | 2023-04-20 11:15 | PN.HOSP_ITS ---
Hospitalist Note I reviewed the patient's group home paperwork, she is a DNR CC arrest at the group home, I have changed her CODE STATUS here to reflect this
--- NOTE | 2023-04-20 11:39 | NURSING ---
call placed to [facility] regarding PICC placement as no ETA given yet. states should arrive 14:00, primary RN updated
[2023-04-20] MEDS: Levothyroxine 75 MCG Tablet PO (11:47)
--- NOTE | 2023-04-20 13:49 | NURSING ---
access lead for PICC line placement
[2023-04-20] MEDS: 0.9% Normal Saline (1000mL) 1,000 ML 100 ML IV (14:53)
[2023-04-20] MEDS: 0.9% Saline Lock 10 ML Syringe IV (15:08)
[2023-04-20 15:20] LABS: Absolute Lymphocyte Count 1.09 X10^3/uL (0.83-4.51); Absolute Neutrophil Count 5.1 X10^3/uL (2.0-7.7); Basophil# 0.04 X10^3/uL; Basophil% 0.6 % (0-1); Eosinophil# 0.29 X10^3/uL; Eosinophils% 4.1 % (0-5); Hematocrit 27.2 % (37-47); Hemoglobin 8.6 g/dL (12.0-15.0); Lymphocyte # 1.09 X10^3/ul (0.83-4.51); Lymphocyte % 15.3 % (19-41); Mean Corp Hgb Conc 31.6 g/dL (32-36); Mean Corpuscular Hgb 32.1 pg (27.0-32.0); Mean Corpuscular Volume 101.5 fL (81-99); Mean Platelet Vol. 8.8 fl (6.2-12.0); Monocyte# 0.61 X10^3/uL; Monocyte% 8.5 % (0-10); NRBC Flagged by Analyzer 0 % (0-5); Neutrophil # 5.06 X10^3/uL (2.7-7.7); Neutrophil % 70.8 % (47-70); Platelet Count 114 K/mm3 (150-450); RBC Distribution Width CV 16.3 % (11.6-14.6); RBC Distribution Width SD 60.4 fl (35.1-43.9); Red Blood Count 2.68 M/mm3 (4.2-5.4); White Blood Count 7.1 K/mm3 (4.4-11.0)
[2023-04-20 15:32] LABS: Anion Gap 2 (5-15); BUN 56 mg/dL (7-18); BUN/Creat Ratio 26.5 RATIO (10-20); Calcium,Total 8.3 mg/dL (8.5-10.1); Chloride 120 mmol/L (98-107); Creatinine, Serum 2.11 mg/dL (0.55-1.02); EST Glomerular Filtration Rate 24 mL/min (>60); Est Glom Filt Rate - Afr Amer 29 mL/min (>60); Estimated Creatinine Clearance 18.76 ml/min; Glucose 130 mg/dL (74-106); Potassium 4.4 mmol/L (3.5-5.1); Sodium Level 145 mmol/L (136-145)
[2023-04-20 15:45] LABS: Free T3 0.9 pg/mL (2.18-3.98); T4 Total, Thyroxin 4.9 ug/dL (4.8-13.9)
[2023-04-21] MEDS: 0.9% Normal Saline (1000mL) 1,000 ML 15 ML IV (02:00)
[2023-04-21 05:02] LABS: Absolute Lymphocyte Count 1.27 X10^3/uL (0.83-4.51); Absolute Neutrophil Count 3.7 X10^3/uL (2.0-7.7); Basophil# 0.04 X10^3/uL; Basophil% 0.6 % (0-1); Eosinophil# 0.43 X10^3/uL; Hematocrit 25.3 % (37-47); Hemoglobin 7.9 g/dL (12.0-15.0); Lymphocyte # 1.27 X10^3/ul (0.83-4.51); Lymphocyte % 20.6 % (19-41); Mean Corp Hgb Conc 31.2 g/dL (32-36); Mean Corpuscular Hgb 31.6 pg (27.0-32.0); Mean Corpuscular Volume 101.2 fL (81-99); Mean Platelet Vol. 9.4 fl (6.2-12.0); Monocyte% 11.3 % (0-10); NRBC Flagged by Analyzer 0 % (0-5); Neutrophil % 59.9 % (47-70); Platelet Count 104 K/mm3 (150-450); RBC Distribution Width SD 59.7 fl (35.1-43.9); White Blood Count 6.2 K/mm3 (4.4-11.0)
[2023-04-21 05:15] LABS: Anion Gap 5 (5-15); BUN 56 mg/dL (7-18); BUN/Creat Ratio 27.2 RATIO (10-20); Calcium,Total 8.1 mg/dL (8.5-10.1); Chloride 123 mmol/L (98-107); Creatinine, Serum 2.06 mg/dL (0.55-1.02); EST Glomerular Filtration Rate 25 mL/min (>60); Est Glom Filt Rate - Afr Amer 30 mL/min (>60); Estimated Creatinine Clearance 19.22 ml/min; Glucose 94 mg/dL (74-106); Potassium 4.2 mmol/L (3.5-5.1); Sodium Level 150 mmol/L (136-145)
[2023-04-21 05:18] VITALS: BP 120/73; PULSE 91; RESP 22; TEMP 36.7; O2SAT 100
[2023-04-21 05:24] VITALS: BMI 38.7
[2023-04-21] MEDS: 0.9% Saline Lock 10 ML Syringe IV ×2 (05:35→09:04)
[2023-04-21] MEDS: Lactulose 20 GM/30 ML UDC 30 GM PO ×3 (05:39→20:57)
[2023-04-21] MEDS: Levothyroxine 75 MCG Tablet PO (05:39)
[2023-04-21] MEDS: Heparin Injection (Vial) 5,000 UNIT/ML VIAL 5000 UNIT SC ×3 (05:45→21:01)
[2023-04-21 08:11] VITALS: O2SAT 100
[2023-04-21 08:39] VITALS: BP 158/73; PULSE 89; RESP 20; TEMP 36.9; O2SAT 100
[2023-04-21] MEDS: Ascorbic Acid 500 MG Tablet 1000 MG PO (08:48)
[2023-04-21] MEDS: Calcium Carb/Vitamin D 1 TABLET Tablet 2 TABLET PO (08:48)
[2023-04-21] MEDS: rifAXIMin 550 MG Tablet PO ×2 (08:48→21:00)
[2023-04-21] MEDS: Ferrous Sulfate 325 MG Tablet PO (08:49)
[2023-04-21] MEDS: Miconazole Nitrate 43 GM Bottle 1 APPLIC TOPICAL ×2 (08:49→20:58)
[2023-04-21] MEDS: Menthol/Lanolin/Calamine/Znox 113 GM Tube 1 APPLIC TOPICAL ×2 (08:49→20:56)
[2023-04-21] MEDS: Cefdinir 300 MG Capsule PO (08:49)
[2023-04-21] MEDS: Cholecalciferol (VIT D3) 25 MCG TABLET (1,000 UNITS) 50 MCG PO (08:49)
--- NOTE | 2023-04-21 08:56 | NURSING ---
meds given with bites of applesauce
[2023-04-21 09:37] LABS: Urine Sodium 12 mmol/L (Not Establ.)
[2023-04-21 09:38] LABS: International Normalized Ratio 1.7; Prothrombin Time (Protime)PT. 19.7 SECONDS (11.7-14.9)
--- NOTE | 2023-04-21 12:28 | CON.PCM.RE_ITS ---
Documented by User: CONNOR Paiz 04/21/23 12:48 Assessment & Plan Assessment/Plan (1) Acute kidney injury: (2) Hepatic encephalopathy: (3) Cirrhosis of liver with ascites: QUALIFIERS: Hepatic cirrhosis type: unspecified hepatic cirrhosis Qualified Code(s): K74.60 - Unspecified cirrhosis of liver; R18.8 - Other ascite s PLAN: Plan This is a 77 F with PMH significant for GERD, Colon CA s/p resection in remission, OA, Obesity, Diabetes mellitus type II, history of DVT, diastolic heart failure, end-stage liver disease with cirrhosis and history of hepatic encephalopathy who presented to emergency room from [facility] for altered mental status. Nephrology consulted in view for rising serum creatinine. On September 18, 2022 serum creatinine 0.61 mg/dL. Gap in labs until this hospitalization. On admission, 04/18 creatinine 2.19 and today patient's creatinine is 2.06 mg/dL. Patient had been taking furosemide at the [facility]. Furosemide is currently on hold and patient was initially started on IV fluids in the ER. Quite possibly volume depletion may be contributing to DILAN as well as hepatorenal syndrome physiology. Patient was transferred to [facility] 04/11 per sister's report to see nephrology and admitted to kidney wing. We will obtain records/labs as renal function may have been worse at that time and we are seeing slow improvement in kidney function. At this time there is no acute indication for WILDLIFE REFUGE SPECIALIST. Potassium and acid-base acceptable, volume status acceptable. Patient does have third spacing of fluids in her extremities. Last albumin level was 1.6. Will obtain Renal US. Place fortune for accurate output. Serum sodium 150, likely from lack of free water, patient is not taking much by mouth. Urine sodium today is 12. Ammonia level was 109 few days ago. Patient is ordered lactulose and rifaximin. Blood pressures were acceptable on admission and currently are acceptable at this time. Further orders forthcoming as hospitalization evolves, thank you for allowing us to participate in the care of Ms. High. HPI Consult Data Date of Consult: 04/21/23 HPI Narrative HPI Narrative: ABDIRAHMAN HIGH, is a 77 F with PMH significant for GERD, Colon CA s/p resection in remission, OA, Obesity, Diabetes mellitus type II, history of DVT, diastolic heart failure, end-stage liver disease with cirrhosis and history of hepatic encephalopathy who presented to emergency room from [facility] for altered mental status. Nephrology consulted in view for rising serum creatinine. Patient is not alert and oriented. Information is gathered from the chart as well as patient's 3 sisters are at bedside and information gathered from them. Per sister's report patient was transferred to [place] emergency room from [facility] on April 11 due to high ammonia level but also reports that patient was then transferred to [facility] for nephrology consult and was admitted to the kidney wing. Per sister's report patient never required renal placement therapy. In reviewing past serum creatinine trends, patient has normal baseline serum creatinine of 0.61 mg/dL on 09/18/2022. On admission, 04/18 serum creatinine 2.19, peaked 2.21 on 04/19 and today her creatinine is 2.06. Patient was initially started on IV fluids, IV fluid rate now is at a keep open rate. Patient is not alert and oriented therefore appetite has been very poor during hospitalization. Also per patient's sisters appetite was poor before hospi talization and patient needed to be fed due to her right arm in sling. [facility] Medical History Anemia Anemia Arthritis Cancer Chronic systolic (congestive) heart failure Cirrhosis Diabetes Diabetes mellitus, type 2 DVT (deep venous thrombosis) Essential (primary) hypertension GERD (gastroesophageal reflux disease) History of colon cancer History of edema History of revision of total replacement of right hip joint Hyperlipidemia Kidney disease Obesity Osteoarthritis Osteoporosis Restless legs Rheumatoid arthritis Right femoral shaft fracture Shortness of breath on exertion Unspecified fracture of shaft of humerus, right arm, sequela Walker as ambulation aid Wears dentures Home Medications cholecalciferol (vitamin D3) 50 mcg (2,000 unit) chewable tablet 50 mcg PO DAILY 03/18/22 [History Last Taken Unknown] ferrous sulfate 324 mg (65 mg iron) tablet,delayed release 324 mg PO DAILY 03/18/22 [History Last Taken Unknown] furosemide 20 mg tablet 20 mg PO DAILY 03/18/22 [History Last Taken Unknown] lactulose 10 gram/15 mL oral solution 15 ml PO TID 03/21/22 [History Last Taken Unknown] rifaximin 550 mg tablet 550 mg PO BID 03/21/22 [History Last Taken Unknown] acetaminophen 325 mg capsule 650 mg PO Q4H PRN pain 04/18/23 [History Last Taken Unknown] ascorbic acid (vitamin C) 1,000 mg tablet (Vitamin C) 1 g PO DAILY 04/18/23 [History Last Taken Unknown] calcium carbonate 600 mg-vitamin D3 20 mcg (800 unit) tablet (Caltrate with Vitamin D3) 2 tab PO DAILY 04/18/23 [History Last Taken Unknown] cefdinir 300 mg capsule 300 mg PO DAILY uti 04/18/23 [History Last Taken Unknown] guaifenesin 100 mg/5 mL oral liquid 200 mg PO Q4H PRN cough 04/18/23 [History Last Taken Unknown] polyethylene glycol 3350 17 gram oral powder packet (Miralax) 17 g PO DAILY PRN constipation 04/18/23 [History Last Taken Unknown] Allergy/AdvReac Type Severity Reaction Status Date / Time alendronate sodium Allergy Intermediate Swelling Verified 04/18/23 17:41 bee venom protein (honey bee) Allergy Intermediate Swelling Verified 04/18/23 17:41 Family History Mother Diabetes Father Throat cancer Hx concurrent tobacco use. Brother CAD (coronary artery disease) Diabetes Sister Diabetes Surgical History History of appendectomy History of bowel resection History of cholecystectomy History of total right hip arthroplasty (~12/11/21) History of umbilical hernia repair Hx of fracture of femur (~12/21/21) S/P right rotator cuff repair Status post total hip replacement, right Social History household members: family Smoking Status: Never smoker how long ago did patient quit smoking: Smoked 1/2 ppd since youth, quit 06/2021. alcohol intake: never substance use type: does not use caffeine: Yes (Drinks a lot of coffee since snf) Type: coffee Number of servings: 6 ROS ROS Narrative unable to obtain Physical Exam Narrative Not alert and oriented, no apparent distress S1, S2, RRR Lung sounds clear anteriorly, no wheezes rhonchi rales noted Abdomen soft, positive bowel sounds Edema noted bilateral lower legs Lab / Micro Data 04/21/23 04:45 04/22/23 05:25 Labs: Laboratory Results - last 24 hr 04/20/23 15:04: WBC 7.1, RBC 2.68 L, Hgb 8.6 L, Hct 27.2 L, MCV 101.5 H, MCH 32.1 H, MCHC 31.6 L, RDW Std Deviation 60.4 H, RDW Coeff of Albert 16.3 H, Plt Count 114 L, MPV 8.8, Immature Gran % (Auto) 0.700, Neut % (Auto) 70.8 H, Lymph % (Auto) 15.3 L, [place] % (Auto) 8.5, Eos % (Auto) 4.1, Baso % (Auto) 0.6, Absolute Neuts (auto) 5.1, Absolute Lymphs (auto) 1.09, Nucleated RBC % 0, Sodium 145, Potassium 4.4, Chloride 120 H, Carbon Dioxide 23.0, Anion Gap 2 L, BUN 56 H, Creatinine 2.11 H, Estim Creat Clear Calc 18.76, Est GFR (MDRD) Af Amer 29 L, Est GFR (MDRD) Non-Af 24 L, BUN/Creatinine Ratio 26.5 H, Glucose 130 H, Calcium 8.3 L, Thyroxine (T4) 4.9, Free T3 pg/dL 0.9 L 04/21/23 04:45: WBC 6.2, RBC 2.50 L, Hgb 7.9 L, Hct 25.3 L, MCV 101.2 H, MCH 31.6, MCHC 31.2 L, RDW Std Deviation 59.7 H, RDW Coeff of Albert 16.0 H, Plt Count 104 L, MPV 9.4, Immature Gran % (Auto) 0.600, Neut % (Auto) 59.9, Lymph % (Auto) 20.6, [place] % (Auto) 11.3 H, Eos % (Auto) 7.0 H, Baso % (Auto) 0.6, Absolute Neuts (auto) 3.7, Absolute Lymphs (auto) 1.27, Nucleated RBC % 0, Sodium 150 H, Potassium 4.2, Chloride 123 H, Carbon Dioxide 22.0, Anion Gap 5, BUN 56 H, Creatinine 2.06 H, Estim Creat Clear Calc 19.22, Est GFR (MDRD) Af Amer 30 L, Est GFR (MDRD) Non-Af 25 L, BUN/Creatinine Ratio 27.2 H, Glucose 94, Calcium 8.1 L 04/21/23 09:00: PT 19.7 H, INR 1.7, Ur Random Sodium 12, Urine Creatinine 254.00 Documented by User: Dr. Walt Jimenez MD 04/22/23 09:27 Assessment & Plan Assessment/Plan (1) Acute kidney injury: (2) Hepatic encephalopathy: (3) Cirrhosis of liver with ascites: QUALIFIERS: Hepatic cirrhosis type: unspecified hepatic cirrhosis Qualified Code(s): K74.60 - Unspecified cirrhosis of liver; R18.8 - Other ascite s PLAN: Plan This is a 77 F with PMH significant for GERD, Colon CA s/p resection in remission, OA, Obesity, Diabetes mellitus type II, history of DVT, diastolic heart failure, end-stage liver disease with cirrhosis and history of hepatic encephalopathy who presented to emergency room from [facility] for altered mental status. Nephrology consulted in view for rising serum creatinine. On September 18, 2022 serum creatinine 0.61 mg/dL. Gap in labs until this hospitalization. On admission, 04/18 creatinine 2.19 and today patient's creatinine is 2.06 mg/dL. Patient had been taking furosemide at the [facility]. Furosemide is currently on hold and patient was initially started on IV fluids in the ER. Quite possibly volume depletion may be contributing to DILAN as well as hepatorenal syndrome physiology. Patient was transferred to [facility] 04/11 per sister's report to see nephrology and admitted to kidney wing. We will obtain records/labs as renal function may have been worse at that time and we are seeing slow improvement in kidney function. At this time there is no acute indication for WILDLIFE REFUGE SPECIALIST. Potassium and acid-base acceptable, volume status acceptable. Patient does have third spacing of fluids in her extremities. Last albumin level was 1.6. Will obtain Renal US. Place fortune for accurate output. Serum sodium 150, likely from lack of free water, patient is not taking much by mouth. Urine sodium today is 12. Ammonia level was 109 few days ago. Patient is ordered lactulose and rifaximin. Blood pressures were acceptable on admission and currently are acceptable at this time. Further orders forthcoming as hospitalization evolves, thank you for allowing us to participate in the care of Ms. High. Attending addendum Darwin BLANK[employer]. reviewed records from [facility]. she was recently discharged from there. admit diagnosis was hepatic encephalopathy, UTI, DILAN. Baseline cr as of february was less than 1. most of march her creatinine has been in 2s. discharge cr was 2.3. now 2.0 BP is good. unlikely HRS. cr is better than before. HPI Consult Data Date of Consult: 04/22/23 [facility] Medical History Anemia Anemia Arthritis Cancer Chronic systolic (congestive) heart failure Cirrhosis Diabetes Diabetes mellitus, type 2 DVT (deep venous thrombosis) Essential (primary) hypertension GERD (gastroesophageal reflux disease) History of colon cancer History of edema History of revision of total replacement of right hip joint Hyperlipidemia Kidney disease Obesity Osteoarthritis Osteoporosis Restless legs Rheumatoid arthritis Right femoral shaft fracture Shortness of breath on exertion Unspecified fracture of shaft of humerus, right arm, sequela Walker as ambulation aid Wears dentures Home Medications cholecalciferol (vitamin D3) 50 mcg (2,000 unit) chewable tablet 50 mcg PO DAILY 03/18/22 [History Last Taken Unknown] ferrous sulfate 324 mg (65 mg iron) tablet,delayed release 324 mg PO DAILY 03/18/22 [History Last Taken Unknown] furosemide 20 mg tablet 20 mg PO DAILY 03/18/22 [History Last Taken Unknown] lactulose 10 gram/15 mL oral solution 15 ml PO TID 03/21/22 [History Last Taken Unknown] rifaximin 550 mg tablet 550 mg PO BID 03/21/22 [History Last Taken Unknown] acetaminophen 325 mg capsule 650 mg PO Q4H PRN pain 04/18/23 [History Last Taken Unknown] ascorbic acid (vitamin C) 1,000 mg tablet (Vitamin C) 1 g PO DAILY 04/18/23 [History Last Taken Unknown] calcium carbonate 600 mg-vitamin D3 20 mcg (800 unit) tablet (Caltrate with Vitamin D3) 2 tab PO DAILY 04/18/23 [History Last Taken Unknown] cefdinir 300 mg capsule 300 mg PO DAILY uti 04/18/23 [History Last Taken Unknown] guaifenesin 100 mg/5 mL oral liquid 200 mg PO Q4H PRN cough 04/18/23 [History Last Taken Unknown] polyethylene glycol 3350 17 gram oral powder packet (Miralax) 17 g PO DAILY PRN constipation 04/18/23 [History Last Taken Unknown] Allergy/AdvReac Type Severity Reaction Status Date / Time alendronate sodium Allergy Intermediate Swelling Verified 04/18/23 17:41 bee venom protein (honey bee) Allergy Intermediate Swelling Verified 04/18/23 17:41 Family History Mother Diabetes Father Throat cancer Hx concurrent tobacco use. Brother CAD (coronary artery disease) Diabetes Sister Diabetes Surgical History History of appendectomy History of bowel resection History of cholecystectomy History of total right hip arthroplasty (~12/11/21) History of umbilical hernia repair Hx of fracture of femur (~12/21/21) S/P right rotator cuff repair Status post total hip replacement, right Social History household members: family Smoking Status: Never smoker how long ago did patient quit smoking: Smoked 1/2 ppd since youth, quit 06/2021. alcohol intake: never substance use type: does not use caffeine: Yes (Drinks a lot of coffee since snf) Type: coffee Number of servings: 6 Lab / Micro Data 04/21/23 04:45 04/22/23 05:25
--- NOTE | 2023-04-21 12:44 | US_ITS ---
STUDY: RENAL ULTRASOUND - COMPLETE REASON FOR EXAM: Female, 77 years old. DILAN TECHNIQUE: Ultrasound evaluation of the kidneys was performed with real-time and static bundy-scale imaging. COMPARISON: None. FINDINGS: RIGHT KIDNEY: Normal location of the right kidney, which is normal in size. The right kidney measures 10.8 cm. There is a normal cortex of the right kidney. The renal cortex measures 1.2 cm. There is no right renal mass or cyst. There are no right renal calculi. There is no right hydronephrosis. DISTAL RIGHT URETER: There is non-visualization of the distal right ureter. There is no demonstrated right ureterovesical junction calculus. There is a visualized right ureteral jet. LEFT KIDNEY: Normal location of the left kidney, which is normal in size. The left kidney measures 12.5 cm. There is a normal cortex of the left kidney. The renal cortex measures 1.2 cm. There is no left renal mass or cyst. There are no left renal calculi. There is no left hydronephrosis. DISTAL LEFT URETER: There is non-visualization of the distal left ureter. There is no demonstrated left ureterovesical junction calculus. There is a visualized left ureteral jet. BLADDER: The distended urinary bladder has a volume of 41 ml. The empty urinary bladder has a volume of ml. There is a normal wall thickness of the distended urinary bladder. There is no demonstrated mass within the urinary bladder. There are no demonstrated bladder calculi. US/Kidney and Bladder IMPRESSION: Normal ultrasound of the kidneys and urinary bladder. Electronically Signed: Marco A Tavares MD at 23:23 EST ,
--- NOTE | 2023-04-21 12:57 | US_ITS ---
STUDY: ABDOMINAL ULTRASOUND - REASON FOR VISIT: Female, 77 years old assess for ascites TECHNIQUE: Ultrasound evaluation of the abdomen was performed with real-time and static reno-scale imaging. TECHNICAL QUALITY: Adequate. COMPARISON: None. FINDINGS: Limited longitudinal and transverse ultrasound images of the abdomen demonstrate a large amount of ascites. . US/Abdomen Limited IMPRESSION: Large amount of ascites. Electronically Signed: Marco A Tavares MD at 19:03 EST ,
[2023-04-21 15:12] VITALS: BP 149/68; PULSE 96; RESP 20; TEMP 36.8; O2SAT 100
--- NOTE | 2023-04-21 15:34 | PCM.PN.HOSP ---
Reason for Visit Reason for Visit: Diagnoses Unspecified cirrhosis of liver (04/18/23) Hepatic encephalopathy (04/18/23) Acute kidney failure, unspecified (04/18/23) Other ascites (04/18/23) Disorientation, unspecified (04/18/23) Abnormal findings on diagnostic imaging of other specified body structures (04/18/23) Subjective Subjective Patient seen at bedside this morning. Patient remains encephalopathic at this time. Did open her eyes on verbal command, but did not answer any questions. Patient appeared comfortable at rest. Did appear to have mild discomfort with abdominal palpation. Objective Data Objective Data Vital Signs: Vital Signs Temp Pulse Resp BP Pulse Ox O2 Del Method 98.3 F 96 20 H 149/68 H 100 Room Air 04/21/23 15:12 04/21/23 15:12 04/21/23 15:12 04/21/23 15:12 04/21/23 15:12 04/21/23 15:12 Oxygen Delivery Method Room Air Weight: 99.3 kg Body Mass Index (BMI) 38.7 Intake & Output: Intake and Output for Last 24 Hours 04/19/23 04/20/23 04/21/23 23:59 23:59 23:59 Intake Total 3465 / 3465 755.00 / 755.00 1471.67 / 1471.67 Output Total 900 / 1200 900 / 900 150 / 150 Balance 2565 / 2265 -145.00 / -145.00 1321.67 / 1321.67 Lab / Micro Data 04/21/23 04:45 04/21/23 04:45 Labs: Laboratory Results - last 24 hr 04/20/23 15:04: Thyroxine (T4) 4.9, Free T3 pg/dL 0.9 L 04/21/23 04:45: WBC 6.2, RBC 2.50 L, Hgb 7.9 L, Hct 25.3 L, MCV 101.2 H, MCH 31.6, MCHC 31.2 L, RDW Std Deviation 59.7 H, RDW Coeff of Albert 16.0 H, Plt Count 104 L, MPV 9.4, Immature Gran % (Auto) 0.600, Neut % (Auto) 59.9, Lymph % (Auto) 20.6, [place] % (Auto) 11.3 H, Eos % (Auto) 7.0 H, Baso % (Auto) 0.6, Absolute Neuts (auto) 3.7, Absolute Lymphs (auto) 1.27, Nucleated RBC % 0, Sodium 150 H, Potassium 4.2, Chloride 123 H, Carbon Dioxide 22.0, Anion Gap 5, BUN 56 H, Creatinine 2.06 H, Estim Creat Clear Calc 19.22, Est GFR (MDRD) Af Amer 30 L, Est GFR (MDRD) Non-Af 25 L, BUN/Creatinine Ratio 27.2 H, Glucose 94, Calcium 8.1 L 04/21/23 09:00: PT 19.7 H, INR 1.7, Ur Random Sodium 12, Urine Creatinine 254.00 Physical Exam Const Constitutional Narrative: Obese. General Appearance: comfortable HEENT normocephalic, head/scalp atraumatic, hearing grossly normal bilaterally, nasal mucous membranes and turbinates normal and moist oral mucous membranes Eyes PERRL, EOMs intact bilaterally and conjunctivae normal Neck full ROM, no lymphadenopathy and supple Lymph Lymphatic: no lymphadenopathy noted Chest inspection of chest normal Resp normal respiratory effort, normal air movement, no use of accessory muscles and clear to auscultation bilaterally Cardio regular rate, regular rhythm, no murmurs and peripheral pulses 2+ throughout GI GI Narrative: Mildly distended, no significant fluid wave noted, soft on palpation. Back/Spine normal ROM Extremity normal to inspection, full ROM and no pedal edema Skin no rashes or lesions noted Assessment & Plan Assessment/Plan (1) Hepatic encephalopathy: (2) Acute kidney injury: PLAN: Plan Patient is a 77-year-old female who presented to [facility] ED on 04/18/2023 from custodial for altered mental status. 1. Hepatic encephalopathy, recurrent; history of cirrhosis with ascites Per patient's family, patient was recently hospitalized [facility] for hepatic encephalopathy with elevated ammonia levels. Unclear on etiology of hepatic encephalopathy at that time. Was discharged to an extended care facility after that hospitalization. Has been getting her lactulose and rifaximin as prescribed but continues to have waxing and waning confusion. Unclear if encephalopathy on this admission is due to issues with her medications or secondary underlying cause. Ammonia level elevated at 95 on admission. ? Patient remains encephalopathic on 04/21 despite having adequate bowel movements with lactulose and rifaximin. Have concerned she may have a secondary cause of hepatic encephalopathy. Abdominal ultrasound ordered to assess for ascites, may need diagnostic paracentesis to rule out SBP. MELD-Na score of 19 on 04/21. Monitor daily MELD labs. Gastroenterology consulted for further recommendations. Holding home Lasix for now. 2. DILAN May be secondary to volume depletion from poor p.o. intake but cannot rule out hepatorenal syndrome. Creatinine 2.19 on admit, BUN 57. Baseline creatinine around 0.6. Creatinine has remained stable around 2.0-2.1 since admission. Patient has had fairly minimal urine output but this has not been accurately quantified over the last several days. Urine sodium and creatinine ordered on 04/21, FeNa calculated to be 0.1% consistent with prerenal etiology. Patient notably did not receive some volume resuscitation on admission. ? Nephrology consulted. Appreciate further recommendations. Monitor daily BMP. No acute needs for hemodialysis. Tse catheter placed on 04/21 for accurate I/O's. Renal ultrasound pending. 3. Severe malnutrition ? Albumin 1.6 on admission, likely multifactorial in setting of cirrhosis with very poor p.o. intake over an extended period of time. Patient currently n.p.o. given altered mental status, will need nutrition supplementation once able to resume p.o. intake. Nutrition consulted. 4. Elevated TSH ? TSH elevated at 13 on admit, T4 normal, T3 low. Consistent with subclinical hypothyroidism. No need for thyroid hormone replacement at this time. 5. Hypernatremia ? Sodium 150 on 04/21. Presumed secondary to free water depletion. However, will hold on giving patient hypotonic fluids given concern for general volume overload as noted above. Monitor for now. Appreciate nephrology input. Chronic medical conditions: ? Morbid obesity: BMI 38. Lifestyle modifications. ? History of colon cancer s/p resection and chemotherapy DVT prophylaxis: Heparin subcu CODE STATUS: DNR CCA, DO NOT INTUBATE. Confirmed upon review of paperwork from custodial. Expected disposition: TBD Total clinical time spent by myself addressing the patient's medical issues, reviewing all the data, and collaborating with patient's care team: 35 minutes. Charges/Coding Visit Charges Inpatient E&M: 80493 Subs Hosp L2
--- NOTE | 2023-04-21 15:43 | CHAPLAIN ---
Type of Pastoral Visit _x__ Initial Visit ___ Follow-up Visit ___ On-call Visit ___ General Patient Visit ___ Spiritual Assessment ___ Family Conference ___ Bereavement ___ Rapid Response ___ Code Blue ___ Other (describe below) Pastoral Care Referral From ___ Patient _x__ Family ___ Nurse ___ Physician ___ Residence Life Coordinator ___ Continuous Towel Roller ___ Other (describe below) Sacrament/Intervention _x__ Active listening ___ Anointing ___ Advent ___ Bereavement ___ Communion ___ Nancy exploration ___ ___ Life review _x__ Prayer ___ Reconciliation ___ Sacrament of Sick _x_ Supportive presence ___ Wedding ___ Other (describe below) Pastoral Comments patient is sleeping and did not stir to entrance into room; family members are in the room and describe the situation; family members are given time to talk about pt and their concerns; offer of prayer is welcomed; offer of future visits given
--- NOTE | 2023-04-21 15:59 | CON.PCM.GI_ITS ---
HPI Consult Data Date of Consult: 04/21/23 HPI Narrative Reason for Consultation: Encephalopathy HPI Narrative: ABDIRAHMAN ROGERS, is a 77 F who presented with our mental status 2 days ago. She has a past medical history of essential hypertension, hyperlipidemia, diabetes mellitus type 2; of unknown control, history of DVT. 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 She was diagnosed with end-stage liver disease with cirrhosis and history of hepatic encephalopathy already on rifaximin 550 mg p.o. twice daily and lactulose 15 mL p.o. 3 times daily with [place] [facility] over the past 3 weeks due to [id number] confusion who presents to [facility] ER complaining of altered mental status. She is a poor historian at this time so information was gathered from chart, medical staff and computer. Additionally, her granddaughter, who is also her medical power of banking attorney, accompanied her to the ER this admission and she helped to augment the history. She was recently admitted to [facility] for hepatic encephalopathy with elevated ammonia levels and then she was discharged from there to an extended care facility. Her granddaughter also reports that she has had increasing generalized swelling due to ascites with associated fatigue. In the ER she was noted to have hyperammonemia with an ammonia level of 95 present on admission resulting in a diagnosis of hepatic encephalopathy complicated by laboratory evidence of acute kidney injury with an elevated creatinine of 2.19 mg/dL with a BUN of 57 mg/dL (up from her baseline normal creatinine of 0.61 mg/dL and BUN of 22 mg/dL last admission) compounded by generalized weakness and deconditioning due to chronically her poor and declining overall health. She is currently being seen by nephrology due to acute kidney injury. [facility] Medical History (Updated 04/19/23 @ 06:[address] Vik Grove DO) Anemia Anemia Arthritis Cancer Chronic systolic (congestive) heart failure Cirrhosis Diabetes Diabetes mellitus, type 2 DVT (deep venous thrombosis) Essential (primary) hypertension GERD (gastroesophageal reflux disease) History of colon cancer History of edema History of revision of total replacement of right hip joint Hyperlipidemia Kidney disease Obesity Osteoarthritis Osteoporosis Restless legs Rheumatoid arthritis Right femoral shaft fracture Shortness of breath on exertion Unspecified fracture of shaft of humerus, right arm, sequela Walker as ambulation aid Wears dentures Home Medications cholecalciferol (vitamin D3) 50 mcg (2,000 unit) chewable tablet 50 mcg PO DAILY 03/18/22 [History Last Taken Unknown] ferrous sulfate 324 mg (65 mg iron) tablet,delayed release 324 mg PO DAILY 03/18/22 [History Last Taken Unknown] furosemide 20 mg tablet 20 mg PO DAILY 03/18/22 [History Last Taken Unknown] lactulose 10 gram/15 mL oral solution 15 ml PO TID 03/21/22 [History Last Taken Unknown] rifaximin 550 mg tablet 550 mg PO BID 03/21/22 [History Last Taken Unknown] acetaminophen 325 mg capsule 650 mg PO Q4H PRN pain 04/18/23 [History Last Taken Unknown] ascorbic acid (vitamin C) 1,000 mg tablet (Vitamin C) 1 g PO DAILY 04/18/23 [History Last Taken Unknown] calcium carbonate 600 mg-vitamin D3 20 mcg (800 unit) tablet (Caltrate with Vitamin D3) 2 tab PO DAILY 04/18/23 [History Last Taken Unknown] cefdinir 300 mg capsule 300 mg PO DAILY uti 04/18/23 [History Last Taken Unknown] guaifenesin 100 mg/5 mL oral liquid 200 mg PO Q4H PRN cough 04/18/23 [History Last Taken Unknown] polyethylene glycol 3350 17 gram oral powder packet (Miralax) 17 g PO DAILY PRN constipation 04/18/23 [History Last Taken Unknown] Allergy/AdvReac Type Severity Reaction Status Date / Time alendronate sodium Allergy Intermediate Swelling Verified 04/18/23 17:41 bee venom protein (honey bee) Allergy Intermediate Swelling Verified 04/18/23 17:41 Family History Mother Diabetes Father Throat cancer Hx concurrent tobacco use. Brother CAD (coronary artery disease) Diabetes Sister Diabetes Surgical History (Updated 04/18/23 @ 23:39 by Caterina Vizcaino) History of appendectomy History of bowel resection History of cholecystectomy History of total right hip arthroplasty (~12/11/21) History of umbilical hernia repair Hx of fracture of femur (~12/21/21) S/P right rotator cuff repair Status post total hip replacement, right Social History household members: family Smoking Status: Never smoker how long ago did patient quit smoking: Smoked 1/2 ppd since youth, quit 06/2021. alcohol intake: never substance use type: does not use caffeine: Yes (Drinks a lot of coffee since group home) Type: coffee Number of servings: 6 ROS ROS Narrative unable to obtain Physical Exam Const Constitutional Narrative: Obese. General Appearance: comfortable HEENT normocephalic, head/scalp atraumatic, hearing grossly normal bilaterally, nasal mucous membranes and turbinates normal and moist oral mucous membranes Eyes PERRL, EOMs intact bilaterally and conjunctivae normal Neck full ROM, no lymphadenopathy and supple Lymph Lymphatic: no lymphadenopathy noted Chest inspection of chest normal Resp normal respiratory effort, normal air movement, no use of accessory muscles and clear to auscultation bilaterally Cardio regular rate, regular rhythm, no murmurs and peripheral pulses 2+ throughout GI GI Narrative: Mildly distended, no significant fluid wave noted, soft on palpation. Back/Spine normal ROM Extremity normal to inspection, full ROM and no pedal edema Skin no rashes or lesions noted Lab / Micro Data 04/21/23 04:45 04/21/23 04:45 Labs: Laboratory Results - last 24 hr 04/21/23 04:45: WBC 6.2, RBC 2.50 L, Hgb 7.9 L, Hct 25.3 L, MCV 101.2 H, MCH 31.6, MCHC 31.2 L, RDW Std Deviation 59.7 H, RDW Coeff of Albert 16.0 H, Plt Count 104 L, MPV 9.4, Immature Gran % (Auto) 0.600, Neut % (Auto) 59.9, Lymph % (Auto) 20.6, [place] % (Auto) 11.3 H, Eos % (Auto) 7.0 H, Baso % (Auto) 0.6, Absolute Neuts (auto) 3.7, Absolute Lymphs (auto) 1.27, Nucleated RBC % 0, Sodium 150 H, Potassium 4.2, Chloride 123 H, Carbon Dioxide 22.0, Anion Gap 5, BUN 56 H, Creatinine 2.06 H, Estim Creat Clear Calc 19.22, Est GFR (MDRD) Af Amer 30 L, Est GFR (MDRD) Non-Af 25 L, BUN/Creatinine Ratio 27.2 H, Glucose 94, Calcium 8.1 L 04/21/23 09:00: PT 19.7 H, INR 1.7, Ur Random Sodium 12, Urine Creatinine 254.00 Assessment & Plan Assessment/Plan (1) Cirrhosis of liver with ascites: QUALIFIERS: Hepatic cirrhosis type: unspecified hepatic cirrhosis Qualified Code(s): K74.60 - Unspecified cirrhosis of liver; R18.8 - Other ascites (2) Hepatic encephalopathy: (3) Acute kidney injury: PLAN: Plan 77-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 Her MELD sodium score is 14 and she is a child Stauffer class B at this time. Hepatic encephalopathy is a common complication in patients with advanced liver disease. HE has various precipitants that can potentially promote its onset, alone or in combination. Among the historically well-known precipitants, such as infections, gastrointestinal bleeding, dehydration, electrolyte disorders and constipation, recent studies have highlighted the role of malnutrition and portosystemic shunts as new precipitating factors of HE. Currently she has acute kidney injury which I think is contributing to her worsening hepatic encephalopathy because some of the ammonia that we make in her colon, red blood cell breakdown and muscle breakdown is cleared by the kidney. Her kidney function is improving somewhat which makes this more likely acute kidney injury secondary to dehydration versus hepatorenal syndrome. Although we will have to draw a urine sodium and see if it is low. At this time she seems to have a grade 1-2 hepatic encephalopathy. There are 3 types of hepatic encephalopathy. Type A: hepatic encephalopathy due to of acute liver failure. She does not seem to be experiencing any type of acute on chronic liver failure Type B: hepatic encephalopathy due to portal-systemic bypass with no intrinsic hepatocellular disease. She does not reach criteria for type B as she does have intrinsic hepatocellular disease Type C: hepatic encephalopathy due to cirrhosis with portal hypertension or systemic shunting. She does have signs of portal hypertension being that she does have spider angiomata, ascites and other signs or symptoms of chronic liver disease. At this time we cannot get a CT scan of the abdomen pelvis to look for portosystemic shunts. -Visually she seems to be experiencing some sarcopenia which also contributes to worsening hepatic encephalopathy due to muscle breakdown and ammonia production from muscle breakdown. I would recommend to check a CPK, aldolase, LDH and urine myoglobin. -She would benefit from branched chain amino acids plus lactulose as branched chain amino acids can help filter out ammonia better. In a patient with severe hypoalbuminemia that would be relying only on albumin to remove remove ammonia from the body. -Acute kidney injury can also contribute to her poor clearance of ammonia. Therefore I will start her on albumin, octreotide and midodrine ( hold for sbp>120). -Recommend dietitian consultation for the administration of branch chain amino acids 2-3 times a day with administration of lactulose. -She may benefit from an upper endoscopy to see if she has any signs or symptoms of portosystemic shunting with gastric varices or esophageal varices, severe portal gastropathy, gastric antral vascular ectasia as these will contribute to refractory hepatic encephalopathy.? N.p.o. past midnight to see if there is any signs or symptoms of slow intermittent GI blood loss contributing to hepatic encephalopathy and upper GI tract. -She also needs a normal TSH to help facilitate proper clearance of ammonia from the body. Her last TSH was 13.7. -I will also put her on nadolol for varices. Charges/Coding Visit Charges Inpatient E&M: 23269 Init Hosp L3
--- NOTE | 2023-04-21 17:00 | CASEMGMT ---
Social Work Noted that patient is from [facility]. Noted on paperwork sent from the nursing facility, that patient was admitted on 04/15/2023 though at one point was also admitted in 2021. Uncertain whether patient is a long-term resident or if patient was recently placed there for new skilled stay. Attempted to meet with patient however patient working with therapy. Called patient's daughter who is listed as power of truck loader overhead crane, and left a message to call this abstract writer back. Once able to confirm patient/family would like for patient to return to court, will send clinical updates to the nursing facility as indicated. Plan: Anticipate return back to nursing facility. Determining whether this would be skilled or intermediate. -ULISES Guzman, THERMO CEMENTING FOLDER OPERATOR *This note was generated with [employer] dictation software. It may contain incorrect words, spelling, and punctuation that were not noted in review of the chart prior to signing*
[2023-04-21 17:10] LABS: CPK Total, Creatine Kinase 56 U/L (26-192); Ferritin 575 ng/mL (8-252); LDH 304 U/L (84-246)
[2023-04-21] MEDS: Albumin Human 25% (50 mL) 12.5 GM/50 ML IV.SOLN IV (20:56)
[2023-04-21] MEDS: Glucerna Shake 120 ML LIQUID PO (20:57)
[2023-04-21] MEDS: Octreotide 0.1 MG/ML ML SC (21:24)
[2023-04-21 21:31] VITALS: BP 148/76; PULSE 103; RESP 18; TEMP 36.9; O2SAT 100
[2023-04-22] VITALS (14 sets, daily range): BP systolic 94–131; BP diastolic 45–66; PULSE 68–98; RESP 16–20; TEMP 36.6–36.9; O2SAT 95–100; BMI 39.5
[2023-04-22] MEDS: Octreotide 0.1 MG/ML ML SC ×3 (05:04→23:01)
[2023-04-22 05:49] LABS: International Normalized Ratio 1.8; Prothrombin Time (Protime)PT. 20.8 SECONDS (11.7-14.9)
--- NOTE | 2023-04-22 06:00 | EKG12_ITS ---
Test Reason : PRE-OP Blood Pressure : / mmHG Vent. Rate : 103 BPM Atrial Rate : 103 BPM P-R Int : 120 ms QRS Dur : 084 ms QT Int : 348 ms P-R-T Axes : 000 071 024 degrees QTc Int : 455 ms Sinus tachycardia Low voltage QRS Borderline ECG When compared with ECG of 21-DEC-2021 04:53, QRS voltage has decreased Nonspecific T wave abnormality now evident in Inferior leads Confirmed by MEHNAZ MCCORMICK, JENNIFER ([id number]), development editor JEFFREY LEON ([id number]) on 04/30/2023 1:00:55 PM Referred By: SAHIL Confirmed By:JENNIFER DARBY MD
[2023-04-22 06:10] LABS: ALB/GLOB Ratio 0.5 RATIO (0.9-2.4); AST(SGOT) 35 U/L (15-37); Alanine Aminotransfer ALT/SGPT 20 U/L (13-56); Albumin, Serum 1.5 g/dL (3.2-5.0); Alkaline Phosphatase 169 U/L (45-117); Anion Gap 4 (5-15); BUN 59 mg/dL (7-18); BUN/Creat Ratio 26.8 RATIO (10-20); Calcium,Total 8.1 mg/dL (8.5-10.1); Chloride 124 mmol/L (98-107); EST Glomerular Filtration Rate 23 mL/min (>60); Est Glom Filt Rate - Afr Amer 28 mL/min (>60); Globulin 3.1 g/dL (2.2-4.2); Glucose 124 mg/dL (74-106); Magnesium 2.3 mg/dL (1.6-2.6); Potassium 4.2 mmol/L (3.5-5.1); Protein, Total 4.6 g/dL (6.4-8.2); Sodium Level 149 mmol/L (136-145)
[2023-04-22] MEDS: rifAXIMin 550 MG Tablet PO ×2 (08:04→22:57)
[2023-04-22] MEDS: Lactulose 20 GM/30 ML UDC 30 GM PO ×3 (08:04→22:56)
[2023-04-22] MEDS: Menthol/Lanolin/Calamine/Znox 113 GM Tube 1 APPLIC TOPICAL ×2 (08:05→22:56)
[2023-04-22] MEDS: Ascorbic Acid 500 MG Tablet 1000 MG PO (08:05)
[2023-04-22] MEDS: Ferrous Sulfate 325 MG Tablet PO (08:05)
[2023-04-22] MEDS: Cholecalciferol (VIT D3) 25 MCG TABLET (1,000 UNITS) 50 MCG PO (08:05)
[2023-04-22] MEDS: Calcium Carb/Vitamin D 1 TABLET Tablet 2 TABLET PO (08:05)
[2023-04-22] MEDS: Midodrine HCl 5 MG Tablet 10 MG PO ×3 (08:06→16:55)
[2023-04-22] MEDS: Miconazole Nitrate 43 GM Bottle 1 APPLIC TOPICAL ×2 (08:06→22:57)
[2023-04-22] MEDS: 0.9% Saline Lock 10 ML Syringe IV ×3 (09:32→22:52)
[2023-04-22] MEDS: Albumin Human 25% (50 mL) 12.5 GM/50 ML IV.SOLN IV ×2 (09:32→22:52)
--- NOTE | 2023-04-22 09:42 | CASEMGMT ---
Social Work SW met with pt to discuss discharge plan. Pt is awake and alert, able to state that she is at [facility] but unable to state why and where she was living prior to hospitalization. Phone all to pt's dgt Maria Esther and YONY left requesting return call to discuss discharge. SW will await call. SAMIR De Luna
--- NOTE | 2023-04-22 11:09 | PCM.PN.REN ---
Subjective Subjective More alert and awake today. No overnight events. No complaints except for feeling thirsty. Objective Data Objective Data Vital Signs: Vital Signs Temp Pulse Resp BP Pulse Ox O2 Del Method 98.4 F 98 20 H 116/52 L 98 Room Air 04/22/23 07:52 04/22/23 11:07 04/22/23 07:52 04/22/23 11:07 04/22/23 07:52 04/22/23 07:52 Oxygen Delivery Method Room Air Weight: 101.2 kg Body Mass Index (BMI) 39.5 Intake & Output: Intake and Output for Last 24 Hours 04/20/23 04/21/23 04/22/23 23:59 23:59 23:59 Intake Total 755.00 / 755.00 1761.67 / 1761.67 170 / 170 Output Total 900 / 900 150 / 150 350 / 350 Balance -145.00 / -145.00 1611.67 / 1611.67 -180 / -180 Lab / Micro Data 04/21/23 04:45 04/22/23 05:25 Labs: Laboratory Results - last 24 hr 04/21/23 04:45: Ferritin 575 H, Lactate Dehydrogenase 304 H, Total Creatine Kinase 56 04/22/23 05:25: PT 20.8 H, INR 1.8, Sodium 149 H, Potassium 4.2, Chloride 124 H, Carbon Dioxide 21.0, Anion Gap 4 L, BUN 59 H, Creatinine 2.20 H, Estim Creat Clear Calc 18.00, Est GFR (MDRD) Af Amer 28 L, Est GFR (MDRD) Non-Af 23 L, BUN/Creatinine Ratio 26.8 H, Glucose 124 H, Calcium 8.1 L, Magnesium 2.3, Total Bilirubin 0.70, AST 35, ALT 20, Alkaline Phosphatase 169 H, Total Protein 4.6 L, Albumin 1.5 L, Globulin 3.1, Albumin/Globulin Ratio 0.5 L Radiography Diagnostic Testing: Radiology Impression Renal Ultrasound 04/21/23 12:44 IMPRESSION: Normal ultrasound of the kidneys and urinary bladder. Electronically Signed: Marco A Tavares MD at 23:23 EST , Abdomen Ultrasound 04/21/23 12:57 IMPRESSION: Large amount of ascites. Electronically Signed: Marco A Tavares MD at 19:03 EST , Physical Exam Narrative Not alert and oriented, no apparent distress S1, S2, RRR Lung sounds clear anteriorly, no wheezes rhonchi rales noted Abdomen soft, positive bowel sounds Edema noted bilateral lower legs Assessment & Plan Assessment/Plan (1) Acute kidney injury: (2) Hepatic encephalopathy: (3) Cirrhosis of liver with ascites: QUALIFIERS: Hepatic cirrhosis type: unspecified hepatic cirrhosis Qualified Code(s): K74.60 - Unspecified cirrhosis of liver; R18.8 - Other ascites PLAN: Plan This is a 77 F with PMH significant for GERD, Colon CA s/p resection in remission, OA, Obesity, Diabetes mellitus type II, history of DVT, diastolic heart failure, end-stage liver disease with cirrhosis and history of hepatic encephalopathy who presented to emergency room from [facility] for altered mental status. Nephrology consulted in view for rising serum creatinine. - DILAN on possible CKD. serum creatinine 0.61 mg/dL 09/18/22. February 2023 serum creatinine was 1.0. Reviewed records from [facility] where patient was admitted for hepatic encephalopathy, UTI and DILAN (03/24-03/28/2023). Her creatinine peak was 3.8 mg/dL. Per nephrology DILAN secondary to rhabdo, UTI, with concurrent diuretic use (patient was on Lasix and Aldactone) and possible component from contrast exposure. By time of hospital discharge serum creatinine had been improving, on 03/28/2023 serum creatinine 2.61 mg/dL; patient did not require any MARINE SUPERINTENDENT. For this admission 04/18 creatinine 2.19 --> SCr 2.06 mg/dL--> today Scr 2.20mg/dL. Patient had been taking furosemide at the [facility]. Furosemide is currently on hold and patient was initially started on IV fluids in the ER. Overall renal function has improved from few weeks ago, volume depletion may be hindering further improvement of renal function as SCr seems to have leveled off around low 2 range. There is no acute indication for MARINE SUPERINTENDENT. Potassium and acid-base acceptable, volume status acceptable. Patient does have third spacing of fluids in her extremities. Albumin level was 1.5. Renal ultrasound no hydro. Tse placed, patient is nonoliguric. Patient is more awake and alert today, encouraged patient to try and increase solute/fluid intake as well as free water. - Ammonia level was 109 few days ago. GI consulted. Patient is ordered albumin. - Blood pressures were acceptable on admission and currently are acceptable at this time. Patient is on midodrine. - discussed nephrology plan with Dr. Martin.
[2023-04-22 11:30] LABS: Hematocrit 24.4 % (37-47); Hemoglobin 7.5 g/dL (12.0-15.0); Mean Corp Hgb Conc 30.7 g/dL (32-36); Mean Corpuscular Hgb 31.6 pg (27.0-32.0); Mean Platelet Vol. 9.8 fl (6.2-12.0); Platelet Count 100 K/mm3 (150-450); RBC Distribution Width CV 16.3 % (11.6-14.6); RBC Distribution Width SD 61.8 fl (35.1-43.9); Red Blood Count 2.37 M/mm3 (4.2-5.4); White Blood Count 5.9 K/mm3 (4.4-11.0)
--- NOTE | 2023-04-22 12:30 | CASEMGMT ---
Social Work Pt had indicated has LW/POA but not able to bring in the documents, granddaughter Shelli Ramirez is POA as per pt. ULISES Camacho
--- NOTE | 2023-04-22 13:40 | FLU_PTH ---
PATIENT: ABDIRAHMAN ROGERS LOC: MS3 U#:[id number] AGE/SX: 77/F [place] [facility] [place]: Dr. Mihai Schmidt MD : [id number] BED: 1 DIS: 04/30/2023 SPEC #: [id number] RECD: 04/23/23 10:05 STATUS: SHANEL MAKSIM #: [id number] JOANNE: 04/22/23 13:[address]: Francisco Javier Martin DEPT: CYTOLOGY RECD BY: Isidra Romero ENTERED: 04/23/23 10:05 SP TYPE: Fluid OTHR DR: Dr. Vik Grove DO MD Dr. Marshall Jolly, DO Dr. Massimo Canales, DO Dr. Christopher Spencer DO Tissues: PARACENTESIS FLUID Procedures: Special Stain Group II Surgery Specimen Level IV Cytospin Fluid HEADER OPERATION: Paracentesis PRE-OP DIAGNOSIS: Ascites TISSUE SUBMITTED: Paracentesis fluid for cytology DIAGNOSIS CYTOLOGY Paracentesis fluid for cytology (cytospin and cell block): Negative for malignant cells. AM:caleb 04/24/2023 CYTOLOGY STUDY Slides are reviewed. CYTOLOGY GROSS Received is 90 ml of light yellow cloudy fluid labeled with the patient's name and and designated per the requisition as paracentesis. Submitted for cytology preparation including cell block. / caleb 04/23/2023 TC:5 CPT: 45897, 68640
[2023-04-22] MEDS: Lidocaine 2% (20 ml mdv) 20 ML Vial INFILT (13:42)
--- NOTE | 2023-04-22 14:25 | PCM.OP.PRO ---
Procedure Report Date of Procedure: 04/22/23 Assessment & Plan Assessment/Plan (1) Ascites: QUALIFIERS: Ascites type: other type Qualified Code(s): R18.8 - Other ascites PLAN: PROCEDURE: Ultrasound guided paracentesis ORDERING PROVIDER: Dr. Martin INDICATION: Female, 77 years old. Ascites. PROVIDER: LAURA Mehta TECHNIQUE: The risks, benefits, and alternatives to the procedure were explained to the patient and granddaughter. The specific risks of bleeding, infection, and damage to bowel were detailed and accepted. Witnessed informed consent was obtained from granddaughter. The abdomen was ultrasonographically surveyed. An appropriate pocket of fluid was identified in the left lower quadrant. The skin was prepped with Betadine swabs and sterile field established. 2% lidocaine was used for local anesthetic. Using ultrasound guidance, the peritoneal cavity was accessed with a 5-Tristanian paracentesis needle/catheter system. The trocar was removed. A total of 2100 ml of clear, light yellow colored fluid was removed from the peritoneal cavity. 100 mL of this sample was collected and sent to lab for analysis, as per requesting physician. The catheter was removed and a sterile dressing was applied. Patient has significant edema with in the abdominal tissue attributing to seeping from the puncture site. Therefore, the dressing included Dermabond, Surgifoam, and pressure dressing with Medipore tape by nursing. The procedure was well tolerated. IMPRESSION: Successful ultrasound-guided paracentesis with left lower quadrant access site. Procedures Radiology Radiology US Procedures: 36472 Paracentesis
--- NOTE | 2023-04-22 14:36 | NURSING ---
pt no more than arrived to room from radiology and surgical transporter here and transported pt down to endo area
[2023-04-22 14:41] LABS: Body Fluid Mononuclear WBC # 0.026 10^3/uL; Body Fluid Mononuclear WBC % 92.9 %; Body Fluid Polynuclear WBC # 0.002 10^3/uL; Body Fluid Polynuclear WBC % 7.1 %; White Blood Count/Body Fluid 0.028 10^3/uL
--- NOTE | 2023-04-22 15:36 | CASEMGMT ---
Addendum entered by Eloisa Solomon 04/22/23 15:47: Patient is skilled at [facility]. Patient will require insurance authorization to return. Eloisa GALAVIZ Original Note: Patient is from [facility] (formerly [facility] SW sent updates to [facility] via [employer]. VICENTA also inquired if patient there skilled or skilled nursing. Eloisa GALAVIZ
--- NOTE | 2023-04-22 16:00 | OP.EGD_ITS ---
Patient Name: Jaycee High Procedure Date: 04/22/2023 3:42 PM Date of : 1945 Age: 77 Procedure: Upper GI endoscopy Indications: Iron deficiency anemia Providers: Massimo Canales DO Medicines: Monitored Anesthesia Care Patient Profile: This is a 77 year old female. Refer to note in patient chart for documentation of history and physical. Patient has symptoms. Complications: No immediate complications. Procedure: Pre-Anesthesia Assessment: - Prior to the procedure, a History and Physical was performed, and patient medications and allergies were reviewed. The patient is competent. The risks and benefits of the procedure and the sedation options and risks were discussed with the patient. All questions were answered and informed consent was obtained. Patient identification and proposed procedure were verified by the physician. Mental Status Examination: normal. Prophylactic Antibiotics: The patient does not require prophylactic antibiotics. Prior Anticoagulants: The patient has taken no anticoagulant or antiplatelet agents. After reviewing the risks and benefits, the patient was deemed in satisfactory condition to undergo the procedure. The anesthesia plan was to use monitored anesthesia care (MAC). Immediately prior to administration of medications, the patient was re-assessed for adequacy to receive sedatives. The heart rate, respiratory rate, oxygen saturations, blood pressure, adequacy of pulmonary ventilation, and response to care were monitored throughout the procedure. The physical status of the patient was re-assessed after the procedure. After obtaining informed consent, the endoscope was passed under direct vision. Throughout the procedure, the patient's blood pressure, pulse, and oxygen saturations were monitored continuously. The Endoscope was introduced through the mouth, and advanced to the second part of duodenum. The upper GI endoscopy was accomplished without difficulty. The patient tolerated the procedure well. Scope In: 3:47:43 PM Scope Out: 3:53:25 PM Total Procedure Duration Time 0 hours 5 minutes 42 seconds Findings: Non-severe esophagitis with no bleeding was found 35 to 38 cm from the incisors. Moderate portal hypertensive gastropathy was found in the stomach. Two oozing linear gastric ulcers with pigmented material were found in the gastric body. The largest lesion was 6 mm in largest dimension. Area was successfully injected with 4 mL of a 0.1 mg/mL solution of epinephrine for drug delivery. Coagulation for hemostasis using heater probe was successful. Estimated blood loss was minimal. Two oozing linear gastric ulcers with pigmented material were found on the greater curvature of the stomach. The largest lesion was 6 mm in largest dimension. Coagulation for hemostasis using heater probe was successful. Estimated blood loss was minimal. No gross lesions were noted in the duodenal bulb. Impression: - Non-severe reflux esophagitis with no bleeding. - Portal hypertensive gastropathy. - Oozing gastric ulcers with pigmented material. Injected. Treated with a heater probe. - Oozing gastric ulcers with pigmented material. Treated with a heater probe. - No gross lesions in the duodenal bulb. - No specimens collected. Recommendation: - [facility]. - Use Protonix (pantoprazole) 40 mg PO BID. - No aspirin, ibuprofen, naproxen, or other non-steroidal anti-inflammatory drugs for 2 weeks. Procedure Code(s): --- Professional --- 19103, Esophagogastroduodenoscopy, flexible, transoral; with control of bleeding, any method 48001, 59,51, Esophagogastroduodenoscopy, flexible, transoral; with directed submucosal injection(s), any substance CPT copyright 2021 [employer]. All rights reserved. The codes documented in this report are preliminary and upon unix manager review may be revised to meet current compliance requirements. Massimo Canales DO 04/22/2023 4:00:06 PM This report has been signed electronically. Number of Addenda: 0 Note Initiated On: 04/22/2023 3:42 PM
--- NOTE | 2023-04-22 16:00 | OP.CCLET_ITS ---
04/22/2023 Christopher Spencer [address] [place] [address] Re : Upper GI endoscopy procedure for Jaycee High Dear Dr. Spencer This procedure was performed on Saturday, April 22, 2023. My impressions and recommendations are as follows: Impressions : - Non-severe reflux esophagitis with no bleeding. - Portal hypertensive gastropathy. - Oozing gastric ulcers with pigmented material. Injected. Treated with a heater probe. - Oozing gastric ulcers with pigmented material. Treated with a heater probe. - No gross lesions in the duodenal bulb. - No specimens collected. Recommendations : - [facility]. - Use Protonix (pantoprazole) 40 mg PO BID. - No aspirin, ibuprofen, naproxen, or other non-steroidal anti-inflammatory drugs for 2 weeks. My findings are described in the full procedure note, which is enclosed. If I can be of further assistance, please feel free to contact me at . Sincerely, Massimo Canales, 04/22/2023 4:00:06 PM This report has been signed electronically.
[2023-04-22 16:05] LABS: Auto B Fluid Analyzer BKGD Ct COUNTS W/IN LIMITS (W/IN LIMITS); Lymphocytes 41 %; Macrophages 14 %; Mesothelial Cells 37 %; Monocytes 4 %; Neutrophil (Segs) 4 %
--- NOTE | 2023-04-22 16:05 | CASEMGMT ---
Social Work Messages left for pt's dgt 04/21 and 04/22 with no call back. SW checked pt's room multiple times and family not present. SW spoke with Physician who states he did speak with the family who states the patient will be returning to [facility]. [facility] updated on pt and clinicals sent by ANASTACIA Amin. [facility] can accept pt back and precert will be needed. Plan: [facility], pending precert SAMIR De Luna
--- NOTE | 2023-04-22 16:05 | EX.PCM.PN.GI ---
Subjective Subjective Patient underwent an upper endoscopy was discovered to have for areas of slow bleeding in her stomach. These areas were cauterized. Objective Data Objective Data Vital Signs: Vital Signs Temp Pulse Resp BP Pulse Ox O2 Del Method 98.4 F 97 20 H 131/65 H 98 Room Air 04/22/23 07:52 04/22/23 14:57 04/22/23 14:57 04/22/23 14:57 04/22/23 07:52 04/22/23 14:57 Oxygen Delivery Method [4] Room Air Oxygen Delivery Method [3] Room Air Oxygen Delivery Method [2] Room Air Oxygen Delivery Method [1 ( Room Air Initial Baseline)] Oxygen Delivery Method Room Air Weight: 223 lb 1.725 oz Body Mass Index (BMI) 39.5 Intake & Output: Intake and Output for Last 24 Hours 04/20/23 04/21/23 04/22/23 23:59 23:59 23:59 Intake Total 755.00 / 755.00 1761.67 / 1761.67 170 / 170 Output Total 900 / 900 150 / 150 2450 / 2450 Balance -145.00 / -145.00 1611.67 / 1611.67 -2280 / -2280 Lab / Micro Data 04/22/23 05:25 04/22/23 05:25 Labs: Laboratory Results - last 24 hr 04/21/23 04:45: Ferritin 575 H, Lactate Dehydrogenase 304 H, Total Creatine Kinase 56 04/22/23 05:25: WBC 5.9, RBC 2.37 L, Hgb 7.5 L, Hct 24.4 L, MCV 103.0 H, MCH 31.6, MCHC 30.7 L, RDW Std Deviation 61.8 H, RDW Coeff of Albert 16.3 H, Plt Count 100 L, MPV 9.8, PT 20.8 H, INR 1.8, Sodium 149 H, Potassium 4.2, Chloride 124 H, Carbon Dioxide 21.0, Anion Gap 4 L, BUN 59 H, Creatinine 2.20 H, Estim Creat Clear Calc 18.00, Est GFR (MDRD) Af Amer 28 L, Est GFR (MDRD) Non-Af 23 L, BUN/Creatinine Ratio 26.8 H, Glucose 124 H, Calcium 8.1 L, Magnesium 2.3, Total Bilirubin 0.70, AST 35, ALT 20, Alkaline Phosphatase 169 H, Total Protein 4.6 L, Albumin 1.5 L, Globulin 3.1, Albumin/Globulin Ratio 0.5 L 04/22/23 13:45: Fluid WBC 0.028, Fluid Tot Cell Count 0.040 H, Fld Polynuclear WBCs # 0.002, Fld Polynuclear WBCs % 7.1, Fluid Mononuclear WBCs 0.026, Fld Mononuclear WBCs % 92.9, Fluid Neutrophils 4, Fluid Lymphocytes 41, Fluid Monocytes 4, Fluid Macrophages 14, Fld Mesothelial Cells 37 Radiography Diagnostic Testing: Radiology Impression Renal Ultrasound 04/21/23 12:44 IMPRESSION: Normal ultrasound of the kidneys and urinary bladder. Electronically Signed: Marco A Tavares MD at 23:23 EST Reading Location ID and State: [email or web address] / [email or web address] , Service support , Abdomen Ultrasound 04/21/23 12:57 IMPRESSION: Large amount of ascites. Electronically Signed: Marco A Tavares MD at 19:03 EST Reading Location ID and State: [id number] / [employer] , Service support , Physical Exam Narrative Not alert and oriented, no apparent distress S1, S2, RRR Lung sounds clear anteriorly, no wheezes rhonchi rales noted Abdomen soft, positive bowel sounds Edema noted bilateral lower legs Assessment & Plan Assessment/Plan (1) Cirrhosis of liver with ascites: QUALIFIERS: Hepatic cirrhosis type: unspecified hepatic cirrhosis Qualified Code(s): K74.60 - Unspecified cirrhosis of liver; R18.8 - Other ascites (2) Hepatic encephalopathy: (3) Acute kidney injury: PLAN: Plan 77-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 Her MELD sodium score is 14 and she is a child Stauffer class B at this time. Hepatic encephalopathy is a common complication in patients with advanced liver disease. HE has various precipitants that can potentially promote its onset, alone or in combination. Among the historically well-known precipitants, such as infections, gastrointestinal bleeding, dehydration, electrolyte disorders and constipation, recent studies have highlighted the role of malnutrition and portosystemic shunts as new precipitating factors of HE. Currently she has acute kidney injury which I think is contributing to her worsening hepatic encephalopathy because some of the ammonia that we make in her colon, red blood cell breakdown and muscle breakdown is cleared by the kidney. Her kidney function is improving somewhat which makes this more likely acute kidney injury secondary to dehydration versus hepatorenal syndrome. Although we will have to draw a urine sodium and see if it is low. At this time she seems to have a grade 1-2 hepatic encephalopathy. There are 3 types of hepatic encephalopathy. Type A: hepatic encephalopathy due to of acute liver failure. She does not seem to be experiencing any type of acute on chronic liver failure Type B: hepatic encephalopathy due to portal-systemic bypass with no intrinsic hepatocellular disease. She does not reach criteria for type B as she does have intrinsic hepatocellular disease Type C: hepatic encephalopathy due to cirrhosis with portal hypertension or systemic shunting. She does have signs of portal hypertension being that she does have spider angiomata, ascites and other signs or symptoms of chronic liver disease. At this time we cannot get a CT scan of the abdomen pelvis to look for portosystemic shunts. -Visually she seems to be experiencing some sarcopenia which also contributes to worsening hepatic encephalopathy due to muscle breakdown and ammonia production from muscle breakdown. I would recommend to check a CPK, aldolase, LDH and urine myoglobin. -She would benefit from branched chain amino acids plus lactulose as branched chain amino acids can help filter out ammonia better. In a patient with severe hypoalbuminemia that would be relying only on albumin to remove remove ammonia from the body. -Acute kidney injury can also contribute to her poor clearance of ammonia. Therefore I will start her on albumin, octreotide and midodrine ( hold for sbp>120). -Recommend dietitian consultation for the administration of branch chain amino acids 2-3 times a day with administration of lactulose. -She may benefit from an upper endoscopy to see if she has any signs or symptoms of portosystemic shunting with gastric varices or esophageal varices, severe portal gastropathy, gastric antral vascular ectasia as these will contribute to refractory hepatic encephalopathy.? N.p.o. past midnight to see if there is any signs or symptoms of slow intermittent GI blood loss contributing to hepatic encephalopathy and upper GI tract. -She also needs a normal TSH to help facilitate proper clearance of ammonia from the body. Her last TSH was 13.7. -I will also put her on nadolol for varices. 04/22-I will put her back on a regular diet after her endoscopy. I will give her 3 days of vancomycin and Flagyl together in order to detoxify her gut along with her taken Xifaxan twice a day. There have been some evidence-based studies that have shown that vancomycin plus Flagyl are is just as good as neomycin. I do not want to give her neomycin at this time because of her acute kidney injury. Hopefully along with lactulose this will help her refractory encephalopathy. Awaiting on ascitic studies to see if there is any other signs of hepatic decompensation. Charges/Coding Visit Charges Inpatient E&M: 81899 Subs Hosp L3
[2023-04-22 16:06] LABS: Appearance/Body Fluid CLEAR; Body Fluid QC Type(s) BF1Q; Color/Body Fluid COLORLESS; Red Cell Count/Body Fluid 38 /mm3; Source- Body Fluid PERITONEAL FLUID
--- NOTE | 2023-04-22 16:34 | PCM.PN.HOSP ---
Reason for Visit Reason for Visit: Diagnoses Unspecified cirrhosis of liver (04/18/23) Hepatic encephalopathy (04/18/23) Acute kidney failure, unspecified (04/18/23) Other ascites (04/18/23) Disorientation, unspecified (04/18/23) Abnormal findings on diagnostic imaging of other specified body structures (04/18/23) Subjective Subjective Patient seen at bedside this morning, both daughters present. Patient's mentation was significantly improved this morning. She was alert and oriented. Her answers to questions were somewhat delayed, but answers were appropriate. Patient currently denies any acute pain or discomfort. Patient denies any fevers or chills. Patient's daughters also state that patient seems much improved from admission from a mental status standpoint. No other acute concerns at this time. Objective Data Objective Data Vital Signs: Vital Signs Temp Pulse Resp BP Pulse Ox O2 Del Method O2 Flow Rate 97.8 F 68 18 105/50 L 100 Nasal Cannula 2 04/22/23 16:29 04/22/23 16:29 04/22/23 16:29 04/22/23 16:29 04/22/23 16:29 04/22/23 16:29 04/22/23 16:29 Oxygen Flow Rate (L/min) 2 Oxygen Delivery Method [4] Room Air Oxygen Delivery Method [3] Room Air Oxygen Delivery Method [2] Room Air Oxygen Delivery Method [1 ( Room Air Initial Baseline)] Oxygen Delivery Method Nasal Cannula Weight: 101.2 kg Body Mass Index (BMI) 39.5 Intake & Output: Intake and Output for Last 24 Hours 04/20/23 04/21/23 04/22/23 23:59 23:59 23:59 Intake Total 755.00 / 755.00 1761.67 / 1761.67 170 / 170 Output Total 900 / 900 150 / 150 2450 / 2450 Balance -145.00 / -145.00 1611.67 / 1611.67 -2280 / -2280 Lab / Micro Data 04/22/23 05:25 04/22/23 05:25 Labs: Laboratory Results - last 24 hr 04/21/23 04:45: Ferritin 575 H, Lactate Dehydrogenase 304 H, Total Creatine Kinase 56 04/22/23 05:25: WBC 5.9, RBC 2.37 L, Hgb 7.5 L, Hct 24.4 L, MCV 103.0 H, MCH 31.6, MCHC 30.7 L, RDW Std Deviation 61.8 H, RDW Coeff of Albert 16.3 H, Plt Count 100 L, MPV 9.8, PT 20.8 H, INR 1.8, Sodium 149 H, Potassium 4.2, Chloride 124 H, Carbon Dioxide 21.0, Anion Gap 4 L, BUN 59 H, Creatinine 2.20 H, Estim Creat Clear Calc 18.00, Est GFR (MDRD) Af Amer 28 L, Est GFR (MDRD) Non-Af 23 L, BUN/Creatinine Ratio 26.8 H, Glucose 124 H, Calcium 8.1 L, Magnesium 2.3, Total Bilirubin 0.70, AST 35, ALT 20, Alkaline Phosphatase 169 H, Total Protein 4.6 L, Albumin 1.5 L, Globulin 3.1, Albumin/Globulin Ratio 0.5 L 04/22/23 13:45: Fluid Source PERITONEAL FLUID, Fluid Color COLORLESS, Fluid Appearance CLEAR, Fluid WBC 0.028, Fluid RBC 38, Fluid Tot Cell Count 0.040 H, Fld Polynuclear WBCs # 0.002, Fld Polynuclear WBCs % 7.1, Fluid Mononuclear WBCs 0.026, Fld Mononuclear WBCs % 92.9, Fluid Neutrophils 4, Fluid Lymphocytes 41, Fluid Monocytes 4, Fluid Macrophages 14, Fld Mesothelial Cells 37, Fl Pathologist Comment May follow, Fluid Comment 2 SEE COMMENT Radiography Diagnostic Testing: Radiology Impression Renal Ultrasound 04/21/23 12:44 IMPRESSION: Normal ultrasound of the kidneys and urinary bladder. Electronically Signed: Marco A Tavares MD at 23:23 EST Reading Location ID and State: [employer] / [employer] , Service support , Abdomen Ultrasound 04/21/23 12:57 IMPRESSION: Large amount of ascites. Electronically Signed: Marco A Tavares MD at 19:03 EST Reading Location ID and State: [id number] / [employer] , Service support , Physical Exam Const alert and no apparent distress Constitutional Narrative: Obese. General Appearance: cooperative and comfortable HEENT normocephalic, head/scalp atraumatic, hearing grossly normal bilaterally, nasal mucous membranes and turbinates normal and moist oral mucous membranes Eyes PERRL, EOMs intact bilaterally and conjunctivae normal Neck full ROM, no lymphadenopathy and supple Lymph Lymphatic: no lymphadenopathy noted Chest inspection of chest normal Resp Resp Narrative: Satting well on 2 L nasal cannula, no increased work of breathing noted. Good breath sounds bilaterally. Cardio regular rate, regular rhythm, no murmurs and peripheral pulses 2+ throughout GI GI Narrative: Mildly distended on palpation with small fluid wave noted. Nontender to palpation. Back/Spine normal ROM Extremity normal to inspection Skin no rashes or lesions noted Assessment & Plan Assessment/Plan (1) Hepatic encephalopathy: (2) Acute kidney injury: PLAN: Plan Patient is a 77-year-old female who presented to [facility] ED on 04/18/2023 from retirement for altered mental status. 1. Hepatic encephalopathy, improving; history of cirrhosis with ascites Per patient's family, patient was recently hospitalized [facility] for hepatic encephalopathy with elevated ammonia levels. Unclear on etiology of hepatic encephalopathy at that time. Was discharged to an extended care facility after that hospitalization. Has been getting her lactulose and rifaximin as prescribed but continues to have waxing and waning confusion. Unclear if encephalopathy on this admission is due to issues with her medications or secondary underlying cause. Ammonia level elevated at 95 on admission. S/p diagnostic and therapeutic paracentesis on 04/22, 2100 ml fluid removed, studies pending. ? Gastroenterology following. Suspect hepatic encephalopathy is multifactorial with possible contributors of malnutrition, DILAN, muscle breakdown, mild GI bleed. Continue treatment with lactulose and rifaximin. Nutrition consulted to add branching amino acids to lactulose dosing for improved filtering of ammonia. Follow-up paracentesis studies to rule out SBP. Daily MELD labs. 2. Acute on chronic anemia, mild upper GI bleed Hemoglobin 9.2 on admission, appear to be close to baseline of around 10. Slowly down trended during admission to 7.6 on 04/22. Chronic anemia suspected secondary to cirrhosis. ? Gastroenterology following as above. S/p EGD on 04/22, oozing gastric ulcers with pigmented material noted, injected and treated with heater probe. Start Protonix 40 mg p.o. twice daily. Monitor CBC daily. Avoid NSAIDs. 3. DILAN Creatinine 2.19 on admit, BUN 57. Baseline creatinine around 0.6. Creatinine has remained stable around 2.0-2.1 since admission. Patient has had fairly minimal urine output but this has not been accurately quantified over the last several days. Urine sodium and creatinine ordered on 04/21, FeNa calculated to be 0.1% consistent with prerenal etiology. Patient notably did not receive some volume resuscitation on admission. ? Nephrology and gastroenterology following. Low concern for hepatorenal syndrome, suspected secondary to volume depletion. However, given that DILAN can contribute to poor clearance of ammonia, GI initiated treatment on 04/21 with albumin, octreotide and midodrine. Monitor daily BMP. Monitor urine output. Tse catheter in place for accurate I's and O's. 4. Severe malnutrition ? Albumin 1.6 on admission, likely multifactorial in setting of cirrhosis with very poor p.o. intake over an extended period of time. Nutrition consulted. Recommending increased intake of meat, dairy and legumes hospitalized for natural sources of appreciate amino acids. Encouraging protein and Magic cup dessert for dietary supplements. 5. Elevated TSH ? TSH elevated at 13 on admit, T4 normal, T3 low. Consistent with subclinical hypothyroidism. Initially favor not treating with Synthroid, however per GI an elevated TSH can contribute to poor clearance of pneumonia so will initiate patient on levothyroxine 75 mg daily. Follow-up TSH in outpatient setting. 6. Hypernatremia ? Sodium 150 on 04/21, mildly improved to sodium 149 on 04/22. Presumed secondary to free water depletion. Patient now tolerating p.o. intake, encouraged p.o. intake with hypotonic fluids as able. Chronic medical conditions: ? Morbid obesity: BMI 38. Lifestyle modifications. ? History of colon cancer s/p resection and chemotherapy DVT prophylaxis: Heparin subcu CODE STATUS: DNR CCA, DO NOT INTUBATE. Confirmed upon review of paperwork from retirement. Expected disposition: Back to [facility] Total clinical time spent by myself addressing the patient's medical issues, reviewing all the data, and collaborating with patient's care team: 35 minutes. Charges/Coding Visit Charges Inpatient E&M: 95574 Subs Hosp L2
[2023-04-22] MEDS: Heparin Injection (Vial) 5,000 UNIT/ML VIAL 5000 UNIT SC (22:57)
[2023-04-22] MEDS: metroNIDAZOLE 500 MG Tablet PO (23:01)
[2023-04-22] MEDS: Vancomycin HCl 250 MG Capsule 500 MG PO (23:01)
[2023-04-23 05:30] VITALS: BP 108/55; PULSE 87; RESP 16; TEMP 37.1; O2SAT 100
[2023-04-23 06:00] VITALS: BMI 39.8
[2023-04-23] MEDS: Lactulose 20 GM/30 ML UDC 30 GM PO ×3 (06:49→21:29)
[2023-04-23] MEDS: Levothyroxine 75 MCG Tablet PO (06:50)
[2023-04-23] MEDS: metroNIDAZOLE 500 MG Tablet PO ×3 (06:50→21:33)
[2023-04-23] MEDS: Heparin Injection (Vial) 5,000 UNIT/ML VIAL 5000 UNIT SC ×3 (06:50→21:29)
[2023-04-23] MEDS: Octreotide 0.1 MG/ML ML SC ×2 (06:50→14:27)
[2023-04-23 08:46] LABS: Hematocrit 24.3 % (37-47); Hemoglobin 7.2 g/dL (12.0-15.0); Mean Corp Hgb Conc 29.6 g/dL (32-36); Mean Corpuscular Hgb 31.6 pg (27.0-32.0); Mean Corpuscular Volume 106.6 fL (81-99); Mean Platelet Vol. 9.2 fl (6.2-12.0); POSITIVE MORPHOLOGY YES; Platelet Count 101 K/mm3 (150-450); RBC Distribution Width CV 16.6 % (11.6-14.6); RBC Distribution Width SD 65.2 fl (35.1-43.9); Red Blood Count 2.28 M/mm3 (4.2-5.4); White Blood Count 5.9 K/mm3 (4.4-11.0)
[2023-04-23 08:48] LABS: Scan Indicated on CBC? Y/N YES- FLAGS NOTED
[2023-04-23 09:14] LABS: ALB/GLOB Ratio 0.6 RATIO (0.9-2.4); AST(SGOT) 37 U/L (15-37); Alanine Aminotransfer ALT/SGPT 23 U/L (13-56); Albumin, Serum 1.8 g/dL (3.2-5.0); Alkaline Phosphatase 145 U/L (45-117); Anion Gap 8 (5-15); BUN 59 mg/dL (7-18); BUN/Creat Ratio 23.3 RATIO (10-20); Calcium,Total 8.4 mg/dL (8.5-10.1); Chloride 125 mmol/L (98-107); Creatinine, Serum 2.53 mg/dL (0.55-1.02); EST Glomerular Filtration Rate 20 mL/min (>60); Est Glom Filt Rate - Afr Amer 24 mL/min (>60); Estimated Creatinine Clearance 15.65 ml/min; Globulin 2.8 g/dL (2.2-4.2); Glucose 140 mg/dL (74-106); Potassium 4.4 mmol/L (3.5-5.1); Protein, Total 4.6 g/dL (6.4-8.2); Sodium Level 154 mmol/L (136-145)
[2023-04-23 09:23] LABS: International Normalized Ratio 1.8; Prothrombin Time (Protime)PT. 20.8 SECONDS (11.7-14.9)
[2023-04-23 09:29] VITALS: BP 126/58; PULSE 88; RESP 18; TEMP 36.3; O2SAT 100
[2023-04-23 09:30] VITALS: O2SAT 100
[2023-04-23] MEDS: Ferrous Sulfate 325 MG Tablet PO (09:43)
[2023-04-23] MEDS: Calcium Carb/Vitamin D 1 TABLET Tablet 2 TABLET PO (09:43)
[2023-04-23] MEDS: Miconazole Nitrate 43 GM Bottle 1 APPLIC TOPICAL ×2 (09:45→21:28)
[2023-04-23] MEDS: rifAXIMin 550 MG Tablet PO ×2 (09:46→21:34)
[2023-04-23] MEDS: Cholecalciferol (VIT D3) 25 MCG TABLET (1,000 UNITS) 50 MCG PO (09:46)
[2023-04-23] MEDS: Ascorbic Acid 500 MG Tablet 1000 MG PO (09:46)
[2023-04-23] MEDS: Menthol/Lanolin/Calamine/Znox 113 GM Tube 1 APPLIC TOPICAL ×2 (09:47→21:34)
[2023-04-23] MEDS: Vancomycin HCl 250 MG Capsule 500 MG PO ×2 (09:47→21:33)
[2023-04-23] MEDS: Albumin Human 25% (50 mL) 12.5 GM/50 ML IV.SOLN IV ×2 (10:03→21:54)
[2023-04-23] MEDS: 0.9% Saline Lock 10 ML Syringe IV (10:04)
--- NOTE | 2023-04-23 10:35 | PCM.PN.REN ---
Subjective Subjective No new complaints. Mental status is better. Objective Data Objective Data Vital Signs: Vital Signs Temp Pulse Resp BP Pulse Ox O2 Del Method O2 Flow Rate 97.3 F L 88 18 126/58 H 100 Nasal Cannula 2 04/23/23 09:29 04/23/23 09:29 04/23/23 09:29 04/23/23 09:29 04/23/23 09:30 04/23/23 09:30 04/23/23 09:30 Oxygen Flow Rate (L/min) 2 Oxygen Delivery Method [4] Room Air Oxygen Delivery Method [3] Room Air Oxygen Delivery Method [2] Room Air Oxygen Delivery Method [1 ( Room Air Initial Baseline)] Oxygen Delivery Method Nasal Cannula Weight: 101.9 kg Body Mass Index (BMI) 39.8 Intake & Output: Intake and Output for Last 24 Hours 04/21/23 04/22/23 04/23/23 23:59 23:59 23:59 Intake Total 1761.67 / 1761.67 220 / 220 Output Total 150 / 150 2650 / 2650 150 / 150 Balance 1611.67 / 1611.67 -2430 / -2430 -150 / -150 Lab / Micro Data 04/23/23 08:15 04/23/23 08:15 Labs: Laboratory Results - last 24 hr 04/22/23 05:25: WBC 5.9, RBC 2.37 L, Hgb 7.5 L, Hct 24.4 L, MCV 103.0 H, MCH 31.6, MCHC 30.7 L, RDW Std Deviation 61.8 H, RDW Coeff of Albert 16.3 H, Plt Count 100 L, MPV 9.8 04/22/23 13:45: Fluid Source PERITONEAL FLUID, Fluid Color COLORLESS, Fluid Appearance CLEAR, Fluid WBC 0.028, Fluid RBC 38, Fluid Tot Cell Count 0.040 H, Fld Polynuclear WBCs # 0.002, Fld Polynuclear WBCs % 7.1, Fluid Mononuclear WBCs 0.026, Fld Mononuclear WBCs % 92.9, Fluid Neutrophils 4, Fluid Lymphocytes 41, Fluid Monocytes 4, Fluid Macrophages 14, Fld Mesothelial Cells 37, Fl Pathologist Comment May follow, Fluid Comment 2 SEE COMMENT 04/23/23 08:15: WBC 5.9, RBC 2.28 L, Hgb 7.2 L, Hct 24.3 L, MCV 106.6 H, MCH 31.6, MCHC 29.6 L, RDW Std Deviation 65.2 H, RDW Coeff of Albert 16.6 H, Plt Count 101 L, MPV 9.2, Differential Comment COMMENT, PT 20.8 H, INR 1.8, Sodium 154 H, Potassium 4.4, Chloride 125 H, Carbon Dioxide 21.0, Anion Gap 8, BUN 59 H, Creatinine 2.53 H, Estim Creat Clear Calc 15.65, Est GFR (MDRD) Af Amer 24 L, Est GFR (MDRD) Non-Af 20 L, BUN/Creatinine Ratio 23.3 H, Glucose 140 H, Calcium 8.4 L, Total Bilirubin 0.60, AST 37, ALT 23, Alkaline Phosphatase 145 H, Total Protein 4.6 L, Albumin 1.8 L, Globulin 2.8, Albumin/Globulin Ratio 0.6 L Physical Exam Narrative Not alert and oriented, no apparent distress S1, S2, RRR Lung sounds clear anteriorly, no wheezes rhonchi rales noted Abdomen soft, positive bowel sounds Edema noted bilateral lower legs Assessment & Plan Assessment/Plan (1) Acute kidney injury: (2) Hepatic encephalopathy: (3) Cirrhosis of liver with ascites: QUALIFIERS: Hepatic cirrhosis type: unspecified hepatic cirrhosis Qualified Code(s): K74.60 - Unspecified cirrhosis of liver; R18.8 - Other ascites PLAN: Plan Acute renal failure. As of January, her creatinine was normal. She has had [address] [facility]. Her creatinine has stayed between 2-2.5 most of these hospitalizations. History of cirrhosis with ascites and other complications. Urine sodium less than 20. Urine analysis not impressive. Renal ultrasound without any significant hydronephrosis. Differential includes prerenal versus hepatorenal. She is already on full treatment for hepatorenal syndrome. Sodium is high likely related to poor oral intake. We will start her on IV fluids since creatinine is worsening.
[2023-04-23] MEDS: 0.45% Normal Saline 1,000 ML 100 ML IV ×2 (11:25→21:27)
--- NOTE | 2023-04-23 12:09 | CASEMGMT ---
Social Work Pt had visitors in room. SW entered room and introduced self and role of SW. Pt's two sisters were present and state that pt's contact is her grand daughter Shelli Phelps and that pt's daughter Maria Esther is not involved. Phone call to pt granddaughter Shelli. Shelli states that pt's current HCPOA lists Maria Esther as first HCPOA and Shelli as second contact. Per Shelli, Maria Esther has not been in the picture for the last year. Shelli would like pt to complete new HCPOA however at this time pt's cognition does not permit. Shelli understanding of this. Shelli confirms pt will return to [facility] [place]. Multiple messages left for pts daughter with no return call. Plan: Return to [facility], pending SAMIR Kent
[2023-04-23 13:00] VITALS: BP 136/64; PULSE 80; RESP 16; TEMP 36.5; O2SAT 95
--- NOTE | 2023-04-23 13:05 | PN.GI_ITS ---
Subjective Subjective Patient is still sluggish today. She is eating a little bit. She had 2 bowel movements today. She denies any chest pain or shortness of breath. She does feel like her belly is mildly distended. She knows the year and she knows she is in the hospital Objective Data Objective Data Vital Signs: Vital Signs Temp Pulse Resp BP Pulse Ox O2 Del Method O2 Flow Rate 97.3 F L 88 18 126/58 H 100 Nasal Cannula 2 04/23/23 09:29 04/23/23 09:29 04/23/23 09:29 04/23/23 09:29 04/23/23 09:30 04/23/23 09:30 04/23/23 09:30 Oxygen Flow Rate (L/min) 2 Oxygen Delivery Method [4] Room Air Oxygen Delivery Method [3] Room Air Oxygen Delivery Method [2] Room Air Oxygen Delivery Method [1 ( Room Air Initial Baseline)] Oxygen Delivery Method Nasal Cannula Weight: 224 lb 10.417 oz Body Mass Index (BMI) 39.8 Intake & Output: Intake and Output for Last 24 Hours 04/21/23 04/22/23 04/23/23 23:59 23:59 23:59 Intake Total 1761.67 / 1761.67 220 / 220 50 / 50 Output Total 150 / 150 2650 / 2650 150 / 150 Balance 1611.67 / 1611.67 -2430 / -2430 -100 / -100 Lab / Micro Data 04/23/23 08:15 04/23/23 08:15 Labs: Laboratory Results - last 24 hr 04/22/23 13:45: Fluid Source PERITONEAL FLUID, Fluid Color COLORLESS, Fluid Appearance CLEAR, Fluid WBC 0.028, Fluid RBC 38, Fluid Tot Cell Count 0.040 H, Fld Polynuclear WBCs # 0.002, Fld Polynuclear WBCs % 7.1, Fluid Mononuclear WBCs 0.026, Fld Mononuclear WBCs % 92.9, Fluid Neutrophils 4, Fluid Lymphocytes 41, Fluid Monocytes 4, Fluid Macrophages 14, Fld Mesothelial Cells 37, Fl Pathologist Comment May follow, Fluid Comment 2 SEE COMMENT 04/23/23 08:15: WBC 5.9, RBC 2.28 L, Hgb 7.2 L, Hct 24.3 L, MCV 106.6 H, MCH 31.6, MCHC 29.6 L, RDW Std Deviation 65.2 H, RDW Coeff of Albert 16.6 H, Plt Count 101 L, MPV 9.2, Differential Comment COMMENT, PT 20.8 H, INR 1.8, Sodium 154 H, Potassium 4.4, Chloride 125 H, Carbon Dioxide 21.0, Anion Gap 8, BUN 59 H, Creatinine 2.53 H, Estim Creat Clear Calc 15.65, Est GFR (MDRD) Af Amer 24 L, Est GFR (MDRD) Non-Af 20 L, BUN/Creatinine Ratio 23.3 H, Glucose 140 H, Calcium 8.4 L, Total Bilirubin 0.60, AST 37, ALT 23, Alkaline Phosphatase 145 H, Total Protein 4.6 L, Albumin 1.8 L, Globulin 2.8, Albumin/Globulin Ratio 0.6 L Physical Exam Narrative Not alert and oriented, no apparent distress S1, S2, RRR Lung sounds clear anteriorly, no wheezes rhonchi rales noted Abdomen soft, positive bowel sounds Edema noted bilateral lower legs Assessment & Plan Assessment/Plan (1) Cirrhosis of liver with ascites: QUALIFIERS: Hepatic cirrhosis type: unspecified hepatic cirrhosis Qualified Code(s): K74.60 - Unspecified cirrhosis of liver; R18.8 - Other ascites (2) Hepatic encephalopathy: (3) Acute kidney injury: PLAN: Plan 77-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 Her MELD sodium score is 14 and she is a child Stauffer class B at this time. Hepatic encephalopathy is a common complication in patients with advanced liver disease. HE has various precipitants that can potentially promote its onset, alone or in combination. Among the historically well-known precipitants, such as infections, gastrointestinal bleeding, dehydration, electrolyte disorders and constipation, recent studies have highlighted the role of malnutrition and portosystemic shunts as new precipitating factors of HE. Currently she has acute kidney injury which I think is contributing to her worsening hepatic encephalopathy because some of the ammonia that we make in her colon, red blood cell breakdown and muscle breakdown is cleared by the kidney. Her kidney function is improving somewhat which makes this more likely acute kidney injury secondary to dehydration versus hepatorenal syndrome. Although we will have to draw a urine sodium and see if it is low. At this time she seems to have a grade 1-2 hepatic encephalopathy. There are 3 types of hepatic encephalopathy. Type A: hepatic encephalopathy due to of acute liver failure. She does not seem to be experiencing any type of acute on chronic liver failure Type B: hepatic encephalopathy due to portal-systemic bypass with no intrinsic hepatocellular disease. She does not reach criteria for type B as she does have intrinsic hepatocellular disease Type C: hepatic encephalopathy due to cirrhosis with portal hypertension or systemic shunting. She does have signs of portal hypertension being that she does have spider angiomata, ascites and other signs or symptoms of chronic liver disease. At this time we cannot get a CT scan of the abdomen pelvis to look for portosystemic shunts. -Visually she seems to be experiencing some sarcopenia which also contributes to worsening hepatic encephalopathy due to muscle breakdown and ammonia production from muscle breakdown. I would recommend to check a CPK, aldolase, LDH and urine myoglobin. -She would benefit from branched chain amino acids plus lactulose as branched chain amino acids can help filter out ammonia better. In a patient with severe hypoalbuminemia that would be relying only on albumin to remove remove ammonia from the body. -Acute kidney injury can also contribute to her poor clearance of ammonia. Therefore I will start her on albumin, octreotide and midodrine ( hold for sbp>120). -Recommend dietitian consultation for the administration of branch chain amino acids 2-3 times a day with administration of lactulose. -She may benefit from an upper endoscopy to see if she has any signs or symptoms of portosystemic shunting with gastric varices or esophageal varices, severe portal gastropathy, gastric antral vascular ectasia as these will contribute to refractory hepatic encephalopathy.? N.p.o. past midnight to see if there is any signs or symptoms of slow intermittent GI blood loss contributing to hepatic encephalopathy and upper GI tract. -She also needs a normal TSH to help facilitate proper clearance of ammonia from the body. Her last TSH was 13.7. -I will also put her on nadolol for varices. 04/22-I will put her back on a regular diet after her endoscopy. I will give her 3 days of vancomycin and Flagyl together in order to detoxify her gut along with her taken Xifaxan twice a day. There have been some evidence-based studies that have shown that vancomycin plus Flagyl are is just as good as neomycin. I do not want to give her neomycin at this time because of her acute kidney injur y. Hopefully along with lactulose this will help her refractory encephalopathy. Awaiting on ascitic studies to see if there is any other signs of hepatic decompensation. 04/23-worsening kidney function is consistent with hepatorenal syndrome type II versus prerenal azotemia. She was started on some IV fluids by nephrology. Appreciate assistance. She is on octreotide, midodrine and albumin. She was given antibiotics for detoxification of the small bowel yesterday. She still on Xifaxan and lactulose. Her current MELD is at 17. She has a grade 1 metabolic encephalopathy. She is also decompensated liver disease from ascites and lower extremity edema. Her ascites is consistent with portal hypertension secondary to cirrhosis. Gentle diuresis as per nephrology. Recheck ammonia. Await alpha-fetoprotein to screen for hepatocellular carcinoma. Charges/Coding Visit Charges Inpatient E&M: 86348 Subs Hosp L3
--- NOTE | 2023-04-23 15:11 | PN.HOSP_ITS ---
Reason for Visit Reason for Visit: Diagnoses Unspecified cirrhosis of liver (04/18/23) Hepatic encephalopathy (04/18/23) Acute kidney failure, unspecified (04/18/23) Other ascites (04/18/23) Disorientation, unspecified (04/18/23) Abnormal findings on diagnostic imaging of other specified body structures (04/18/23) Subjective Subjective No acute events overnight. Patient seen at bedside this morning. Was sleeping on my arrival to the room. Upon awakening, patient is alert. She continues to have mild delay with answering questions but is answering questions appropriately. Patient reports feeling fatigued but otherwise denies any acute pain or discomfort. No other acute concerns at this time. Objective Data Objective Data Vital Signs: Vital Signs Temp Pulse Resp BP Pulse Ox O2 Del Method O2 Flow Rate 97.3 F L 88 18 126/58 H 100 Nasal Cannula 2 04/23/23 09:29 04/23/23 09:29 04/23/23 09:29 04/23/23 09:29 04/23/23 09:30 04/23/23 09:30 04/23/23 11:47 Oxygen Flow Rate (L/min) 2 Oxygen Delivery Method [4] Room Air Oxygen Delivery Method [3] Room Air Oxygen Delivery Method [2] Room Air Oxygen Delivery Method [1 ( Room Air Initial Baseline)] Oxygen Delivery Method Nasal Cannula Weight: 101.9 kg Body Mass Index (BMI) 39.8 Intake & Output: Intake and Output for Last 24 Hours 04/21/23 04/22/23 04/23/23 23:59 23:59 23:59 Intake Total 1761.67 / 1761.67 220 / 220 170 / 170 Output Total 150 / 150 2650 / 2650 150 / 150 Balance 1611.67 / 1611.67 -2430 / -2430 Lab / Micro Data 04/23/23 08:15 04/23/23 08:15 Labs: Laboratory Results - last 24 hr 04/22/23 13:45: Fluid Source PERITONEAL FLUID, Fluid Color COLORLESS, Fluid Appearance CLEAR, Fluid WBC 0.028, Fluid RBC 38, Fluid Tot Cell Count 0.040 H, Fld Polynuclear WBCs # 0.002, Fld Polynuclear WBCs % 7.1, Fluid Mononuclear WBCs 0.026, Fld Mononuclear WBCs % 92.9, Fluid Neutrophils 4, Fluid Lymphocytes 41, Fluid Monocytes 4, Fluid Macrophages 14, Fld Mesothelial Cells 37, Fl Pathologist Comment May follow, Fluid Comment 2 SEE COMMENT 04/23/23 08:15: WBC 5.9, RBC 2.28 L, Hgb 7.2 L, Hct 24.3 L, MCV 106.6 H, MCH 31.6, MCHC 29.6 L, RDW Std Deviation 65.2 H, RDW Coeff of Albert 16.6 H, Plt Count 101 L, MPV 9.2, Differential Comment COMMENT, PT 20.8 H, INR 1.8, Sodium 154 H, Potassium 4.4, Chloride 125 H, Carbon Dioxide 21.0, Anion Gap 8, BUN 59 H, Creatinine 2.53 H, Estim Creat Clear Calc 15.65, Est GFR (MDRD) Af Amer 24 L, Est GFR (MDRD) Non-Af 20 L, BUN/Creatinine Ratio 23.3 H, Glucose 140 H, Calcium 8.4 L, Total Bilirubin 0.60, AST 37, ALT 23, Alkaline Phosphatase 145 H, Total Protein 4.6 L, Albumin 1.8 L, Globulin 2.8, Albumin/Globulin Ratio 0.6 L Physical Exam Const alert and no apparent distress Constitutional Narrative: Pleasant elderly female, obese, chronically ill-appearing. Alert, mildly delayed responses but answering questions appropriately, no acute distress. General Appearance: cooperative and comfortable HEENT normocephalic, head/scalp atraumatic, hearing grossly normal bilaterally, nasal mucous membranes and turbinates normal and moist oral mucous membranes Eyes PERRL, EOMs intact bilaterally and conjunctivae normal Neck full ROM, no lymphadenopathy and supple Lymph Lymphatic: no lymphadenopathy noted Chest inspection of chest normal Resp Resp Narrative: Satting well on 2 L nasal cannula, no increased work of breathing noted. Good breath sounds bilaterally. Cardio regular rate, regular rhythm, no murmurs and peripheral pulses 2+ throughout GI GI Narrative: Mildly distended on palpation, no fluid wave noted. Nontender to palpation. Back/Spine normal ROM Extremity normal to inspection Skin no rashes or lesions noted Assessment & Plan Assessment/Plan (1) Hepatic encephalopathy: (2) Acute kidney injury: PLAN: Plan Patient is a 77-year-old female who presented to [facility] ED on 04/18/2023 from residential for altered mental status. 1. Hepatic encephalopathy, improving; history of cirrhosis with ascites Per patient's family, patient was recently hospitalized [facility] for hepatic encephalopathy with elevated ammonia levels. Unclear on etiology of hepatic encephalopathy at that time. Was discharged to an extended care facility after that hospitalization. Has been getting her lactulose and rifaximin as prescribed but continues to have waxing and waning confusion. Unclear if encephalopathy on this admission is due to issues with her medications or secondary underlying cause. Ammonia level elevated at 95 on admission. S/p diagnostic and therapeutic paracentesis on 04/22, 2100 ml fluid removed; fluid studies with no concern for SBP. ? Gastroenterology following. Suspect hepatic encephalopathy is multifactorial with possible contributors of malnutrition, DILAN, muscle breakdown, mild GI bleed. Continue treatment with lactulose and rifaximin. Per nutrition, encouraged supplementation with foods rich in branched chain amino acids with meals. Daily MELD labs. 2. Acute on chronic anemia, mild upper GI bleed Hemoglobin 9.2 on admission, appear to be close to baseline of around 10. Slowly down trended during admission to 7.6 on 04/22. Chronic anemia suspected secondary to cirrhosis. S/p EGD on 04/22, oozing gastric ulcers with pigmented material noted, injected and treated with heater probe. Hemoglobin 7.2 on 04/23. ? Gastroenterology following as above. Continue Protonix 40 mg p.o. twice daily. Monitor CBC daily. Avoid NSAIDs. 3. DILAN Creatinine 2.19 on admit, BUN 57. Baseline creatinine around 0.6. Creatinine has remained stable around 2.0-2.1 since admission. Patient has had fairly minimal urine output but this has not been accurately quantified over the last several days. Urine sodium and creatinine ordered on 04/21, FeNa calculated to be 0.1% consistent with prerenal etiology. Patient notably did not receive some volume resuscitation on admission. ? Nephrology and gastroenterology following. Low concern for hepatorenal syndrome, suspected secondary to volume depletion. However, given that DILAN can contribute to poor clearance of ammonia, GI initiated treatment on 04/21 with albumin, octreotide and midodrine. Continue these treatments for now. Initiated on further supplemental IV fluids by nephrology on 04/23 due to mild worsening of creatinine. Monitor daily BMP and urine output. Tse catheter in place for accurate I's and O's. 4. Severe malnutrition ? Albumin 1.6 on admission, likely multifactorial in setting of cirrhosis with very poor p.o. intake over an extended period of time. Nutrition consulted. Recommending increased intake of meat, dairy and legumes hospitalized for natural sources of branched chain amino acids. Encouraging protein and Magic cup dessert for dietary supplements. 5. Elevated TSH ? TSH elevated at 13 on admit, T4 normal, T3 low. Consistent with subclinical hypothyroidism. Initially favor not treating with Synthroid, however per GI an elevated TSH can contribute to poor clearance of pneumonia so will initiate patient on levothyroxine 75 mg daily. Follow-up TSH in outpatient setting. 6. Hypernatremia Sodium 150 on 04/21, mildly improved to sodium 149 on 04/22. Unfortunately worsened to sodium 154 on 04/23. Presumed secondary to free water depletion. Patient tolerating p.o. intake but has had fairly poor p.o. intake since admission. ? Nephrology following as above. Hypotonic IV fluids initiated as above. Monitor BMP daily. Chronic medical conditions: ? Morbid obesity: BMI 38. Lifestyle modifications. ? History of colon cancer s/p resection and chemotherapy DVT prophylaxis: Heparin subcu CODE STATUS: DNR CCA, DO NOT INTUBATE. Confirmed upon review of paperwork from residential. Expected disposition: Back to SNF, D Total clinical time spent by myself addressing the patient's medical issues, reviewing all the data, and collaborating with patient's care team: 35 minutes. Charges/Coding Visit Charges Inpatient E&M: 32807 Subs Hosp L2
[2023-04-23 16:09] LABS: AFP, Tumor Marker < 1.8 ng/mL (0.0-9.2); Albumin 1.9 g/dL (2.9-4.4); Aldolase 4.7 U/L (3.3-10.3); Alpha-1-Globulins 0.2 g/dL (0.0-0.4); Alpha-2-Globulins 0.4 g/dL (0.4-1.0); Anti-Smooth Muscle ABS 10 Units (0-19); Cytoplasmic Ab (C-ANCA) <1:20 titer (Neg:<1:20); Deamidated Gliadin IgA 5 units (0-19); Deamidated Gliadin IgG 2 units (0-19); Endomysial Antibody IgA Negative (Negative); Gamma Globulin 1.4 g/dL (0.4-1.8); HEPATITIS B SURFACE AG Negative (Negative); Hep C Antibodies Non Reactive (Non Reactive); Hepatitis A IgM Antibody Negative (Negative); Hepatitis B Core AB IgM Negative (Negative); IMMUNOFIXATION RESULT,S Comment: (.); Immunoglobulin A 519 mg/dL (64-422); Immunoglobulin G 1347 mg/dL (586-1602); Immunoglobulin M 159 mg/dL (26-217); PROEL- TOTAL PROTEIN 4.4 g/dL (6.0-8.5); Perinuclear Ab (P-ANCA) <1:20 titer (Neg:<1:20); t-Transglutaminase IgA <2 U/mL (0-3)
[2023-04-23 17:14] VITALS: BP 140/60; PULSE 88; RESP 18; TEMP 36.9; O2SAT 94
[2023-04-23 21:06] VITALS: BP 121/75; PULSE 93; RESP 20; TEMP 36.8; O2SAT 93
[2023-04-24] VITALS (8 sets, daily range): BP systolic 133–144; BP diastolic 50–66; PULSE 88–95; RESP 18–22; TEMP 36.3–36.8; O2SAT 87–100; BMI 39.7
[2023-04-24] MEDS: Octreotide 0.1 MG/ML ML SC ×4 (00:27→23:00)
[2023-04-24] MEDS: Lactulose 20 GM/30 ML UDC 30 GM PO ×3 (06:28→22:51)
[2023-04-24] MEDS: Heparin Injection (Vial) 5,000 UNIT/ML VIAL 5000 UNIT SC ×3 (06:29→22:51)
[2023-04-24] MEDS: Levothyroxine 75 MCG Tablet PO (06:30)
[2023-04-24] MEDS: metroNIDAZOLE 500 MG Tablet PO ×3 (06:30→22:51)
[2023-04-24 07:08] LABS: Hemoglobin 7.2 g/dL (12.0-15.0); Mean Corpuscular Hgb 31.6 pg (27.0-32.0); Mean Corpuscular Volume 105.3 fL (81-99); Mean Platelet Vol. 9.3 fl (6.2-12.0); POSITIVE COUNT YES; Platelet Count 97 K/mm3 (150-450); RBC Distribution Width CV 16.5 % (11.6-14.6); RBC Distribution Width SD 63.2 fl (35.1-43.9); Red Blood Count 2.28 M/mm3 (4.2-5.4); White Blood Count 6.7 K/mm3 (4.4-11.0)
[2023-04-24 07:13] LABS: Scan Indicated on CBC? Y/N NO
[2023-04-24 07:36] LABS: ALB/GLOB Ratio 0.8 RATIO (0.9-2.4); AST(SGOT) 35 U/L (15-37); Alanine Aminotransfer ALT/SGPT 23 U/L (13-56); Albumin, Serum 2.1 g/dL (3.2-5.0); Alkaline Phosphatase 142 U/L (45-117); Anion Gap 6 (5-15); BUN 57 mg/dL (7-18); BUN/Creat Ratio 21.1 RATIO (10-20); Calcium,Total 8.3 mg/dL (8.5-10.1); Chloride 125 mmol/L (98-107); EST Glomerular Filtration Rate 18 mL/min (>60); Est Glom Filt Rate - Afr Amer 22 mL/min (>60); Estimated Creatinine Clearance 14.66 ml/min; Globulin 2.7 g/dL (2.2-4.2); Glucose 128 mg/dL (74-106); Potassium 4.1 mmol/L (3.5-5.1); Protein, Total 4.8 g/dL (6.4-8.2); Sodium Level 151 mmol/L (136-145)
[2023-04-24] MEDS: 0.45% Normal Saline 1,000 ML 100 ML IV (07:47)
[2023-04-24 08:06] LABS: International Normalized Ratio 1.7; Prothrombin Time (Protime)PT. 19.8 SECONDS (11.7-14.9)
[2023-04-24 09:26] LABS: Ammonia < 10.0 umol/L (11-32)
[2023-04-24] MEDS: Menthol/Lanolin/Calamine/Znox 113 GM Tube 1 APPLIC TOPICAL ×2 (09:28→22:50)
[2023-04-24] MEDS: Vancomycin HCl 250 MG Capsule 500 MG PO (09:28)
[2023-04-24] MEDS: Cholecalciferol (VIT D3) 25 MCG TABLET (1,000 UNITS) 50 MCG PO (09:28)
[2023-04-24] MEDS: rifAXIMin 550 MG Tablet PO ×2 (09:28→22:52)
[2023-04-24] MEDS: Calcium Carb/Vitamin D 1 TABLET Tablet 2 TABLET PO (09:28)
[2023-04-24] MEDS: Ferrous Sulfate 325 MG Tablet PO (09:28)
[2023-04-24] MEDS: Ascorbic Acid 500 MG Tablet 1000 MG PO (09:28)
[2023-04-24] MEDS: Miconazole Nitrate 43 GM Bottle 1 APPLIC TOPICAL ×2 (09:29→22:51)
--- NOTE | 2023-04-24 09:30 | PN.RENAL_ITS ---
Subjective Subjective Patient is awake, eating breakfast. Denies any complaints today. Objective Data Objective Data Vital Signs: Vital Signs Temp Pulse Resp BP Pulse Ox O2 Del Method O2 Flow Rate 97.7 F L 91 20 H 135/63 H 100 Nasal Cannula 2 04/24/23 09:19 04/24/23 09:19 04/24/23 09:19 04/24/23 09:19 04/24/23 09:19 04/24/23 09:19 04/24/23 09:19 Oxygen Flow Rate (L/min) 2 Oxygen Delivery Method [4] Room Air Oxygen Delivery Method [3] Room Air Oxygen Delivery Method [2] Room Air Oxygen Delivery Method [1 ( Room Air Initial Baseline)] Oxygen Delivery Method Nasal Cannula Weight: 101.8 kg Body Mass Index (BMI) 39.7 Intake & Output: Intake and Output for Last 24 Hours 04/22/23 04/23/23 04/24/23 23:59 23:59 23:59 Intake Total 220 / 220 1265 / 1365 1105 / 1105 Output Total 2650 / 2650 300 / 400 175 / 175 Balance -2430 / -2430 965 / 965 930 / 930 Lab / Micro Data 04/24/23 06:50 04/24/23 06:50 Labs: Laboratory Results - last 24 hr 04/22/23 05:25: Total Protein (PEP) 4.4 L, Globulin 2.5, Aldolase 4.7, Tumor Marker AFP < 1.8, IgG 1347, IgA 519 H, IgM 159, Immunofixation Screen Comment:, Albumin (ROLLY) 1.9 L, Albumin/Globulin (ROLLY) 0.8, [id number] ROLLY 0.2, [id number] ROLLY 0.4, Beta-Globulins (ROLLY) 0.5 L, Gamma Globulins (ROLLY) 1.4, ROLLY M-Afshin Not Observed, ROLLY Comments Comment, c-ANCA Antibody <1:20, Atypical p-ANCA <1:20, p-ANCA Antibody <1:20, Anti-Smooth Muscle Ab 10, Endomysial IgA Ab Negative, Tiss Transglutamin IgG <2, Tiss Transglutamin IgA <2, Anti-Gliadin IgG Ab 2, Anti-Gliadin IgA Ab 5, Hepatitis A IgM Ab Negative, Hep Bs Antigen Negative, Hep B Core IgM Ab Negative, Hepatitis C Ab (EIA) Non Reactive, Hep C Ab Comment Comment 04/23/23 08:15: Differential Comment COMMENT 04/24/23 06:50: WBC 6.7, RBC 2.28 L, Hgb 7.2 L, Hct 24.0 L, MCV 105.3 H, MCH 31.6, MCHC 30.0 L, RDW Std Deviation 63.2 H, RDW Coeff of Albert 16.5 H, Plt Count 97 L, MPV 9.3, PT 19.8 H, INR 1.7, Sodium 151 H, Potassium 4.1, Chloride 125 H, Carbon Dioxide 20.0 L, Anion Gap 6, BUN 57 H, Creatinine 2.70 H, Estim Creat Cl ear Calc 14.66, Est GFR (MDRD) Af Amer 22 L, Est GFR (MDRD) Non-Af 18 L, BUN/Creatinine Ratio 21.1 H, Glucose 128 H, Calcium 8.3 L, Total Bilirubin 0.60, AST 35, ALT 23, Alkaline Phosphatase 142 H, Total Protein 4.8 L, Albumin 2.1 L, Globulin 2.7, Albumin/Globulin Ratio 0.8 L 04/24/23 08:39: Ammonia < 10.0 L Physical Exam Narrative Not alert and oriented, no apparent distress S1, S2, RRR Lung sounds with expiratory wheezing noted, faint rales noted Abdomen soft, positive bowel sounds Edema noted bilateral lower legs Assessment & Plan Assessment/Plan (1) Acute kidney injury: (2) Hepatic encephalopathy: (3) Cirrhosis of liver with ascites: QUALIFIERS: Hepatic cirrhosis type: unspecified hepatic cirrhosis Qualified Code(s): K74.60 - Unspecified cirrhosis of liver; R18.8 - Other ascites PLAN: Plan -Acute renal failure. As of January, her creatinine was normal. She has had 2 hospitalizations at [facility]. Her creatinine has stayed between 2-2.5 most of these hospitalizations. History of cirrhosis with ascites and other complications. Urine sodium less than 20. Urine analysis not impressive. Renal ultrasound without any significant hydronephrosis. Differential includes prerenal versus hepatorenal. She is already on full treatment for hepatorenal syndrome. Sodium is high likely related to poor oral intake. We started IV fluids yesterday since creatinine was worsening and today her creatinine is up to 2.70. Potassium and bicarb are acceptable. Unclear reason for rise in serum creatinine today while on IVF. Patient did have paracentesis with 2.1 L fluid removed on 04/22. Over the last 24 to 48 hours blood pressures have been stable on midodrine. Appetite has been very poor. Patient is nonoliguric. No acute indication for BOOK AUTHOR at this time. labs ordered for am. Will stop IVF as audible lung sounds wheezing/has rales. Sodium peaked 154 and today is 151. - s/p EGD 04/22 oozing gastric ulcers, on PPI.
[2023-04-24] MEDS: Albumin Human 25% (50 mL) 12.5 GM/50 ML IV.SOLN IV ×2 (09:35→22:50)
[2023-04-24 10:39] LABS: Pathologist Comment/Body Fluid Reviewed
--- NOTE | 2023-04-24 14:46 | CASEMGMT ---
Social Work Per request of [facility], sent updated PT/OT and physician notes. Per rounding with hospitalist today, patient not yet medically ready for discharge. Updated [facility] to this as well. Plan: Return to [facility] when medically stable. Waiting on insurance precert. -BERHANE Guzman
--- NOTE | 2023-04-24 15:06 | PN.HOSP_ITS ---
Reason for Visit Reason for Visit: Diagnoses Unspecified cirrhosis of liver (04/18/23) Hepatic encephalopathy (04/18/23) Acute kidney failure, unspecified (04/18/23) Other ascites (04/18/23) Disorientation, unspecified (04/18/23) Abnormal findings on diagnostic imaging of other specified body structures (04/18/23) Subjective Subjective No acute events overnight. Patient seen at bedside this morning. Sitting comfortably in bed, no acute distress. Patient continues to have mildly delayed responses during conversation but is answering questions appropriately. She denies any acute pain or discomfort at this time. She does report mild disc omfort with breathing and has developed a mild wet cough since yesterday as well. Denies any fevers or chills. No other acute concerns this time. Objective Data Objective Data Vital Signs: Vital Signs Temp Pulse Resp BP Pulse Ox O2 Del Method O2 Flow Rate 97.5 F L 91 18 136/55 H 100 Nasal Cannula 2 04/24/23 13:36 04/24/23 13:36 04/24/23 13:36 04/24/23 13:36 04/24/23 13:36 04/24/23 13:36 04/24/23 13:36 Oxygen Flow Rate (L/min) 2 Oxygen Delivery Method [4] Room Air Oxygen Delivery Method [3] Room Air Oxygen Delivery Method [2] Room Air Oxygen Delivery Method [1 ( Room Air Initial Baseline)] Oxygen Delivery Method Nasal Cannula Weight: 101.8 kg Body Mass Index (BMI) 39.7 Intake & Output: Intake and Output for Last 24 Hours 04/22/23 04/23/23 04/24/23 23:59 23:59 23:59 Intake Total 220 / 220 1265 / 1365 1741.67 / 1741.67 Output Total 2650 / 2650 300 / 400 225 / 225 Balance -2430 / -2430 965 / 965 1516.67 / 1516.67 Lab / Micro Data 04/24/23 06:50 04/24/23 06:50 Labs: Laboratory Results - last 24 hr 04/22/23 05:25: Total Protein (PEP) 4.4 L, Globulin 2.5, Aldolase 4.7, Tumor Marker AFP < 1.8, IgG 1347, IgA 519 H, IgM 159, Immunofixation Screen Comment:, Albumin (ROLLY) 1.9 L, Albumin/Globulin (ROLLY) 0.8, Iykgb-[id number] ROLLY 0.2, Rpgyc-9-Gcjbwegbo ROLLY 0.4, Beta-Globulins (ROLLY) 0.5 L, Gamma Globulins (ROLLY) 1.4, ROLLY M-Afshin Not Observed, ROLLY Comments Comment, c-ANCA Antibody <1:20, Atypical p-ANCA <1:20, p-ANCA Antibody <1:20, Anti-Smooth Muscle Ab 10, Endomysial IgA Ab Negative, Tiss Transglutamin IgG <2, Tiss Transglutamin IgA <2, Anti-Gliadin IgG Ab 2, Anti-Gliadin IgA Ab 5, Hepatitis A IgM Ab Negative, Hep Bs Antigen Negative, Hep B Core IgM Ab Negative, Hepatitis C Ab (EIA) Non Reactive, Hep C Ab Comment Comment 04/22/23 13:45: Fl Pathologist Comment Reviewed 04/24/23 06:50: WBC 6.7, RBC 2.28 L, Hgb 7.2 L, Hct 24.0 L, MCV 105.3 H, MCH 31.6, MCHC 30.0 L, RDW Std Deviation 63.2 H, RDW Coeff of Albert 16.5 H, Plt Count 97 L, MPV 9.3, PT 19.8 H, INR 1.7, Sodium 151 H, Potassium 4.1, Chloride 125 H, Carbon Dioxide 20.0 L, Anion Gap 6, BUN 57 H, Creatinine 2.70 H, Estim Creat Clear Calc 14.66, Est GFR (MDRD) Af Amer 22 L, Est GFR (MDRD) Non-Af 18 L, BUN/Creatinine Ratio 21.1 H, Glucose 128 H, Calcium 8.3 L, Total Bilirubin 0.60, AST 35, ALT 23, Alkaline Phosphatase 142 H, Total Protein 4.8 L, Albumin 2.1 L, Globulin 2.7, Albumin/Globulin Ratio 0.8 L 04/24/23 08:39: Ammonia < 10.0 L Physical Exam Const alert and no apparent distress Constitutional Narrative: Pleasant elderly female, obese, chronically ill-appearing. Alert, mildly delayed responses but answering questions appropriately, no acute distress. General Appearance: cooperative and comfortable HEENT normocephalic, head/scalp atraumatic, hearing grossly normal bilaterally, nasal mucous membranes and turbinates normal and moist oral mucous membranes Eyes PERRL, EOMs intact bilaterally and conjunctivae normal Neck full ROM, no lymphadenopathy and supple Lymph Lymphatic: no lymphadenopathy noted Chest inspection of chest normal Resp Resp Narrative: Satting well on 2 L nasal cannula, no increased work of breathing noted. Mild crackles noted bilaterally. Cardio regular rate, regular rhythm, no murmurs and peripheral pulses 2+ throughout GI GI Narrative: Mildly distended on palpation, no fluid wave noted. Nontender to palpation. Back/Spine normal ROM Extremity normal to inspection Skin no rashes or lesions noted Assessment & Plan Assessment/Plan (1) Hepatic encephalopathy: (2) Acute kidney injury: PLAN: Plan Patient is a 77-year-old female who presented to [facility] ED [facility] from [facility] for altered mental status. 1. Hepatic encephalopathy, improving; history of cirrhosis with ascites Per patient's family, patient was recently hospitalized [facility] for hepatic encephalopathy with elevated ammonia levels. Unclear on etiology of hepatic encephalopathy at that time. Was discharged to an extended care facility after that hospitalization. Has been getting her lactulose and rifaximin as prescribed but continues to have waxing and waning confusion. Unclear if encephalopathy on this admission is due to issues with her medications or secondary underlying cause. Ammonia level elevated at 95 on admission. S/p diagnostic and therapeutic paracentesis on 04/22, 2100 ml fluid removed; fluid studies with no concern for SBP. ? Gastroenterology following. Suspect hepatic encephalopathy is multifactorial with possible contributors of malnutrition, DILAN, muscle breakdown, mild GI bleed. Continue treatment with lactulose and rifaximin. Per nutrition, encouraged supplementation with foods rich in branched chain amino acids with meals. Daily MELD labs. 2. Acute on chronic anemia, mild upper GI bleed Hemoglobin 9.2 on admission, appear to be close to baseline of around 10. Slowly down trended during admission to 7.6 on 04/22. Chronic anemia suspected secondary to cirrhosis. S/p EGD on 04/22, oozing gastric ulcers with pigmented material noted, injected and treated with heater probe. Hemoglobin 7.2 on 04/24. ? Gastroenterology following as above. Continue Protonix 40 mg p.o. twice daily. Monitor CBC daily. Avoid NSAIDs. 3. DILAN Creatinine 2.19 on admit, BUN 57. Baseline creatinine around 0.6. Creatinine has remained stable around 2.0-2.1 since admission. Patient has had fairly minimal urine output but this has not been accurately quantified over the last several days. Urine sodium and creatinine ordered on 04/21, FeNa calculated to be 0.1% consistent with prerenal etiology. Specialists below had low concern for hepatorenal syndrome, however was noted that DILAN could contribute to poor clearance of ammonia so patient was initiated on albumin, octreotide and midodrine on 04/21. Had some improvement of urine output, creatinine unfortunately mildly worsened. Supplemental IV fluids started by nephrology in 04/23, resulted in mild volume overload, discontinued on 04/24. ? Nephrology and gastroenterology following. Creatinine continues to mildly uptrend, patient may have some degree of ATN at this point. Holding on further IV fluids for now. Continue midodrine and octreotide. Monitor daily BMP and urine output. Tse catheter in place for accurate I's and O's. Can consider intermittent dosing of IV Lasix if patient appears volume overloaded, but would be cautious with this to avoid worsening DILAN. 4. Severe malnutrition ? Albumin 1.6 on admission, likely multifactorial in setting of cirrhosis with very poor p.o. intake over an extended period of time. Nutrition consulted. Recommending increased intake of meat, dairy and legumes hospitalized for natural sources of branched chain amino acids. Encouraging protein and Magic cup dessert for dietary supplements. 5. Elevated TSH ? TSH elevated at 13 on admit, T4 normal, T3 low. Consistent with subclinical hypothyroidism. Initially favor not treating with Synthroid, however per GI an elevated TSH can contribute to poor clearance of pneumonia so will initiate patient on levothyroxine 75 mg daily. Follow-up TSH in outpatient setting. 6. Hypernatremia ? Presumed secondary to free water depletion. Nephrology following as above. Most recent sodium 151 on 04/24. Continue to monitor. Chronic medical conditions: ? Morbid obesity: BMI 38. Lifestyle modifications. ? History of colon cancer s/p resection and chemotherapy DVT prophylaxis: Heparin subcu CODE STATUS: DNR CCA, DO NOT INTUBATE. Confirmed upon review of paperwork from [facility]. Expected disposition: Back to [facility] Total clinical time spent by myself addressing the patient's medical issues, reviewing all the data, and collaborating with patient's care team: 35 minutes. Charges/Coding Visit Charges Inpatient E&M: 02016 Subs Hosp L2
--- NOTE | 2023-04-24 15:49 | EX.PCM.PN.GI ---
Subjective Subjective Patient is answering questions appropriately but she is getting very slow responses. She knows who she is and she knows that she is in the hospital. However she does not know of 2022. Objective Data Objective Data Vital Signs: Vital Signs Temp Pulse Resp BP Pulse Ox O2 Del Method O2 Flow Rate 97.5 F L 91 18 136/55 H 100 Nasal Cannula 2 04/24/23 13:36 04/24/23 13:36 04/24/23 13:36 04/24/23 13:36 04/24/23 13:36 04/24/23 13:36 04/24/23 13:36 Oxygen Flow Rate (L/min) 2 Oxygen Delivery Method [4] Room Air Oxygen Delivery Method [3] Room Air Oxygen Delivery Method [2] Room Air Oxygen Delivery Method [1 ( Room Air Initial Baseline)] Oxygen Delivery Method Nasal Cannula Weight: 224 lb 6.889 oz Body Mass Index (BMI) 39.7 Intake & Output: Intake and Output for Last 24 Hours 04/22/23 04/23/23 04/24/23 23:59 23:59 23:59 Intake Total 220 / 220 1265 / 1365 1741.67 / 1741.67 Output Total 2650 / 2650 300 / 400 225 / 225 Balance -2430 / -2430 965 / 965 1516.67 / 1516.67 Lab / Micro Data 04/24/23 06:50 04/24/23 06:50 Labs: Laboratory Results - last 24 hr 04/22/23 05:25: Total Protein (PEP) 4.4 L, Globulin 2.5, Aldolase 4.7, Tumor Marker AFP < 1.8, IgG 1347, IgA 519 H, IgM 159, Immunofixation Screen Comment:, Albumin (ROLLY) 1.9 L, Albumin/Globulin (ROLLY) 0.8, Frbcu-9-Jvosxvpwn ROLLY 0.2, Zosur-2-Gihidnlza ROLLY 0.4, Beta-Globulins (ROLLY) 0.5 L, Gamma Globulins (ROLLY) 1.4, ROLLY M-Afshin Not Observed, ROLLY Comments Comment, c-ANCA Antibody <1:20, Atypical p-ANCA <1:20, p-ANCA Antibody <1:20, Anti-Smooth Muscle Ab 10, Endomysial IgA Ab Negative, Tiss Transglutamin IgG <2, Tiss Transglutamin IgA <2, Anti-Gliadin IgG Ab 2, Anti-Gliadin IgA Ab 5, Hepatitis A IgM Ab Negative, Hep Bs Antigen Negative, Hep B Core IgM Ab Negative, Hepatitis C Ab (EIA) Non Reactive, Hep C Ab Comment Comment 04/22/23 13:45: Fl Pathologist Comment Reviewed 04/24/23 06:50: WBC 6.7, RBC 2.28 L, Hgb 7.2 L, Hct 24.0 L, MCV 105.3 H, MCH 31.6, MCHC 30.0 L, RDW Std Deviation 63.2 H, RDW Coeff of Albert 16.5 H, Plt Count 97 L, MPV 9.3, PT 19.8 H, INR 1.7, Sodium 151 H, Potassium 4.1, Chloride 125 H, Carbon Dioxide 20.0 L, Anion Gap 6, BUN 57 H, Creatinine 2.70 H, Estim Creat Clear Calc 14.66, Est GFR (MDRD) Af Amer 22 L, Est GFR (MDRD) Non-Af 18 L, BUN/Creatinine Ratio 21.1 H, Glucose 128 H, Calcium 8.3 L, Total Bilirubin 0.60, AST 35, ALT 23, Alkaline Phosphatase 142 H, Total Protein 4.8 L, Albumin 2.1 L, Globulin 2.7, Albumin/Globulin Ratio 0.8 L 04/24/23 08:39: Ammonia < 10.0 L Physical Exam Const alert and no apparent distress Constitutional Narrative: Pleasant elderly female General Appearance: cooperative and comfortable HEENT normocephalic, head/scalp atraumatic, hearing grossly normal bilaterally, nasal mucous membranes and turbinates normal and moist oral mucous membranes Eyes PERRL, EOMs intact bilaterally and conjunctivae normal Neck full ROM, no lymphadenopathy and supple Lymph Lymphatic: no lymphadenopathy noted Chest inspection of chest normal Resp Resp Narrative: Satting well on 2 L nasal cannula, no increased work of breathing noted. Good breath sounds bilaterally. Cardio regular rate, regular rhythm, no murmurs and peripheral pulses 2+ throughout GI GI Narrative: Mildly distended on palpation, no fluid wave noted. Nontender to palpation. 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 Her MELD sodium score is 14 and she is a child Stauffer class B at this time. Hepatic encephalopathy is a common complication in patients with advanced liver disease. HE has various precipitants that can potentially promote its onset, alone or in combination. Among the historically well-known precipitants, such as infections, gastrointestinal bleeding, dehydration, electrolyte disorders and constipation, recent studies have highlighted the role of malnutrition and portosystemic shunts as new precipitating factors of HE. Currently she has acute kidney injury which I think is contributing to her worsening hepatic encephalopathy because some of the ammonia that we make in her colon, red blood cell breakdown and muscle breakdown is cleared by the kidney. Her kidney function is improving somewhat which makes this more likely acute kidney injury secondary to dehydration versus hepatorenal syndrome. Although we will have to draw a urine sodium and see if it is low. At this time she seems to have a grade 1-2 hepatic encephalopathy. There are 3 types of hepatic encephalopathy. Type A: hepatic encephalopathy due to of acute liver failure. She does not seem to be experiencing any type of acute on chronic liver failure Type B: hepatic encephalopathy due to portal-systemic bypass with no intrinsic hepatocellular disease. She does not reach criteria for type B as she does have intrinsic hepatocellular disease Type C: hepatic encephalopathy due to cirrhosis with portal hypertension or systemic shunting. She does have signs of portal hypertension being that she does have spider angiomata, ascites and other signs or symptoms of chronic liver disease. At this time we cannot get a CT scan of the abdomen pelvis to look for portosystemic shunts. -Visually she seems to be experiencing some sarcopenia which also contributes to worsening hepatic encephalopathy due to muscle breakdown and ammonia production from muscle breakdown. I would recommend to check a CPK, aldolase, LDH and urine myoglobin. -She would benefit from branched chain amino acids plus lactulose as branched chain amino acids can help filter out ammonia better. In a patient with severe hypoalbuminemia that would be relying only on albumin to remove remove ammonia from the body. -Acute kidney injury can also contribute to her poor clearance of ammonia. Therefore I will start her on albumin, octreotide and midodrine ( hold for sbp>120). -Recommend dietitian consultation for the administration of branch chain amino acids 2-3 times a day with administration of lactulose. -She may benefit from an upper endoscopy to see if she has any signs or symptoms of portosystemic shunting with gastric varices or esophageal varices, severe portal gastropathy, gastric antral vascular ectasia as these will contribute to refractory hepatic encephalopathy.? N.p.o. past midnight to see if there is any signs or symptoms of slow intermittent GI blood loss contributing to hepatic encephalopathy and upper GI tract. -She also needs a normal TSH to help facilitate proper clearance of ammonia from the body. Her last TSH was 13.7. -I will also put her on nadolol for varices. 04/22-I will put her back on a regular diet after her endoscopy. I will give her 3 days of vancomycin and Flagyl together in order to detoxify her gut along with her taken Xifaxan twice a day. There have been some evidence-based studies that have shown that vancomycin plus Flagyl are is just as good as neomycin. I do not want to give her neomycin at this time because of her acute kidney injury. Hopefully along with lactulose this will help her refractory encephalopathy. Awaiting on ascitic studies to see if there is any other signs of hepatic decompensation. 04/23-worsening kidney function is consistent with hepatorenal syndrome type II versus prerenal azotemia. She was started on some IV fluids by nephrology. Appreciate assistance. She is on octreotide, midodrine and albumin. She was given antibiotics for detoxification of the small bowel yesterday. She still on Xifaxan and lactulose. Her current MELD is at 17. She has a grade 1 metabolic encephalopathy. She is also decompensated liver disease from ascites and lower extremity edema. Her ascites is consistent with portal hypertension secondary to cirrhosis. Gentle diuresis as per nephrology. Recheck ammonia. Await alpha-fetoprotein to screen for hepatocellular carcinoma. 04/24-kidney function is still worsening. Creatinine is up to 2.7. She is being seen by nephrology. Appreciate nephrology input. She is still on octreotide, midodrine, albumin. She underwent detoxification regimen with triple antibiotic therapy. Mentation is still about the same. I suspect that her grade 1 to grade 2 encephalopathy will not improve unless her kidney function improves as you do have some renal clearance of ammonia. Patient started on thyroid medicine. Awaiting recheck ammonia and alpha-fetoprotein. Charges/Coding Visit Charges Inpatient E&M: 23693 Subs Hosp L3
[2023-04-24 16:09] LABS: Myoglobin, Urine 3 ng/mL (0-13)
[2023-04-25] VITALS (8 sets, daily range): BP systolic 131–165; BP diastolic 54–79; PULSE 88–101; RESP 16–24; TEMP 36.4–36.6; O2SAT 90–100; BMI 39.8
[2023-04-25] MEDS: Levothyroxine 75 MCG Tablet PO (05:05)
[2023-04-25] MEDS: Heparin Injection (Vial) 5,000 UNIT/ML VIAL 5000 UNIT SC ×2 (05:05→13:44)
[2023-04-25] MEDS: Lactulose 20 GM/30 ML UDC 30 GM PO ×2 (05:05→22:34)
[2023-04-25] MEDS: Octreotide 0.1 MG/ML ML SC ×3 (05:09→22:21)
[2023-04-25] MEDS: guaiFENesin 10 ML UDC (200MG/10ML) PO (05:30)
[2023-04-25] MEDS: Albuterol 2.5 MG/3 ML VIAL.NEB. INHALATION (05:55)
[2023-04-25 05:56] LABS: Hematocrit 23.5 % (37-47); Hemoglobin 7.1 g/dL (12.0-15.0); Mean Corp Hgb Conc 30.2 g/dL (32-36); Mean Corpuscular Hgb 31.8 pg (27.0-32.0); Mean Corpuscular Volume 105.4 fL (81-99); Mean Platelet Vol. 9.1 fl (6.2-12.0); POSITIVE COUNT YES; Platelet Count 81 K/mm3 (150-450); RBC Distribution Width CV 16.2 % (11.6-14.6); RBC Distribution Width SD 62.5 fl (35.1-43.9); Red Blood Count 2.23 M/mm3 (4.2-5.4); White Blood Count 6.5 K/mm3 (4.4-11.0)
[2023-04-25 06:04] LABS: International Normalized Ratio 1.6; Prothrombin Time (Protime)PT. 19.5 SECONDS (11.7-14.9)
[2023-04-25 06:20] LABS: ALB/GLOB Ratio 0.9 RATIO (0.9-2.4); AST(SGOT) 26 U/L (15-37); Alanine Aminotransfer ALT/SGPT 18 U/L (13-56); Albumin, Serum 2.3 g/dL (3.2-5.0); Alkaline Phosphatase 132 U/L (45-117); Anion Gap 5 (5-15); BUN 57 mg/dL (7-18); BUN/Creat Ratio 20.4 RATIO (10-20); Calcium,Total 8.7 mg/dL (8.5-10.1); Chloride 123 mmol/L (98-107); EST Glomerular Filtration Rate 17 mL/min (>60); Est Glom Filt Rate - Afr Amer 21 mL/min (>60); Estimated Creatinine Clearance 14.14 ml/min; Globulin 2.6 g/dL (2.2-4.2); Glucose 131 mg/dL (74-106); Potassium 4.1 mmol/L (3.5-5.1); Protein, Total 4.9 g/dL (6.4-8.2); Sodium Level 150 mmol/L (136-145)
--- NOTE | 2023-04-25 08:28 | PN.RENAL_ITS ---
Subjective Subjective Patient is sitting in chair at bedside. Alert and oriented. Denies any complaints. Objective Data Objective Data Vital Signs: Vital Signs Temp Pulse Resp BP Pulse Ox O2 Del Method O2 Flow Rate 97.8 F 94 16 150/79 H 100 Nasal Cannula 2 04/25/23 08:20 04/25/23 08:20 04/25/23 08:20 04/25/23 08:20 04/25/23 08:20 04/25/23 08:20 04/25/23 08:20 Oxygen Flow Rate (L/min) 2 Oxygen Delivery Method [4] Room Air Oxygen Delivery Method [3] Room Air Oxygen Delivery Method [2] Room Air Oxygen Delivery Method [1 ( Room Air Initial Baseline)] Oxygen Delivery Method Nasal Cannula Weight: 101.9 kg Body Mass Index (BMI) 39.8 Intake & Output: Intake and Output for Last 24 Hours 04/23/23 04/24/23 04/25/23 23:59 23:59 23:59 Intake Total 1265 / 1365 2031.67 / 2381.67 650 / 650 Output Total 300 / 400 225 / 325 170 / 170 Balance 965 / 965 1806.67 / 2056.67 480 / 480 Lab / Micro Data 04/25/23 05:07 04/25/23 05:07 Labs: Laboratory Results - last 24 hr 04/21/23 09:00: Urine Myoglobin 3 04/22/23 13:45: Fl Pathologist Comment Reviewed 04/24/23 08:39: Ammonia < 10.0 L 04/24/23 16:30: Ammonia 26.0 04/25/23 05:07: WBC 6.5, RBC 2.23 L, Hgb 7.1 L, Hct 23.5 L, MCV 105.4 H, MCH 31.8, MCHC 30.2 L, RDW Std Deviation 62.5 H, RDW Coeff of Albert 16.2 H, Plt Count 81 L, MPV 9.1, PT 19.5 H, INR 1.6, Sodium 150 H, Potassium 4.1, Chloride 123 H, Carbon Dioxide 22.0, Anion Gap 5, BUN 57 H, Creatinine 2.80 H, Estim Creat Clear Calc 14.14, Est GFR (MDRD) Af Amer 21 L, Est GFR (MDRD) Non-Af 17 L, BUN/Creatinine Ratio 20.4 H, Glucose 131 H, Calcium 8.7, Total Bilirubin 0.80, AST 26, ALT 18, Alkaline Phosphatase 132 H, Total Protein 4.9 L, Albumin 2.3 L, Globulin 2.6, Albumin/Globulin Ratio 0.9 Physical Exam Narrative Not alert and oriented, no apparent distress S1, S2, RRR Lung sounds clear anteriorly, diminished breath sounds posterior bases. No rales, rhonchi or wheezing noted Abdomen soft, positive bowel sounds +++Edema noted bilateral lower legs Assessment & Plan Assessment/Plan (1) Acute kidney injury: (2) Hepatic encephalopathy: (3) Cirrhosis of liver with ascites: QUALIFIERS: Hepatic cirrhosis type: unspecified hepatic cirrhosis Qualified Code(s): K74.60 - Unspecified cirrhosis of liver; R18.8 - Other ascites PLAN: Plan -Acute renal failure. As of January, her creatinine was normal. She has had 2 hospitalizations at [facility] where patient was admitted for hepatic encephalopathy, UTI and DILAN (03/24-03/28/2023). Creatinine peak was 3.8 mg/dL. Per nephrology note DILAN secondary to rhabdo, UTI, with concurrent diuretic use (patient was on Lasix and Aldactone) and possible component from contrast exposure. By time of hospital discharge serum creatinine had been improving, on 03/28/2023 serum creatinine 2.61 mg/dL; her creatinine has stayed between 2-2.5 most of these hospitalizations. History of cirrhosis with ascites and other complications. Urine sodium less than 20. Urine analysis not impressive. Renal ultrasound without any significant hydronephrosis. Differential includes prerenal versus hepatorenal. She is already on full treatment for hepatorenal syndrome. Sodium is elevated likely related to poor oral intake. We started IV fluids Friday since creatinine was worsening, stopped IV fluids yesterday as lung sounds coarse and worsening edema, today serum creatinine 2.80. Possibly this is beginning to peak and/or leveling off. Potassium and bicarb are acceptable. Unclear reason for rise in serum creatinine while on IVF. Patient did have paracentesis with 2.1 L fluid removed on 04/22. Over the last few days blood pressures have been stable on midodrine. Appetite has been very poor. Patient has Tse catheter in place, she is making urine. No acute indication for [employer] at this time. labs ordered for am. Sodium peaked 154 and today is 150, encouraged patient to try and drink more water and increase solute intake. - s/p EGD 04/22 oozing gastric ulcers, on PPI.
[2023-04-25] MEDS: Ferrous Sulfate 325 MG Tablet PO (08:37)
[2023-04-25] MEDS: Calcium Carb/Vitamin D 1 TABLET Tablet 2 TABLET PO (08:37)
[2023-04-25] MEDS: Ascorbic Acid 500 MG Tablet 1000 MG PO (10:20)
[2023-04-25] MEDS: rifAXIMin 550 MG Tablet PO ×2 (10:20→22:17)
[2023-04-25] MEDS: Cholecalciferol (VIT D3) 25 MCG TABLET (1,000 UNITS) 50 MCG PO (10:20)
[2023-04-25] MEDS: Miconazole Nitrate 43 GM Bottle 1 APPLIC TOPICAL ×2 (10:21→22:08)
[2023-04-25] MEDS: Menthol/Lanolin/Calamine/Znox 113 GM Tube 1 APPLIC TOPICAL ×2 (10:21→22:08)
[2023-04-25] MEDS: Albumin Human 25% (50 mL) 12.5 GM/50 ML IV.SOLN IV ×2 (10:21→21:19)
--- NOTE | 2023-04-25 13:28 | PN.HOSP_ITS ---
Reason for Visit Reason for Visit: Diagnoses Unspecified cirrhosis of liver (04/18/23) Hepatic encephalopathy (04/18/23) Acute kidney failure, unspecified (04/18/23) Other ascites (04/18/23) Disorientation, unspecified (04/18/23) Abnormal findings on diagnostic imaging of other specified body structures (04/18/23) Subjective Subjective No acute events overnight. Patient seen at bedside this morning. Sitting comfortably in bedside chair, no acute distress. Patient continues to have some cognitive slowing, anticoagulant appropriately but responses are slowed. She denies any acute pain or discomfort this morning. Is tolerating Tse catheter well. States she does not have much of an appetite and has not been eating much. Continues to feel fatigued, similar to yesterday. Denies any fevers or chills, chest pain, shortness of breath. No other acute concerns morning. Objective Data Objective Data Vital Signs: Vital Signs Temp Pulse Resp BP Pulse Ox O2 Del Method O2 Flow Rate 97.8 F 94 16 150/79 H 99 Nasal Cannula 2 04/25/23 08:20 04/25/23 08:20 04/25/23 08:20 04/25/23 08:20 04/25/23 10:00 04/25/23 10:00 04/25/23 10:00 Oxygen Flow Rate (L/min) 2 Oxygen Delivery Method [4] Room Air Oxygen Delivery Method [3] Room Air Oxygen Delivery Method [2] Room Air Oxygen Delivery Method [1 ( Room Air Initial Baseline)] Oxygen Delivery Method Nasal Cannula Weight: 101.9 kg Body Mass Index (BMI) 39.8 Intake & Output: Intake and Output for Last 24 Hours 04/23/23 04/24/23 04/25/23 23:59 23:59 23:59 Intake Total 1265 / 1365 2031.67 / 2381.67 650 / 650 Output Total 300 / 400 225 / 325 170 / 170 Balance 965 / 965 1806.67 / 2056.67 480 / 480 Lab / Micro Data 04/25/23 05:07 04/25/23 05:07 Labs: Laboratory Results - last 24 hr 04/21/23 09:00: Urine Myoglobin 3 04/24/23 16:30: Ammonia 26.0 04/25/23 05:07: WBC 6.5, RBC 2.23 L, Hgb 7.1 L, Hct 23.5 L, MCV 105.4 H, MCH 31.8, MCHC 30.2 L, RDW Std Deviation 62.5 H, RDW Coeff of Albert 16.2 H, Plt Count 81 L, MPV 9.1, PT 19.5 H, INR 1.6, Sodium 150 H, Potassium 4.1, Chloride 123 H, Carbon Dioxide 22.0, Anion Gap 5, BUN 57 H, Creatinine 2.80 H, Estim Creat Clear Calc 14.14, Est GFR (MDRD) Af Amer 21 L, Est GFR (MDRD) Non-Af 17 L, BUN/Cr eatinine Ratio 20.4 H, Glucose 131 H, Calcium 8.7, Total Bilirubin 0.80, AST 26, ALT 18, Alkaline Phosphatase 132 H, Total Protein 4.9 L, Albumin 2.3 L, Globulin 2.6, Albumin/Globulin Ratio 0.9 Physical Exam Const alert and no apparent distress Constitutional Narrative: Pleasant elderly female, obese, chronically ill-appearing. Alert, mildly delayed responses but answering questions appropriately, no acute distress. General Appearance: cooperative and comfortable HEENT normocephalic, head/scalp atraumatic, hearing grossly normal bilaterally, nasal mucous membranes and turbinates normal and moist oral mucous membranes Eyes PERRL, EOMs intact bilaterally and conjunctivae normal Neck full ROM, no lymphadenopathy and supple Lymph Lymphatic: no lymphadenopathy noted Chest inspection of chest normal Resp Resp Narrative: Satting well on 2 L nasal cannula, no increased work of breathing noted. Mild crackles noted bilaterally. Cardio regular rate, regular rhythm, no murmurs and peripheral pulses 2+ throughout GI GI Narrative: Mildly distended on palpation, no fluid wave noted. Nontender to palpation. Back/Spine normal ROM Extremity normal to inspection Skin no rashes or lesions noted Assessment & Plan Assessment/Plan (1) Hepatic encephalopathy: (2) Acute kidney injury: PLAN: Plan StablePatient is a 77-year-old female who presented to [facility] ED on 04/18/2023 from senior living for altered mental status. 1. Hepatic encephalopathy, improving; history of cirrhosis with ascites Per patient's family, patient was recently hospitalized [facility] for hepatic encephalopathy with elevated ammonia levels. Unclear on etiology of hepatic encephalopathy at that time. Was discharged to an extended care facility after that hospitalization. Has been getting her lactulose and rifaximin as prescribed but continues to have waxing and waning confusion. Unclear if encephalopathy on this admission is due to issues with her m edications or secondary underlying cause. Ammonia level elevated at 95 on admission. S/p diagnostic and therapeutic paracentesis on 04/22, 2100 ml fluid removed; fluid studies with no concern for SBP. ? Gastroenterology following. Suspect hepatic encephalopathy is multifactorial with possible contributors of malnutrition, DILAN, muscle breakdown, mild GI bleed. Continue treatment with lactulose and rifaximin. Per nutrition, encouraged supplementation with foods rich in branched chain amino acids with meals. Daily MELD labs. 2. Acute on chronic anemia, mild upper GI bleed Hemoglobin 9.2 on admission, appear to be close to baseline of around 10. Slowly down trended during admission to 7.6 on 04/22. Chronic anemia suspected secondary to cirrhosis. S/p EGD on 04/22, oozing gastric ulcers with pigmented material noted, injected and treated with heater probe. Hemoglobin 7.1 on 04/25. ? Gastroenterology following as above. Continue Protonix 40 mg p.o. twice daily. Monitor CBC daily. Avoid NSAIDs. 3. DILAN Creatinine 2.19 on admit, BUN 57. Baseline creatinine around 0.6. Creatinine has remained stable around 2.0-2.1 since admission. Patient has had fairly minimal urine output but this has not been accurately quantified over the last several days. Urine sodium and creatinine ordered on 04/21, FeNa calculated to be 0.1% consistent with prerenal etiology. Specialists below had low concern for hepatorenal syndrome, however was noted that DILAN could contribute to poor clearance of ammonia so patient was initiated on albumin, octreotide and midodrine on 04/21. Had some improvement of urine output, creatinine unfortunately mildly worsened. Supplemental IV fluids started by nephrology in 04/23, resulted in mild volume overload, discontinued on 04/24. ? Nephrology and gastroenterology following. Creatinine appears to be stabilizing but is not improving. Continuing albumin, midodrine and octreotide for now. Monitor daily BMP and urine output. Tse catheter in place for accurate I's and O's. 4. Severe malnutrition ? Albumin 1.6 on admission, likely multifactorial in setting of cirrhosis with very poor p.o. intake over an extended period of time. Nutrition consulted. Recommending increased intake of meat, dairy and legumes hospitalized for natural sources of branched chain amino acids. Encouraging protein and Magic cup dessert for dietary supplements. 5. Elevated TSH ? TSH elevated at 13 on admit, T4 normal, T3 low. Consistent with subclinical hypothyroidism. Initially favor not treating with Synthroid, however per GI an elevated TSH can contribute to poor clearance of pneumonia so will initiate patient on levothyroxine 75 mg daily. Follow-up TSH in outpatient setting. 6. Hypernatremia, improving ? Presumed secondary to free water depletion. Nephrology following as above. Sodium peaked at 154. Most recent sodium 150 on 04/25. Continue to monitor. Chronic medical conditions: ? Morbid obesity: BMI 38. Lifestyle modifications. ? History of colon cancer s/p resection and chemotherapy DVT prophylaxis: Heparin subcu CODE STATUS: DNR CCA, DO NOT INTUBATE. Confirmed upon review of paperwork from senior living. Expected disposition: Back to SNF, TBD Total clinical time spent by myself addressing the patient's medical issues, reviewing all the data, and collaborating with patient's care team: 35 minutes. Charges/Coding Visit Charges Inpatient E&M: 67815 Subs Hosp L2
--- NOTE | 2023-04-25 14:07 | CASEMGMT ---
Addendum entered by Lizette Yuan 04/25/23 15:48: Social Work Precert has been obtained for pt to return to [facility]. Plan: Return to [facility] ([facility]), when medically ready SAMIR De Luna Original Note: Social Work Message sent in [facility] and VM to Leigh at [facility] ([facility]) inquiring if precert has been obtained. Will await response. Plan: Return to [facility], pending precert SAMIR De Luna
--- NOTE | 2023-04-25 14:45 | EX.PCM.PN.GI ---
Subjective Subjective Eating much at all today. She did have 1 bowel movement today. Her ammonia was slightly up from the previous day yesterday at 26 as the day before was less than 10. She denies any nausea. She does complain of some bloating. She has not been up and walking much. Objective Data Objective Data Vital Signs: Vital Signs Temp Pulse Resp BP Pulse Ox O2 Del Method O2 Flow Rate 97.5 F L 89 20 H 157/75 H 96 Nasal Cannula 2 04/25/23 13:35 04/25/23 13:35 04/25/23 13:35 04/25/23 13:35 04/25/23 13:35 04/25/23 13:35 04/25/23 13:35 Oxygen Flow Rate (L/min) 2 Oxygen Delivery Method [4] Room Air Oxygen Delivery Method [3] Room Air Oxygen Delivery Method [2] Room Air Oxygen Delivery Method [1 ( Room Air Initial Baseline)] Oxygen Delivery Method Nasal Cannula Weight: 224 lb 10.417 oz Body Mass Index (BMI) 39.8 Intake & Output: Intake and Output for Last 24 Hours 04/23/23 04/24/23 04/25/23 23:59 23:59 23:59 Intake Total 1265 / 1365 2031.67 / 2381.67 650 / 650 Output Total 300 / 400 225 / 325 170 / 170 Balance 965 / 965 1806.67 / 2056.67 480 / 480 Lab / Micro Data 04/25/23 05:07 04/25/23 05:07 Labs: Laboratory Results - last 24 hr 04/21/23 09:00: Urine Myoglobin 3 04/24/23 16:30: Ammonia 26.0 04/25/23 05:07: WBC 6.5, RBC 2.23 L, Hgb 7.1 L, Hct 23.5 L, MCV 105.4 H, MCH 31.8, MCHC 30.2 L, RDW Std Deviation 62.5 H, RDW Coeff of Albert 16.2 H, Plt Count 81 L, MPV 9.1, PT 19.5 H, INR 1.6, Sodium 150 H, Potassium 4.1, Chloride 123 H, Carbon Dioxide 22.0, Anion Gap 5, BUN 57 H, Creatinine 2.80 H, Estim Creat Clear Calc 14.14, Est GFR (MDRD) Af Amer 21 L, Est GFR (MDRD) Non-Af 17 L, BUN/Creatinine Ratio 20.4 H, Glucose 131 H, Calcium 8.7, Total Bilirubin 0.80, AST 26, ALT 18, Alkaline Phosphatase 132 H, Total Protein 4.9 L, Albumin 2.3 L, Globulin 2.6, Albumin/Globulin Ratio 0.9 Physical Exam Const alert and no apparent distress Constitutional Narrative: elderly female, General Appearance: cooperative and comfortable HEENT normocephalic, head/scalp atraumatic, hearing grossly normal bilaterally, nasal mucous membranes and turbinates normal and moist oral mucous membranes Eyes PERRL, EOMs intact bilaterally and conjunctivae normal Neck full ROM, no lymphadenopathy and supple Lymph Lymphatic: no lymphadenopathy noted Chest inspection of chest normal Resp Resp Narrative: Satting well on 2 L nasal cannula, no increased work of breathing noted. Mild crackles noted bilaterally. Cardio regular rate, regular rhythm, no murmurs and peripheral pulses 2+ throughout GI GI Narrative: Mildly distended on palpation, no fluid wave noted. Nontender to palpation. 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 Her MELD sodium score is 14 and she is a child Stauffer class B at this time. Hepatic encephalopathy is a common complication in patients with advanced liver disease. HE has various precipitants that can potentially promote its onset, alone or in combination. Among the historically well-known precipitants, such as infections, gastrointestinal bleeding, dehydration, electrolyte disorders and constipation, recent studies have highlighted the role of malnutrition and portosystemic shunts as new precipitating factors of HE. Currently she has acute kidney injury which I think is contributing to her worsening hepatic encephalopathy because some of the ammonia that we make in her colon, red blood cell breakdown and muscle breakdown is cleared by the kidney. Her kidney function is improving somewhat which makes this more likely acute kidney injury secondary to dehydration versus hepatorenal syndrome. Although we will have to draw a urine sodium and see if it is low. At this time she seems to have a grade 1-2 hepatic encephalopathy. There are 3 types of hepatic encephalopathy. Type A: hepatic encephalopathy due to of acute liver failure. She does not seem to be experiencing any type of acute on chronic liver failure Type B: hepatic encephalopathy due to portal-systemic bypass with no intrinsic hepatocellular disease. She does not reach criteria for type B as she does have intrinsic hepatocellular disease Type C: hepatic encephalopathy due to cirrhosis with portal hypertension or systemic shunting. She does have signs of portal hypertension being that she does have spider angiomata, ascites and other signs or symptoms of chronic liver disease. At this time we cannot get a CT scan of the abdomen pelvis to look for portosystemic shunts. -Visually she seems to be experiencing some sarcopenia which also contributes to worsening hepatic encephalopathy due to muscle breakdown and ammonia production from muscle breakdown. I would recommend to check a CPK, aldolase, LDH and urine myoglobin. -She would benefit from branched chain amino acids plus lactulose as branched chain amino acids can help filter out ammonia better. In a patient with severe hypoalbuminemia that would be relying only on albumin to remove remove ammonia from the body. -Acute kidney injury can also contribute to her poor clearance of ammonia. Therefore I will start her on albumin, octreotide and midodrine ( hold for sbp>120). -Recommend dietitian consultation for the administration of branch chain amino acids 2-3 times a day with administration of lactulose. -She may benefit from an upper endoscopy to see if she has any signs or symptoms of portosystemic shunting with gastric varices or esophageal varices, severe portal gastropathy, gastric antral vascular ectasia as these will contribute to refractory hepatic encephalopathy.? N.p.o. past midnight to see if there is any signs or symptoms of slow intermittent GI blood loss contributing to hepatic encephalopathy and upper GI tract. -She also needs a normal TSH to help facilitate proper clearance of ammonia from the body. Her last TSH was 13.7. -I will also put her on nadolol for varices. 04/22-I will put her back on a regular diet after her endoscopy. I will give her 3 days of vancomycin and Flagyl together in order to detoxify her gut along with her taken Xifaxan twice a day. There have been some evidence-based studies that have shown that vancomycin plus Flagyl are is just as good as neomycin. I do not want to give her neomycin at this time because of her acute kidney injury. Hopefully along with lactulose this will help her refractory encephalopathy. Awaiting on ascitic studies to see if there is any other signs of hepatic decompensation. 04/23-worsening kidney function is consistent with hepatorenal syndrome type II versus prerenal azotemia. She was started on some IV fluids by nephrology. Appreciate assistance. She is on octreotide, midodrine and albumin. She was given antibiotics for detoxification of the small bowel yesterday. She still on Xifaxan and lactulose. Her current MELD is at 17. She has a grade 1 metabolic encephalopathy. She is also decompensated liver disease from ascites and lower extremity edema. Her ascites is consistent with portal hypertension secondary to cirrhosis. Gentle diuresis as per nephrology. Recheck ammonia. Await alpha-fetoprotein to screen for hepatocellular carcinoma. 04/24-kidney function is still worsening. Creatinine is up to 2.7. She is being seen by nephrology. Appreciate nephrology input. She is still on octreotide, midodrine, albumin. She underwent detoxification regimen with triple antibiotic therapy. Mentation is still about the same. I suspect that her grade 1 to grade 2 encephalopathy will not improve unless her kidney function improves as you do have some renal clearance of ammonia. Patient started on thyroid medicine. Awaiting recheck ammonia and alpha-fetoprotein. 04/25-not much change as far as her baseline mentation. Her creatinine is up to 2.8. She is acting more like she has hepatorenal syndrome type II. There is a slower incline but is still increasing. She is on octreotide midodrine and albumin. Blood pressure is stable. She still exhibiting grade 1-2 encephalopathy. I think she was a little better while she was on the antibiotics Flagyl, vancomycin along with Xifaxan and lactulose. For now I would not restart her back on any oral antibiotics other than the Xifaxan that she is already getting and lactulose. Continue lactulose to titrate bowel movements up to 4 times a day. Poor prognosis if this is hepatorenal syndrome type II. Charges/Coding Visit Charges Inpatient E&M: 69882 Subs Hosp L3
[2023-04-25] MEDS: 0.9% Saline Lock 10 ML Syringe IV ×2 (21:19→22:07)
[2023-04-26 04:07] LABS: AFP, Tumor Marker < 1.8 ng/mL (0.0-9.2)
[2023-04-26 05:17] VITALS: BP 122/67; PULSE 98; RESP 20; TEMP 36.5; O2SAT 99
[2023-04-26] MEDS: Lactulose 20 GM/30 ML UDC 30 GM PO ×2 (05:32→22:02)
[2023-04-26] MEDS: Levothyroxine 75 MCG Tablet PO (05:36)
[2023-04-26] MEDS: Octreotide 0.1 MG/ML ML SC ×3 (05:41→21:42)
[2023-04-26 06:00] VITALS: BMI 40.1
[2023-04-26 07:09] LABS: Hematocrit 24.1 % (37-47); Hemoglobin 7.1 g/dL (12.0-15.0); Mean Corp Hgb Conc 29.5 g/dL (32-36); Mean Corpuscular Hgb 31.3 pg (27.0-32.0); Mean Corpuscular Volume 106.2 fL (81-99); POSITIVE COUNT YES; Platelet Count 80 K/mm3 (150-450); RBC Distribution Width CV 16.3 % (11.6-14.6); RBC Distribution Width SD 63.2 fl (35.1-43.9); Red Blood Count 2.27 M/mm3 (4.2-5.4); White Blood Count 7.5 K/mm3 (4.4-11.0)
[2023-04-26 07:35] LABS: ALB/GLOB Ratio 0.9 RATIO (0.9-2.4); AST(SGOT) 22 U/L (15-37); Alanine Aminotransfer ALT/SGPT 16 U/L (13-56); Albumin, Serum 2.3 g/dL (3.2-5.0); Alkaline Phosphatase 128 U/L (45-117); Anion Gap 0 (5-15); BUN 55 mg/dL (7-18); BUN/Creat Ratio 19.1 RATIO (10-20); Chloride 122 mmol/L (98-107); Creatinine, Serum 2.88 mg/dL (0.55-1.02); EST Glomerular Filtration Rate 17 mL/min (>60); Est Glom Filt Rate - Afr Amer 20 mL/min (>60); Estimated Creatinine Clearance 13.75 ml/min; Globulin 2.6 g/dL (2.2-4.2); Glucose 133 mg/dL (74-106); Potassium 4.2 mmol/L (3.5-5.1); Protein, Total 4.9 g/dL (6.4-8.2); Sodium Level 146 mmol/L (136-145)
[2023-04-26 07:47] LABS: International Normalized Ratio 2.2
[2023-04-26] MEDS: rifAXIMin 550 MG Tablet PO ×2 (10:47→21:41)
[2023-04-26] MEDS: Ascorbic Acid 500 MG Tablet 1000 MG PO (10:48)
[2023-04-26] MEDS: Menthol/Lanolin/Calamine/Znox 113 GM Tube 1 APPLIC TOPICAL ×2 (10:48→21:39)
[2023-04-26] MEDS: Miconazole Nitrate 43 GM Bottle 1 APPLIC TOPICAL ×2 (10:49→21:40)
[2023-04-26] MEDS: Ferrous Sulfate 325 MG Tablet PO (10:50)
[2023-04-26] MEDS: Calcium Carb/Vitamin D 1 TABLET Tablet 2 TABLET PO (10:50)
[2023-04-26] MEDS: Midodrine HCl 5 MG Tablet 10 MG PO (10:50)
[2023-04-26] MEDS: Cholecalciferol (VIT D3) 25 MCG TABLET (1,000 UNITS) 50 MCG PO (10:50)
[2023-04-26] MEDS: Albumin Human 25% (50 mL) 12.5 GM/50 ML IV.SOLN IV ×2 (10:56→21:37)
[2023-04-26 11:15] VITALS: BP 140/71; PULSE 81; RESP 20; TEMP 36.6; O2SAT 99
[2023-04-26 12:45] VITALS: O2SAT 98
--- NOTE | 2023-04-26 13:20 | PN.HOSP_ITS ---
Reason for Visit Reason for Visit: Diagnoses Unspecified cirrhosis of liver (04/18/23) Hepatic encephalopathy (04/18/23) Acute kidney failure, unspecified (04/18/23) Other ascites (04/18/23) Disorientation, unspecified (04/18/23) Abnormal findings on diagnostic imaging of other specified body structures (04/18/23) Subjective Subjective No acute events overnight. Patient seen at bedside this morning. Was sleeping on my arrival to the room. On awakening, resting comfortably in bed, conversing normally, no acute distress. Patient continues to feel fatigued but denies any other pain or discomfort at this time. Continues to report minimal appetite, similar to previous days. No other acute concerns at this time. Objective Data Objective Data Vital Signs: Vital Signs Temp Pulse Resp BP Pulse Ox O2 Del Method O2 Flow Rate 97.9 F 81 20 H 140/71 H 99 Room Air 2 04/26/23 11:15 04/26/23 11:15 04/26/23 11:15 04/26/23 11:15 04/26/23 11:15 04/26/23 11:15 04/26/23 05:17 Oxygen Flow Rate (L/min) 2 Oxygen Delivery Method [4] Room Air Oxygen Delivery Method [3] Room Air Oxygen Delivery Method [2] Room Air Oxygen Delivery Method [1 ( Room Air Initial Baseline)] Oxygen Delivery Method Room Air Weight: 102.8 kg Body Mass Index (BMI) 40.1 Intake & Output: Intake and Output for Last 24 Hours 04/24/23 04/25/23 04/26/23 23:59 23:59 23:59 Intake Total 2031.67 / 2381.67 750 / 950 670 / 670 Output Total 225 / 325 720 / 795 400 / 400 Balance 1806.67 / 2056.67 30 / 155 270 / 270 Lab / Micro Data 04/26/23 06:35 04/26/23 06:35 Labs: Laboratory Results - last 24 hr 04/24/23 16:30: Tumor Marker AFP < 1.8 04/26/23 06:35: WBC 7.5, RBC 2.27 L, Hgb 7.1 L, Hct 24.1 L, MCV 106.2 H, MCH 31.3, MCHC 29.5 L, RDW Std Deviation 63.2 H, RDW Coeff of Albert 16.3 H, Plt Count 80 L, MPV 9.0, PT 25.0 H, INR 2.2, Sodium 146 H, Potassium 4.2, Chloride 122 H, Carbon Dioxide 24.0, Anion Gap 0 L, BUN 55 H, Creatinine 2.88 H, Estim Creat Clear Calc 13.75, Est GFR (MDRD) Af Amer 20 L, Est GFR (MDRD) Non-Af 17 L, BUN/Creatinine Ratio 19.1, Glucose 133 H, Calcium 9.0, Total Bilirubin 0.70, AST 22, ALT 16, Alkaline Phosphatase 128 H, Total Protein 4.9 L, Albumin 2.3 L, Globulin 2.6, Albumin/Globulin Ratio 0.9 Physical Exam Const alert and no apparent distress Constitutional Narrative: Pleasant elderly female, obese, chronically ill-appearing. Alert, mildly delayed responses but answering questions appropriately, no acute distress. General Appearance: cooperative and comfortable HEENT normocephalic, head/scalp atraumatic, hearing grossly normal bilaterally, nasal mucous membranes and turbinates normal and moist oral mucous membranes Eyes PERRL, EOMs intact bilaterally and conjunctivae normal Neck full ROM, no lymphadenopathy and supple Lymph Lymphatic: no lymphadenopathy noted Chest inspection of chest normal Resp Resp Narrative: Satting well on 2 L nasal cannula, no increased work of breathing noted. Mild crackles noted bilaterally. Cardio regular rate, regular rhythm, no murmurs and peripheral pulses 2+ throughout GI GI Narrative: Mildly distended on palpation, no fluid wave noted. Nontender to palpation. Back/Spine normal ROM Extremity normal to inspection Skin no rashes or lesions noted Assessment & Plan Assessment/Plan (1) Hepatic encephalopathy: (2) Acute kidney injury: PLAN: Plan StablePatient is a 77-year-old female who presented to [facility] ED on 04/18/2023 from skilled nursing for altered mental status. 1. Hepatic encephalopathy, improving; history of cirrhosis with ascites Per patient's family, patient was recently hospitalized [facility] for hepatic encephalopathy with elevated ammonia levels. Unclear on etiology of hepatic encephalopathy at that time. Was discharged to an extended care facility after that hospitalization. Has been getting her lactulose and rifaximin as prescribed but continues to have waxing and waning confusion. Unclear if encephalopathy on this admission is due to issues with her medications or secondary underlying cause. Ammonia level elevated at 95 on admission. S/p diagnostic and therapeutic paracentesis on 04/22, 2100 ml fluid removed; fluid studies with no concern for SBP. ? Gastroenterology following. Suspect hepatic encephalopathy is multifactorial with possible contributors of malnutrition, DILAN, muscle breakdown, mild GI bleed. Continue treatment with lactulose and rifaximin. Per nutrition, encouraged supplementation with foods rich in branched chain amino acids with meals. Daily MELD labs. 2. Acute on chronic anemia, mild upper GI bleed Hemoglobin 9.2 on admission, appear to be close to baseline of around 10. Slowly down trended during admission to 7.6 on 04/22. Chronic anemia suspected secondary to cirrhosis. S/p EGD on 04/22, oozing gastric ulcers with pigmented material noted, injected and treated with heater probe. Hemoglobin 7.1 on 04/25. ? Gastroenterology following as above. Continue Protonix 40 mg p.o. twice daily. Monitor CBC daily. Avoid NSAIDs. 3. DILAN Creatinine 2.19 on admit, BUN 57. Baseline creatinine around 0.6. Creatinine has remained stable around 2.0-2.1 since admission. Patient has had fairly minimal urine output but this has not been accurately quantified over the last several days. Urine sodium and creatinine ordered on 04/21, FeNa calculated to be 0.1% consistent with prerenal etiology. Specialists below had low concern for hepatorenal syndrome, however was noted that DILAN could contribute to poor clearance of ammonia so patient was initiated on albumin, octreotide and midodrine on 04/21. Had some improvement of urine output, creatinine unfortunately mildly worsened. Supplemental IV fluids started by nephrology in 04/23, resulted in mild volume overload, discontinued on 04/24. ? Nephrology and gastroenterology following. Creatinine appears to be stabilizing but is not improving. Continue albumin, midodrine and octreotide for now. Monitor daily BMP and urine output. Tse catheter in place for accurate I's and O's. Per GI, have concern that patient may be developing a type II hepatorenal syndrome; if this is the case, patient unfortunately has a poor prognosis. May need to consider palliative care involvement versus hospice discussion in the next few days. 4. Severe malnutrition ? Albumin 1.6 on admission, likely multifactorial in setting of cirrhosis with very poor p.o. intake over an extended period of time. Nutrition consulted. Recommending increased intake of meat, dairy and legumes hospitalized for natural sources of branched chain amino acids. Encouraging protein and Magic cu p dessert for dietary supplements. 5. Elevated TSH ? TSH elevated at 13 on admit, T4 normal, T3 low. Consistent with subclinical hypothyroidism. Initially favor not treating with Synthroid, however per GI an elevated TSH can contribute to poor clearance of pneumonia so will initiate patient on levothyroxine 75 mg daily. Follow-up TSH in outpatient setting. 6. Hypernatremia, improving ? Presumed secondary to free water depletion. Nephrology following as above. Sodium peaked at 154. Most recent sodium 146 on 04/26. Continue to monitor. Chronic medical conditions: ? Morbid obesity: BMI 38. Lifestyle modifications. ? History of colon cancer s/p resection and chemotherapy DVT prophylaxis: Heparin subcu CODE STATUS: DNR CCA, DO NOT INTUBATE. Confirmed upon review of paperwork from skilled nursing. Expected disposition: TBD Total clinical time spent by myself addressing the patient's medical issues, reviewing all the data, and collaborating with patient's care team: 35 minutes. Charges/Coding Visit Charges Inpatient E&M: 83484 Subs Hosp L2
[2023-04-26 13:25] VITALS: O2SAT 98
[2023-04-26 14:21] VITALS: O2SAT 97
[2023-04-26 21:01] VITALS: BP 120/45; PULSE 102; RESP 18; TEMP 36.8; O2SAT 98
[2023-04-26] MEDS: 0.9% Saline Lock 10 ML Syringe IV (22:16)
[2023-04-27] VITALS (11 sets, daily range): BP systolic 105–127; BP diastolic 52–95; PULSE 84–98; RESP 18–22; TEMP 36.4–36.8; O2SAT 93–100; BMI 38.0
[2023-04-27] MEDS: Levothyroxine 75 MCG Tablet PO (05:18)
[2023-04-27] MEDS: Octreotide 0.1 MG/ML ML SC ×3 (05:18→21:49)
[2023-04-27] MEDS: Lactulose 20 GM/30 ML UDC 30 GM PO ×3 (05:18→21:47)
[2023-04-27 06:39] LABS: Hematocrit 22.1 % (37-47); Hemoglobin 6.6 g/dL (12.0-15.0); Mean Corp Hgb Conc 29.9 g/dL (32-36); Mean Corpuscular Hgb 31.9 pg (27.0-32.0); Mean Corpuscular Volume 106.8 fL (81-99); Mean Platelet Vol. 9.1 fl (6.2-12.0); POSITIVE COUNT YES; Platelet Count 72 K/mm3 (150-450); RBC Distribution Width CV 16.4 % (11.6-14.6); RBC Distribution Width SD 64.1 fl (35.1-43.9); Red Blood Count 2.07 M/mm3 (4.2-5.4); White Blood Count 7.9 K/mm3 (4.4-11.0)
[2023-04-27 06:47] LABS: International Normalized Ratio 1.8; Prothrombin Time (Protime)PT. 20.9 SECONDS (11.7-14.9)
[2023-04-27 07:20] LABS: AST(SGOT) 17 U/L (15-37); Alanine Aminotransfer ALT/SGPT 13 U/L (13-56); Albumin, Serum 2.3 g/dL (3.2-5.0); Alkaline Phosphatase 108 U/L (45-117); Anion Gap 4 (5-15); BUN 56 mg/dL (7-18); BUN/Creat Ratio 18.7 RATIO (10-20); Calcium,Total 8.5 mg/dL (8.5-10.1); Chloride 121 mmol/L (98-107); EST Glomerular Filtration Rate 16 mL/min (>60); Est Glom Filt Rate - Afr Amer 20 mL/min (>60); Globulin 2.3 g/dL (2.2-4.2); Glucose 127 mg/dL (74-106); Potassium 4.3 mmol/L (3.5-5.1); Protein, Total 4.6 g/dL (6.4-8.2); Sodium Level 148 mmol/L (136-145)
[2023-04-27] MEDS: rifAXIMin 550 MG Tablet PO ×2 (10:33→21:48)
[2023-04-27] MEDS: Calcium Carb/Vitamin D 1 TABLET Tablet 2 TABLET PO (10:34)
[2023-04-27] MEDS: Ascorbic Acid 500 MG Tablet 1000 MG PO (10:34)
[2023-04-27] MEDS: Cholecalciferol (VIT D3) 25 MCG TABLET (1,000 UNITS) 50 MCG PO (10:34)
[2023-04-27] MEDS: Midodrine HCl 5 MG Tablet 10 MG PO ×2 (10:34→17:03)
[2023-04-27] MEDS: Ferrous Sulfate 325 MG Tablet PO (10:36)
[2023-04-27] MEDS: Menthol/Lanolin/Calamine/Znox 113 GM Tube 1 APPLIC TOPICAL ×2 (11:30→21:39)
[2023-04-27] MEDS: Miconazole Nitrate 43 GM Bottle 1 APPLIC TOPICAL ×2 (11:30→21:40)
--- NOTE | 2023-04-27 11:44 | PCM.PN.HOSP ---
Reason for Visit Reason for Visit: Diagnoses Unspecified cirrhosis of liver (04/18/23) Hepatic encephalopathy (04/18/23) Acute kidney failure, unspecified (04/18/23) Other ascites (04/18/23) Disorientation, unspecified (04/18/23) Abnormal findings on diagnostic imaging of other specified body structures (04/18/23) Subjective Subjective No acute events overnight. Patient seen at bedside this morning. Laying comfortably in bed, no acute distress. Continues to have some cognitive slowing but is otherwise answering questions appropriately. Patient denies any acute pain or discomfort this morning. No other acute concerns at this time. Objective Data Objective Data Vital Signs: Vital Signs Temp Pulse Resp BP Pulse Ox O2 Del Method O2 Flow Rate 97.6 F L 98 20 H 109/61 95 Nasal Cannula 2 04/27/23 11:15 04/27/23 11:15 04/27/23 11:15 04/27/23 11:15 04/27/23 11:15 04/27/23 11:15 04/27/23 11:15 Oxygen Flow Rate (L/min) 2 Oxygen Delivery Method [4] Room Air Oxygen Delivery Method [3] Room Air Oxygen Delivery Method [2] Room Air Oxygen Delivery Method [1 ( Room Air Initial Baseline)] Oxygen Delivery Method Nasal Cannula Weight: 97.522 kg Body Mass Index (BMI) 38.0 Intake & Output: Intake and Output for Last 24 Hours 04/25/23 04/26/23 04/27/23 23:59 23:59 23:59 Intake Total 750 / 950 970 / 1070 225 / 225 Output Total 720 / 795 600 / 900 400 / 400 Balance 30 / 155 370 / 170 -175 / -175 Lab / Micro Data 04/27/23 06:30 04/27/23 06:30 Labs: Laboratory Results - last 24 hr 04/27/23 06:30: WBC 7.9, RBC 2.07 L, Hgb 6.6 L, Hct 22.1 L, MCV 106.8 H, MCH 31.9, MCHC 29.9 L, RDW Std Deviation 64.1 H, RDW Coeff of Albert 16.4 H, Plt Count 72 L, MPV 9.1, PT 20.9 H, INR 1.8, Sodium 148 H, Potassium 4.3, Chloride 121 H, Carbon Dioxide 23.0, Anion Gap 4 L, BUN 56 H, Creatinine 3.00 H, Estim Creat Clear Calc 13.20, Est GFR (MDRD) Af Amer 20 L, Est GFR (MDRD) Non-Af 16 L, BUN/Creatinine Ratio 18.7, Glucose 127 H, Calcium 8.5, Total Bilirubin 0.70, AST 17, ALT 13, Alkaline Phosphatase 108, Total Protein 4.6 L, Albumin 2.3 L, Globulin 2.3, Albumin/Globulin Ratio 1.0 04/27/23 08:10: Blood Type O POSITIVE, Antibody Screen NEGATIVE, Crossmatch See Detail Physical Exam Const alert and no apparent distress Constitutional Narrative: Pleasant elderly female, obese, chronically ill-appearing, laying comfortably in bed, no acute distress. Alert, mildly delayed responses but answering questions appropriately. General Appearance: cooperative and comfortable HEENT normocephalic, head/scalp atraumatic, hearing grossly normal bilaterally, nasal mucous membranes and turbinates normal and moist oral mucous membranes Eyes PERRL, EOMs intact bilaterally and conjunctivae normal Neck full ROM, no lymphadenopathy and supple Lymph Lymphatic: no lymphadenopathy noted Chest inspection of chest normal Resp Resp Narrative: Satting well on 2 L nasal cannula, no increased work of breathing noted. Good breath sounds bilaterally. Cardio regular rate, regular rhythm, no murmurs and peripheral pulses 2+ throughout GI GI Narrative: Mildly distended on palpation, no fluid wave noted. Nontender to palpation. Back/Spine normal ROM Extremity normal to inspection Skin no rashes or lesions noted Assessment & Plan Assessment/Plan (1) Hepatic encephalopathy: (2) Acute kidney injury: PLAN: Plan StablePatient is a 77-year-old female who presented to [facility] ED on 04/18/2023 from group home for altered mental status. 1. Hepatic encephalopathy, improving; history of cirrhosis with ascites Per patient's family, patient was recently hospitalized [facility] for hepatic encephalopathy with elevated ammonia levels. Unclear on etiology of hepatic encephalopathy at that time. Was discharged to an extended care facility after that hospitalization. Has been getting her lactulose and rifaximin as prescribed but continues to have waxing and waning confusion. Unclear if encephalopathy on this admission is due to issues with her medications or secondary underlying cause. Ammonia level elevated at 95 on admission. S/p diagnostic and therapeutic paracentesis on 04/22, 2100 ml fluid removed; fluid studies with no concern for SBP. ? Gastroenterology following. Suspect hepatic encephalopathy is multifactorial with possible contributors of malnutrition, DILAN, muscle breakdown, mild GI bleed. Continue treatment with lactulose and rifaximin. Per nutrition, encouraged supplementation with foods rich in branched chain amino acids with meals. Daily MELD labs. 2. Acute on chronic anemia, mild upper GI bleed Hemoglobin 9.2 on admission, appear to be close to baseline of around 10. Slowly down trended during admission to 7.6 on 04/22. Chronic anemia suspected secondary to cirrhosis. S/p EGD on 04/22, oozing gastric ulcers with pigmented material noted, injected and treated with heater probe. Hemoglobin 7.1 on 04/25. ? Gastroenterology following as above. Continue Protonix 40 mg p.o. twice daily. Monitor CBC daily. Avoid NSAIDs. 3. DILAN Creatinine 2.19 on admit, BUN 57. Baseline creatinine around 0.6. Creatinine has remained stable around 2.0-2.1 since admission. Patient has had fairly minimal urine output but this has not been accurately quantified over the last several days. Urine sodium and creatinine ordered on 04/21, FeNa calculated to be 0.1% consistent with prerenal etiology. Specialists below had low concern for hepatorenal syndrome, however was noted that DILAN could contribute to poor clearance of ammonia so patient was initiated on albumin, octreotide and midodrine on 04/21. Had some improvement of urine output, creatinine unfortunately mildly worsened. Supplemental IV fluids started by nephrology in 04/23, resulted in mild volume overload, discontinued on 04/24. ? Nephrology and gastroenterology following. Creatinine appears to be stabilizing but is not improving. Continue albumin, midodrine and octreotide for now. Monitor daily BMP and urine output. Tse catheter in place for accurate I's and O's. Per GI, have concern that patient may be developing a type II hepatorenal syndrome; if this is the case, patient unfortunately has a poor prognosis. May need to consider palliative care involvement versus hospice discussion in the next few days. 4. Severe malnutrition ? Albumin 1.6 on admission, likely multifactorial in setting of cirrhosis with very poor p.o. intake over an extended period of time. Nutrition consulted. Recommending increased intake of meat, dairy and legumes hospitalized for natural sources of branched chain amino acids. Encouraging protein and Magic cup dessert for dietary supplements. 5. Elevated TSH ? TSH elevated at 13 on admit, T4 normal, T3 low. Consistent with subclinical hypothyroidism. Initially favor not treating with Synthroid, however per GI an elevated TSH can contribute to poor clearance of pneumonia so will initiate patient on levothyroxine 75 mg daily. Follow-up TSH in outpatient setting. 6. Hypernatremia, improving ? Presumed secondary to free water depletion. Nephrology following as above. Sodium peaked at 154. Most recent sodium 146 on 04/26. Continue to monitor. Chronic medical conditions: ? Morbid obesity: BMI 38. Lifestyle modifications. ? History of colon cancer s/p resection and chemotherapy DVT prophylaxis: Heparin subcu CODE STATUS: DNR CCA, DO NOT INTUBATE. Confirmed upon review of paperwork from group home. Expected disposition: TBD Total clinical time spent by myself addressing the patient's medical issues, reviewing all the data, and collaborating with patient's care team: 35 minutes. Charges/Coding Visit Charges Inpatient E&M: 24445 Subs Hosp L2
[2023-04-27] MEDS: Albuterol 2.5 MG/3 ML VIAL.NEB. INHALATION (14:08)
[2023-04-27] MEDS: Albumin Human 25% (50 mL) 12.5 GM/50 ML IV.SOLN IV ×2 (16:50→21:44)
[2023-04-27] MEDS: 0.9% Saline Lock 10 ML Syringe IV (16:55)
[2023-04-28 03:00] VITALS: BP 128/70; PULSE 98; RESP 18; TEMP 36.7; O2SAT 93
[2023-04-28 03:15] VITALS: BMI 39.2
[2023-04-28] MEDS: Lactulose 20 GM/30 ML UDC 30 GM PO ×2 (05:53→14:55)
[2023-04-28] MEDS: Octreotide 0.1 MG/ML ML SC ×3 (05:53→23:06)
[2023-04-28] MEDS: Levothyroxine 75 MCG Tablet PO (05:53)
--- NOTE | 2023-04-28 06:02 | NURSING ---
Upon rounding on pt through this shift- this nurse found pt had removed her oxygen, her right arm sling and even her gown x1. The hospital bracelets had caused lacerations to her left wrist. this nurse cleansed site and applied a dressing over top of the area and replaced the 3 bands that were able to be replaced, loosely, after a dressing was placed beneath them to protect the skin at this location. Pt has had 2 BM's this shift and this nurse had received a verbal report from staff 04/26/23 stating that goal was for pt to have 6 BM's. However, after reviewing Dr. Canales's progress note, this nurse noticed that the goal Dr. Canales set is for pt to have 4 BM's per day. This will be passed on to day shift. Urine output remains low (~100cc/ shift). Dr. Martin notified day shift that he is aware of this. Pt's urine is dark, tea/coffee coloring and has sediment. Pt remains confused at this time and states her birthday [birth year] but could not finish or correct this statement. She reports that she is in [facility]. This nurse asked her what the current month is she said she doesn't know. Pt is delayed in her speech with hesitations.
[2023-04-28 07:21] LABS: Hematocrit 26.9 % (37-47); Hemoglobin 7.7 g/dL (12.0-15.0); Mean Corp Hgb Conc 28.6 g/dL (32-36); Mean Corpuscular Hgb 30.8 pg (27.0-32.0); Mean Corpuscular Volume 107.6 fL (81-99); Mean Platelet Vol. 9.8 fl (6.2-12.0); POSITIVE COUNT YES; POSITIVE MORPHOLOGY YES; Platelet Count 80 K/mm3 (150-450); RBC Distribution Width CV 18.3 % (11.6-14.6); White Blood Count 9.1 K/mm3 (4.4-11.0)
[2023-04-28 07:34] LABS: Scan Indicated on CBC? Y/N YES- FLAGS NOTED
[2023-04-28 07:36] LABS: AST(SGOT) 17 U/L (15-37); Alanine Aminotransfer ALT/SGPT 14 U/L (13-56); Albumin, Serum 2.4 g/dL (3.2-5.0); Alkaline Phosphatase 110 U/L (45-117); Anion Gap 8 (5-15); BUN 57 mg/dL (7-18); BUN/Creat Ratio 16.8 RATIO (10-20); Calcium,Total 9.2 mg/dL (8.5-10.1); Chloride 122 mmol/L (98-107); EST Glomerular Filtration Rate 14 mL/min (>60); Est Glom Filt Rate - Afr Amer 17 mL/min (>60); Estimated Creatinine Clearance 11.64 ml/min; Globulin 2.5 g/dL (2.2-4.2); Glucose 144 mg/dL (74-106); Potassium 4.3 mmol/L (3.5-5.1); Protein, Total 4.9 g/dL (6.4-8.2); Sodium Level 149 mmol/L (136-145)
[2023-04-28 08:04] VITALS: O2SAT 95
[2023-04-28 08:14] LABS: International Normalized Ratio 1.8; Prothrombin Time (Protime)PT. 21.5 SECONDS (11.7-14.9)
[2023-04-28 09:06] VITALS: BP 121/98; PULSE 116; RESP 18; TEMP 36.4; O2SAT 98
[2023-04-28] MEDS: Albumin Human 25% (50 mL) 12.5 GM/50 ML IV.SOLN IV ×2 (09:23→22:23)
[2023-04-28] MEDS: 0.9% Saline Lock 10 ML Syringe IV ×2 (09:25→10:11)
[2023-04-28] MEDS: Menthol/Lanolin/Calamine/Znox 113 GM Tube 1 APPLIC TOPICAL ×2 (09:26→22:36)
[2023-04-28] MEDS: Miconazole Nitrate 43 GM Bottle 1 APPLIC TOPICAL ×2 (09:26→22:36)
[2023-04-28] MEDS: Cholecalciferol (VIT D3) 25 MCG TABLET (1,000 UNITS) 50 MCG PO (09:27)
[2023-04-28] MEDS: Calcium Carb/Vitamin D 1 TABLET Tablet 2 TABLET PO (09:27)
[2023-04-28] MEDS: Ferrous Sulfate 325 MG Tablet PO (09:27)
[2023-04-28] MEDS: Ascorbic Acid 500 MG Tablet 1000 MG PO (09:27)
[2023-04-28] MEDS: rifAXIMin 550 MG Tablet PO (09:28)
--- NOTE | 2023-04-28 09:43 | PCM.PN.HOSP ---
Subjective Subjective No issues overnight, hemoglobin today is 7.7 up from 6.6 it was yesterday. She did receive a unit of blood Objective Data Objective Data Vital Signs: Vital Signs Temp Pulse Resp BP Pulse Ox O2 Del Method O2 Flow Rate 97.5 F L 116 H 18 121/98 H 98 Nasal Cannula 2 04/28/23 09:06 04/28/23 09:06 04/28/23 09:06 04/28/23 09:06 04/28/23 09:06 04/28/23 09:06 04/28/23 09:06 Oxygen Flow Rate (L/min) 2 Oxygen Delivery Method [4] Room Air Oxygen Delivery Method [3] Room Air Oxygen Delivery Method [2] Room Air Oxygen Delivery Method [1 ( Room Air Initial Baseline)] Oxygen Delivery Method Nasal Cannula Weight: 221 lb 12.56 oz Body Mass Index (BMI) 39.2 Intake & Output: Intake and Output for Last 24 Hours 04/27/23 04/28/23 04/29/23 03:59 03:59 03:59 Intake Total 870 / 870 865 / 865 240 / 240 Output Total 825 / 825 200 / 200 2150 / 2150 Balance 45 / 45 665 / 665 -1910 / -1910 Lab / Micro Data 04/28/23 07:05 04/28/23 07:05 Labs: Laboratory Results - last 24 hr 04/27/23 08:10: Blood Type O POSITIVE, Antibody Screen NEGATIVE, Crossmatch See Detail 04/28/23 07:05: WBC 9.1, RBC 2.50 L, Hgb 7.7 L, Hct 26.9 L, MCV 107.6 H, MCH 30.8, MCHC 28.6 L, RDW Std Deviation 70.0 H, RDW Coeff of Albert 18.3 H, Plt Count 80 L, MPV 9.8, Differential Comment COMMENT, PT 21.5 H, INR 1.8, Sodium 149 H, Potassium 4.3, Chloride 122 H, Carbon Dioxide 19.0 L, Anion Gap 8, BUN 57 H, Creatinine 3.40 H, Estim Creat Clear Calc 11.64, Est GFR (MDRD) Af Amer 17 L, Est GFR (MDRD) Non-Af 14 L, BUN/Creatinine Ratio 16.8, Glucose 144 H, Calcium 9.2, Total Bilirubin 1.00, AST 17, ALT 14, Alkaline Phosphatase 110, Total Protein 4.9 L, Albumin 2.4 L, Globulin 2.5, Albumin/Globulin Ratio 1.0 Physical Exam Narrative General: Alert, Oriented x to, Cooperative, No apparent distress HEENT: Atraumatic, PERRLA, EOMI, Normocephalic Oral: Moist Mucosa Neck: Supple, No JVD Lungs: Diminished, Normal air movement, No rhonchi, No wheeze, No rales Cardiovascular: Regular rate, Regular Rhythm, Normal S1, Normal S2, No murmurs Abdomen: Soft, Non Tender, slightly distended, No Hepato-splenomegaly Extremities: No edema, Capillary Refill Less than 3 Seconds Skin: No rashes, No breakdown Musculoskeletal: No Tenderness to Palpation of Joints or Extremities Neurological: Cranial nerves II-XII grossly intact, Motor Exam 5/5 strength throughout, Sensory exam intact to light touch and pain Psych/Mental Status: Flat Assessment & Plan Assessment/Plan (1) Hepatic encephalopathy: (2) Acute kidney injury: PLAN: Plan 1. Hepatic encephalopathy, improving; history of cirrhosis with ascites Per patient's family, patient was recently hospitalized [facility] for hepatic encephalopathy with elevated ammonia levels. Unclear on etiology of hepatic encephalopathy at that time. Was discharged to an extended care facility after that hospitalization. Has been getting her lactulose and rifaximin as prescribed but continues to have waxing and waning confusion. Unclear if encephalopathy on this admission is due to issues with her medications or secondary underlying cause. Ammonia level elevated at 95 on admission. S/p diagnostic and therapeutic paracentesis on 04/22, 2100 ml fluid removed; fluid studies with no concern for SBP. ? Gastroenterology following. Suspect hepatic encephalopathy is multifactorial with possible contributors of malnutrition, DILAN, muscle breakdown, mild GI bleed. Continue treatment with lactulose and rifaximin. Per nutrition, encouraged supplementation with foods rich in branched chain amino acids with meals. Daily MELD labs. 04/28/2023: We will await for family arrival to discuss advance care planning and other options, her renal function is worsening and it does not appear that her encephalopathy has completely resolved 2. Acute on chronic anemia, mild upper GI bleed Hemoglobin 9.2 on admission, appear to be close to baseline of around 10. Slowly down trended during admission to 7.6 on 04/22. Chronic anemia suspected secondary to cirrhosis. S/p EGD on 04/22, oozing gastric ulcers with pigmented material noted, injected and treated with heater probe. Hemoglobin 7.1 on 04/25. ? Gastroenterology following as above. Continue Protonix 40 mg p.o. twice daily. Monitor CBC daily. Avoid NSAIDs. 04/28/2023: Hemoglobin 7. 1:07 unit of blood. We will recheck in the morning 3. DILAN Creatinine 2.19 on admit, BUN 57. Baseline creatinine around 0.6. Creatinine has remained stable around 2.0-2.1 since admission. Patient has had fairly minimal urine output but this has not been accurately quantified over the last several days. Urine sodium and creatinine ordered on 04/21, FeNa calculated to be 0.1% consistent with prerenal etiology. Specialists below had low concern for hepatorenal syndrome, however was noted that DILAN could contribute to poor clearance of ammonia so patient was initiated on albumin, octreotide and midodrine on 04/21. Had some improvement of urine output, creatinine unfortunately mildly worsened. Supplemental IV fluids started by nephrology in 04/23, resulted in mild volume overload, discontinued on 04/24. ? Nephrology and gastroenterology following. Creatinine appears to be stabilizing but is not improving. Continue albumin, midodrine and octreotide for now. Monitor daily BMP and urine output. Tse catheter in place for accurate I's and O's. Per GI, have concern that patient may be developing a type II hepatorenal syndrome; if this is the case, patient unfortunately has a poor prognosis. May need to consider palliative care involvement versus hospice discussion in the next few days. 04/28/2023: Appreciate nephrology's assistance, creatinine is worsening and she did have 2 L off from a paracentesis on 04/22/2023 so we are limited in the fluids we can give 4. Severe malnutrition ? Albumin 1.6 on admission, likely multifactorial in setting of cirrhosis with very poor p.o. intake over an extended period of time. Nutrition consulted. Recommending increased intake of meat, dairy and legumes hospitalized for natural sources of branched chain amino acids. Encouraging protein and Magic cup dessert for dietary supplements. 5. Elevated TSH ? TSH elevated at 13 on admit, T4 normal, T3 low. Consistent with subclinical hypothyroidism. Initially favor not treating with Synthroid, however per GI an elevated TSH can contribute to poor clearance of pneumonia so will initiate patient on levothyroxine 75 mg daily. Follow-up TSH in outpatient setting. 6. Hypernatremia, improving ? Presumed secondary to free water depletion. Nephrology following as above. Sodium peaked at 154. Most recent sodium 146 on 04/26. Continue to monitor. 04/28/2023: Sodium is climbing a little bit we will await nephrology's evaluation for intervention Chronic medical conditions: ? Morbid obesity: BMI 38. Lifestyle modifications. ? History of colon cancer s/p resection and chemotherapy DVT: SCDs Charges/Coding Visit Charges Inpatient E&M: 44590 Subs Hosp L2
--- NOTE | 2023-04-28 11:03 | PCM.PN.REN ---
Subjective Subjective Remains confused Objective Data Objective Data Vital Signs: Vital Signs Temp Pulse Resp BP Pulse Ox O2 Del Method O2 Flow Rate 97.5 F L 116 H 18 121/98 H 98 Nasal Cannula 2 04/28/23 09:06 04/28/23 09:06 04/28/23 09:06 04/28/23 09:06 04/28/23 09:06 04/28/23 09:06 04/28/23 09:06 Oxygen Flow Rate (L/min) 2 Oxygen Delivery Method [4] Room Air Oxygen Delivery Method [3] Room Air Oxygen Delivery Method [2] Room Air Oxygen Delivery Method [1 ( Room Air Initial Baseline)] Oxygen Delivery Method Nasal Cannula Weight: 100.6 kg Body Mass Index (BMI) 39.2 Intake & Output: Intake and Output for Last 24 Hours 04/26/23 04/27/23 04/28/23 23:59 23:59 23:59 Intake Total 970 / 1070 965 / 965 290 / 290 Output Total 600 / 900 500 / 500 2150 / 2150 Balance 370 / 170 465 / 465 -1860 / -1860 Lab / Micro Data 04/28/23 07:05 04/28/23 07:05 Labs: Laboratory Results - last 24 hr 04/27/23 08:10: Blood Type O POSITIVE, Antibody Screen NEGATIVE, Crossmatch See Detail 04/28/23 07:05: WBC 9.1, RBC 2.50 L, Hgb 7.7 L, Hct 26.9 L, MCV 107.6 H, MCH 30.8, MCHC 28.6 L, RDW Std Deviation 70.0 H, RDW Coeff of Albert 18.3 H, Plt Count 80 L, MPV 9.8, Differential Comment COMMENT, PT 21.5 H, INR 1.8, Sodium 149 H, Potassium 4.3, Chloride 122 H, Carbon Dioxide 19.0 L, Anion Gap 8, BUN 57 H, Creatinine 3.40 H, Estim Creat Clear Calc 11.64, Est GFR (MDRD) Af Amer 17 L, Est GFR (MDRD) Non-Af 14 L, BUN/Creatinine Ratio 16.8, Glucose 144 H, Calcium 9.2, Total Bilirubin 1.00, AST 17, ALT 14, Alkaline Phosphatase 110, Total Protein 4.9 L, Albumin 2.4 L, Globulin 2.5, Albumin/Globulin Ratio 1.0 Physical Exam Narrative Not alert and oriented, no apparent distress S1, S2, RRR Lung sounds clear anteriorly, diminished breath sounds posterior bases. No rales, rhonchi or wheezing noted Abdomen soft, positive bowel sounds +++Edema noted bilateral lower legs Assessment & Plan Assessment/Plan (1) Acute kidney injury: (2) Hepatic encephalopathy: (3) Cirrhosis of liver with ascites: QUALIFIERS: Hepatic cirrhosis type: unspecified hepatic cirrhosis Qualified Code(s): K74.60 - Unspecified cirrhosis of liver; R18.8 - Other ascites PLAN: Plan -Acute renal failure. As of January, her creatinine was normal. She has had 2 hospitalizations at [facility] where patient was admitted for hepatic encephalopathy, UTI and DILAN (03/24-03/28/2023). Creatinine peak was 3.8 mg/dL. Per nephrology note DILAN secondary to rhabdo, UTI, with concurrent diuretic use (patient was on Lasix and Aldactone) and possible component from contrast exposure. By time of hospital discharge serum creatinine had been improving, on 03/28/2023 serum creatinine 2.61 mg/dL; her creatinine has stayed between 2-2.5 most of these hospitalizations. History of cirrhosis with ascites Etiology of cirrhosis is KU Renal ultrasound without any hydronephrosis Urine analysis shows leukocytes, urine culture grew Enterobacter, was treated. Creatinine continues to worsen. Mental status is not great either. Blood pressure is at goal. She has been on hepatorenal syndrome treatment for the last 1 week or so. At this point due to worsening renal function, prognosis appears to be poor. If she is candidate for liver transplant evaluation, she should be transferred to tertiary care center. If she is not a candidate for liver transplant evaluation, hospice might be advisable. discussed with hospitalist
[2023-04-28 11:54] VITALS: BP 106/70; PULSE 100
[2023-04-28] MEDS: Midodrine HCl 5 MG Tablet 10 MG PO (11:56)
[2023-04-28 14:44] VITALS: BP 126/80; PULSE 112; RESP 20; TEMP 36.9; O2SAT 100
[2023-04-28 21:52] VITALS: BP 117/74; PULSE 113; RESP 24; TEMP 36.9; O2SAT 94
[2023-04-29] VITALS (8 sets, daily range): BP systolic 111–128; BP diastolic 46–89; PULSE 98–113; RESP 18–24; TEMP 36.1–36.6; O2SAT 89–100; BMI 39.0
[2023-04-29] MEDS: Lactulose 20 GM/30 ML UDC 30 GM PO ×2 (03:40→14:14)
[2023-04-29] MEDS: Acetaminophen 325 MG Tablet 650 MG PO (03:40)
[2023-04-29] MEDS: Levothyroxine 75 MCG Tablet PO (03:41)
[2023-04-29] MEDS: Albuterol 2.5 MG/3 ML VIAL.NEB. INHALATION (04:05)
[2023-04-29] MEDS: Octreotide 0.1 MG/ML ML SC ×3 (06:08→23:31)
[2023-04-29 06:21] LABS: Hematocrit 27.9 % (37-47); Hemoglobin 8.2 g/dL (12.0-15.0); Mean Corp Hgb Conc 29.4 g/dL (32-36); Mean Corpuscular Hgb 31.1 pg (27.0-32.0); Mean Corpuscular Volume 105.7 fL (81-99); Mean Platelet Vol. 9.3 fl (6.2-12.0); POSITIVE COUNT YES; POSITIVE MORPHOLOGY YES; Platelet Count 83 K/mm3 (150-450); RBC Distribution Width CV 18.8 % (11.6-14.6); RBC Distribution Width SD 68.6 fl (35.1-43.9); Red Blood Count 2.64 M/mm3 (4.2-5.4); White Blood Count 10.4 K/mm3 (4.4-11.0)
[2023-04-29 06:25] LABS: Scan Indicated on CBC? Y/N YES- FLAGS NOTED
[2023-04-29 06:31] LABS: International Normalized Ratio 1.8; Prothrombin Time (Protime)PT. 20.7 SECONDS (11.7-14.9)
[2023-04-29 06:50] LABS: Differential Comment SCANNED
[2023-04-29 06:54] LABS: AST(SGOT) 19 U/L (15-37); Alanine Aminotransfer ALT/SGPT 13 U/L (13-56); Albumin, Serum 2.4 g/dL (3.2-5.0); Alkaline Phosphatase 101 U/L (45-117); Anion Gap 2 (5-15); BUN 61 mg/dL (7-18); BUN/Creat Ratio 16.9 RATIO (10-20); Calcium,Total 8.8 mg/dL (8.5-10.1); Chloride 125 mmol/L (98-107); EST Glomerular Filtration Rate 13 mL/min (>60); Est Glom Filt Rate - Afr Amer 16 mL/min (>60); Globulin 2.3 g/dL (2.2-4.2); Glucose 153 mg/dL (74-106); Potassium 4.5 mmol/L (3.5-5.1); Protein, Total 4.7 g/dL (6.4-8.2); Sodium Level 148 mmol/L (136-145)
[2023-04-29] MEDS: Menthol/Lanolin/Calamine/Znox 113 GM Tube 1 APPLIC TOPICAL ×2 (08:19→23:25)
[2023-04-29] MEDS: Miconazole Nitrate 43 GM Bottle 1 APPLIC TOPICAL ×2 (08:19→23:26)
--- NOTE | 2023-04-29 08:31 | NURSING ---
attempted to give am meds crushed with pureed- pt opens mouth but then pockets and then spits back out. even when provided sips of water from cup, pt holds in her mouth despite being awake and oriented x1. pt will be made NPO until speech sees her.
[2023-04-29] MEDS: Albumin Human 25% (50 mL) 12.5 GM/50 ML IV.SOLN IV ×2 (09:49→23:21)
[2023-04-29] MEDS: 0.9% Saline Lock 10 ML Syringe IV ×2 (09:50→23:25)
--- NOTE | 2023-04-29 10:43 | PN.HOSP_ITS ---
Subjective Subjective Not alert today. Nursing was unable to get meds in her. I did have a long discussion with her granddaughter last night about comfort care and possible hospice. Objective Data Objective Data Vital Signs: Vital Signs Temp Pulse Resp BP Pulse Ox O2 Del Method O2 Flow Rate 97.3 F L 113 H 18 127/89 H 100 Nasal Cannula 2.5 04/29/23 07:53 04/29/23 07:53 04/29/23 07:53 04/29/23 07:53 04/29/23 07:53 04/29/23 07:53 04/29/23 07:53 Oxygen Flow Rate (L/min) 2.5 Oxygen Delivery Method [4] Room Air Oxygen Delivery Method [3] Room Air Oxygen Delivery Method [2] Room Air Oxygen Delivery Method [1 ( Room Air Initial Baseline)] Oxygen Delivery Method Nasal Cannula Weight: 220 lb 7.396 oz Body Mass Index (BMI) 39.0 Intake & Output: Intake and Output for Last 24 Hours 04/28/23 04/29/23 04/30/23 03:59 03:59 03:59 Intake Total 865 / 865 336 / 336 50 / 50 Output Total 200 / 200 2300 / 2300 50 / 50 Balance 665 / 665 -1964 / -1964 0 / 0 Lab / Micro Data 04/29/23 05:45 04/29/23 05:45 Labs: Laboratory Results - last 24 hr 04/29/23 05:45: WBC 10.4, RBC 2.64 L, Hgb 8.2 L, Hct 27.9 L, MCV 105.7 H, MCH 31.1, MCHC 29.4 L, RDW Std Deviation 68.6 H, RDW Coeff of Albert 18.8 H, Plt Count 83 L, MPV 9.3, Differential Comment SCANNED, PT 20.7 H, INR 1.8, Sodium 148 H, Potassium 4.5, Chloride 125 H, Carbon Dioxide 21.0, Anion Gap 2 L, BUN 61 H, Creatinine 3.60 H, Estim Creat Clear Calc 11.00, Est GFR (MDRD) Af Amer 16 L, Est GFR (MDRD) Non-Af 13 L, BUN/Creatinine Ratio 16.9, Glucose 153 H, Calcium 8 .8, Total Bilirubin 0.90, AST 19, ALT 13, Alkaline Phosphatase 101, Total Protein 4.7 L, Albumin 2.4 L, Globulin 2.3, Albumin/Globulin Ratio 1.0 Physical Exam Narrative General: Lethargic, no apparent distress HEENT: Atraumatic, PERRLA, normocephalic Oral: Moist Mucosa Neck: Supple, No JVD Lungs: Diminished, Normal air movement, No rhonchi, No wheeze, rales Cardiovascular: Regular rate, Regular Rhythm, Normal S1, Normal S2, No murmurs Abdomen: Soft, Non Tender, slightly distended, No Hepato-splenomegaly Extremities: Anasarca with weeping, Capillary Refill Less than 3 Seconds Skin: No rashes, No breakdown Musculoskeletal: No Tenderness to Palpation of Joints or Extremities Neurological: Does not follow commands Psych/Mental Status: Lethargic Assessment & Plan Assessment/Plan (1) Hepatic encephalopathy: (2) Acute kidney injury: PLAN: Plan 1. Hepatic encephalopathy, improving; history of cirrhosis with ascites Per patient's family, patient was recently hospitalized [facility] for hepatic encephalopathy with elevated ammonia levels. Unclear on etiology of hepatic encephalopathy at that time. Was discharged to an extended care facility after that hospitalization. Has been getting her lactulose and rifaximin as prescribed but continues to have waxing and waning confusion. Unclear if encephalopathy on this admission is due to issues with her medications or secondary underlying cause. Ammonia level elevated at 95 on admission. S/p diagnostic and therapeutic paracentesis on 04/22, 2100 ml fluid removed; fluid studies with no concern for SBP. ? Gastroenterology following. Suspect hepatic encephalopathy is multifactorial with possible contributors of malnutrition, DILAN, muscle breakdown, mild GI bleed. Continue treatment with lactulose and rifaximin. Per nutrition, encouraged supplementation with foods rich in branched chain amino acids with meals. Daily MELD labs. 04/28/2023: We will await for family arrival to discuss advance care planning and other options, her renal function is worsening and it does not appear that her encephalopathy has completely resolved 04/29/2023: Discussed her liver failure with gastroenterology and they did not feel like there is anything further left to do specially with her worsening renal function we will readdress CODE STATUS and possible hospice care with the granddaughter today 2. Acute on chronic anemia, mild upper GI bleed Hemoglobin 9.2 on admission, appear to be close to baseline of around 10. Slowly down trended during admission to 7.6 on 04/22. Chronic anemia suspected secondary to cirrhosis. S/p EGD on 04/22, oozing gastric ulcers with pigmented material noted, injected and treated with heater probe. Hemoglobin 7.1 on 04/25. ? Gastroenterology following as above. Continue Protonix 40 mg p.o. twice daily. Monitor CBC daily. Avoid NSAIDs. 04/28/2023: Hemoglobin 7.7 after 1 unit of blood. We will recheck in the morning 04/29/2023: Hemoglobin is improving 3. DILAN with likely hepatorenal syndrome Creatinine 2.19 on admit, BUN 57. Baseline creatinine around 0.6. Creatinine has remained stable around 2.0-2.1 since admission. Patient has had fairly minimal urine output but this has not been accurately quantified over the last several days. Urine sodium and creatinine ordered on 04/21, FeNa calculated to be 0.1% consistent with prerenal etiology. Specialists below had low concern for hepatorenal syndrome, however was noted that DILAN could contribute to poor clearance of ammonia so patient was initiated on albumin, octreotide and midodrine on 04/21. Had some improvement of urine output, creatinine unfortunately mildly worsened. Supplemental IV fluids started by nephrology in 04/23, resulted in mild volume overload, discontinued on 04/24. ? Nephrology and gastroenterology following. Creatinine appears to be stabilizing but is not improving. Continue albumin, midodrine and octreotide for now. Monitor daily BMP and urine output. Tse catheter in place for accurate I's and O's. Per GI, have concern that patient may be developing a type II hepatorenal syndrome; if this is the case, patient unfortunately has a poor prognosis. May need to consider palliative care involvement versus hospice discussion in the next few days. 04/28/2023: Appreciate nephrology's assistance, creatinine is worsening and she did have 2 L off from a paracentesis on 04/22/2023 so we are limited in the fluids we can give 04/29/2023: Renal function continues to worsen unfortunately she does have some crackles with diminished lung sounds so providing her with significant fluid we will present other challenges 4. Severe malnutrition ? Albumin 1.6 on admission, likely multifactorial in setting of cirrhosis with very poor p.o. intake over an extended period of time. Nutrition consulted. Recommending increased intake of meat, dairy and legumes hospitalized for natural sources of branched chain amino acids. Encouraging protein and Magic cup dessert for dietary supplements. 5. Elevated TSH ? TSH elevated at 13 on admit, T4 normal, T3 low. Consistent with subclinical hypothyroidism. Initially favor not treating with Synthroid, however per GI an elevated TSH can contribute to poor clearance of pneumonia so will initiate patient on levothyroxine 75 mg daily. Follow-up TSH in outpatient setting. 6. Hypernatremia, improving ? Presumed secondary to free water depletion. Nephrology following as above. Sodium peaked at 154. Most recent sodium 146 on 04/26. Continue to monitor. 04/28/2023: Sodium is climbing a little bit we will await nephrology's evaluation for intervention Chronic medical conditions: ? Morbid obesity: BMI 38. Lifestyle modifications. ? History of colon cancer s/p resection and chemotherapy DVT: SCDs Charges/Coding Visit Charges Inpatient E&M: 80985 Subs Hosp L2
[2023-04-29] MEDS: Midodrine HCl 5 MG Tablet 10 MG PO (14:10)
--- NOTE | 2023-04-29 14:16 | NURSING ---
pt able to take lactulose with via teaspoon.
[2023-04-30 04:07] VITALS: BP 129/73; PULSE 98; RESP 24; TEMP 36.1; O2SAT 96
[2023-04-30] MEDS: 0.9% Saline Lock 10 ML Syringe IV ×7 (04:32→16:24)
[2023-04-30 06:00] VITALS: BMI 39.1
[2023-04-30 06:44] VITALS: BP 109/71; PULSE 99; RESP 24; TEMP 36.6; O2SAT 94
[2023-04-30] MEDS: Octreotide 0.1 MG/ML ML SC (06:53)
[2023-04-30 07:13] VITALS: O2SAT 94
[2023-04-30 07:54] LABS: Hematocrit 28.2 % (37-47); Hemoglobin 8.3 g/dL (12.0-15.0); Mean Corp Hgb Conc 29.4 g/dL (32-36); Mean Corpuscular Hgb 31.4 pg (27.0-32.0); Mean Corpuscular Volume 106.8 fL (81-99); Mean Platelet Vol. 9.1 fl (6.2-12.0); POSITIVE COUNT YES; POSITIVE MORPHOLOGY YES; Platelet Count 90 K/mm3 (150-450); RBC Distribution Width CV 19.4 % (11.6-14.6); RBC Distribution Width SD 70.5 fl (35.1-43.9); Red Blood Count 2.64 M/mm3 (4.2-5.4); White Blood Count 10.7 K/mm3 (4.4-11.0)
--- NOTE | 2023-04-30 07:54 | PCM.PN.REN ---
Subjective Subjective no new events Objective Data Objective Data Vital Signs: Vital Signs Temp Pulse Resp BP Pulse Ox O2 Del Method O2 Flow Rate 97.9 F 99 24 H 109/71 94 Nasal Cannula 2 04/30/23 06:44 04/30/23 06:44 04/30/23 06:44 04/30/23 06:44 04/30/23 06:44 04/30/23 06:44 04/30/23 06:44 Oxygen Flow Rate (L/min) 2 Oxygen Delivery Method [4] Room Air Oxygen Delivery Method [3] Room Air Oxygen Delivery Method [2] Room Air Oxygen Delivery Method [1 ( Room Air Initial Baseline)] Oxygen Delivery Method Nasal Cannula Weight: 100.2 kg Body Mass Index (BMI) 39.1 Intake & Output: Intake and Output for Last 24 Hours 04/28/23 04/29/23 04/30/23 23:59 23:59 23:59 Intake Total 336 / 336 50 / 50 50 / 50 Output Total 2300 / 2300 125 / 125 150 / 150 Balance -1964 / -1964 -75 / -75 -100 / -100 Lab / Micro Data 04/29/23 05:45 04/29/23 05:45 Physical Exam Narrative Not alert and oriented, no apparent distress S1, S2, RRR Lung sounds clear anteriorly, diminished breath sounds posterior bases. No rales, rhonchi or wheezing noted Abdomen soft, positive bowel sounds +++Edema noted bilateral lower legs Assessment & Plan Assessment/Plan (1) Acute kidney injury: (2) Hepatic encephalopathy: (3) Cirrhosis of liver with ascites: QUALIFIERS: Hepatic cirrhosis type: unspecified hepatic cirrhosis Qualified Code(s): K74.60 - Unspecified cirrhosis of liver; R18.8 - Other ascites PLAN: Plan -Acute renal failure. As of January, her creatinine was normal. She has had 2 hospitalizations at [facility] where patient was admitted for hepatic encephalopathy, UTI and DILAN (03/24-03/28/2023). Creatinine peak was 3.8 mg/dL. Per nephrology note DILAN secondary to rhabdo, UTI, with concurrent diuretic use (patient was on Lasix and Aldactone) and possible component from contrast exposure. By time of hospital discharge serum creatinine had been improving, on 03/28/2023 serum creatinine 2.61 mg/dL; her creatinine has stayed between 2-2.5 most of these hospitalizations. History of cirrhosis with ascites Etiology of cirrhosis is KU Renal ultrasound without any hydronephrosis Urine analysis shows leukocytes, urine culture grew Enterobacter, was treated. Creatinine continues to worsen. Blood pressure is at goal. She has been on hepatorenal syndrome treatment for the last 1 week or so. At this point due to worsening renal function, prognosis appears to be poor. If she is candidate for liver transplant evaluation, she should be transferred to tertiary care center. If she is not a candidate for liver transplant evaluation, hospice might be advisable.
[2023-04-30 07:58] LABS: Scan Indicated on CBC? Y/N YES- FLAGS NOTED
[2023-04-30 08:15] LABS: International Normalized Ratio 1.8; Prothrombin Time (Protime)PT. 20.5 SECONDS (11.7-14.9)
[2023-04-30 08:31] LABS: AST(SGOT) 15 U/L (15-37); Alanine Aminotransfer ALT/SGPT 14 U/L (13-56); Albumin, Serum 2.7 g/dL (3.2-5.0); Alkaline Phosphatase 111 U/L (45-117); Anion Gap 3 (5-15); BUN 61 mg/dL (7-18); BUN/Creat Ratio 16.1 RATIO (10-20); Calcium,Total 9.4 mg/dL (8.5-10.1); Chloride 125 mmol/L (98-107); Creatinine, Serum 3.79 mg/dL (0.55-1.02); EST Glomerular Filtration Rate 12 mL/min (>60); Est Glom Filt Rate - Afr Amer 15 mL/min (>60); Estimated Creatinine Clearance 10.45 ml/min; Globulin 2.6 g/dL (2.2-4.2); Glucose 145 mg/dL (74-106); Potassium 4.6 mmol/L (3.5-5.1); Protein, Total 5.3 g/dL (6.4-8.2); Sodium Level 148 mmol/L (136-145)
[2023-04-30 08:36] VITALS: BP 106/88; PULSE 100; RESP 20; TEMP 36.8; O2SAT 98
--- NOTE | 2023-04-30 10:30 | CASEMGMT ---
Social Work - Hospice Referral This story writer apprised that physician spoke with family about hospice and family in agreement. Granddaughter, Shelli, who is listed on the [facility] paperwork involved in discussion. Spoke with Shelli outside of patient's room. Patient sleeping in room, surrounded by 3 sisters. Shelli confirms wish to go with [facility], as Shelli's uncle was with this Hospice program. Faxed referral packet to [facility], and called Irlanda Noland (director airport) regarding referral, family's presence on the [facility], and desire for IPU evaluation. Irlanda reports will have someone up to the hospital soon. Updated family at patient's bedside, including Shelli. Emotional support offered. Plan: Pending hospice admission. -BERHANE Guzman
--- NOTE | 2023-04-30 10:39 | PCM.PN.HOSP ---
Subjective Subjective A little more responsive this morning than she was yesterday but still has difficulty staying awake Objective Data Objective Data Vital Signs: Vital Signs Temp Pulse Resp BP Pulse Ox O2 Del Method O2 Flow Rate 98.3 F 100 20 H 106/88 H 98 Nasal Cannula 2 04/30/23 08:36 04/30/23 08:36 04/30/23 08:36 04/30/23 08:36 04/30/23 08:36 04/30/23 08:36 04/30/23 08:36 Oxygen Flow Rate (L/min) 2 Oxygen Delivery Method [4] Room Air Oxygen Delivery Method [3] Room Air Oxygen Delivery Method [2] Room Air Oxygen Delivery Method [1 ( Room Air Initial Baseline)] Oxygen Delivery Method Nasal Cannula Weight: 220 lb 14.451 oz Body Mass Index (BMI) 39.1 Intake & Output: Intake and Output for Last 24 Hours 04/29/23 04/30/23 05/01/23 03:59 03:59 03:59 Intake Total 336 / 336 100 / 100 Output Total 2300 / 2300 125 / 125 150 / 150 Balance -1964 / -1964 -25 / -25 -150 / -150 Lab / Micro Data 04/30/23 07:25 04/30/23 07:25 Labs: Laboratory Results - last 24 hr 04/30/23 07:25: WBC 10.7, RBC 2.64 L, Hgb 8.3 L, Hct 28.2 L, MCV 106.8 H, MCH 31.4, MCHC 29.4 L, RDW Std Deviation 70.5 H, RDW Coeff of Albert 19.4 H, Plt Count 90 L, MPV 9.1, Differential Comment COMMENT, PT 20.5 H, INR 1.8, Sodium 148 H, Potassium 4.6, Chloride 125 H, Carbon Dioxide 20.0 L, Anion Gap 3 L, BUN 61 H, Creatinine 3.79 H, Estim Creat Clear Calc 10.45, Est GFR (MDRD) Af Amer 15 L, Est GFR (MDRD) Non-Af 12 L, BUN/Creatinine Ratio 16.1, Glucose 145 H, Calcium 9.4, Total Bilirubin 0.80, AST 15, ALT 14, Alkaline Phosphatase 111, Total Protein 5.3 L, Albumin 2.7 L, Globulin 2.6, Albumin/Globulin Ratio 1.0 Physical Exam Narrative General: Lethargic, no apparent distress HEENT: Atraumatic, PERRLA, normocephalic Oral: Moist Mucosa Neck: Supple, No JVD Lungs: Diminished, Normal air movement, No rhonchi, No wheeze, rales Cardiovascular: Regular rate, Regular Rhythm, Normal S1, Normal S2, No murmurs Abdomen: Soft, Non Tender, slightly distended, No Hepato-splenomegaly Extremities: Anasarca with weeping, Capillary Refill Less than 3 Seconds Skin: No rashes, No breakdown Musculoskeletal: No Tenderness to Palpation of Joints or Extremities Neurological: Does not follow commands Psych/Mental Status: Lethargic Assessment & Plan Assessment/Plan (1) Hepatic encephalopathy: (2) Acute kidney injury: PLAN: Plan 1. Hepatic encephalopathy; history of cirrhosis with ascites Per patient's family, patient was recently hospitalized [facility] for hepatic encephalopathy with elevated ammonia levels. Unclear on etiology of hepatic encephalopathy at that time. Was discharged to an extended care facility after that hospitalization. Has been getting her lactulose and rifaximin as prescribed but continues to have waxing and waning confusion. Unclear if encephalopathy on this admission is due to issues with her medications or secondary underlying cause. Ammonia level elevated at 95 on admission. S/p diagnostic and therapeutic paracentesis on 04/22, 2100 ml fluid removed; fluid studies with no concern for SBP. ? Gastroenterology following. Suspect hepatic encephalopathy is multifactorial with possible contributors of malnutrition, DILAN, muscle breakdown, mild GI bleed. Continue treatment with lactulose and rifaximin. Per nutrition, encouraged supplementation with foods rich in branched chain amino acids with meals. Daily MELD labs. 04/28/2023: We will await for family arrival to discuss advance care planning and other options, her renal function is worsening and it does not appear that her encephalopathy has completely resolved 04/29/2023: Discussed her liver failure with gastroenterology and they did not feel like there is anything further left to do specially with her worsening renal function we will readdress CODE STATUS and possible hospice care with the granddaughter today 04/30/2023: Discussed with family for about 20 minutes on advance care planning given her poor prognosis they would like to speak with hospice today therefore will initiate morphine and Ativan to help with some symptom control pending their evaluation and decision on disposition 2. Acute on chronic anemia, mild upper GI bleed Hemoglobin 9.2 on admission, appear to be close to baseline of around 10. Slowly down trended during admission to 7.6 on 04/22. Chronic anemia suspected secondary to cirrhosis. S/p EGD on 04/22, oozing gastric ulcers with pigmented material noted, injected and treated with heater probe. Hemoglobin 7.1 on 04/25. ? Gastroenterology following as above. Continue Protonix 40 mg p.o. twice daily. Monitor CBC daily. Avoid NSAIDs. 04/28/2023: Hemoglobin 7.7 after 1 unit of blood. We will recheck in the morning 04/29/2023: Hemoglobin is improving 3. DILAN with likely hepatorenal syndrome Creatinine 2.19 on admit, BUN 57. Baseline creatinine around 0.6. Creatinine has remained stable around 2.0-2.1 since admission. Patient has had fairly minimal urine output but this has not been accurately quantified over the last several days. Urine sodium and creatinine ordered on 04/21, FeNa calculated to be 0.1% consistent with prerenal etiology. Specialists below had low concern for hepatorenal syndrome, however was noted that DILAN could contribute to poor clearance of ammonia so patient was initiated on albumin, octreotide and midodrine on 04/21. Had some improvement of urine output, creatinine unfortunately mildly worsened. Supplemental IV fluids started by nephrology in 04/23, resulted in mild volume overload, discontinued on 04/24. ? Nephrology and gastroenterology following. Creatinine appears to be stabilizing but is not improving. Continue albumin, midodrine and octreotide for now. Monitor daily BMP and urine output. Tse catheter in place for accurate I's and O's. Per GI, have concern that patient may be developing a type II hepatorenal syndrome; if this is the case, patient unfortunately has a poor prognosis. May need to consider palliative care involvement versus hospice discussion in the next few days. 04/28/2023: Appreciate nephrology's assistance, creatinine is worsening and she did have 2 L off from a paracentesis on 04/22/2023 so we are limited in the fluids we can give 04/29/2023: Renal function continues to worsen unfortunately she does have some crackles with diminished lung sounds so providing her with significant fluid we will present other challenges 4. Severe malnutrition ? Albumin 1.6 on admission, likely multifactorial in setting of cirrhosis with very poor p.o. intake over an extended period of time. Nutrition consulted. Recommending increased intake of meat, dairy and legumes hospitalized for natural sources of branched chain amino acids. Encouraging protein and Magic cup dessert for dietary supplements. 5. Elevated TSH ? TSH elevated at 13 on admit, T4 normal, T3 low. Consistent with subclinical hypothyroidism. Initially favor not treating with Synthroid, however per GI an elevated TSH can contribute to poor clearance of pneumonia so will initiate patient on levothyroxine 75 mg daily. Follow-up TSH in outpatient setting. 6. Hypernatremia, improving ? Presumed secondary to free water depletion. Nephrology following as above. Sodium peaked at 154. Most recent sodium 146 on 04/26. Continue to monitor. 04/28/2023: Sodium is climbing a little bit we will await nephrology's evaluation for intervention Chronic medical conditions: ? Morbid obesity: BMI 38. Lifestyle modifications. ? History of colon cancer s/p resection and chemotherapy DVT: SCDs Charges/Coding Visit Charges Inpatient E&M: 79823 Subs Hosp L2 Procedures Hospitalists Procedures: 51736 Advncd Care Plan 30 Min
[2023-04-30] MEDS: Morphine 2 MG/ML Syringe IV ×4 (10:56→16:23)
[2023-04-30] MEDS: Menthol/Lanolin/Calamine/Znox 113 GM Tube 1 APPLIC TOPICAL (11:04)
[2023-04-30] MEDS: Miconazole Nitrate 43 GM Bottle 1 APPLIC TOPICAL (11:05)
[2023-04-30] MEDS: LORazepam 2 MG/ML Syringe 0.5 MG IV ×4 (11:45→16:23)
--- NOTE | 2023-04-30 13:58 | PCM.DC.SUM ---
Providers Date of Admission: 04/18/23 Primary Care Physician: Dr. Christopher Spencer, Consultations 04/21/23 11:50 Consult: Nephrology Routine Consulting Provider: Walt Jimenez Reason for Consult: kidney injury EMERGENT Consult: No MD Notified: Yes Date Notified: 04/21/23 Time Notified: 11:51 Method of Notification: Verbal 04/21/23 12:59 Consult: Gastroenterology Routine Consulting Provider: Massimo Canales Reason for Consult: cirrhosis w/ recurrent encephalopathy EMERGENT Consult: No MD Notified: Yes Date Notified: 04/21/23 Time Notified: 13:20 Method of Notification: Text 04/30/23 09:06 Consult: Hospice / Palliative Care Routine Consulting Provider: [facility] Reason for Consult: renal failure, eval for IPU EMERGENT Consult: No Notified: Yes Date Notified: 04/30/23 Time Notified: 09:06 Method of Notification: Answering Service Reason For Visit: ACUTE KIDNEY INJURY & HEPATIC ENCEPHALOPATHY IN TH Diagnosis Discharge Diagnosis (1) Hepatic encephalopathy: Status: Acute Code(s): K76.82 - Hepatic encephalopathy (2) Acute kidney injury: Status: Acute Code(s): N17.9 - Acute kidney failure, unspecified Medications at Discharge Home Medications cholecalciferol (vitamin D3) 50 mcg (2,000 unit) chewable tablet 50 mcg PO DAILY 03/18/22 ferrous sulfate 324 mg (65 mg iron) tablet,delayed release 324 mg PO DAILY 03/18/22 furosemide 20 mg tablet 20 mg PO DAILY 03/18/22 lactulose 10 gram/15 mL oral solution 15 ml PO TID 03/21/22 rifaximin 550 mg tablet 550 mg PO BID 03/21/22 acetaminophen 325 mg capsule 650 mg PO Q4H PRN pain 04/18/23 ascorbic acid (vitamin C) 1,000 mg tablet (Vitamin C) 1 g PO DAILY 04/18/23 calcium carbonate 600 mg-vitamin D3 20 mcg (800 unit) tablet (Caltrate with Vitamin D3) 2 tab PO DAILY 04/18/23 cefdinir 300 mg capsule 300 mg PO DAILY uti 04/18/23 guaifenesin 100 mg/5 mL oral liquid 200 mg PO Q4H PRN cough 04/18/23 polyethylene glycol 3350 17 gram oral powder packet (Miralax) 17 g PO DAILY PRN constipation 04/18/23 Hospital Course Operations None Procedures EGD and Paracentesis Summary of Care Provided Minutes Spent on Discharge: 39 Hospital Course: Per HPI: ABDIRAHMAN HIGH, is a 77 F with a past medical history of essential hypertension, hyperlipidemia, morbid obesity with BMI of 42.9 this admission, diabetes mellitus type 2; of unknown control, history of DVT, chronic grade 2 diastolic CHF; with preserved left ventricular ejection fraction, history of colon cancer; status post resection and chemotherapy, restless leg syndrome, iron deficiency anemia, 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 twice daily and lactulose 15 mL p.o. 3 times daily with [facility] over the past 3 weeks due to [id number] confusion who presents to [facility] ER complaining of altered mental status. Ms. High is a suboptimal historian at this time so information was gathered from chart, medical staff and computer. Additionally, her granddaughter, who is also her medical power of real estate attorney, accompanied her to the ER this admission and she helped to augment the history. According to her granddaughter the patient was recently admitted to [facility] for hepatic encephalopathy with elevated ammonia levels and then she was discharged from there to an extended care facility who has been giving her her medications as prescribed but she keeps developing confusion due to her hyperammonemia. Her granddaughter also reports that she has had increasing generalized swelling due to ascites with associated fatigue. The patient thinks the year is 194 but is otherwise alert and oriented to person and place. Even though the patient is confused she is desperate not to be institutionalized if there is any way to avoid it. In the ER she was noted to have hyperammonemia with an ammonia level of 95 present on admission resulting in a diagnosis of hepatic encephalopathy complicated by laboratory evidence of acute kidney injury with an elevated creatinine of 2.19 mg/dL with a BUN of 57 mg/dL (up from her baseline normal creatinine of 0.61 mg/dL and BUN of 22 mg/dL last admission) compounded by generalized weakness and deconditioning due to chronically her poor and declining overall health. She was then admitted to the general medical floor for ongoing care for a stay that is expected to extend beyond 48 hours. Hospital Course: 1. Hepatic encephalopathy; history of cirrhosis with ascites due to [facility] Per patient's family, patient was recently hospitalized [facility] for hepatic encephalopathy with elevated ammonia levels. Unclear on etiology of hepatic encephalopathy at that time. Was discharged to an extended care facility after that hospitalization. Has been getting her lactulose and rifaximin as prescribed but continues to have waxing and waning confusion. Unclear if encephalopathy on this admission is due to issues with her medications or secondary underlying cause. Ammonia level elevated at 95 on admission. S/p diagnostic and therapeutic paracentesis on 04/22, 2100 ml fluid removed; fluid studies with no concern for SBP. ? Gastroenterology following. Suspect hepatic encephalopathy is multifactorial with possible contributors of malnutrition, DILAN, muscle breakdown, mild GI bleed. Continue treatment with lactulose and rifaximin. Per nutrition, encouraged supplementation with foods rich in branched chain amino acids with meals. Daily MELD labs. 04/28/2023: We will await for family arrival to discuss advance care planning and other options, her renal function is worsening and it does not appear that her encephalopathy has completely resolved 04/29/2023: Discussed her liver failure with gastroenterology and they did not feel like there is anything further left to do specially with her worsening renal function we will readdress CODE STATUS and possible hospice care with the granddaughter today 04/30/2023: Family elected today after our advance care planning discussion to speak with hospice. Mrs. High was evaluated by hospice and felt appropriate for the inpatient hospice unit. Family has agreed to proceed with hospice and she will be discharged this evening directly to the inpatient unit. 2. Acute on chronic anemia, mild upper GI bleed Hemoglobin 9.2 on admission, appear to be close to baseline of around 10. Slowly down trended during admission to 7.6 on 04/22. Chronic anemia suspected secondary to cirrhosis. S/p EGD on 04/22, oozing gastric ulcers with pigmented material noted, injected and treated with heater probe. Hemoglobin 7.1 on 04/25. ? Gastroenterology following as above. Continue Protonix 40 mg p.o. twice daily. Monitor CBC daily. Avoid NSAIDs. 04/28/2023: Hemoglobin 7.7 after 1 unit of blood. We will recheck in the morning 04/29/2023: Hemoglobin is improving 3. DILAN with likely hepatorenal syndrome Creatinine 2.19 on admit, BUN 57. Baseline creatinine around 0.6. Creatinine has remained stable around 2.0-2.1 since admission. Patient has had fairly minimal urine output but this has not been accurately quantified over the last several days. Urine sodium and creatinine ordered on 04/21, FeNa calculated to be 0.1% consistent with prerenal etiology. Specialists below had low concern for hepatorenal syndrome, however was noted that DILAN could contribute to poor clearance of ammonia so patient was initiated on albumin, octreotide and midodrine on 04/21. Had some improvement of urine output, creatinine unfortunately mildly worsened. Supplemental IV fluids started by nephrology in 04/23, resulted in mild volume overload, discontinued on 04/24. ? Nephrology and gastroenterology following. Creatinine appears to be stabilizing but is not improving. Continue albumin, midodrine and octreotide for now. Monitor daily BMP and urine output. Tse catheter in place for accurate I's and O's. Per GI, have concern that patient may be developing a type II hepatorenal syndrome; if this is the case, patient unfortunately has a poor prognosis. May need to consider palliative care involvement versus hospice discussion in the next few days. 04/28/2023: Appreciate nephrology's assistance, creatinine is worsening and she did have 2 L off from a paracentesis on 04/22/2023 so we are limited in the fluids we can give 04/29/2023: Renal function continues to worsen unfortunately she does have some crackles with diminished lung sounds so providing her with significant fluid we will present other challenges 4. Severe malnutrition ? Albumin 1.6 on admission, likely multifactorial in setting of cirrhosis with very poor p.o. intake over an extended period of time. Nutrition consulted. Recommending increased intake of meat, dairy and legumes hospitalized for natural sources of branched chain amino acids. Encouraging protein and Magic cup dessert for dietary supplements. 5. Elevated TSH ? TSH elevated at 13 on admit, T4 normal, T3 low. Consistent with subclinical hypothyroidism. Initially favor not treating with Synthroid, however per GI an elevated TSH can contribute to poor clearance of pneumonia so will initiate patient on levothyroxine 75 mg daily. Follow-up TSH in outpatient setting. 6. Hypernatremia, improving ? Presumed secondary to free water depletion. Nephrology following as above. Sodium peaked at 154. Most recent sodium 146 on 04/26. Continue to monitor. 04/28/2023: Sodium is climbing a little bit we will await nephrology's evaluation for intervention Physical Exam Narrative General: Lethargic, no apparent distress HEENT: Atraumatic, PERRLA, normocephalic Oral: Moist Mucosa Neck: Supple, No JVD Lungs: Diminished, Normal air movement, No rhonchi, No wheeze, rales Cardiovascular: Regular rate, Regular Rhythm, Normal S1, Normal S2, No murmurs Abdomen: Soft, Non Tender, slightly distended, No Hepato-splenomegaly Extremities: Anasarca with weeping, Capillary Refill Less than 3 Seconds Skin: No rashes, No breakdown Musculoskeletal: No Tenderness to Palpation of Joints or Extremities Neurological: Does not follow commands Psych/Mental Status: Lethargic Weight / BMI Weight Weight: 220 lb 14.451 oz Body Mass Index (BMI) 39.1 ABG / Lab / Microbiology Data 04/30/23 07:25 04/30/23 07:25 Laboratory: Laboratory Results - last 24 hr 04/30/23 07:25: WBC 10.7, RBC 2.64 L, Hgb 8.3 L, Hct 28.2 L, MCV 106.8 H, MCH 31.4, MCHC 29.4 L, RDW Std Deviation 70.5 H, RDW Coeff of Albert 19.4 H, Plt Count 90 L, MPV 9.1, Differential Comment COMMENT, PT 20.5 H, INR 1.8, Sodium 148 H, Potassium 4.6, Chloride 125 H, Carbon Dioxide 20.0 L, Anion Gap 3 L, BUN 61 H, Creatinine 3.79 H, Estim Creat Clear Calc 10.45, Est GFR (MDRD) Af Amer 15 L, Est GFR (MDRD) Non-Af 12 L, BUN/Creatinine Ratio 16.1, Glucose 145 H, Calcium 9.4, Total Bilirubin 0.80, AST 15, ALT 14, Alkaline Phosphatase 111, Total Protein 5.3 L, Albumin 2.7 L, Globulin 2.6, Albumin/Globulin Ratio 1.0 Meaningful Use Info Meaningful Use Diagnoses (Choose all that apply): None applicable Discharge Plan Admission Admit Date/Time: 04/18/23 22:35 Attending Provider: Kotsonis,Mihai F Primary Care Provider: Christopher Spencer Consulting Providers: Vik Grove; Marshall Donato; Walt Jimenez; Massimo Canales; Francisco Javier Martin; Vik Garcia; Louise Xiong; Carolina Peralta; Cherelle Chan [employer]NCIL[employer] Discharge Orders/Prescriptions Prescriptions: No Action lactulose 10 gram/15 mL solution 15 ml PO TID Patient Comments: start date 04/15/2023, for labs for 90 days rifaximin 550 mg tablet 550 mg PO BID Patient Comments: (old comment-cost is over $800 a month so is not taking at this time) on current med list as discontinued 04/18/2023 furosemide 20 mg tablet 20 mg PO DAILY cholecalciferol (vitamin D3) 50 mcg (2,000 unit) tablet,chewable 50 mcg PO DAILY ferrous sulfate 324 mg (65 mg iron) tablet,delayed release (DR/EC) 324 mg PO DAILY acetaminophen 325 mg capsule 650 mg PO Q4H PRN (Reason: pain) calcium carbonate-vitamin D3 [Caltrate with Vitamin D3] 600 mg-20 mcg (800 unit) tablet 2 tab PO DAILY cefdinir 300 mg capsule 300 mg PO DAILY Patient Comments: start date: 04/16/2023, x3 days guaifenesin 100 mg/5 mL liquid 200 mg PO Q4H PRN (Reason: cough) polyethylene glycol 3350 [Miralax] 17 gram powder in packet 17 g PO DAILY PRN (Reason: constipation) ascorbic acid (vitamin C) [Vitamin C] 1,000 mg tablet 1 g PO DAILY Referrals / Follow Up: Christopher Spencer DO [Primary Care Provider] - Charges/Coding Visit Charges Inpatient E&M: 55639 Disch Hosp >30min
--- NOTE | 2023-04-30 14:20 | CASEMGMT ---
Social Work - DISCHARGE NOTE Anita from Hospice to unit today to meet with patient and family. Decision to admit to hospice and patient is being admitted to [facility]ospice IPU. Hospice will provide transport at 1800 today. No other needs requested or indicted. Per Anita, nursing aware of time of transfer. PLAN: Hospice IPU at 1800 -BERHANE Gumzan
[2023-04-30 14:35] VITALS: RESP 26
[2023-04-30] MEDS: Atropine Sulfate 1% 2 ml Bottle 4 DRP PO (15:25)
--- NOTE | 2023-04-30 17:07 | PCM.DEATH ---
Preliminary Cause of Preliminary Cause of Preliminary Cause of : Liver failure complicated by hepatorenal syndrome Date of Admission: 04/18/23 Date of : 04/30/23 Principle Diagnosis Problem List: Active and Suspected Problems (Updated 04/22/23 @ 14:26 by Sharee Sahu, DATA ENTRY SPECIALIST-C) Acute kidney injury (Acute) Hepatic encephalopathy (Acute) Cirrhosis of liver with ascites (Acute) Confusion (Acute) Ascites (Acute) Diabetes mellitus, type 2 (Acute) Hospital Course Mrs. High was a 77-year-old female who presented to the hospital with altered mental status consistent with hepatic encephalopathy. She did have a chronic history of [place] that was being managed as an outpatient. She had recently been admitted to an outside hospital for similar issue and was able to be discharged after treatment with lactulose. She had had a paracentesis during this admission that removed about 2 L of fluid from her abdomen. In the hospital she did develop a GI bleed and her hemoglobin went down to 6.6. She was transfused 1 unit of packed red blood cells and had an EGD which demonstrated oozing gastric ulcers with portal hypertensive gastropathy. She was continued on a PPI as well as octreotide however she continued to decline. Her mental status would transiently recover throughout the day but she was consistently having difficulty taking medications. Ultimately hospice conversations occurred and family had elected to proceed with hospice on 04/30/2023 and while waiting for transportation to the inpatient unit continue with hospice care Mrs. High at 1705 on 04/30/2023.
--- NOTE | 2023-04-30 17:11 | NURSING ---
1705 family to nurses station states they feel pt has . said nurse to room, absence of respirations and apical pulse; verified by Renea SWAINrn discharge nurse. notified and report of started.
--- NOTE | 2023-04-30 19:17 | NURSING ---
all family have left bedside and indicate no other family will be arriving. [place] phoning home to come pick body up. Post mortum care will be started by GENER[employer] ENGINEERING [employer]. Charge nurse aware.
== END 2023-04-30 20:00 | DRG 441 ==
LOC: ED 21:58 → MS3 22:44
PROVIDERS: Hospitalist; Internal Medicine; Internal Medicine Gastroenterology; Admitting Provider Internal Medicine; Emergency Provider Emergency Medicine; PCP Preventive Medicine Occupational Medicine; Visit Provider Family Medicine
PROC: 0DJ08ZZ Inspection of Upper Intestinal Tract, Via Natural or Artificial Opening Endoscopic (ICD-10-PCS; CPT 43235; principal; 2023-04-22 15:30)
DX: K76.82 Hepatic encephalopathy (principal); E43 Unspecified severe protein-calorie malnutrition; G93.41 Metabolic encephalopathy; K25.4 Chronic or unspecified gastric ulcer with hemorrhage; K76.7 Hepatorenal syndrome; N17.9 Acute kidney failure, unspecified; E87.0 Hyperosmolality and hypernatremia; R18.8 Other ascites; I13.0 Hypertensive heart and chronic kidney disease with heart failure and stage 1 through stage 4 chronic kidney disease, or unspecified chronic kidney disease; Z68.41 Body mass index [BMI] 40.0-44.9, adult; K76.6 Portal hypertension; I50.32 Chronic diastolic (congestive) heart failure; K72.10 Chronic hepatic failure without coma; E11.22 Type 2 diabetes mellitus with diabetic chronic kidney disease; I11.0 Hypertensive heart disease with heart failure; K74.69 Other cirrhosis of liver; E03.9 Hypothyroidism, unspecified; N18.9 Chronic kidney disease, unspecified; D63.8 Anemia in other chronic diseases classified elsewhere; E78.5 Hyperlipidemia, unspecified; K31.89 Other diseases of stomach and duodenum; K21.00 Gastro-esophageal reflux disease with esophagitis, without bleeding; E86.9 Volume depletion, unspecified; K75.81 Nonalcoholic steatohepatitis (NASH); E86.0 Dehydration; K25.9 Gastric ulcer, unspecified as acute or chronic, without hemorrhage or perforation; Z87.891 Personal history of nicotine dependence; E66.9 Obesity, unspecified; Z66 Do not resuscitate; Z92.21 Personal history of antineoplastic chemotherapy; Z79.899 Other long term (current) drug therapy
CPT/HCPCS: 36415; 36569; 49083; 70450; 71045; 71250; 76705; 76770; 80048; 80053; 80074; 81001; 82085; 82105; 82140; 82550; 82570; 82728; 82784; 83036; 83516; 83605; 83615; 83690; 83735; 83874; 84100; 84165; 84300; 84436; 84443; 84481; 85025; 85027; 85610; 85730; 86255; 86256; 86334; 86850; 86900; 86901; 86920; 86922; 88108; 88305; 88313; 89050; 92610; 93005; 94640; 94668; 97110; 97162; 97166; 97530; 97535; 97802; 97803; 99252; 99285; J7030; J7040; J7120; P9016; P9047; A4216; G0463; J2354; J2405